=== PATIENT | female | born 1940 | race Caucasian/White ===

== ENCOUNTER 2023-04-16 10:11 | Emergency (ER) | payer MEDICARE, SELFPAY ==
[2023-04-16 10:24] VITALS: BP 162/99; PULSE 80; RESP 18; TEMP 36.2; O2SAT 99
--- NOTE | 2023-04-16 10:42 | ED.URI ---
HPI - URI/Sore Throat General Chief Complaint: Upper Respiratory Infection Stated Complaint: Congestion,Sore Throat,Bilateral Ear Irritation Time Seen by Provider: 04/16/23 10:31 Source: patient and RN notes reviewed Mode of arrival: ambulatory Limitations: no limitations History of Present Illness HPI Narrative: Presents today complaining of bilateral ear pain, postnasal drip, rhinorrhea, cough due to drainage, and scratchy throat x1 month. The ear pain and pressure has worsened over the last couple of days. Does fever shortness of breath. Patient has been taking Benadryl and Mucinex without much relief. Related Data Home Medications Medication Instructions Recorded Confirmed alendronate 70 mg tablet 70 mg PO DAILY 04/16/23 04/16/23 atorvastatin 20 mg tablet 20 mg PO DAILY 04/16/23 04/16/23 carvedilol 25 mg tablet 25 mg PO DAILY 04/16/23 04/16/23 clorazepate dipotassium 3.75 mg 3.75 mg PO TID 04/16/23 04/16/23 tablet diphenhydramine HCl 25 mg capsule 25 mg PO DAILY 04/16/23 04/16/23 (Benadryl) donepezil 10 mg tablet 10 mg PO DAILY 04/16/23 04/16/23 famotidine 20 mg tablet 20 mg PO TID 04/16/23 04/16/23 furosemide 40 mg tablet 40 mg PO DAILY 04/16/23 04/16/23 gabapentin 600 mg tablet 1,200 mg PO TID 04/16/23 04/16/23 insulin glargine U-300 conc 300 40 unit subcut DAILY 04/16/23 04/16/23 unit/mL (1.5 mL) subcutaneous pen (Niyah Joe U-300 Insulin) lisinopril 20 mg tablet 20 mg PO DAILY 04/16/23 04/16/23 magnesium oxide 400 mg PO BID 04/16/23 04/16/23 metformin 500 mg tablet 500 mg PO BID 04/16/23 04/16/23 methenamine hippurate 1 gram 1 g PO DAILY 04/16/23 04/16/23 tablet (Hiprex) pen needle, diabetic 31 gauge x 04/16/23 04/16/2316 (BD Ultra-Fine Short Pen Needle) potassium chloride 10 mEq 10 meq PO BID 04/16/23 04/16/23 tablet,extended release quetiapine 25 mg tablet 25 mg PO HS 04/16/23 04/16/23 sertraline 100 mg tablet 200 mg PO DAILY 04/16/23 04/16/23 solifenacin 10 mg tablet 10 mg PO DAILY 04/16/23 04/16/23 venlafaxine 150 mg 300 mg PO DAILY 04/16/23 04/16/23 capsule,extended release 24 hr zolpidem 10 mg tablet 10 mg PO HS 04/16/23 04/16/23 Allergies Allergy/AdvReac Type Severity Reaction Status Date / Time adrenal cortex (porcine) Allergy Unknown Other Verified 04/16/23 10:13 cefdinir AdvReac Mild Itching Verified 04/16/23 10:44 cephalexin AdvReac Mild Hives Verified 04/16/23 10:13 nitrofurantoin AdvReac Mild Hives Verified 04/16/23 10:44 CEPHALEXIN MONOHYDRATE AdvReac Mild hives Uncoded 04/16/23 10:13 Review of Systems Review of Systems: CONSTITUTIONAL: Denies body aches, fever, chills, or sweats. EYES: Denies visual changes, redness, or discharge. ENT: Denies congestion. + bilateral ear pain and pressure, postnasal drip, scratchy throat, rhinorrhea CARDIOVASCULAR: Denies chest pain, palpitations, or edema. RESPIRATORY: Denies dyspnea.+ cough GASTROINTESTINAL: Denies abdominal pain, nausea, vomiting, or diarrhea. GENITOURINARY: Denies dysuria or hematuria. SKIN: Denies rash, itching, or wounds. MUSCULOSKELETAL: Denies back pain, joint pain, or myalgia. NEUROLOGIC: Denies headache, numbness, tingling, or weakness. PSYCH: Denies depression or anxiety. [facility] Past Medical History Medical History (Updated 04/16/23 @ 10:47 by Kaylene Alvarado, YVONNE, BC) Anxiety and depression Essential hypertension Fibromyalgia Insomnia Palpitations Peripheral edema Type 2 diabetes mellitus without complication Social History Social History Smoking status: Never smoker Alcohol intake: never Comments At time of signature, I have reviewed and agree with nursing past medical, surgical, social and family history unless otherwise noted. Please see nursing chart for further information. There is no relevant family history pertinent to the presenting complaint Exam Narrative: GENERAL: Well-appearing, well-nourished,
== END 2023-04-16 10:48 | disposition home or self-care (01) ==
PROVIDERS: Emergency Provider Nurse Practitioner; PCP Physician Assistant Medical
DX: J01.90 Acute sinusitis, unspecified (principal); I10 Essential (primary) hypertension; M79.7 Fibromyalgia; E11.9 Type 2 diabetes mellitus without complications; Z79.4 Long term (current) use of insulin; F41.9 Anxiety disorder, unspecified; F32.A Depression, unspecified
CPT/HCPCS: 99213; G0463

== ENCOUNTER 2024-06-09 09:00 | Outpatient (RCR) | payer MEDICARE, MEDICAID, SELFPAY ==
--- NOTE | 2024-05-05 10:34 | PTOPEVAL1 ---
Assessment and note entered by Tania Jean, PT Evaluation Information Assessment Status Evaluation Diagnosis M25.561 ICD-10 Condition Codes (PT) Pain in right hip M25.551,M25.561,M25.571,Repeated falls R29.6,Difficulty Walking R26.2,R26.9, Weakness R53.1 Onset approx December 2023 Subjective Information Pt reports h/o fall last 12/2023 which resulted to knee fracture, 2 weeks after the fall, she could not get up and walk due to excruciating pain prompting her to get an MD appointment. Has been using 4ww for 2 years now, states she wasn't using the walker at that time that she had the fall due to she was at the kitchen, preferred to furniture walk due to limited space. States her ankle turned and she was not able to feel or control it due to h/o neuropathy. Reports had multiple falls in the past and she always seem to land on her R knee. Lives in [facility], only ambulates short distances. She has chronic BLE swelling and she has a helper that comes everyday for housekeeping and meals, they would help her putting compression stockings on. Reported Pain Level Pain Score 5: Self Report Assessment PT Clinical Summary Pt is an 83 yo female who presents to therapy with c/o increasing R knee pain. Demos significant reduction in ROM and strength, noted swelling and erythema to bilat lower legs and ankles, edema evident from R thigh down to R ankle; scored 9 in LEFS and demos antalgic gait pattern and other gait deviations using a 4WW, decreased standing and ambulation tolerance. She will benefit from skilled PT intervention to address pain, improve strength and mobility to improve indep standing and ambulation with appropriate AD and reduce risk for falls. Plan of Care Interventions Electrical Stimulation,Gait Training,Hot Pack/Cold Pack,Intermittent Compression,Manual Therapy, Neuro Re-education,Patient/Caregiver Education, Therapeutic Activities,Therapeutic Exercise, Ultrasound,Other Other Interventions IASTM, Taping PT Services Indicated Yes Treatment Frequency and 1-2x/wk x 8 visits Duration These treatments will address the objective and functional deficits as defined above. The patient will be advanced safely and appropriately in order for the patient to progress towards his/her prior level of function. Additional exercises will be introduced and as well as a comprehensive home exercise program upon discharge, if needed, ?to ensure carryover of functional gains achieved in the clinic. This treatment plan has been reviewed and agreement upon by the patient.
--- NOTE | 2024-05-24 09:40 | PCPTNOTE ---
Patient called & cancelled scheduled appointment this date due to illness today
--- NOTE | 2024-06-02 09:53 | PTOPPROG ---
Assessment and note entered by Rani Driver, PT Evaluation Information Assessment Status Progress Diagnosis M25.561 ICD-10 Condition Codes (PT) Pain in right hip M25.551,M25.561,M25.571,Repeated falls R29.6,Difficulty Walking R26.2,R26.9, Weakness R53.1 Onset approx December 2023 Subjective Information Pt had Ortho appt two days ago and had fluid drained off and got a steroid shot which she states is helping. Pt reports notes soreness both legs having muscle soreness as she does her exercises on both legs. States knees are about the same, is able to walk a little longer than usual, but reports getting up and down from chairs is the same Improvement toward goals: 10% Assessment PT Clinical Summary Pt has attended 6/8 scheduled therapy sessions. She continues to report high levels of pain with minimal change in presentation. She does show improvement in gait distance, strength, and range of motion. She has progressed in all goals and has met multiple short term goals. Pt will benefit from continued therapy to continue towards goal and continue improvement in function. Plan of Care Interventions Electrical Stimulation,Gait Training,Hot Pack/Cold Pack,Intermittent Compression,Manual Therapy, Neuro Re-education,Patient/Caregiver Educati, Therapeutic Activities,Therapeutic Exercise, Ultrasound,Other Other Interventions IASTM, Taping PT Services Indicated Yes Treatment Frequency and 1-2x weekly x 8 visits Duration These treatments will address the objective and functional deficits as defined above. The patient will be advanced safely and appropriately in order for the patient to progress towards his/her prior level of function. Additional exercises will be introduced and as well as a comprehensive home exercise program upon discharge, if needed, ?to ensure carryover of functional gains achieved in the clinic. This treatment plan has been reviewed and agreement upon by the patient.
--- NOTE | 2024-06-14 09:25 | PCPTNOTE ---
Patient called & cancelled scheduled appointment this date due to her helper not arriving a her home to bring her to therapy.
--- NOTE | 2024-06-25 13:46 | PCPTNOTE ---
Rehab called patient when she was 10 minutes late for appt. Pt states her caregiver has not been coming to drive her to her appts, and cancelled her remaining appts till July of 2024
--- NOTE | 2024-07-09 13:15 | PCPTNOTE ---
Patient called & cancelled scheduled appointment this date due to illness
--- NOTE | 2024-07-14 10:45 | PCPTNOTE ---
Patient called & cancelled scheduled appointment 07/12/2024 due to weather
--- NOTE | 2024-07-20 15:23 | PTOPDC ---
Assessment and note entered by Rani Driver, PT Evaluation Information Assessment Status Discharge - Pt Not Present Diagnosis M25.561 ICD-10 Condition Codes (PT) Pain in right hip M25.551,Pain in right knee M25. 561,Pain in right ankle and joints of right foot M25.571,Repeated falls R29.6,Difficulty Walking R26.2,Abnormalities of gait and mobility R26.9, Weakness R53.1 Onset approx December 2023 Subjective Information Pt had Ortho appt two days ago and had fluid drained off and got a steroid shot which she states is helping. Pt reports notes soreness both legs having muscle soreness as she does her exercises on both legs. States knees are about the same, is able to walk a little longer than usual, but reports getting up and down from chairs is the same Improvement toward goals: 10% Assessment PT Clinical Summary Pt as not attended therapy in over 30 days. Upon last communication pt stated she was going to be seeing her ortho doctor about her knee so she wanted to hold off on therapy until after this point. Thus we are discharging based on patient request and due to nonattendance. Plan of Care PT Services Indicated No
== END 2024-07-27 13:12 | disposition home or self-care (01) ==
LOC: ANHHIPT 09:00
PROVIDERS: PCP Physician Assistant Medical; Visit Provider Physician Assistant Medical
DX: M25.561 Pain in right knee (principal)
CPT/HCPCS: 97014; 97110; 97116; 97161; 97530; 97750; G0283

== ENCOUNTER 2024-08-31 07:46 | Outpatient (CLI) | payer MEDICARE, MEDICAID, SELFPAY ==
--- NOTE | ~2024-08-31 | MR_ITS ---
EXAMINATION: MR cervical spine wo/w con DATE: 08/31/2024 10:05 INDICATION: Other symptoms and signs involving the muscular skeletal system. Right lower limb pain. TECHNIQUE: Magnetic resonance imaging (MRI) of the cervical spine was performed without and with 17 m L Multihance intravenous contrast. Sequences included axial PD-weighted FSE-XL, sagittal T1-weighted SE, sagittal PD-weighted FS FRFSE-XL, axial T1-weighted SE, coronal PD-weighted FS FSE-XL, coronal T1 -weighted SE, axial T1-weighted FS SE. Postcontrast sequences included axial T1-weighted FS SE, sagit mary T1-wegihted FS SE, and sagittal STIR FSE-XL. COMPARISON: None FINDINGS: Bone alignment is normal. Vertebral body heights are normal. Bone marrow signal intensity is normal . Severe disc height loss at C5-C6. Moderate disc height loss at C3-C4, C4-C5 and C6-C7 and mild disc height loss at C2-C3 and C7-T1. Cord signal intensity is normal. Cervical soft tissues are unremarka ble. No abnormally enhancing lesions identified. The following disc levels are specifically discussed : C2-C3: The disc does not extend beyond the endplate margin. There is no uncovertebral joint osteoarth ritis. There is mild left and moderate right facet joint osteoarthritis. There is mild left neural fo raminal stenosis. There is no central canal stenosis. C3-C4: Disc is bulging. There is mild right and moderate left uncovertebral joint osteoarthritis. The re is mild right and moderate left facet joint osteoarthritis. There is moderate right and moderate l eft neural foraminal stenosis. There is mild central canal stenosis. C4-C5: Disc is bulging. There is mild right and moderate left uncovertebral joint osteoarthritis. The re is mild right and moderate left facet joint osteoarthritis. There is moderate right and moderate l eft neural foraminal stenosis. There is mild central canal stenosis. C5-C6: Disc is bulging with mild indentation of the right ventral surface of the cord. There is sever e bilateral uncovertebral joint osteoarthritis. There is moderate bilateral facet joint osteoarthriti s. There is moderate bilateral neural foraminal stenosis. There is mild central canal stenosis. C6-C7: Disc is bulging. There is moderate right and severe left uncovertebral joint osteoarthritis. T here is moderate right and mild left facet joint osteoarthritis. There is mild right and moderate lef t neural foraminal stenosis. There is mild central canal stenosis. C7-T1: The disc does not extend beyond the endplate margin. There is mild bilateral uncovertebral aylin nt osteoarthritis. There is moderate right and severe left facet joint osteoarthritis. There is minim al left neural foraminal stenosis. There is no central canal stenosis. IMPRESSION: 1. Severe cervical spondylosis. Reviewed, dictated and finalized at location B. AGING ASSEMBLER
--- NOTE | ~2024-08-31 | MR_ITS ---
EXAMINATION: MR thoracic spine wo/w con DATE: 08/31/2024 10:05 INDICATION: Anesthesia of skin. TECHNIQUE: Magnetic resonance imaging (MRI) of the thoracic spine was performed without and with 17 m L Multihance intravenous contrast. Sagittal localizer T1-weighted FSE of the cervicothoracic spine wa s obtained. Sequences included sagittal T2-weighted FSE, sagittal T2-weighted FS FSE, sagittal T1-fern ghted FSE and axial T1-weighted SE. Postcontrast sequences included axial T2-weighted FSE, sagittal T 1-weighted FS FSE, and axial T1-weighted FS SE. COMPARISON: None FINDINGS: Normal alignment of the thoracic spine. There is 3 mm right lateral listhesis of L1 on L2. 4 mm anter olisthesis L3 on L4. Chronic T7 compression fracture with10% anterior vertebral body height loss. Rem aining vertebral body heights are normal. Schmorl's node along the inferior endplate of L2. There ar e severe disc height loss with fibrovascular degenerative endplate changes [id number], L1-L2 and L2-L3 and with T1 hyperintense fibrofatty degenerative endplate changes at L3-L4. Marrow signal is otherwi se normal throughout. Additional severe disc height loss at T6-T7 and T8-T9, moderate disc height los s at T3-T4, T4-T5 and T9-T10 and mild disc height loss the remaining thoracic levels. The discs extend beyond the endplate margins at multiple levels in the thoracic levels with the excep tion of T5-T6 and T9-T10. The most prominent are seen with associated annular fissure is and result i n mild central canal stenosis. These include disc bulge at T8-T9, a left paracentral disc extrusion a t T10-T11 and a central disc extrusion at T12-L1. Additional annular fissures with prominent disc ext rusions are seen on the sagittal images at L1-L2 and L2-L3 with mild central canal stenosis and at L3 -L4 with moderate central canal stenosis. There is normal spinal cord signal. The conus terminates at L1. No abnormally enhancing lesions identified. There is multilevel mild to moderate bilateral thoracic facet osteoarthritis. There is severe left-si ded and moderate right-sided neural foraminal stenosis at T10-T11. There is mild neural from stenosis throughout the majority the remainder of the thoracic spine. On sagittal images there is moderate to severe neural from stenosis on the right at L3-L4 and moderate neural foraminal stenosis on the left at L1-L2 and mild neural from stenosis at the remaining visualized lumbar neural foramina. IMPRESSION: 1. Moderate to severe thoracic spondylosis. 2. Severe lumbar spondylosis seen on the sagittal imaging. Reviewed, dictated and finalized at location B. OTIC FITTER
--- OUTSIDE RECORDS SUMMARY | 2024-08-31 07:49 | XMS_ITS ---
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 Name Role Phone zzzzMigration, zzzzProvider Unavailable Unav ailable REASON FOR VISIT [facility] Encounters Encounter Location Date Provider Diagnosis [facility] [address] [place] [address] 04/26/2023 zzzzProvider zzzzMigration Plan Of Treatment No Information Progress Notes * Carissa CAMPOSOB:[birth year] (83 yo F)Acc No.[id number]:04/26/2023 Patient: Roxana CULVER :1940 A ge:82 Y S ex:Female Address[address] [facility] [address] Subjective: * Chief Complaints: * E MR-Yao * Medical History: * Surgical History: * Hospitalization/Major Diagno stic Procedure: * Medications: Objective: * Vitals: * Physical Examination: Assessment: Plan: * Treatment: * Procedure Codes: * * Date:
--- OUTSIDE RECORDS SUMMARY | 2024-08-31 07:50 | XMS_ITS | Clinical Summary ---
Author Organization [facility] [address] Address [address] [place] [address] Care Team Providers Care Director Technical Name Role Phone Jodie Steiner Primary Care Provider [phone] UngRandy muse MD Unavailable [phone] Allergies Active Allergy Reactions Criticality Noted Date Comments Adrenal Cortex (Bovine) Rash Medium 12/31/2013 Cefdinir Itching Low 05/08/2018 Cephalexin Unknown 05/15/2012 Nitrofurantoin Hives,Itching,Rash Medium 05/15/2020 welts Medications atorvastatin (LIPITOR) 20 mg tablet TAKE ONE T PO D AT BEDTIME 2 04/05/20 18 Active magnesium oxide (MAG-OX) 400 mg (241.3 mg elemental magnesium) tabletIndicati ons:hypomagnes emia TK 1 T PO BID 0 04/04/20 18 Active venlafaxine XR (EFFEXOR-XR) 150 mg 24 hr capsule TK 2 CS PO QAM 1 04/21/20 18 Active sertraline (ZOLOFT) 100 mg tablet TK 2 TS PO QAM 1 04/14/20 18 Active metFORMIN (GLUCOPHAGE) 500 mg tablet Take 1 tablet (500 mg total) by mouth 2 (two) times a day 1 01/29/20 18 Active zolpidem (AMBIEN) 10 mg tabletIndicati ons:Sleep-Onse t Insomnia Take 1 tablet (10 mg total) by mouth nightly 1 04/15/20 18 Active clorazepate (TRANXENE) 3.75 mg tablet Take 1 tablet (3.75 mg total) by mouth 4 (four) times a day 0 03/31/20 18 Active cholecalcifero l (VITAMIN D-3) 25 mcg (1,000 unit) tablet TAKE 1 CAPSULE DAILY Active ascorbic acid (VITAMIN C) 500 mg tablet,chewabl e TAKE 1 TABLET DAILY Active gabapentin (NEURONTIN) 600 mg tablet Take by mouth 3 (three) times a day 6 04/20/20 18 Active NYSTOP powder as needed 0 04/04/20 18 Active b complex vitamins capsule Take 2 capsules by mouth daily Active LANTUS SOLOSTAR U-100 INSULIN 100 unit/mL (3 mL) insulin pen Inject 25 Units as directed 2 (two) times a day 2 03/03/20 19 Active QUEtiapine (SEROquel) 25 mg tablet Take 2 tablets (50 mg total) by mouth nightly 08/20/19 21 Active ZINC ORAL Take by mouth Active cyanocobalamin (Vitamin B-12) 1,000 mcg tablet Take 1 tablet (1,000 mcg total) by mouth daily Active famotidine (PEPCID) 20 mg tablet Take 1 tablet (20 mg total) by mouth 3 (three) times a day as needed Active flaxseed oiL 1,000 mg capsule Take 1 capsule (1,000 mg total) by mouth daily Active methenamine (HIPREX) 1 gram tablet Take 2 tablets (2 g total) by mouth daily 07/02/20 21 Active solifenacin (VESIcare) 10 mg tablet Take 1 tablet (10 mg total) by mouth daily 08/10/19 22 Active alendronate (FOSAMAX) 70 mg tablet Take 1 tablet (70 mg total) by mouth once a week 02/02/20 22 Active donepeziL (ARICEPT) 5 mg tablet Take 2 tablets (10 mg total) by mouth every morning 08/27/19 23 Active diphenhydramin e HCl (BENADRYL ORAL) Take by mouth Active biotin 1 mg tablet Take 1 tablet (1,000 mcg total) by mouth 3 (three) times a day Active CALCIUM ORAL Take 600 mg by mouth early head start teacher before breakfast Active guaiFENesin ER (MUCINEX) 600 mg 12 hr tablet Take 2 tablets (1,200 mg total) by mouth as needed for cough Active lisinopriL (PRINIVIL,ZEST RIL) 20 mg tablet TAKE 1 TABLET DAILY 90 tablet 3 09/15/19 24 Active Gemtesa 75 mg tablet Take 75 mg by mouth daily 07/25/19 24 Active cycloSPORINE (RESTASIS) 0.05 % ophthalmic emulsion 1 drop 2 (two) times a day 08/27/19 24 Active clotrimazole-b etamethasone (LOTRISONE) cream as needed 08/21/19 24 Active psyllium 0.4 gram capsule Take 520 mg by mouth 2 (two) times a day Active BD Ultra-Fine Short Pen Needle 31 gauge x 5/16 needle 07/28/19 24 Active carvediloL (COREG) 25 mg tablet TAKE 1 TABLET TWICE A DAY WITH MEALS 180 tablet 3 01/06/20 24 Active mecobalamin, vitamin B12, 1,000 mcg tablet,chewabl e Take 1,000 mg by mouth early head start teacher before breakfast Active multivitamin tabletIndicati ons:Vitamin Deficiency Prevention Take 1 tablet by mouth daily Active nortriptyline (PAMELOR) 10 mg capsule Take 1 capsule (10 mg total) by mouth nightly Active semaglutide (Ozempic) 1 mg/dose (4 mg/3 mL) pen injector injection Inject 1 mg under the skin once a week Active hydroCHLOROthi azide (MICROZIDE) 12.5 mg capsule Take 1 capsule (12.5 mg total) by mouth daily 90 capsule 3 07/05/20 24 Active aspirin 325 mg tablet TAKE 1 TABLET DAILY 019 Discontinued Active Problems Problem Noted Date Diagnosed Date Otalgia of both ears 05/27/2023 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 Discussed that weight loss will require calorie deficit. Calculated basal metabolic rate and estimated total energy expenditure; discussed 500-1000 kcal/day deficit to lose 1-2 lb per week. Asked to keep detailed food diary for at least 1 week and bring to next visit. Discussed relatively small, although significant, role of exercise in weight loss; greater importance in weight maintenance as shown in Look Ahead study and National Weight Control Registry. Discussed recommendation/goal for 150 minutes per week moderate-intensity aerobic exercise. (HFpEF) heart failure with p reserved ejection fraction ([facility]) 04/18/2018 Sleep apnea 07/07/2017 Assessment & Plan (03/12/2021 6:08 PM CDT): Discussed comorbidities associated with sleep apnea, including effects on weight, and stressed importance of adequate treatment if present. Hyperlipidemia 03/28/2014 Assessment & Plan (03/12/2021 6:12 PM CDT): Discussed role of diet, exercise and weight loss in improving lipid profile. Type 2 diabetes mellitus wit h kidney complication, with long-term current use of insulin 07/07/2012 Assessment & Plan (03/12/2021 6:14 PM CDT): Reviewed recent labs. Discussed insulin resistance including effect on weight. Recommended low-carb, low-glycemic diet; choose whole grains and avoid more highly processed carbohydrates. Discussed potential benefits of this w/r/t gut microbiome. Referred to ADA and [employer] websites for additional information on topics including glycemic index/carbohydrate choices, protein sources. Discussed potential for weight gain with insulin and discussed possible use of GLP-1 RA. Consider empaglifozin in setting of HFpEF. Class 2 severe obesity due t o excess calories with serious comorbidity and body mass index (BMI) of 38.0 to 38.9 in adult 07/07/2012 Assessment & Plan (03/12/2021 6:16 PM CDT): Obesity is worsening. General weight loss/lifestyle modification strategies discussed (elicit support from others; identify saboteurs; non-food rewards, etc). Diet interventions: as noted. Informal exercise measures discussed, e.g. taking stairs instead of elevator. Regular aerobic exercise program discussed. Essential hypertension 05/15/2012 Assessment & Plan (03/12/2021 6:15 PM CDT): Reviewed role of diet, exercise, weight loss in controlling blood pressure. Recommended low sodium/DASH diet. Continue current medications. Appropriately on TERESITA-I/ARB. Encounters Date Type Department Care Team Description 08/16/2024 Telephone [facility] Cardiology [address] [place] [address] [place] [address] Anival Donis MD 07/22/2024 Telephone [facility] Cardiology [address] [place] [address] [place] [address] Anival Donis MD knee surgery from Last 3 Months Surgical History Surgery Date Site/Laterality Comments APPENDECTOMY 07/07/1985 - 07/06/1986 CATARACT EXTRACTION 2008,2009 FRACTURE SURGERY elbow broke 2018 CHOLECYSTECTOMY 07/07/1998 - 07/06/1999 HYSTERECTOMY 07/07/1985 - 07/06/1986 BLADDER SURGERY 1985 bladder lift RETINA SURGERY Medical History Medical History Date Comments GERD (gastroesophageal reflux disease) 2000 Anxiety 1989 Cataract 2008,2009 Depression 1998 Diabetes mellitus (HCC) 2012 Hypertension 1989 Sleep apnea 2017 Menstrual problem hysterectomy 1985 Nasal congestion Ear problems Tinnitus Dizziness Family History Medical History Relation Name Comments Heart attack Brother 1 Ignacio Family history of myocardial infarction - (Added by TW Conv) Depression Brother 2 Giovani Diabetes Brother 3 Giovani E Depression Daughter Ashley Diabetes Father Kimberli Stroke Father Panaca Family history of cerebrovascular accident - (Added by TW Conv) Vision loss Maternal Grandmother Mary Lou Miscarriages / Stillbirths Mother Mindi Depression Sister 1 Natali Diabetes Sister 2 Natali B Miscarriages / Stillbirths Sister 3 Natali Br Obesity Sister 4 Natali Ness Relation Name Status Comments Brother 1 Ignacio Brother 2 Giovani Brother 3 Giovani E Daughter Ashley Father Kimberli Maternal Grandmother Mary Lou Mother Mindi Sister 1 Natali Sister 2 Natali B Sister 3 Natali Br Sister 4 Natali Ness Social History Tobacco Use Types Packs/Day Years Used Date Smoking Tobacco: Never Smokeless Tobacco: Never Tobacco Cessation:Counseling Given: Not Answered AUDIT-C Answer Date Recorded Frequency of Alcohol Consumption Not on file 05/27/2023 Q2: How many drinks containi ng alcohol do you have on a typical day when you are drinking? Patient does not drink Q3: How often do you have si x or more drinks on one occasion? Never 05/27/2023 Comments Unknown Sex and Gender Information Value Date Recorded Sex Assigned at Not on file Legal Sex Female 7:28 AM [employer] RETINAL [employer] Gender Identity Not on file Sexual Orientation Not on file Obstetrics History Last Filed Vital Signs Vital Sign Reading Time Taken Comments Blood Pressure 140/70 09/15/2023 1:32 PM CDT Pulse 66 09/15/2023 1:32 PM CDT Temperature 36.6 C (97.8 F) 09/15/2023 1:32 PM CDT Respiratory Rate 12 09/15/2023 1:32 PM CDT Oxygen Saturation 98% 09/15/2023 1:32 PM CDT Inhaled Oxygen Concentration - - Weight 99.1 kg (218 lb 6.4 oz) 09/15/2023 1:32 P M CDT Height 157.5 cm (5' 2 ) 09/15/2023 1:32 PM CDT Body Mass Index 39.95 09/15/2023 1:32 PM CDT Plan of Treatment Health Maintenance Due Date Last Done Comments Albumin Creatinine Ratio, Urine 1940 Depression Screening 1941 Fall Risk Assessment 1940 Hemoglobin A1C 1940 Dilated Eye Exam 1941 Foot Exam 1940 Hepatitis B Screening 12/03/1959 Zoster Vaccine (1 of 2) 12/03/1991 Well Visit 65+ 2006 Lipid Panel 06/28/2021 06/28/2020 Covid-19 Vaccine ( - 2023-2 5 season) 2024 05/14/2021, 09/01/2020, 08/04/2020 Influenza Vaccine (#1) 2024 , 04/13/2020, 04/07/2019, Additional history exists DTaP/Tdap/Td Vaccine (2 - Td or Tdap) 10/08/2024 10/08/2014 eGFR 03/03/2025 03/03/2024, 02/04, 02/11/2024, Additional history exists Osteoporosis Screening-Bone Density Scan 12/29/2025 12/30/2023, 07/26/2021 Pneumococcal vaccine 65+ Completed 03/06/2020, 04/07 Procedures Procedure Name Priority Date/Time Associated Diagnosis Comments BASIC METABOLIC PANEL Routine 03/03/2024 10:09 AM CDT Essential hypertension from Last 3 Months or Most Recently Relevant to Health Maintenance Results * (ABNORMAL) Basic metabolic panel (03/03/2024 10:09 AM CDT) Glucose 106 65 - 139 mg/dL [facility] Comment: Non-fasting reference interval BUN 18 7 - 25 mg/dL [facility] Creatinine 0.61 0.60 - 0.95 mg/dL [facility] eGFR 89 > OR = 60 mL/min/1.7 3m2 [facility] BUN/creat ratio SEE NOTE: 6 - 22 (calc) [facility] Comment: Not Reported: BUN and Creatinine are within reference range. Sodium 134(L) 135 - 146 mmol/L [facility] Potassium, pl 3.8 3.5 - 5.3 mmol/L [facility] Chloride 96(L) 98 - 110 mmol/L [facility] CO2 30 20 - 32 mmol/L [facility] Calcium 9.7 8.6 - 10.4 mg/dL [facility] Blood 03/03/2024 10:0 9 AM CDT 03/03/2024 10:10 AM CDT Narrative [facility] - 03/04/2024 10:22 AM CDT FASTING:NO FASTING: NO Anival Donis MD LAB BLOOD ORDERABLES F inal Result [facility] [address] [place] [address] from Last 3 Months or Most Recently Relevant to Health Maintenance Insurance MEDICARE [facility] MEDICARE [facility] MEDICARE [facility] Care Teams Director Technical Relationship Specialty Start Date End Date Jodie Steiner PA [address] [place] [id number] PCP - General Physician Land Lease Information Clerk 08/29/23 Randy May MD [address] [place] [address] Referring Physician Orthopedic Surgery 03/15/24
--- OUTSIDE RECORDS SUMMARY | 2024-08-31 07:50 | XMS_ITS | Patient Health Summary ---
Author Organization [facility] Address [address] [place] [address] Care Team Providers Care Key Bed Installer Name Role Phone Jodie Steiner PA-C Primary Care Provider [phone] Note from [facility],non-owned Affiliates and Associated Physician Practices is amultiple site organization consisting of ambulatory clinics and hospital sitesin [place], [place], [place] and [place]. This disclosure is being madepursuant to the Care Everywhere program and may not contain all information available regarding this patient. Last updated 18.[facility] Allergies * Adrenal Cortex Extract(Rash) -Medium Criticality * Cefdinir(Itching) -Low Criticality * Cephalexin(Rash) -Medium Criticality * Nitrofurantoin(Rash,Itching) -Medium Criticality Medications * Be aware that medications may not be up to date on this document. Alwaysverify current medications with the patient. * sertraline (ZOLOFT) 100 MG tablet Take 200 mg by mouth once daily * zolpidem (AMBIEN) 10 MG tablet Take 10 mg by mouth nightly as needed for Insomnia * terconazole (TERAZOL 7) 0.4 % vaginal cream Insert 1 applicator into the vagina at bedtime * raNITIdine (ZANTAC) 150 MG tablet Take 150 mg by mouth 2 times daily * clorazepate (TRANXENE) 3.75 MG tablet Take 3.75 mg by mouth 2 times daily * furosemide (LASIX) 40 MG tablet Take 40 mg by mouth once daily * lisinopril (PRINIVIL; ZESTRIL) 20 MG tablet Take 20 mg by mouth once daily * carvedilol (COREG) 25 MG tablet Take 25 mg by mouth 2 times daily with morning and evening meal * atorvastatin (LIPITOR) 20 MG tablet Take 20 mg by mouth at bedtime * fexofenadine (Magy) 180 MG tablet Take 180 mg by mouth once daily * potassium chloride (KLOR-CON) 10 MEQ tablet Take 10 mEq by mouth once daily * gabapentin (NEURONTIN) 300 MG capsule(Started 08/18/2018) Take 1,200 mg by mouth 3 times daily * MAGNESIUM-OXIDE 400 (241.3 MG) MG tablet(Started 07/22/2018) Take 400 mg by mouth 2 times daily 2 refills left * venlafaxine XR 24hr (EFFEXOR XR) 150 MG capsule(Started 07/22/2018) Take 150 mg by mouth 2 times daily 1 refill left * carisoprodol (SOMA) 350 MG tablet Take 350 mg by mouth 3 times daily 8 to 12 hours as needed * Cranberry 500 MG TABS Take 1 tablet by mouth once daily * Pseudoephedrine-guaiFENesin (GUAIFENESIN 600/PSE 120 PO) Take 1 tablet by mouth 2 times daily as needed * insulin glargine (LANTUS) vial Inject 25 Units subcutaneously 2 times daily * nystatin (Mycostatin) 748401 UNIT/GM powder Apply to affected area 2 times daily as needed * VITAMIN B COMPLEX-C PO Take by mouth once daily * Cyanocobalamin 1000 MCG Take 1 tablet by mouth as directed * Ascorbic Acid (VITAMIN C) 500 MG Take 1 tablet by mouth once daily * vitamin D3 (CHOLECALCIFEROL) 1000 UNIT capsule Take 1,000 Units by mouth once daily * metFORMIN (GLUCOPHAGE) 500 MG tablet(Started 07/28/2019) Take 500 mg by mouth 2 times daily with morning and evening meal * triamcinolone acetonide (KENALOG) 0.1 % ointment(Started 02/14/2020) Apply to affected area 2 times daily * Sodium Chloride (0.9% NACL IV) 0.9 % infusion(Started 09/25/2020) Please give three 100 ml bags. * estrogens, conjugated, (PREMARIN) 0.625 MG/GM vaginal cream(Started 12/25/2020) Insert 1 g into the vagina Two times a week 2 refills by 12/25/2021 * gentamicin (GARAMYCIN) injection(Started 12/26/2020) To be brought to the office for intravesical instillations * Estradiol(Started 01/05/2021) Please compound estradiol 0.15 mg / g vaginal cream in a versa base . Pt to use 1 gram vaginally 2 x week. 2 refills by 01/05/2022 * amoxicillin-clavulanate (AUGMENTIN) 875-125 MG tablet(Started 01/19/2021) Take 1 (one) tablet by mouth 2 times daily with morning and evening meal * ciprofloxacin (CIPRO) 250 MG tablet(Started 07/27/2021) Take 1 (one) tablet by mouth 2 times daily * alendronate (Fosamax) 70 MG tablet(Started 02/01/2022) TAKE 1 TABLET BY MOUTH ONCE A WEEK * Cyanocobalamin 1000 MCG Take 1,000 mcg by mouth once daily * famotidine (Pepcid) 20 MG tablet Take 20 mg by mouth 3 times daily as needed * Flaxseed, Linseed, (Flax Seed Oil) 1000 MG Take 1 capsule by mouth once daily * gabapentin (Neurontin) 600 MG tablet(Started 11/23/2021) * True Metrix Blood Glucose Test test strip(Started 09/06/2021) USE 1 STRIP TO CHECK GLUCOSE ONCE DAILY DIRECTED * lisinopril (Prinivil; Zestril) 20 MG tablet(Started 07/02/2021) Take 1 tablet by mouth once daily * nystatin (Mycostatin) 093558 UNIT/GM powder(Started 12/10/2021) Apply to affected area 2 times daily * Probiotic Product (Acidophilus/Goat Milk) CAPS Take 1 capsule by mouth once daily * QUEtiapine (SEROquel) 25 MG tablet(Started 01/22/2022) * solifenacin (Vesicare) 10 MG tablet(Started 06/19/2023) Take 1 tablet by mouth once daily * methenamine hippurate (Hiprex) 1 GM tablet(Started 07/05/2024) TAKE 1 TABLET TWICE A DAY (WILL NEED AN APPOINTMENT FOR FUTURE REFILLS) * vibegron (Gemtesa) 75 MG tablet(Started 08/19/2024) TAKE 1 TABLET ONCE DAILY (WILL NEED AN APPOINTMENT FOR FUTURE REFILLS) Ended Medications* vibegron (Gemtesa) 75 MG tablet(Started 04/16/2024) (Discontinued) Take 1 (one) tablet by mouth once daily PATIENT WILL NEED AN APPOINTMENT FOR FUTURE REFILLS Active Problems Problem Noted Date Diagnosed Date Acute cystitis without hematuria 12/13/2017 Frequent UTI 12/13/2017 Mixed incontinence 12/13/2017 Bladder pain 12/13/2017 Immunizations * Covid Moderna primary monovalent 12+ yr 0.5mL(Given 09/01/2020, 08/04/2020) * INFLUENZA VACCINE(Given 04/13/2020, 04/07/2019, 04/29/2018, 04/09/2017, 05/05/2014, 04/30/2013, 05/13/2012) * PNEUMOCOCCAL PPSV23(Given 03/06/2020) * Pneumococcal Pcv13 Conj(Given 04/29/2018) * TDAP (7yrs+)(Given 10/08/2014) Social History Tobacco Use Types Packs/Day Years Used Date Smoking Tobacco: Passive Smo ke Exposure - Never Smoker Cigarettes Smokeless Tobacco: Never Alcohol Use Standard Drinks/Week Comments No 0 (1 standard drink = 0.6 oz pur e alcohol) AUDIT-C Answer Date Recorded Frequency of Alcohol Consumption Never 08/30/2019 Average Number of Drinks Not on file 020 Frequency of Binge Drinking Never 08/08 Sex and Gender Information Value Date Recorded Sex Assigned at Not on file Gender Identity Not on file Sexual Orientation Not on file Last Filed Vital Signs Vital Sign Reading Time Taken Comments Blood Pressure 137/73 07/14/2023 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 Pulse 73 04/17/2020 1:20 PM CDT Temperature 36.3 C (97.4 F) 02/25/2022 10:32 AM CDT Respiratory Rate - - Oxygen Saturation 95% 04/17/2020 1:20 PM CDT Inhaled Oxygen Concentration - - Weight 99.8 kg (220 lb) 07/14/2023 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 Height 160 cm (5' 3 ) 07/14/2023 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 Body Mass Index 38.97 07/14/2023 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 Procedures * CULTURE URINE(Performed 12/24/2023) Performed for Acute cystitis without hematuria * CULTURE URINE(Performed 12/10/2023) Performed for Acute cystitis without hematuria * CULTURE URINE(Performed 07/23/2023) Performed for Acute cystitis without hematuria * CULTURE URINE COMPREHENSIVE(Performed 07/14/2023) Performed for Recurrent UTI * URINALYSIS AUTO - POINT OF CARE (AMB) SLU(Performed 07/14/2023) Performed for Recurrent UTI * LAB RESULTS ORDER(Performed 06/04/2023) * LAB RESULTS ORDER(Performed 12/25/2022) * LAB RESULTS ORDER(Performed 12/25/2022) * CULTURE URINE COMPREHENSIVE(Performed 02/25/2022) Performed for Frequent UTI * URINALYSIS AUTO - POINT OF CARE (AMB) SLU(Performed 02/25/2022) Performed for Frequent UTI * LAB RESULTS ORDER(Performed 07/30/2021) * LAB RESULTS ORDER(Performed 07/30/2021) * LAB RESULTS ORDER(Performed 07/30/2021) * LAB RESULTS ORDER(Performed 04/05/2021) * LAB RESULTS ORDER(Performed 04/05/2021) * LAB RESULTS ORDER(Performed 04/05/2021) * LAB RESULTS ORDER(Performed 04/05/2021) * DC IRRIGATION OF BLADDER(Performed 01/29/2021) Performed for Frequent UTI * DC CYSTOURETHROSCOPY(Performed 01/29/2021) Performed for Frequent UTI * DC IRRIGATION OF BLADDER(Performed 12/26/2020) Performed for Frequent UTI * CULTURE URINE COMPREHENSIVE(Performed 12/25/2020) Performed for Frequent UTI * URINALYSIS AUTO - POINT OF CARE (AMB) SLU(Performed 12/25/2020) Performed for Frequent UTI * LAB RESULTS ORDER(Performed 12/08/2020) * LAB RESULTS ORDER(Performed 12/06/2020) * LAB RESULTS ORDER(Performed 12/06/2020) * DC IRRIGATION OF BLADDER(Performed 11/27/2020) Performed for Frequent UTI * CULTURE URINE COMPREHENSIVE(Performed 11/27/2020) Performed for Frequent UTI * URINALYSIS AUTO - POINT OF CARE (AMB) [facility]U(Performed 11/27/2020) Performed for Frequent UTI * DC IRRIGATION OF BLADDER(Performed 10/23/2020) Performed for Frequent UTI * CULTURE URINE COMPREHENSIVE(Performed 10/23/2020) Performed for Frequent UTI * URINALYSIS AUTO - POINT OF CARE (AMB) SLU(Performed 10/23/2020) Performed for Frequent UTI * DC IRRIGATION OF BLADDER(Performed 09/07/2020) Performed for Frequent UTI * CULTURE URINE COMPREHENSIVE(Performed 09/07/2020) Performed for Frequent UTI * URINALYSIS AUTO - POINT OF CARE (AMB) [facility](Performed 09/07/2020) Performed for Frequent UTI * CULTURE URINE COMPREHENSIVE(Performed 08/14/2020) Performed for Frequent UTI * DC IRRIGATION OF BLADDER(Performed 08/14/2020) Performed for Frequent UTI * DC BIOPSY VULVA/PERINEUM,ONE LESN(Performed 08/14/2020) Performed for Vulvar lesion * URINALYSIS AUTO - POINT OF CARE (AMB) SLU(Performed 08/14/2020) Performed for Frequent UTI * DC IRRIGATION OF BLADDER(Performed 07/17/2020) Performed for Frequent UTI * CULTURE URINE COMPREHENSIVE(Performed 07/17/2020) Performed for Frequent UTI * URINALYSIS AUTO - POINT OF CARE (AMB) [facility](Performed 07/17/2020) Performed for Frequent UTI * LAB RESULTS ORDER(Performed 06/16/2020) * LAB RESULTS ORDER(Performed 06/16/2020) * DC IRRIGATION OF BLADDER(Performed 04/17/2020) Performed for Frequent UTI * DC IRRIGATION OF BLADDER(Performed 03/24/2020) Performed for Frequent UTI * DC IRRIGATION OF BLADDER(Performed 02/14/2020) Performed for Frequent UTI * CULTURE URINE COMPREHENSIVE(Performed 01/06/2020) Performed for UTI symptoms * URINALYSIS AUTO - POINT OF CARE (AMB) [facility](Performed 01/06/2020) Performed for UTI symptoms * DC CYSTOSCOPY CHEMODENERVATION(Performed 08/31/2019) Performed for Overactive bladder * URINALYSIS - POINT OF CARE (AMB) [facility](Performed 08/30/2019) Performed for Frequent UTI, Mixed incontinence * LAB RESULTS ORDER(Performed 05/10/2019) * CULTURE URINE COMPREHENSIVE(Performed 04/05/2019) Performed for Frequent UTI * URINALYSIS - POINT OF CARE (AMB) [facility](Performed 04/05/2019) Performed for Frequent UTI * URINALYSIS - POINT OF CARE (AMB) [facility](Performed 09/28/2018) Performed for Frequent UTI * DC CYSTOURETHROSCOPY(Performed 05/06/2018) Performed for Frequent UTI, Bladder pain * URINALYSIS - POINT OF CARE (AMB) [facility](Performed 12/12/2017) Performed for Acute cystitis without hematuria * CULTURE URINE COMPREHENSIVE(Performed 12/12/2017) Performed for Acute cystitis without hematuria Results * CULTURE URINE (12/24/2023 11:55 AM CDT) Only the most recent of3 resultswithin the time period is included. Culture [facility] Comment: CULTURE, URINE, ROUTINE Micro Number: [id number] Test Status: Final Specimen Source: Urine, clean catch Specimen Quality: Adequate Result: Less than 10,000 CFU/mL of single Gram positive organism isolated. No further testing will be performed. If clinically indicated, recollection using a method to minimize contamination, with prompt transfer to Urine Culture Transport Tube, is recommended. Test Performed at: [facility] [address] [place] [address] AUDRA JEAN BAPTISTE MD Urine MID-STREAM URINE SPECIMEN / Unknown 12/24/2023 11:55 AM CDT 12/24/2023 11:55 AM CDT Charbel Tripp MD LAB - MICROBIOLOGY [facility] [address] [address] * (ABNORMAL) CULTURE URINE COMPREHENSIVE (07/14/2023 11:57 AM [employer] STEEL ENGINEER) Only the most recent of11 resultswithin the time period is included. Culture (A) [facility] Comment: CULTURE, URINE, SPECIAL Micro Number: [id number] Test Status: Final Specimen Source: Urine, clean catch Specimen Quality: Adequate Result: Greater than 100,000 CFU/mL of Non-uropathogenic Gram positive organism 1,000-9,000 CFU/ML of Gram negative bacilli isolated 100-900 CFU/mL of Gram positive cocci isolated COMMENT: May represent colonizers from external and internal genitalia. No further testing (including susceptibility) will be performed. Test Performed at: [facility] [address] AUDRA JEAN BAPTISTE MD Microbiology URINE SPECIMEN OBTAINED BY CLEAN CATCH PROCEDURE / Unknown 07/14/2023 11:57 AM [employer] STEEL ENG[employer]ER 07/16/2023 3:28 AM [employer]URAL STEEL ENGINEER Charbel Tripp MD LAB - MICROBIOLOGY [facility] [address] [place] [address] * URINALYSIS AUTO - POINT OF CARE (AMB) [facility] (07/14/2023 11:55 AM [employer] STEEL ENGINEER) Only the most recent of9 resultswithin the time period is included. Glucose UA neg [facility] [address] Bilirubin UA POCT neg [facility] [address] Ketones UA POCT neg [facility] [address] Specific [place] UA 1.[address] [facility] [address] Blood Urine POCT neg [facility] [address] pH UA 6 [facility] [address] Protein UA 2+ [facility] [address] Urobilinogen UA neg [facility] [address] Nitrite UA neg [facility] [address] WBC UA 1+ [facility] [address] Urine URINE / Unknown 07/14/2023 1 1:55 AM [employer]URAL STEEL ENGINEER Charbel Tripp MD LAB - POINT OF CARE ORDERABLES Performing Organization Address [facility] Co de Phone Number [facility] [address] [place] [address], [place] [phone] * LAB RESULTS ORDER (06/04/2023) Only the most recent of16 resultswithin the time period is included. 06/04/2023 Narrative 06/04/2023 Ordered by an unspecified provider. Scanned Document LAB - THERAPEUTIC DR KARISHMA MONITORING ORDERABLES * DC IRRIGATION OF BLADDER (01/29/2021 4:50 PM CDT) Narrative Charbel Tripp MD - 01/29/2021 4:50 PM CDT Charbel Tripp MD 01/29/2021 4:51 PM Bladder antibiotic lavage/ Instillation Procedure Note: Indication: Frequent UTI's Procedure: The procedure was discussed with the patient and verbal consent was obtained. The patient was placed in a dorsal lithotomy position. Her urethra was visualized and prepped with Betadine (unless she was allergic in which case Hibiclens was used). A 16F catheter was introduced under aseptic conditions. The bladder was then instilled slowly with a solution containin mg Gentamycin [id number] 01/04/22 provided by patient (#1/). The catheter was left in place for 30 minutes, and the patient was instructed to retain the solution for at least 30 minutes. She tolerated the procedure well. The plugged catheter was removed after 30 minutes. Charbel Tripp MD PROCEDURE/MINOR SURG ICAL ORDERABLES * DC CYSTOURETHROSCOPY (01/29/2021 4:48 PM CDT) Charbel Cortez MD - 01/29/2021 4:48 PM CDT Charbel Tripp MD 01/29/2021 4:51 PM Cystoscopy Procedure Note Pre-operative Diagnosis: frequency, urgency, overactive bladder and frequent uti Post-operative Diagnosis: same Procedure Details: The patient was counseled about the procedure including risks, benefits, alternatives, and given a detailed description of what to expect. Cystoscopy was performed with a rigid 70 degree cystoscopy with a 17F sheath under aseptic conditions. The urethra was cleaned with Betadine solution (unless she was allergic to topical iodine when hibiclens was used). A careful examination of all quadrants was performed in a systematic fashion. The patient tolerated the procedure well and was allowed to watch the examination on a video monitor. Findings: She does not have the following findings on cystoscopy: foreign body, tumor, bladder stones and trigonitis. She has the following findings on cystoscopy: trabeculations. Observation demonstrated that both ureteral orifices were normal. Squamous metaplasia was noted. Condition: Good Complications: None Charbel Tripp MD PROCEDURE/MINOR SURG ICAL ORDERABLES * DC IRRIGATION OF BLADDER (12/26/2020 7:47 AM CDT) Charbel Cortez MD - 12/26/2020 7:47 AM CDT Charbel Tripp MD 12/26/2020 7:53 AM Bladder antibiotic lavage/ Instillation Procedure Note: Indication: Frequent UTI's Procedure: The procedure was discussed with the patient and verbal consent was obtained. The patient was placed in a dorsal lithotomy position. Her urethra was visualized and prepped with Betadine (unless she was allergic in which case Hibiclens was used). A 16F catheter was introduced under aseptic conditions. The bladder was then instilled slowly with a solution containin mg Gentamycin [id number] 07/07/21 provided by patient (#3/3). The catheter was left in place for 30minutes, and the patient was instructed to retain the solution for at least 30 minutes. She tolerated the procedure well. The plugged catheter was removed after 30 minutes. Charbel Tripp MD PROCEDURE/MINOR SURG ICAL ORDERABLES * DC IRRIGATION OF BLADDER (11/27/2020 5:18 PM CDT) Charbel Cortez MD - 11/27/2020 5:18 PM CDT Charbel Tripp MD 11/27/2020 5:22 PM Bladder antibiotic lavage/ Instillation Procedure Note: Indication: Frequent UTI's Procedure: The procedure was discussed with the patient and verbal consent was obtained. The patient was placed in a dorsal lithotomy position. Her urethra was visualized and prepped with Betadine (unless she was allergic in which case Hibiclens was used). A 16F catheter was introduced under aseptic conditions. The bladder was then instilled slowly with a solution containin mg Gentamycin Lot [id number] 07/07/21 provided by patient (#2/3). The catheter was left in place for 30minutes, and the patient was instructed to retain the solution for at least 30 minutes. She tolerated the procedure well. The plugged catheter was removed after 30 minutes. A follow up visit for repeat bladder instillation was scheduled for 1 month. Charbel Tripp MD PROCEDURE/MINOR SURG ICAL ORDERABLES * DC IRRIGATION OF BLADDER (10/23/2020 12:01 PM CDT) Narrative Charebl Tripp MD - 10/23/2020 12:01 PM CDT Charbel Tripp MD 10/26/2020 11:51 AM Bladder antibiotic lavage/ Instillation Procedure Note: Indication: Frequent UTI's Procedure: The procedure was discussed with the patient and verbal consent was obtained. The patient was placed in a dorsal lithotomy position. Her urethra was visualized and prepped with Betadine (unless she was allergic in which case Hibiclens was used). A 16F catheter was introduced under aseptic conditions. The bladder was then instilled slowly with a solution containin mg Gentamycin [id number] 07/07/21 provided by patient (#1/3). The catheter was left in place for 30minutes, and the patient was instructed to retain the solution for at least 30 minutes. She tolerated the procedure well. The plugged catheter was removed after 30 minutes. A follow up visit for repeat bladder instillation was scheduled for 1 month. Charbel Tripp MD PROCEDURE/MINOR SURG ICAL ORDERABLES * DC IRRIGATION OF BLADDER (09/07/2020 2:56 PM [employer] STEEL ENGINEER) Charbel Cortez MD - 09/07/2020 2:56 PM [employer] STEEL ENG[employer]ER Charbel Tripp MD 09/07/2020 2:57 PM Bladder antibiotic lavage/ Instillation Procedure Note: Indication: Frequent UTI's Procedure: The procedure was discussed with the patient and verbal consent was obtained. The patient was placed in a dorsal lithotomy position. Her urethra was visualized and prepped with Betadine (unless she was allergic in which case Hibiclens was used). A 16F catheter was introduced under aseptic conditions. The bladder was then instilled slowly with a solution containin mg Gentamycin Lot [id number] 07/07/21 provided by patient (#3/3). The catheter was left in place for 30minutes, and the patient was instructed to retain the solution for at least 30 minutes. She tolerated the procedure well. The plugged catheter was removed after 30 minutes. A follow up visit for repeat bladder instillation was scheduled for 1 month. Charbel Tripp MD PROCEDURE/MINOR SURG ICAL ORDERABLES * DC IRRIGATION OF BLADDER (08/14/2020 1:51 PM [employer] STEEL ENGINEER) Charbel Cortez MD - 08/14/2020 1:51 PM [employer] STEEL ENG[employer]ER Charbel Tripp MD 08/14/2020 9:12 PM Bladder antibiotic lavage/ Instillation Procedure Note: Indication: Frequent UTI's Procedure: The procedure was discussed with the patient and verbal consent was obtained. The patient was placed in a dorsal lithotomy position. Her urethra was visualized and prepped with Betadine (unless she was allergic in which case Hibiclens was used). A 16F catheter was introduced under aseptic conditions. The bladder was then instilled slowly with a solution containin mg Gentamycin Lot [id number] 07/07/21 provided by patient (one remaining vial). The catheter was left in place for 30minutes, and the patient was instructed to retain the solution for at least 30 minutes. She tolerated the procedure well. The plugged catheter was removed after 30 minutes. A follow up visit for repeat bladder instillation was scheduled for 1 month. Charbel Tripp MD PROCEDURE/MINOR SURG ICAL ORDERABLES * DC BIOPSY VULVA/PERINEUM,ONE LESN (08/14/2020 1:47 PM [employer] STEEL ENGINEER) Charbel Cortez MD - 08/14/2020 1:47 PM [employer] ENGINEER Charbel Tripp MD 08/14/2020 9:12 PM Procedure note: The patient had a large bothersome lesion on the right inner thigh / vulvar area on pedunculated stalk with findings characteristic of an achrochordon. It's the size of a marble above the stalk. Procedure discussed with emphasis on infection, pain and bleeding. Written and verbal consent obtained. Area prepped with betadine and infiltrated with 3 mL of 1% lidocaine. After assurance of anesthesia the stalk was transected at its base. Area treated with silver nitrate. EBL was minimal . She tolerated it well. 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 I discussed sending it for pathologic diagnosis but she declined. Charbel Tripp MD PROCEDURE/MINOR SURG ICAL ORDERABLES * DC IRRIGATION OF BLADDER (07/17/2020 5:39 PM [employer] STEEL ENGINEER) Charbel Cortez MD - 07/17/2020 5:39 PM [employer] STEEL ENGINEER Charbel Tripp MD 07/17/2020 5:40 PM Bladder antibiotic lavage/ Instillation Procedure Note: Indication: Frequent UTI's Procedure: The procedure was discussed with the patient and verbal consent was obtained. The patient was placed in a dorsal lithotomy position. Her urethra was visualized and prepped with Betadine (unless she was allergic in which case Hibiclens was used). A 16F catheter was introduced under aseptic conditions. The bladder was then instilled slowly with a solution containin mg Gentamycin [id number] 07/07/21 provided by patient (#2 of 3) The catheter was then removed, and the patient was instructed to retain the solution for at least 30 minutes. She tolerated the procedure well. A follow up visit for repeat bladder instillation was scheduled for 1 month. Charbel Tripp MD PROCEDURE/MINOR SURG ICAL ORDERABLES * DC IRRIGATION OF BLADDER (04/17/2020 5:17 PM CDT) Charbel Cortez MD - 04/17/2020 5:17 PM CDT Charbel Tripp MD 04/17/2020 5:20 PM Bladder Rescue Instillation Procedure Note: Indication: Frequent UTI Procedure: The procedure was discussed with the patient and verbal consent was obtained. The patient was placed in a dorsal lithotomy position. Her urethra was visualized and prepped with Betadine (unless she was allergic in which case Hibiclens was used). A 16F catheter was introduced under aseptic conditions. The bladder was then instilled slowly with a solution containinmg Gentamycin in 100 mL injectable saline; Lot [id number] 07/07/21 (provided by patient; vial 3/3). The catheter was left in place for 30 minutes to allow the gentamycin time to work without leakage. It was then removed. She tolerated the procedure well. A follow up visit for repeat bladder instillation was scheduled for 1 month. Charbel Tripp MD PROCEDURE/MINOR SURG ICAL ORDERABLES * DC IRRIGATION OF BLADDER (03/24/2020 6:24 AM CDT) Charbel Cortez MD - 03/24/2020 6:24 AM CDT Charbel Tripp MD 03/24/2020 6:25 AM Bladder Rescue Instillation Procedure Note: Indication: Frequent UTI Procedure: The procedure was discussed with the patient and verbal consent was obtained. The patient was placed in a dorsal lithotomy position. Her urethra was visualized and prepped with Betadine (unless she was allergic in which case Hibiclens was used). A 16F catheter was introduced under aseptic conditions. The bladder was then instilled slowly with a solution containinmg Gentamycin in 100 mL injectable saline; Lot [id number] 07/07/21 (provided by patient; vial 2/3). The catheter was left in place for 30 minutes to allow the gentamycin time to work without leakage. It was then removed. She tolerated the procedure well. A follow up visit for repeat bladder instillation was scheduled for 1 month. Charbel Tripp MD PROCEDURE/MINOR SURG ICAL ORDERABLES * DC IRRIGATION OF BLADDER (02/14/2020 5:24 PM CDT) Charbel Cortez MD - 02/14/2020 5:24 PM CDT Charbel Tripp MD 02/14/2020 5:32 PM Bladder Rescue Instillation Procedure Note: Indication: Frequent UTI Procedure: The procedure was discussed with the patient and verbal consent was obtained. The patient was placed in a dorsal lithotomy position. Her urethra was visualized and prepped with Betadine (unless she was allergic in which case Hibiclens was used). A 16F catheter was introduced under aseptic conditions. The bladder was then instilled slowly with a solution containinmg Gentamycin in 100 mL injectable saline; Lot [id number] 07/07/21 (provided by patient; vial 1/3). The catheter was then removed, and the patient was instructed to retain the solution for at least 30 minutes. She tolerated the procedure well. A follow up visit for repeat bladder instillation was scheduled for 1 month. Charbel Tripp MD PROCEDURE/MINOR SURG ICAL ORDERABLES * DC CYSTOSCOPY CHEMODENERVATION (08/31/2019) Charbel Cortez MD - 08/31/2019 See progress note Charbel Tripp MD DC - PROFESSIONAL SE RVICES * (ABNORMAL) URINALYSIS - POINT OF CARE (AMB) [facility] (08/30/2019) Only the most recent of4 resultswithin the time period is included. Specific Newton UA 1.020 pH UA 5 WBC UA tr Nitrite UA n Protein UA n Glucose UA n Ketones UA POCT n Urobilinogen UA n Bilirubin UA POCT n Blood Urine POCT nt Urine URINE / Unknown 08/30/2019 Charbel Tripp MD LAB - POINT OF CARE ORDERABLES * DC CYSTOURETHROSCOPY (05/06/2018 9:34 PM CDT) Charbel Cortez MD - 05/06/2018 9:34 PM CDT Charbel Tripp MD 05/06/2018 9:34 PM Cystoscopy Procedure Note Pre-operative Diagnosis: Frequent UTI and bladder pain Post-operative Diagnosis: same Procedure Details: The patient was counseled about the procedure including risks, benefits, alternatives, and given a detailed description of what to expect. Cystoscopy was performed with a rigid 70 degree cystoscopy with a 17F sheath under aseptic conditions. The urethra was cleaned with Betadine solution (unless she was allergic to topical iodine when hibiclens was used). A careful examination of all quadrants was performed in a systematic fashion. The patient tolerated the procedure well and was allowed to watch the examination on a video monitor. Findings: She does not have the following findings on cystoscopy: foreign body, tumor, blood, bladder stones, trigonitis and cystitis cystica. She does not have the following findings on cystoscopy: cystitis cystica and cystitis glandularis. Both ureteral orifices were normal. Squamous metaplasia was noted. Condition: Good Complications: None Charbel Tripp MD PROCEDURE/MINOR SURG ICAL ORDERABLES Care Teams Key Bed Installer Relationship Specialty Start Date End Date Jodie Steiner PA-C [address] [place] [address] PCP - General Physician Ct Technologist 07/14/23
--- OUTSIDE RECORDS SUMMARY | 2024-08-31 07:50 | XMS_ITS | Referral Summary ---
Author Organization [facility] [address] Address [address] [place] [address] Care Team Providers Care Chief Guard Name Role Phone Jodie Steiner Primary Care Provider [phone] Randy May MD Unavailable [phone] Encounters Date Type Department Care Team Description 08/16/2024 Telephone [facility] Cardiology [address] [facility] [address] Medicine [address]th [place] [address] [place] [address] Anival Donis MD 07/22/2024 Telephone [facility] Cardiology [address] [facility] [address] 8th [place] [address] [place] [address] Anival Donis MD knee surgery from Last 3 Months Allergies Active Allergy Reactions Criticality Noted Date [...] CALCIUM ORAL Take 600 mg by mouth biomedical photographer before breakfast Active guaiFENesin ER (MUCINEX) 600 [...] tablet,chewabl e Take 1,000 mg by mouth biomedical photographer before breakfast Active multivitamin tabletIndicati ons:Vitamin Deficiency [...] heart failure with p reserved ejection fraction (CMS/HCC) 04/18/2018 Sleep apnea 07/07/2017 Assessment & Plan [...] w/r/t gut microbiome. Referred to ADA and [employer] websites for additional information on topics including [...] diet. Continue current medications. Appropriately on TERESITA-I/ARB. 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 Gender Identity Not on file Sexual Orientation [...] 09/15/2023 1:32 PM CDT Plan of Treatment Not on file Procedures Procedure Name Priority Date/Time Associated Diagnosis Comments BASIC METABOLIC PANEL Routine 03/03/2024 10:09 AM CDT Essential hypertension from Last 3 Months or Most Recently Relevant to Health Maintenance Results * (ABNORMAL) Basic metabolic panel (03/03/2024 10:09 AM CDT) [facility] Glucose 106 65 - 139 mg/dL [facility] [...] BLOOD ORDERABLES F inal Result [facility] [address] [place] [address] from Last 3 Months or Most Recently Relevant to Health Maintenance Insurance MEDICARE [facility] [place] [address] MEDICARE [facility] MEDICARE [employer] Care Teams Chief Guard Relationship Specialty Start Date End Date Jodie Steiner PA [address] [place] [address] PCP - General Physician Soil Science Teacher 08/29/23 Randy May MD [address] [place] [address] Referring Physician Orthopedic Surgery 03/15/24
--- OUTSIDE RECORDS SUMMARY | 2024-08-31 07:50 | XMS_ITS ---
Author Organization [facility] susanne Address [address] [place] [address] Care Team Providers Care Kiln Firer Name Role Phone zzzzMigration, zzzzProvider Unavailable Unav ailable REASON FOR VISIT EMR-[facility] Encounters Encounter Location Date Provider Diagnosis [facility] [address] [facility] [facility] [place] [address] 04/27/2023 zzzzProvider zzzzMigration Plan Of Treatment No Information Progress Notes * Carissa CAMPOSOB:[birth year] (83 yo F)Acc No.[id number]:04/27/2023 Patient: Roxana CULVER :1940 A ge:82 Y S ex:Female Address:[address] [facility] [address] Subjective: * Chief Complaints: * E MR-Yao * Medical History: * Surgical History: * Hospitalization/Major Diagno stic Procedure: * Medications: Objective: * Vitals: * Physical Examination: Assessment: Plan: * Treatment: * Procedure Codes: * * Date:
--- OUTSIDE RECORDS SUMMARY | 2024-08-31 07:50 | XMS_ITS | Encounter Summary ---
Author Organization [facility] Address [address] [place] [address] Phone Care Team Providers Care Pump Rebuilder Name Role Phone Jodie Steiner Primary Care Provider [phone]- [phone] Randy May MD Unavailable [phone] Encounter Details Date Type Department Care Team (Latest Contact Info) Description 12/31/2023 Orders Only [facility] Scanning, Provider Social History Tobacco Use Types Packs/Day Years Used Date Smoking Tobacco: Never Smokeless Tobacco: Never AUDIT-C Answer Date Recorded Frequency of Alcohol [...] on file 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 Gender Identity Not on file Sexual Orientation Not on file documented as of this encounter Progress Notes * Angelita Elias RN - 12/31/2023 11:59 PM CDT See related encounter labs need to adjust med's documented in this encounter Plan of Treatment Not on file documented as of this encounter Procedures Procedure Name Priority Date/Time Associated Diagnosis Comments SCAN - LABS 12/31/2023 documented in this encounter Results * SCAN - LABS (12/31/2023) us Provider Scanning Final Result documented in this encounter Visit Diagnoses Not on filedocumented in this encounter Care Teams Pump Rebuilder Relationship Specialty Start Date End Date Jodie Steiner PA [address] [place] [address] PCP - General Physician Computer Analyst Supervisor 08/29/23 Randy May MD [address] [place] [address] Referring Physician Orthopedic Surgery 03/15/24 documented as of this encounter
--- OUTSIDE RECORDS SUMMARY | 2024-08-31 07:50 | XMS_ITS | Referral Summary ---
Author Organization [facility] Address [address] [place] [address] Care Team Providers Care Venetian Blind Worker Name Role Phone Jodie Steiner PA-C Primary Care Provider [phone] Source Comments [facility],non-owned Affiliates and Associated Physician Practices is amultiple site organization consisting of ambulatory clinics and hospital sitesin [place], [place], [place] and [place]. This disclosure is being madepursuant to the Care Everywhere program and may not contain all information available regarding this patient. Last updated 18.[facility] Encounters Date Type Department Care Team Description 08/18/2024 Refill [facility] [address] [place] [address] Charbel Tripp MD Refill Request 07/05/2024 Refill [facility] [address] [place] [address] Charbel Tripp MD Refill Request 06/21/2024 Telephone [facility] [address] [place] [address] Charbel Tripp MD Medication Issue from Last 3 Months Allergies Active Allergy Reactions Criticality Noted Date Comments Adrenal Cortex Extract Rash Medium 12/31/2013 Cefdinir Itching Low 05/08/2018 Cephalexin Rash Medium 09/30/2017 Nitrofurantoin Rash,Itching Medium 05/15/2020 welts Medications * Be aware that medications may not be up to date on this document. Alwaysverify current medications with the patient. Medication Sig Dispensed Refills Start Date End Date Status sertraline (ZOLOFT) 100 MG tablet Take 200 mg by mouth once daily Active zolpidem (AMBIEN) 10 MG tablet Take 10 mg by mouth nightly as needed for Insomnia Active terconazole (TERAZOL 7) 0.4 % vaginal cream Insert 1 applicator into the vagina at bedtime Active raNITIdine (ZANTAC) 150 MG tablet Take 150 mg by mouth 2 times daily Active clorazepate (TRANXENE) 3.75 MG tablet Take 3.75 mg by mouth 2 times daily Active furosemide (LASIX) 40 MG tablet Take 40 mg by mouth once daily Active lisinopril (PRINIVIL; ZESTRIL) 20 MG tablet Take 20 mg by mouth once daily Active carvedilol (COREG) 25 MG tablet Take 25 mg by mouth 2 times daily with morning and evening meal Active atorvastatin (LIPITOR) 20 MG tablet Take 20 mg by mouth at bedtime Active fexofenadine (Magy) 180 MG tablet Take 180 mg by mouth once daily Active potassium chloride (KLOR-CON) 10 MEQ tablet Take 10 mEq by mouth once daily Active gabapentin (NEURONTIN) 300 MG capsule Take 1,200 mg by mouth 3 times daily 9 Active MAGNESIUM-OXIDE 400 (241.3 MG) MG tablet Take 400 mg by mouth 2 times daily 2 9 Active venlafaxine XR 24hr (EFFEXOR XR) 150 MG capsule Take 150 mg by mouth 2 times daily 1 9 Active carisoprodol (SOMA) 350 MG tablet Take 350 mg by mouth 3 times daily 8 to 12 hours as needed Active Cranberry 500 MG TABS Take 1 tablet by mouth once daily Active Pseudoephedrine -guaiFENesin (GUAIFENESIN 600/PSE 120 PO) Take 1 tablet by mouth 2 times daily as needed Active insulin glargine (LANTUS) vial Inject 25 Units subcutaneously 2 times daily Active nystatin (Mycostatin) 866708 UNIT/GM powder Apply to affected area 2 times daily as needed Active VITAMIN B COMPLEX-C PO Take by mouth once daily Active Cyanocobalamin 1000 MCG Take 1 tablet by mouth as directed Active Ascorbic Acid (VITAMIN C) 500 MG Take 1 tablet by mouth once daily Active vitamin D3 (CHOLECALCIFERO L) 1000 UNIT capsule Take 1,000 Units by mouth once daily Active metFORMIN (GLUCOPHAGE) 500 MG tablet Take 500 mg by mouth 2 times daily with morning and evening meal 0 Active triamcinolone acetonide (KENALOG) 0.1 % ointment Apply to affected area 2 times daily 60 g 0 Active Sodium Chloride (0.9% NACL IV) 0.9 % infusion Please give three 100 ml bags. 300 mL 1 Active estrogens, conjugated, (PREMARIN) 0.625 MG/GM vaginal cream Insert 1 g into the vagina Two times a week 30 g 2 1 Active gentamicin (GARAMYCIN) injectionIndica tions:Frequent UTI To be brought to the office for intravesical instillations 1 vial 1 Active Estradiol Please compound estradiol 0.15 mg / g vaginal cream in a versa base . Pt to use 1 gram vaginally 2 x week. 45 g 2 1 Active amoxicillin-cla vulanate (AUGMENTIN) 875-125 MG tablet Take 1 (one) tablet by mouth 2 times daily with morning and evening meal 20 tablet 1 Active ciprofloxacin (CIPRO) 250 MG tabletIndicatio ns:UTI symptoms Take 1 (one) tablet by mouth 2 times daily 14 tablet 2 Active alendronate (Fosamax) 70 MG tablet TAKE 1 TABLET BY MOUTH ONCE A WEEK 2 Active Cyanocobalamin 1000 MCG Take 1,000 mcg by mouth once daily Active famotidine (Pepcid) 20 MG tablet Take 20 mg by mouth 3 times daily as needed Active Flaxseed, Linseed, (Flax Seed Oil) 1000 MG Take 1 capsule by mouth once daily Active gabapentin (Neurontin) 600 MG tablet 2 Active True Metrix Blood Glucose Test test strip USE 1 STRIP TO CHECK GLUCOSE ONCE DAILY DIRECTED 2 Active lisinopril (Prinivil; Zestril) 20 MG tablet Take 1 tablet by mouth once daily 1 Active nystatin (Mycostatin) 978447 UNIT/GM powder Apply to affected area 2 times daily 2 Active Probiotic Product (Acidophilus/Go at Milk) CAPS Take 1 capsule by mouth once daily Active QUEtiapine (SEROquel) 25 MG tablet 2 Active solifenacin (Vesicare) 10 MG tablet Take 1 tablet by mouth once daily 30 tablet 3 Active methenamine hippurate (Hiprex) 1 GM tablet TAKE 1 TABLET TWICE A DAY (WILL NEED AN APPOINTMENT FOR FUTURE REFILLS) 180 tablet 4 Active vibegron (Gemtesa) 75 MG tabletIndicatio ns:Overactive bladder TAKE 1 TABLET ONCE DAILY (WILL NEED AN APPOINTMENT FOR FUTURE REFILLS) 90 tablet 5 Active vibegron (Gemtesa) 75 MG tabletIndicatio ns:Overactive bladder Take 1 (one) tablet by mouth once daily PATIENT WILL NEED AN APPOINTMENT FOR FUTURE REFILLS 90 tablet 4 08/19/19 25 Discontinued Active Problems Problem Noted Date Diagnosed Date Acute cystitis without hematuria 12/13/2017 Frequent UTI 12/13/2017 Mixed incontinence 12/13/2017 Bladder pain 12/13/2017 Immunizations Name Administration Dates Next Due Covid Moderna primary monova lent 12+ yr 0.5mL 09/01/2020,08/04/2020 INFLUENZA VACCINE 04/13/2020, 9,04/29/2018,2016,05/05/2014,04/30/2013,05/13/2012 PNEUMOCOCCAL PPSV23 03/06/2020 Pneumococcal Pcv13 Conj 04/29/2018 TDAP (7yrs+) 10/08/2014 Social History Tobacco Use Types Packs/Day Years [...] Comments Blood Pressure 137/73 07/14/2023 11:09 AM UTILITY TECH Pulse 73 04/17/2020 1:20 PM CDT Temperature 36.3 C (97.4 F) 02/25/2022 10:32 AM CDT Respiratory Rate - - Oxygen Saturation 95% 04/17/2020 1:20 PM CDT Inhaled Oxygen Concentration - - Weight 99.8 kg (220 lb) 07/14/2023 11:09 AM UTILITY TECH Height 160 cm (5' 3 ) 07/14/2023 11:09 AM UTILITY TECH Body Mass Index 38.97 07/14/2023 11:09 AM UTILITY TECH Plan of Treatment Upcoming Encounters Date Type Department Care Team (Late st Contact Info) Description 11/01/2024 11:00 AM CDT Office Visit [facility] [address] [place] [id number] Charbel Tripp MD [address] [place] [address] Care Teams Venetian Blind Worker Relationship Specialty Start Date End Date Jodie Steiner PA-C [address] [place] [address] PCP - General Physician Delinquency Prevention Officer 07/14/23
--- OUTSIDE RECORDS SUMMARY | 2024-08-31 07:50 | XMS_ITS | Encounter Summary ---
Author Organization [facility] Address [facility] [place] [address] Care Team Providers Care Car Porter Name Role Phone Lula Graham MD Primary Care Provider + [phone] Charbel Tripp MD Unavailable [phone] Kady Arteaga NP Primary Care Provider [phone] Adrianne Hoskins MD Primary Care Provider [phone] Jodie Steiner Primary Care Provider [phone] Encounter Details Date Type Department Care Team (Late st Contact Info) Description 09/11/2015 Abstract [facility] CONVERSION [address] [address] , Generic Conversion, Social History Tobacco Use Types Packs/Day Years Used Date Smoking Tobacco: Never Assessed Comments Unknown Sex and Gender Information Value Date Recorded Sex Assigned at Not on file Legal Sex Female 10:25 PM CDT Gender Identity Not on file Sexual Orientation Not on file documented as of this encounter Plan of Treatment Not on file documented as of this encounter Visit Diagnoses Not on filedocumented in this encounter Additional Health Concerns Infection Onset Date Last Indicated Resolved Time COVID-19 Rule Out 06/23/2020 06/23/2020 06/25/2020 3:46 PM MULTIMEDIA ENGINEER COVID-19 Rule Out 04/24/2023 04/24/2023 04/24/2023 1:43 PM CDT COVID-19 Rule Out 05/28/2023 05/28/2023 05/28/2023 10:23 AM MULTIMEDIA ENGINEER documented as of this encounter Care Teams Car Porter Relationship Specialty Start Date End Date Lula Graham MD PCP - General INTERNAL MEDICINE 07/14/18 10/10/22 Kady Arteaga, BLACKING WHEEL TENDER [address] [place] [address] PCP - General Nurse Practitioner Family 10/11/2201/04 [place] [address] [address] PCP - General FAMILY PRACTICE 01/17/23 07/10/23 Jodie Steiner PA [address] [place] [address] PCP - General PHYSICIAN RANGE AIDE 07/11/23 Charbel Tripp MD [address] [place] [address] GYNECOLOGY 03/15/20 documented as of this encounter
--- OUTSIDE RECORDS SUMMARY | 2024-08-31 07:50 | XMS_ITS | Encounter Summary ---
Author Organization [facility] Address [facility] [place] [address] Care Team Providers Care Supervisor Steel Division Name Role Phone Lula Graham MD Primary Care Provider [phone] Charbel Tripp MD Unavailable [phone] Kady Arteaga NP Primary Care Provider [phone] Adrianne Hoskins MD Primary Care Provider [phone] Jodie Steiner Primary Care Provider [phone] Encounter Details Date Type Department Care Team (Late st Contact Info) Description 08/15/2017 Abstract [facility] CONVERSION [address] [place] [address] , Generic Conversion, Social History [...] Rule Out 06/23/2020 06/23/2020 06/25/2020 3:46 PM KNITTER HELPER COVID-19 Rule Out 04/24/2023 04/24/2023 04/24/2023 1:43 PM CDT COVID-19 Rule Out 05/28/2023 05/28/2023 05/28/2023 10:23 AM KNITTER HELPER documented as of this encounter Care Teams Supervisor Steel Division Relationship Specialty Start Date End Date Lula Graham MD PCP - General INTERNAL MEDICINE 07/14/18 10/10/22 Kady Arteaga, CONVEYOR LOADER [address] [place] [address] PCP - General Nurse Practitioner Family 10/11/2201/04 [place] [address] [employer] [address] PCP - General FAMILY PRACTICE 01/17/23 07/10/23 Jodie Steiner PA [address] [place] [address] PCP - General PHYSICIAN OPTICAL GLASS ETCHER 07/11/23 Charbel Tripp MD [address] [place] [address] GYNECOLOGY 03/15/20 documented as of this encounter
--- OUTSIDE RECORDS SUMMARY | 2024-08-31 07:50 | XMS_ITS | Clinical Summary ---
Author Organization [facility] Address [address] [place] [address] Care Team Providers Care Strategic Accounts Manager Name Role Phone Charbel Tripp MD Unavailable [phone] Ale Steiner Primary Care Provider [phone] Allergies Active Allergy Reactions Criticality Noted Date Comments Adrenal Cortex Extract Unknown Low 12/31/2013 Cefdinir Itching Low 05/08/2018 Cephalexin Rash Low 09/30/2017 Nitrofurantoin Rash Low 06/23/2020 Medications * This document contains information received from the source organization and may not represent a complete record from that organization. Ascorbic Acid (VITAMIN C) 500 MG Cap Take 1 capsule by mouth daily. Active guaifenesin 12 hr (MUCINEX) 600 MG 12 hr tabletIndications: Chronic nasal congestion Take 1 tablet by mouth daily as needed for sinus congestion. 30 tablet 07/14/19 19 Active carvedilol 25 MG tablet Take 1 tablet (25 mg total) by mouth 2 (two) times daily. 1 08/19/19 19 Active Flaxseed, Linseed, (FLAXSEED OIL) 1000 MG Cap Take 1 capsule by mouth daily. Active gabapentin 600 MG tablet Take 2 tablets (1,200 mg total) by mouth 3 (three) times daily. 09/13/19 20 Active famotidine 20 MG tablet Take 1 tablet (20 mg total) by mouth 3 (three) times daily as needed for Heartburn. Active zolpidem 10 MG tabletIndications: Persistent insomnia Take 1 tablet (10 mg total) by mouth nightly at bedtime. at bedtime. 30 tablet 12/15/19 20 Active clorazepate 3.75 MG tabletIndications: Generalized anxiety disorder Take 1 tablet (3.75 mg total) by mouth 3 (three) times daily as needed for Anxiety or Sleep. Per Psych 90 tablet 3 03/06/20 20 Active VENLAFAXINE XR 150 MG 24 hr capsuleIndications :Depression with anxiety Take 2 capsules by mouth once daily 60 capsule 2 07/17/19 21 Active sertraline 100 MG tablet Take two tabs PO QAM Active QUEtiapine 25 MG tablet Take 2 tablets (50 mg total) by mouth nightly at bedtime. Active MAGNESIUM OXIDE 400 (241.3 Mg) MG tabletIndications: Hypomagnesemia Take 1 tablet by mouth twice daily 180 tablet 07/02/20 21 Active LISINOPRIL 20 MG tabletIndications: Essential hypertension Take 1 tablet by mouth once daily 90 tablet 07/02/20 21 Active alendronate (FOSAMAX) 70 MG tablet Take 1 tablet (70 mg total) by mouth once a week. 02/02/20 22 Active Biotin 1000 MCG Tab Take 1,000 mcg by mouth 3 (three) times daily. Active donepezil (ARICEPT) 10 MG Tab Take 2 tablets (20 mg total) by mouth daily. Active Calcium Carbonate Antacid 600 MG Chew Tab Chew 1 tablet by mouth 2 (two) times daily. Active psyllium (METAMUCIL) 0.52 g capsule Take 1 capsule (520 mg total) by mouth 2 (two) times daily. Active Multiple Vitamins-Minerals (CENTRUM ADULTS) Chew Tab Chew 1 each by mouth daily. Active metFORMIN (GLUCOPHAGE) 500 MG tabletIndications: Type 2 diabetes mellitus with other diabetic kidney complication, without long-term current use of insulin (CMS/HCC HHS/HCC) Take 1 tablet (500 mg total) by mouth 2 (two) times daily with meals. 180 tablet 3 02/14/20 23 Active atorvastatin (LIPITOR) 20 MG tabletIndications: Mixed hyperlipidemia TAKE 1 TABLET NIGHTLY AT BEDTIME 90 tablet 3 02/14/20 23 Active Insulin Pen Needle (B-D ULTRAFINE III SHORT PEN) 31G X 8 MM MiscIndications:Ty pe 2 diabetes mellitus with other diabetic kidney complication, without long-term current use of insulin ([facility]) Use once daily 100 each 3 02/14/20 Active nystatin (NYSTOP) powderIndications: Candidal skin infection Apply topically 2 (two) times daily. 60 g 2 02/14/20 Active Additional Information Patient taking differently:Topical2 times daily PRN, Reported on 12/27/2023 vitamin B-12 (CYANOCOBALAMIN) (CYANOCOBALAMIN) 1000 mcg tablet Take 1 tablet (1,000 mcg total) by mouth daily. Active GEMTESA 75 MG tablet Take 1 tablet (75 mg total) by mouth daily. 07/25/19 24 Active cycloSPORINE (RESTASIS) 0.05 % ophthalmic emulsion Place 1 drop into both eyes 2 (two) times daily. 08/27/19 24 Active OZEMPIC, 0.25 OR 0.5 MG/DOSE, 2 MG/3ML injection (PEN) Inject 0.25 mg into the skin every 7 days. 12/11/19 Active Insulin Glargine, 1 Unit Dial, (BEBETO HORN) 300 UNIT/ML Solution Pen-injectorIndica tions:Type 2 diabetes mellitus with other diabetic kidney complication, without long-term current use of insulin ([facility]) Inject 22 Units into the skin nightly at bedtime. 1.5 mL 12/27/19 Active Active Problems Problem Noted Date Diagnosed Date Syncope 12/26/2023 Morbid (severe) obesity due to excess calories ([facility]) 09/23/2022 Body mass index (BMI) 40.0-44.9, adult ([facility]) 09/23/2022 BMI 40.0-44.9, adult ([facility]) 0 Lumbar radiculopathy 08/31/2019 Overview (08/31/2019): Added automatically from request for surgery [id number] Severe episode of recurrent major depressive disorder, without psychotic features ([facility]) 10/26/2018 Persistent insomnia 10/26/2018 Generalized anxiety disorder 10/26/2018 (HFpEF) heart failure with p reserved ejection fraction ([facility]) 04/18/2018 TIA (transient ischemic attack) 01/27/2018 Bladder pain 12/13/2017 Mixed incontinence 12/13/2017 Acute cystitis without hematuria 12/13/2017 Abdominal mass 10/14/2017 Obesity, Class III, BMI 40-4 9.9 (morbid obesity) ([facility]) 10/14/2017 Itching 10/10/2017 Diabetic neuropathy ([facility]) 09/30/2017 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 Hypomagnesemia 07/04/2017 Recurrent urinary tract infection 05/19/2017 Hemorrhoids 01/02/2017 Esophageal reflux 09/02/2014 Irritable bowel syndrome 04/05/2014 Mild vitamin D deficiency 04/05/2014 Type 2 diabetes mellitus ([facility]) 04/05 Overview (07/14/2018): Transitioned From: Diabetes mellitus Peripheral neuropathy 01/03/2014 Pain in hip joint 10/28/2013 Depression with anxiety 10/17/2013 Restless legs syndrome 05/05/2013 Tinea corporis 02/18/2013 Lower back pain 11/09/2012 Hyperlipidemia 08/26/2012 Hypertension 07/18/2012 Type 2 diabetes mellitus wit h kidney complication, with long-term current use of insulin ([facility]) 07/07/2012 Overview (10/18/2022): Last Assessment & Plan: Reviewed recent labs. Discussed insulin resistance including effect on weight. Recommended low-carb, low-glycemic diet; choose whole grains and avoid more highly processed carbohydrates. Discussed potential benefits of this w/r/t gut microbiome. Referred to ADA and [employer] websites for additional information on topics including glycemic index/carbohydrate choices, protein sources. Discussed potential for weight gain with insulin and discussed possible use of GLP-1 RA. Consider empaglifozin in setting of HFpEF. Fibromyalgia 01/09/2012 Resolved Problems Problem Noted Date Diagnosed Date Resolved Date Vaginal yeast infection 01/28/2017 0610/2018 Immunizations Name Administration Dates Next Due Fluzone High Dose - >Age 65 (Prefilled Syringe) 04/24/2022,03/20/2021,04/13/2020,2018,04/29/2018,04/09/2017,05/05/2014 Influenza (Generic) 04/29/2018, 7,05/05/2014,2012,05/13/2012 Influenza Adult (Generic) 05/12/2023,02/2020,04/07/2019,2017,04/09/2017,05/05/2014 MODERNA COVID-19 (12+) MRNA, LNP-S, PF, 100 MCG/ 0.5 ML DOSE 05/14/2021,09/01/2020,08/04/2020 Pneumococcal (Pneumovax 23) 03/06/2020 Pneumococcal (Prevnar 13) 04/29/2018 Pneumococcal (Prevnar 20) 04/24/2022 Tdap (Adacel) 10/08/2014 Family History Medical History Relation Comments Diabetes Father Heart Disease Father Diabetes Mother Heart Disease Mother Relation Status Comments Father Mother Social History Tobacco Use Types Packs/Day Years Used Date Smoking Tobacco: Never Passive Smoke Exposure: Never Smokeless Tobacco: Never Alcohol Use Standard Drinks/Week Comments No 0 (1 standard drink = 0.6 oz pur e alcohol) [id number] Health Literacy Answer Date Recor ded How often do you need to hav e someone help you when you read instructions, pamphlets, or other written material from your doctor or pharmacy? Never 12/26/2023 [facility] Utilities Answer Date Recorded In the past 12 months has th e [employer], gas, oil, or water [email or web address] threatened to shut off services in your home? No 12/26/2023 Humiliation, Afraid, Rape, and Kick questionnair e Answer Date Recorded Within the last year, have y ou been afraid of your partner or ex-partner? No 12/26/2023 Within the last year, have y ou been humiliated or emotionally abused in other ways by your partner or ex-partner? No Within the last year, have y ou been kicked, hit, slapped, or otherwise physically hurt by your partner or ex-partner? No 12/26/2023 Within the last year, have y ou been raped or forced to have any kind of sexual activity by your partner or ex-partner? No 12/26/2023 Social Connection and Isolat ion Panel [NHANES] Answer Date Recorded In a typical week, how many times do you talk on the phone with family, friends, or neighbors? More than three times a week 12/26/2023 How often do you get togethe r with friends or relatives? More than three times a week 12/26/2023 How often do you attend chur or yarsanism services? Never 12/26/2023 Do you belong to any clubs o r organizations such as rastafari groups, unions, fraternal or athletic groups, or school groups? No 12/26/2023 How often do you attend meet ings of the clubs or organizations you belong to? Never 12/26/2023 Are you , , di vorced, , never , or living with a partner? 12/26/2023 AUDIT-C Answer Date Recorded Q1: How often do you have a drink containing alcohol? Never 12/26/2023 Q2: How many drinks containi ng alcohol do you have on a typical day when you are drinking? Patient does not drink Q3: How often do you have si x or more drinks on one occasion? Never 12/26/2023 Overall Financial Resource Strain (CARDIA) Answe r Date Recorded How hard is it for you to pa y for the very basics like food, housing, medical care, and heating? Not hard at all 12/26/2023 PHQ-2 Answer Date Recorded Patient Health Questionnaire-2 Score 0 09/23/2022 [facility] - Occupational Stress Questionnaire Answer Date Recorded Do you feel stress - tense, restless, nervous, or anxious, or unable to sleep at night because your mind is troubled all the time - these days? Not at all 12/26/2023 Exercise Vital Sign Answer Date Recorde d On average, how many days pe r week do you engage in moderate to strenuous exercise (like a brisk walk)? 0 days 12/26/2023 On average, how many minutes do you engage in exercise at this level? 0 min 12/26/2023 Hunger Vital Sign Answer Date Recorded Within the past 12 months, y ou worried that your food would run out before you got the money to buy more. Never true 12/26/19 24 Within the past 12 months, t he food you bought just didn't last and you didn't have money to get more. Never true 12/26/2023 PRAPARE - Transportation Answer Date Re corded In the past 12 months, has l ack of transportation kept you from medical appointments or from getting medications? No 12/06 In the past 12 months, has l ack of transportation kept you from meetings, work, or from getting things needed for daily living? No 12/26/2023 Housing Stability Vital Sign Answer Marquis e Recorded In the last 12 months, was t here a time when you were not able to pay the mortgage or rent on time? No 12/26/2023 In the past 12 months, how m any times have you moved where you were living? 0 12/26/2023 At any time in the past 12 m [facility], were you homeless or living in a prison (including now)? 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 Not on file Not on file Not on file Last Filed Vital Signs Vital Sign Reading Time Taken Comments Blood Pressure 142/98 02/10/2024 3:36 PM CDT Pulse 72 02/10/2024 3:36 PM CDT Temperature 36.1 C (97 F) 02/10/2024 2:57 PM CDT Respiratory Rate 20 02/10/2024 3:36 PM CDT Oxygen Saturation 99% 02/10/2024 3:36 PM CDT Inhaled Oxygen Concentration - - Weight 86.2 kg (190 lb) 02/10/2024 2:57 PM CDT Height 160 cm (5' 3 ) 02/10/2024 2:57 PM CDT Body Mass Index 33.66 02/10/2024 2:57 PM CDT Plan of Treatment Health Maintenance Due Date Last Done Comments ASCVD Statin 1941 Kidney Health Evaluation 1941 Zoster Vaccines (1 of 2) 12/03/1991 Annual Medicare Wellness Visit 2006 RSV Immunization or 60+ Years (1 - 1-dose 75+ series) 2016 Hemoglobin A1C 07/23/2023 01/20/2023, 09/04, 04/24/2022, Additional history exists ASCVD LDL 09/18/2023 09/17/2022, 09/04, 04/24/2022, Additional history exists Lipid Panel 09/18/2023 09/17/2022, 09/04, 04/24/2022, Additional history exists PHQ-2 (Physician [facility]asta) 09/24/2023 09/23/2022 COVID-19 Vaccine ( season) 2024 05/12/2023, 05/13/2022, 05/14/2021, Additional history exists Influenza Adult (#1) 2024 05/12/2023, 04/24/2022, 03/20/2021, Additional history exists PHQ-2 (Physician [facility]asta) 07/07/2024 09/23/2022 DTaP, Tdap and Td Vaccines (2 - Td or Tdap) 10/08/2024 10/08/2014 Diabetes: Retinopathy Eye Exam 02/04/2025 02/04/2023, 06/01/2019 Pneumococcal Vaccine: 65+ Years Completed 04/24/2022, 03/06/2020, 04/29/2018 Dexa Scan (General) Completed 12/30/2023, 07/26/2021, 12/08/2018 Meningococcal B Vaccine Aged Out No l onger eligible based on patient's age to complete this topic Meningococcal Vaccine Aged Out No parisa leonard eligible based on patient's age to complete this topic RSV Immunizations Under 20 Months Aged Out No longer eligible based on patient's age to complete this topic Procedures Procedure Name Priority Date/Time Associated Diagnosis Comments BONE DENSITY/DEXA Routine 12/30/2023 1:2 5 PM CDT Age-related osteoporosis without current pathological fracture DIABETIC RETINOPATHY EXAM (NEGATIVE)(SCAN ORDER) Routine 02/04/2023 HEMOGLOBIN, GLYCOSYLATED Routine 01/20/2023 Type 2 diabetes mellitus with other diabetic kidney complication, without long-term current use of insulin ([facility]) LIPOPROTEIN, LDL CHOL, DIRECT Routine 09/17/2022 1:20 PM CDT from Last 3 Months or Most Recently Relevant to Health Maintenance Results * BONE DENSITY/DEXA (12/30/2023 1:25 PM CDT) Anatomical Region Laterality Modality Bone Bone Density 12/31/2023 5:18 AM CDT Impressions 12/31/2023 5:19 AM CDT IMPRESSION: WHO Classification: osteoporosis. FRAX: No score calculated as one or more T scores are at or below -2.5.. Referred By: ALE STEINER Interpreted By: Oscar Parsons MD, 12/31/2023 5:18 AM Narrative 12/31/2023 5:19 AM CDT Examination: Bone Density Axial Exam Date/Time: 12/30/2023 1:01 PM Reason For Exam: Age-related osteoporosis without current pathological fracture Findings: DEXA bone densitometry The bone mineral density (BMD) was determined by dual-energy x-ray absorptiometry, the results are as follows: AP Lumbar Spine L1 through L4 BMD Patient (GM/SQCM): 1.336 T-Score (Standard deviations from young adult peak bone density): 2.6 Right femoral neck: BMD Patient (GM/SQCM): 0.537 T-Score (Standard deviations from young adult peak bone density): -2.8 Total Right femur: BMD Patient (GM/SQCM): 0.835 T-Score (Standard deviations from young adult peak bone density): -0.9 Recommendations: All patients should ensure an adequate intake of dietary calcium and vitamin D. The NOF recommend adults under the age of 50 need 1000 mg of calcium and 400-800 IU of vitamin D daily. Effective therapy for the prevention and treatment of osteoporosis include biphosphonates. Follow-up: People with diagnosed cases of osteoporosis or at high risk for fracture should have regular bone mineral density test. For patients eligible for Medicare, routine testing is allowed once every 2 years. Testing frequency can be increased to one year for patients who have rapidly progressing disease, those who are receiving or discontinuing medical therapy to restore bone mass, or have additional risk factors. Procedure Note Oscar Parsons MD - 12/31/2023 Examination: Bone Density Axial Exam Date/Time: 12/30/2023 1:01 PM Reason For Exam: Age-related osteoporosis without current pathological fracture Findings: DEXA bone densitometry The bone mineral density (BMD) was determined bydual-energy x-ray absorptiometry, the results are as follows: AP Lumbar Spine L1 through L4 BMD Patient (GM/SQCM): 1.336 T-Score (Standard deviations from young adult peak bonedensity): 2.6 Right femoral neck: BMD Patient (GM/SQCM): 0.537 T-Score (Standard deviations from young adult peak bonedensity): -2.8 Total Right femur: BMD Patient (GM/SQCM): 0.835 T-Score (Standard deviations from young adult peak bonedensity): -0.9 Recommendations: All patients should ensure an adequate intake of dietary calcium andvitamin D. The NOF recommend adults under the age of 50 need 1000 mg ofcalcium and 400-800 IU of vitamin D daily. Effective therapy for theprevention and treatment of osteoporosis include biphosphonates. Follow-up: People with diagnosed cases of osteoporosis or at high risk for fractureshould have regular bone mineral density test. [facility], routine testing is allowed once every 2 years. Testing frequencycan be increased to one year for patients who have rapidly progressingdisease, those who are receiving or discontinuing medical therapy torestore bone mass, or have additional risk factors. IMPRESSION: WHO Classification: osteoporosis. FRAX: No score calculated as one or more T scores are at or below -2.5.. Referred By: ALE STEINER Interpreted By: Oscar Parsons MD, 12/31/2023 5:18 AM Ale Steiner PA DEXA Final Result * DIABETIC RETINOPATHY EXAM (NEGATIVE)(SCAN) (02/04/2023) [facility] Scanned SCANNING Final Resu lt Performing Organization Address [facility] Co de Phone Number [facility] ONBASE * HEMOGLOBIN, GLYCOSYLATED (01/20/2023) HGB A1C 6.7 % [id number] [facility] 01/20/2023 Adrianne Hoskins MD LABORATORY Final Result Performing Organization Address [facility] Co de Phone Number [phone] [facility] [place] [address] [place] [address], * LIPOPROTEIN, LDL CHOL, DIRECT (09/17/2022 1:20 PM CDT) DIRECT LDL 88 <100 MG/DL 09/17/2022 3:46 PM CDT [facility] Comment: LDL OPTIMAL <100 LDL NEAR OPTIMAL 100-129 LDL BORDERLINE HIGH 130-159 LDL HIGH 160-189 LDL VERY HIGH >=190 09/17/2022 1:20 PM CDT Lula Graham MD LABORATORY Final Result [facility] [address] [place] [address], [place] [phone] from Last 3 Months or Most Recently Relevant to Health Maintenance Insurance MEDICARE [place] [address] [place] [address] A[employer] Advance Directives * Full Code (Latest Code Status on File) Date Activated Date Inactivated Comments 12/26/2023 8:09 PM 12/27/2023 5:19 PM Care Teams Strategic Accounts Manager Relationship Specialty Start Date End Date Ale Steiner PA [facility] [place] [address] PCP - General PHYSICIAN COUNTER HELPER 07/11/23 Charbel Tripp MD [address] [place] [address] GYNECOLOGY 03/15/20
--- OUTSIDE RECORDS SUMMARY | 2024-08-31 07:50 | XMS_ITS | Patient Health Record ---
Author Organization [facility] Address [address] [place] [address] Support Name Relationship Address Phone Roxana Aguirre Guarantor Unknown Reason For Referral No Information Plan Of Treatment No Information Insurance Providers Payer Name Payer Address Payer Phone Subscriber Number Group Number Insured Name Patient Relationship to Insured Coverage Start Date [facility]age End Date [facility] [address] [place] [address] [id number] Roxana Leon Self - patient is the insured 1
--- OUTSIDE RECORDS SUMMARY | 2024-08-31 07:50 | XMS_ITS | Clinical Summary ---
Author Organization [facility] Address [address] [facility] [place] [address] Care Team Providers Care Supervisor Home Restoration Service Name Role Phone Jodie Steiner PA-C Primary Care Provider [phone] Source Comments [facility],non-owned Affiliates and Associated Physician Practices is amultiple site organization consisting of ambulatory clinics and hospital sitesin [place], [place], [place] and [place]. This disclosure is being madepursuant to the Care Everywhere program and may not contain all information available regarding this patient. Last updated 18.[facility] Allergies Active Allergy Reactions Criticality Noted Date [...] subcutaneously 2 times daily Active nystatin (Mycostatin) 178438 UNIT/GM powder Apply to affected area 2 [...] mouth once daily 1 Active nystatin (Mycostatin) 888901 UNIT/GM powder Apply to affected area 2 [...] 12/13/2017 Mixed incontinence 12/13/2017 Bladder pain 12/13/2017 Encounters Date Type Department Care Team Description 08/18/2024 Refill [facility] - PATTERNMAKER HAND [address] [place] [address] Charbel Tripp MD Refill Request 07/05/2024 Refill [facility] - PATTERNMAKER HAND [address] [place] [address] Charbel Tripp MD Refill Request 06/21/2024 Telephone [facility] - PATTERNMAKER HAND [address] [place] [phone] Charbel Tripp MD Medication Issue from Last 3 Months Immunizations Name Administration Dates Next Due Covid Moderna primary monova lent 12+ yr 0.5mL 09/01/2020,08/04/2020 INFLUENZA VACCINE 04/13/2020, 9,04/29/2018,2016,05/05/2014,04/30/2013,05/13/2012 PNEUMOCOCCAL PPSV23 03/06/2020 Pneumococcal Pcv13 Conj 04/29/2018 TDAP (7yrs+) 10/08/2014 Family History Medical History Relation Name Comments CAD (Coronary Artery Disease) Brother Depression Brother Diabetes - Type 1 Brother Diabetes - Type 1 Father Cancer - Colon Sister Depression Sister Hyperlipidemia Sister Relation Name Status Comments Brother Father Sister Social History Tobacco Use Types Packs/Day Years [...] Comments Blood Pressure 137/73 07/14/2023 11:09 AM UNIT ASSEMBLER Pulse 73 04/17/2020 1:20 PM CDT Temperature 36.3 C (97.4 F) 02/25/2022 10:32 AM CDT Respiratory Rate - - Oxygen Saturation 95% 04/17/2020 1:20 PM CDT Inhaled Oxygen Concentration - - Weight 99.8 kg (220 lb) 07/14/2023 11:09 AM UNIT ASSEMBLER Height 160 cm (5' 3 ) 07/14/2023 11:09 AM UNIT ASSEMBLER Body Mass Index 38.97 07/14/2023 11:09 AM UNIT ASSEMBLER Plan of Treatment Upcoming Encounters Date Type Department Care Team (Late st Contact Info) Description 11/01/2024 11:00 AM CDT Office Visit [facility] - PATTERNMAKER HAND [address] [place] [address] Charbel Tripp MD [address] [place] [address] Health Maintenance Due Date Last Done Comments MEDICARE AWV 12 MONTHS 1941 ZOSTER VACCINE (1 of 2) 12/03/1991 Respiratory Syncytial Virus (RSV) Vaccine Pt: or over 60 yrs (1 - 1-dose 75+ series) 2016 COVID-19 VACCINE ( season) 2024 05/13/2022, 05/14/2021, 09/01/2020, Additional history exists INFLUENZA VACCINE (#1) 2024 3, 04/24/2022, 03/20/2021, Additional history exists DEPRESSION SCREENING 07/07/2024 DTAP/TDAP/TD VACCINES (2 - Td or Tdap) 10/08/2024 10/08/2014 PNEUMOCOCCAL VACCINE 50+ Completed 03/06/2020, 04/07 BONE DENSITY TESTING Completed 07/26/2021, 12/09/19 HEPATITIS B VACCINE Aged Out No longe r eligible based on patient's age to complete this topic HIB VACCINE Aged Out No longer eligi ble based on patient's age to complete this topic HPV VACCINE Aged Out No longer eligi ble based on patient's age to complete this topic MENINGOCOCCAL (Group B) VACCINE Aged Out No longer eligible based on patient's age to complete this topic MENINGOCOCCAL VACCINE Aged Out No parisa leonard eligible based on patient's age to complete this topic Care Teams Supervisor Home Restoration Service Relationship Specialty Start Date End Date Jodie Steiner PA-C [address] [place] [address] PCP - General Physician Temperature Logging Operator 07/14/23
--- OUTSIDE RECORDS SUMMARY | 2024-08-31 07:50 | XMS_ITS | Encounter Summary ---
Author Organization [facility] Address [facility] [place] [address] Care Team Providers Care Label Designer Name Role Phone Lula Graham MD Primary Care Provider + [phone] Charbel Tripp MD Unavailable [phone] Kady Arteaga NP Primary Care Provider + [phone] Adrianne Hoskins MD Primary Care Provider [phone] Jodie Steiner Primary Care Provider [phone] Encounter Details Date Type Department Care Team (Late st Contact Info) Description 05/28/2013 Abstract [facility] CONVERSION [address] [place] [address] , Generic Conversion, Social History [...] Rule Out 06/23/2020 06/23/2020 06/25/2020 3:46 PM COMMUNITY REINVESTMENT ACT OFFICER COVID-19 Rule Out 04/24/2023 04/24/2023 04/24/2023 1:43 PM CDT COVID-19 Rule Out 05/28/2023 05/28/2023 05/28/2023 10:23 AM COMMUNITY REINVESTMENT ACT OFFICER documented as of this encounter Care Teams Label Designer Relationship Specialty Start Date End Date Lula Graham MD PCP - General INTERNAL MEDICINE 07/14/18 10/10/22 Kady Arteaga, HOUSEKEEPER CHILD CARE [address] [place] [address] PCP - General Nurse Practitioner Family 10/11/2201/04 [place] [address] [address] PCP - General FAMILY PRACTICE 01/17/23 07/10/23 Jodie Steiner PA [address] [place] [address] PCP - General PHYSICIAN TIP FIXER 07/11/23 Charbel Tripp MD [address] [place] [address] GYNECOLOGY 03/15/20 documented as of this encounter
--- OUTSIDE RECORDS SUMMARY | 2024-08-31 07:50 | XMS_ITS | Encounter Summary ---
Author Organization [facility] Address [address] [facility] [place] [address] Care Team Providers Care Wine Manager Name Role Phone Lula Graham MD Primary Care Provider + [phone] Jodie Steiner PA-C Primary Care Provider [phone] Reason for Visit * Reason Onset Date Comments Question 04/22/2018 Encounter Details Date Type Department Care Team (Late st Contact Info) Description 04/22/2018 Telephone [facility] [address] [place], [place] [id number] Charbel Tripp MD [address] [place] [address] Question Social History Tobacco Use Types Packs/Day Years Used Date Smoking Tobacco: Passive Smo ke Exposure - Never Smoker Smokeless Tobacco: Never Alcohol Use Standard Drinks/Week Comments No 0 (1 standard drink = 0.6 oz pur e alcohol) Sex and Gender Information Value Date Recorded Sex Assigned at Not on file Gender Identity Not on file Sexual Orientation Not on file documented as of this encounter Miscellaneous Notes * Telephone Encounter - Rishabh Delgadillo RN - 04/24/2018 2:48 PM CDT Explained cysto. Directions given to BOG UPDATE: wants Dr. Tripp to know she just got out of the hospital r/t Pneumonia and another UTI. * Telephone Encounter - Santos Jim - 04/22/2018 12:49 PM CDT The patient would like the nurse to call her and explain the procedure she is having on Friday. Callback#[phone] documented in this encounter Plan of Treatment Upcoming Encounters Date Type Department Care Team (Late st Contact Info) Description 11/01/2024 11:00 AM CDT Office Visit [facility] - CHIEF PASSENGER SHIP STEWARD/STEWARDESS [address], [facility] [address] [place] [address] Charbel Tripp MD [address] [place] [address] documented as of this encounter Visit Diagnoses Not on filedocumented in this encounter Care Teams Wine Manager Relationship Specialty Start Date End Date Lula Graham MD PCP - General 10/28/17 07/13/23 Jodie Steiner PA-C [address] [place] [address] PCP - General Physician Print Support Specialist 07/14/23 documented as of this encounter
--- OUTSIDE RECORDS SUMMARY | 2024-08-31 07:50 | XMS_ITS | Encounter Summary ---
Author Organization [facility] Address [facility] [place] [address] Care Team Providers Care Community Engagement Leader Name Role Phone Lula Graham MD Primary Care Provider + [phone] Charbel Tripp MD Unavailable [phone] Kady Arteaga NP Primary Care Provider + [phone] Adrianne Hoskins MD Primary Care Provider [phone] Jodie Steiner Primary Care Provider [phone] Encounter Details Date Type Department Care Team (Latest Contact Info) Description 03/26/2018 Abstract [facility] Brittanie Garcia MD Social History Tobacco Use Types Packs/Day Years [...] Rule Out 06/23/2020 06/23/2020 06/25/2020 3:46 PM CAN OPERATOR COVID-19 Rule Out 04/24/2023 04/24/2023 04/24/2023 1:43 PM CDT COVID-19 Rule Out 05/28/2023 05/28/2023 05/28/2023 10:23 AM CAN OPERATOR documented as of this encounter Care Teams Community Engagement Leader Relationship Specialty Start Date End Date Lula Graham MD PCP - General INTERNAL MEDICINE 07/14/18 10/10/22 Kady Arteaga, ROTARY DRYER OPERATOR [address] [place] [address] PCP - General Nurse Practitioner Family 10/11/2201/04 [place] [address] [address] [address] PCP - General FAMILY PRACTICE 01/17/23 07/10/23 Jodie Steiner PA [address] [place] [address] PCP - General PHYSICIAN SALES SUPPORT COORDINATOR 07/11/23 Charbel Tripp MD [address] [place] [address] GYNECOLOGY 03/15/20 documented as of this encounter
== END 2024-08-31 07:47 | disposition home or self-care (01) ==
PROVIDERS: PCP Physician Assistant Medical; Visit Provider Orthopaedic Surgery
DX: M47.894 Other spondylosis, thoracic region (principal); M47.892 Other spondylosis, cervical region
CPT/HCPCS: 72156; 72157; A9577

== ENCOUNTER 2024-09-08 10:00 | Outpatient (CLI) | payer MEDICARE, MEDICAID, SELFPAY ==
--- OUTSIDE RECORDS SUMMARY | 2024-09-08 11:04 | XMS_ITS | Clinical Summary ---
Author Organization [facility] Address [address] [place] [address] Care Team Providers Care Sanitary Engineering Teacher Name Role Phone Jodie Steiner PA-C Primary Care Provider [phone] Source Comments [facility],non-owned Affiliates and Associated Physician Practices is amultiple site organization consisting of ambulatory clinics and hospital sitesin [place], [place], [place] and [place]. This disclosure is being madepursuant to the Care Everywhere program and may not contain all information available regarding this patient. Last updated 18.[facility] Allergies Active Allergy Reactions Criticality Noted Date [...] subcutaneously 2 times daily Active nystatin (Mycostatin) 524638 UNIT/GM powder Apply to affected area 2 [...] mouth once daily 1 Active nystatin (Mycostatin) 283055 UNIT/GM powder Apply to affected area 2 [...] Description 08/18/2024 Refill [facility] - ASSET ACCOUNTANT [address] [place] [address] Charbel Tripp MD Refill Request 07/05/2024 Refill [facility] - ASSET ACCOUNTANT [address] [place] [address] Charbel Tripp MD Refill Request 06/21/2024 Telephone [facility] - ASSET ACCOUNTANT [address] [place] [phone] Charbel Tripp MD Medication Issue from Last [...] Comments Blood Pressure 137/73 07/14/2023 11:09 AM GRAPHICS COORDINATOR Pulse 73 04/17/2020 1:20 PM CDT Temperature 36.3 C (97.4 F) 02/25/2022 10:32 AM CDT Respiratory Rate - - Oxygen Saturation 95% 04/17/2020 1:20 PM CDT Inhaled Oxygen Concentration - - Weight 99.8 kg (220 lb) 07/14/2023 11:09 AM GRAPHICS COORDINATOR Height 160 cm (5' 3 ) 07/14/2023 11:09 AM GRAPHICS COORDINATOR Body Mass Index 38.97 07/14/2023 11:09 AM GRAPHICS COORDINATOR Plan of Treatment Upcoming Encounters Date Type Department Care Team (Late st Contact Info) Description 11/01/2024 11:00 AM CDT Office Visit [facility] - ASSET ACCOUNTANT [address] [place] [address] Charbel Tripp MD [address] [place] [address] Health Maintenance Due Date Last [...] age to complete this topic Care Teams Sanitary Engineering Teacher Relationship Specialty Start Date End Date Jodie Steiner PA-C [address] [place] [address] PCP - General Physician Supervisor Asbestos Textile 07/14/23
--- OUTSIDE RECORDS SUMMARY | 2024-09-08 11:04 | XMS_ITS | Referral Summary ---
Author Organization [facility] Address [address] [place] [address] Care Team Providers Care Profiler Hand Name Role Phone Jodie Steiner PA-C Primary Care Provider [phone] Source Comments [facility],non-owned Affiliates and Associated Physician Practices is amultiple site organization consisting of ambulatory clinics and hospital sitesin [place], [place], [place] and [place]. This disclosure is being madepursuant to the Care Everywhere program and may not contain all information available regarding this patient. Last updated 18.[facility] Encounters Date Type Department Care Team Description 08/18/2024 Refill [facility] - HEAT TREATING FURNACE TENDER [address] [place] [phone] Charbel Tripp MD Refill Request 07/05/2024 Refill [facility] - HEAT TREATING FURNACE TENDER [address] [place] [address] Charbel Tripp MD Refill Request 06/21/2024 Telephone [facility] - HEAT TREATING FURNACE TENDER [address] [place] [address] Charbel Tripp MD Medication Issue [...] subcutaneously 2 times daily Active nystatin (Mycostatin) 539065 UNIT/GM powder Apply to affected area 2 [...] mouth once daily 1 Active nystatin (Mycostatin) 951829 UNIT/GM powder Apply to affected area 2 [...] Comments Blood Pressure 137/73 07/14/2023 11:09 AM CLAM TREADER Pulse 73 04/17/2020 1:20 PM CDT Temperature 36.3 C (97.4 F) 02/25/2022 10:32 AM CDT Respiratory Rate - - Oxygen Saturation 95% 04/17/2020 1:20 PM CDT Inhaled Oxygen Concentration - - Weight 99.8 kg (220 lb) 07/14/2023 11:09 AM CLAM TREADER Height 160 cm (5' 3 ) 07/14/2023 11:09 AM CLAM TREADER Body Mass Index 38.97 07/14/2023 11:09 AM CLAM TREADER Plan of Treatment Upcoming Encounters Date Type Department Care Team (Late st Contact Info) Description 11/01/2024 11:00 AM CDT Office Visit [facility] - HEAT TREATING FURNACE TENDER [address] [place] [phone] Charbel Tripp MD [address] [place] [address] Care Teams Profiler Hand Relationship Specialty Start Date End Date Jodie Steiner PA-C [address] [place] [address] PCP - General Physician Polymer Engineer 07/14/23
--- OUTSIDE RECORDS SUMMARY | 2024-09-08 11:04 | XMS_ITS | Encounter Summary ---
Author Organization [facility] Address [facility] [place] [address] Care Team Providers Care Ediphone Operator Name Role Phone Lula Graham MD Primary Care Provider + [phone] Charbel Tripp MD Unavailable [phone] Kady Arteaga NP Primary Care Provider + [phone] Adrianne Hoskins MD Primary Care Provider [phone] Jodie Steiner Primary Care Provider [phone] Encounter Details Date Type Department Care Team (Late st Contact Info) Description 09/11/2015 Abstract [facility] CONVERSION [address] [place] [address] , Generic Conversion, Social History [...] Rule Out 06/23/2020 06/23/2020 06/25/2020 3:46 PM FAMILY LAW SPECIALIST COVID-19 Rule Out 04/24/2023 04/24/2023 04/24/2023 1:43 PM CDT COVID-19 Rule Out 05/28/2023 05/28/2023 05/28/2023 10:23 AM FAMILY LAW SPECIALIST documented as of this encounter Care Teams Ediphone Operator Relationship Specialty Start Date End Date Lula Graham MD PCP - General INTERNAL MEDICINE 07/14/18 10/10/22 Kady Arteaga, LAYOUT MECHANIC [address] [place] [address] PCP - General Nurse Practitioner Family 10/11/2201/04 [place] [address] [employer] [address] PCP - General FAMILY PRACTICE 01/17/23 07/10/23 Jodie Steiner PA [address] [place] [address] PCP - General PHYSICIAN REMOTE OPERATIONS PRODUCER 07/11/23 Charbel Tripp MD [address] [place] [address] GYNECOLOGY 03/15/20 documented as of this encounter
--- OUTSIDE RECORDS SUMMARY | 2024-09-08 11:04 | XMS_ITS | Encounter Summary ---
Author Organization [facility] Address [address] [place] [address] Care Team Providers Care Diagram Clerk Name Role Phone Lula Graham MD Primary Care Provider + [phone] Jodie Steiner PA-C Primary Care Provider [phone] Reason for Visit * Reason Onset Date Comments Question 04/22/2018 Encounter Details Date Type Department Care Team (Late st Contact Info) Description 04/22/2018 Telephone [facility] [address] [place], [place] [id number] Charbel Tripp MD [address] [place] [address] Question Social History Tobacco Use [...] the procedure she is having on Friday. Callback#[phone] documented in this encounter Plan of Treatment Upcoming Encounters Date Type Department Care Team (Late st Contact Info) Description 11/01/2024 11:00 AM CDT Office Visit [facility] [address], [facility] [address] [place] [address] Charbel Tripp MD [address] [place] [address] documented as of this encounter Visit Diagnoses Not on filedocumented in this encounter Care Teams Diagram Clerk Relationship Specialty Start Date End Date Lula Graham MD PCP - General 10/28/17 07/13/23 Jodie Steiner PA-C [address] [place] [address] PCP - General Physician Veneer Matcher 07/14/23 documented as of this encounter
--- OUTSIDE RECORDS SUMMARY | 2024-09-08 11:04 | XMS_ITS | Clinical Summary ---
Author Organization [facility] Address [address] [place] [address] Care Team Providers Care Evp Chief Exploration Officer Name Role Phone Charbel Tripp MD Unavailable [phone] Ale Steiner Primary Care Provider [phone] Allergies Active Allergy Reactions Criticality Noted Date [...] complication, without long-term current use of insulin ([facility]) Use once daily 100 each 3 02/14/20 [...] complication, without long-term current use of insulin ([facility]) Inject 22 Units into the skin nightly at bedtime. 1.5 mL 12/27/19 Active Active Problems Problem Noted Date Diagnosed Date Syncope 12/26/2023 Morbid (severe) obesity due to excess calories ([facility]) 09/23/2022 Body mass index (BMI) 40.0-44.9, adult ([facility]) 09/23/2022 BMI 40.0-44.9, adult ([facility]) 0 Lumbar radiculopathy 08/31/2019 Overview (08/31/2019): Added automatically from request for surgery [id number] Severe episode of recurrent major depressive disorder, without psychotic features ([facility]) 10/26/2018 Persistent insomnia 10/26/2018 Generalized anxiety disorder 10/26/2018 (HFpEF) heart failure with p reserved ejection fraction ([facility]) 04/18/2018 TIA (transient ischemic attack) 01/27/2018 Bladder pain 12/13/2017 Mixed incontinence 12/13/2017 Acute cystitis without hematuria 12/13/2017 Abdominal mass 10/14/2017 Obesity, Class III, BMI 40-4 9.9 (morbid obesity) ([facility]) 10/14/2017 Itching 10/10/2017 Diabetic neuropathy ([facility]) 09/30/2017 Blind right eye 09/30/2017 Overview (07/14/2018): Impression - [id number] Lula Graham: 2008 cataract surgery torn retina Sleep apnea 07/07/2017 Overview (10/18/2022): Last Assessment & Plan: Discussed comorbidities associated with sleep apnea, including effects on weight, and stressed importance of adequate treatment if present. Hypomagnesemia 07/04/2017 Recurrent urinary tract infection 05/19/2017 Hemorrhoids 01/02/2017 Esophageal reflux 09/02/2014 Irritable bowel syndrome 04/05/2014 Mild vitamin D deficiency 04/05/2014 Type 2 diabetes mellitus ([facility]) 04/05 Overview (07/14/2018): Transitioned From: Diabetes mellitus Peripheral neuropathy 01/03/2014 Pain in hip joint 10/28/2013 Depression with anxiety 10/17/2013 Restless legs syndrome 05/05/2013 Tinea corporis 02/18/2013 Lower back pain 11/09/2012 Hyperlipidemia 08/26/2012 Hypertension 07/18/2012 Type 2 diabetes mellitus wit h kidney complication, with long-term current use of insulin ([facility]) 07/07/2012 Overview (10/18/2022): Last Assessment & Plan: Reviewed recent labs. Discussed insulin resistance including effect on weight. Recommended low-carb, low-glycemic diet; choose whole grains and avoid more highly processed carbohydrates. Discussed potential benefits of this w/r/t gut microbiome. Referred to ADA and [facility] websites for additional information on topics [...] from your doctor or pharmacy? Never 12/26/2023 [facility] Utilities Answer Date Recorded In the past 12 months has th e Like[employer]fm, gas, oil, or water [employer] threatened to shut off services in your [...] How often do you attend chur or muslim services? Never 12/26/2023 Do you belong to any clubs o r organizations such as religious groups, unions, fraternal or athletic groups, or [...] Recorded Patient Health Questionnaire-2 Score 0 09/23/2022 [facility] - Occupational Stress [...] any time in the past 12 m [facility], were you homeless or living in a fdc (including now)? No 12/26/2023 Comments No Sex and Gender Information Value Date Recorded Sex Assigned at Not on file Legal Sex Female 10:25 PM CDT Gender Identity Not on file Sexual Orientation Not on file Occupation Industry Job Start Date Job End Date [employer] Not on file Not on file Not [...] 09/18/2023 09/17/2022, 09/04, 04/24/2022, Additional history exists COVID-19 Vaccine ( season) 2024 05/12/2023, 05/13/2022, 05/14/2021, Additional history exists Influenza Adult (#1) 2024 05/12/2023, 04/24/2022, 03/20/2021, Additional history exists PHQ-2 (Physician [place]) 07/07/2024 09/23/2022 DTaP, Tdap and Td Vaccines [...] complication, without long-term current use of insulin ([facility]) LIPOPROTEIN, LDL CHOL, DIRECT Routine 09/17/2022 1:20 [...] bone mineral density test. [facility], routine testing is allowed once every 2 [...] Oscar Parsons MD, 12/31/2023 5:18 AM Ale FERRER DEXA Final Result * DIABETIC RETINOPATHY EXAM (NEGATIVE)(SCAN) (02/04/2023) [facility] Scanned SCANNING Final Resu lt Performing Organization Address City/[facility] Co de Phone Number [facility] ONBASE * HEMOGLOBIN, GLYCOSYLATED (01/20/2023) HGB A1C 6.7 % [id number] [facility] 01/20/2023 Adrianne Hoskins MD LABORATORY Final Result Performing Organization Address [facility] de Phone Number [phone] [facility] [address] [place] [address], * LIPOPROTEIN, LDL CHOL, DIRECT (09/17/2022 1:20 PM CDT) DIRECT LDL 88 <100 MG/DL 09/17/2022 3:46 PM CDT [facility] Comment: LDL OPTIMAL <100 LDL NEAR OPTIMAL 100-129 LDL BORDERLINE HIGH 130-159 LDL HIGH 160-189 LDL VERY HIGH >=190 09/17/2022 1:20 PM CDT us Lula Graham MD LABORATORY Final Result [facility] [address] [place] [address], [place] [phone] from Last 3 Months or Most Recently Relevant to Health Maintenance Insurance MEDICARE MEDICAID [facility] Advance Directives * Full Code (Latest Code Status on File) Date Activated Date Inactivated Comments 12/26/2023 8:09 PM 12/27/2023 5:19 PM Care Teams Evp Chief Exploration Officer Relationship Specialty Start Date End Date Ale Steiner PA [address] [place] [address] PCP - General PHYSICIAN ONCOLOGY RN 07/11/23 Charbel Tripp MD [address] [place] [address] GYNECOLOGY 03/15/20
--- OUTSIDE RECORDS SUMMARY | 2024-09-08 11:04 | XMS_ITS | Encounter Summary ---
Author Organization [facility] Address [facility] [place] [address] Care Team Providers Care Deputy Attorney General Name Role Phone Lula Graham MD Primary Care Provider + [phone] Charbel Tripp MD Unavailable [phone] Kady Arteaga NP Primary Care Provider + [phone] Adrianne Hoskins MD Primary Care Provider [phone] Jodie Steiner Primary Care Provider [phone] Encounter Details Date Type Department Care Team (Latest Contact Info) Description 03/26/2018 Abstract [facility] Medical Group Brittanie Garcia MD Social History [...] Rule Out 06/23/2020 06/23/2020 06/25/2020 3:46 PM RUSSIAN RUBBER COVID-19 Rule Out 04/24/2023 04/24/2023 04/24/2023 1:43 PM CDT COVID-19 Rule Out 05/28/2023 05/28/2023 05/28/2023 10:23 AM RUSSIAN RUBBER documented as of this encounter Care Teams Deputy Attorney General Relationship Specialty Start Date End Date Lula Graham MD PCP - General INTERNAL MEDICINE 07/14/18 10/10/22 Kady Arteaga, MAILROOM PERSONNEL [address] [place] [address] PCP - General Nurse Practitioner Family 10/11/2201/04 [place] [address] [employer] [address] PCP - General FAMILY PRACTICE 01/17/23 07/10/23 Jodie Steiner PA [address] [place] [address] PCP - General PHYSICIAN B2B SALES REPRESENTATIVE 07/11/23 Charbel Tripp MD [address] [place] [address] GYNECOLOGY 03/15/20 documented as of this encounter
--- OUTSIDE RECORDS SUMMARY | 2024-09-08 11:04 | XMS_ITS | Encounter Summary ---
Author Organization [facility] Address [facility] [place] [address] Care Team Providers Care Farmer Vegetable Name Role Phone Lula Graham MD Primary Care Provider + [phone] Charbel Tripp MD Unavailable [phone] Kady Arteaga NP Primary Care Provider + [phone] Adrianne Hoskins MD Primary Care Provider [phone] Jodie Steiner Primary Care Provider Encounter Details Date Type Department Care Team (Late st Contact Info) Description 05/28/2013 Abstract [facility] CONVERSION [address] [place] [address] , Generic Conversion, Social History [...] Rule Out 06/23/2020 06/23/2020 06/25/2020 3:46 PM PARTS SALES COUNTERPERSON COVID-19 Rule Out 04/24/2023 04/24/2023 04/24/2023 1:43 PM CDT COVID-19 Rule Out 05/28/2023 05/28/2023 05/28/2023 10:23 AM PARTS SALES COUNTERPERSON documented as of this encounter Care Teams Farmer Vegetable Relationship Specialty Start Date End Date Lula Graham MD PCP - General INTERNAL MEDICINE 07/14/18 10/10/22 Kady Arteaga, ONCOLOGY NURSE NAVIGATOR [address] [place] [address] PCP - General Nurse Practitioner Family 10/11/2201/04 [place] [address] [employer] [address] PCP - General FAMILY PRACTICE 01/17/23 07/10/23 Jodie Steiner PA [address] [place] [address] PCP - General PHYSICIAN PAYMENT MANAGER 07/11/23 Charbel Tripp MD [address] [place] [address] GYNECOLOGY 03/15/20 documented as of this encounter
--- OUTSIDE RECORDS SUMMARY | 2024-09-08 11:04 | XMS_ITS | Patient Health Record ---
Author Organization [facility] Address [address] [facility] [address] [place] [address] Support Name Relationship Address Phone Roxana Aguirre Guarantor Unknown [phone] Reason For Referral No Information Plan Of Treatment No Information Insurance Providers Payer Name Payer Address Payer Phone Subscriber Number Group Number Insured Name Patient Relationship to Insured Coverage Start Date Coverage End Date [facility] [address] [place] [address] [id number] Roxana Leon Self - patient is the insured 1
--- OUTSIDE RECORDS SUMMARY | 2024-09-08 11:04 | XMS_ITS | Encounter Summary ---
Author Organization [facility] Address [facility] [place] [address] Care Team Providers Care Sales Agent Pest Control Service Name Role Phone Lula Graham MD Primary Care Provider + [phone] Charbel Tripp MD Unavailable [phone] Kady Arteaga NP Primary Care Provider + [phone] Adrianne Hoskins MD Primary Care Provider [phone] Jodie Steiner Primary Care Provider [phone] Encounter Details Date Type Department Care Team (Late st Contact Info) Description 08/15/2017 Abstract [facility] CONVERSION [address] [place] [address] , Generic Conversion, Social History [...] Rule Out 06/23/2020 06/23/2020 06/25/2020 3:46 PM CLERICAL ASSISTANT COVID-19 Rule Out 04/24/2023 04/24/2023 04/24/2023 1:43 PM CDT COVID-19 Rule Out 05/28/2023 05/28/2023 05/28/2023 10:23 AM CLERICAL ASSISTANT documented as of this encounter Care Teams Sales Agent Pest Control Service Relationship Specialty Start Date End Date Lula Graham MD PCP - General INTERNAL MEDICINE 07/14/18 10/10/22 Kady Arteaga, WEBLOGIC DEVELOPER [address] [place] [address] PCP - General Nurse Practitioner Family 10/11/2201/04 [place] [address] [employer] [employer] [address] PCP - General FAMILY PRACTICE 01/17/23 07/10/23 Jodie Steiner PA [address] [place] [address] PCP - General PHYSICIAN SENIOR NET PROGRAMMER 07/11/23 Charbel Tripp MD [address] [place] [address] GYNECOLOGY 03/15/20 documented as of this encounter
--- OUTSIDE RECORDS SUMMARY | 2024-09-08 11:04 | XMS_ITS ---
Author Organization [facility] susanne Address [address] [facility] [address] [place] [address] Care Team Providers Care Instructional Systems Design Consultant Name Role Phone zzzzMigration, zzzzProvider Unavailable Unav ailable REASON FOR VISIT [facility] Encounters Encounter Location Date Provider Diagnosis [facility] [address] [facility] [address] [place] [address] 04/26/2023 zzzzProvider zzzzMigration Plan Of Treatment No Information Progress Notes * Carissa CAMPOSOB:[birth year] (83 yo F)Acc No.[id number]:04/26/2023 Patient: Roxana CULVER :1940 A ge:82 Y S ex:Female Address[address] [facility] [address] Subjective: * Chief Complaints: * E MR-Yao * Medical History: * Surgical History: * Hospitalization/Major Diagno stic Procedure: * Medications: Objective: * Vitals: * Physical Examination: Assessment: Plan: * Treatment: * Procedure Codes: * * Date:
--- OUTSIDE RECORDS SUMMARY | 2024-09-08 11:04 | XMS_ITS ---
Author Organization [facility] susanne Address [address] [facility] [address] [place] [address] Care Team Providers Care Economic Analysis Director Name Role Phone zzzzMigration, zzzzProvider Unavailable Unav ailable REASON FOR VISIT [facility] [place] Encounters Encounter Location Date Provider Diagnosis [facility] [address] [facility] [address] [place] [address] 04/27/2023 zzzzProvider zzzzMigration Plan Of Treatment No Information Progress Notes * Carissa CAMPOSOB:[birth year] (83 yo F)Acc No.[id number]:04/27/2023 Patient: Roxana CULVER :1940 A ge:82 Y S ex:Female Address:[address] [facility] [address] Subjective: * Chief Complaints: * E MR-Yao * Medical History: * Surgical History: * Hospitalization/Major Diagno stic Procedure: * Medications: Objective: * Vitals: * Physical Examination: Assessment: Plan: * Treatment: * Procedure Codes: * * Date:
--- OUTSIDE RECORDS SUMMARY | 2024-09-08 11:05 | XMS_ITS | Referral Summary ---
Author Organization [facility] [address] Address [address] [place] [address] Care Team Providers Care Manager Acquisition Name Role Phone Jodie Steiner Primary Care Provider [phone] Randy May MD Unavailable [phone] Encounters Date Type Department Care Team Description 08/16/2024 Telephone [facility] Card[facility] [address] [facility] [address] [place] [address] [place] [address] Anival Donis MD 07/22/2024 Telephone [facility] Cardiology [address] [facility] [address] [place] [address] [place] [address] Anival Donis MD knee surgery from Last [...] CALCIUM ORAL Take 600 mg by mouth landscaping and groundskeeping laborer before breakfast Active guaiFENesin ER (MUCINEX) 600 mg 12 hr tablet Take 2 tablets (1,200 mg total) by mouth as needed for cough Active Gemtesa 75 mg tablet Take 75 [...] tablet,chewabl e Take 1,000 mg by mouth landscaping and groundskeeping laborer before breakfast Active multivitamin tabletIndicati ons:Vitamin Deficiency [...] daily 90 capsule 3 07/05/20 24 Active lisinopriL (PRINIVIL,ZEST RIL) 20 mg tablet TAKE 1 TABLET DAILY 90 tablet 3 09/08/19 25 Active aspirin 325 mg tablet TAKE 1 TABLET DAILY 019 Discontinued lisinopriL (PRINIVIL,ZEST RIL) 20 mg tablet TAKE 1 TABLET DAILY 90 tablet 3 09/15/19 24 025 Discontinued Active Problems Problem Noted Date Diagnosed [...] moderate-intensity aerobic exercise. (HFpEF) heart failure with preserved ejection fr action 04/18/2018 Sleep apnea 07/07/2017 Assessment & Plan [...] w/r/t gut microbiome. Referred to ADA and [facility] websites for additional information on topics [...] on file Legal Sex Female 7:28 AM MOLD MAINTENANCE TECHNICIAN Gender Identity Not on file Sexual Orientation [...] BLOOD ORDERABLES F inal Result [facility] [address] [place] [address] from Last 3 Months or Most Recently Relevant to Health Maintenance Insurance MEDICARE [facility] MEDICARE [facility] MEDICARE [facility] Care Teams Manager Acquisition Relationship Specialty Start Date End Date Jodie Steiner PA [address] [place] [address] PCP - General Physician Miter Grinder Operator 08/29/23 Randy May MD [address] [place] [address] Referring Physician Orthopedic Surgery 03/15/24
--- OUTSIDE RECORDS SUMMARY | 2024-09-08 11:05 | XMS_ITS | Encounter Summary ---
Author Organization [facility] Address [address] [place] [address] Phone Care Team Providers Care Captain/Airline Pilot Name Role Phone Jodie Steiner Primary Care Provider [phone] Randy May MD Unavailable [phone] Encounter Details Date Type Department Care Team [...] on file Legal Sex Female 7:28 AM CHARHOUSE WORKER Gender Identity Not on file Sexual Orientation [...] on filedocumented in this encounter Care Teams Captain/Airline Pilot Relationship Specialty Start Date End Date Jodie Steiner PA [address] [place] [address] PCP - General Physician Captain Airline Pilot 08/29/23 Randy May MD [address] [place] [address] Referring Physician Orthopedic Surgery 03/15/24 documented as of this encounter"
--- OUTSIDE RECORDS SUMMARY | 2024-09-08 11:05 | XMS_ITS | Patient Health Summary ---
Author Organization [facility] Address [address] [place] [address] Care Team Providers Care Special Certificate Dictator Name Role Phone Jodie Steiner PA-C Primary Care Provider [phone] Note from [facility],non-owned Affiliates and Associated Physician Practices is amultiple site organization consisting of ambulatory clinics and hospital sitesin [place], [place], [place] and [place]. This disclosure is being madepursuant to the Care Everywhere program and may not contain all information available regarding this patient. Last updated 18.[facility] Allergies * Adrenal Cortex Extract(Rash) -Medium Criticality [...] subcutaneously 2 times daily * nystatin (Mycostatin) 172658 UNIT/GM powder Apply to affected area 2 [...] by mouth once daily * nystatin (Mycostatin) 901690 UNIT/GM powder(Started 12/10/2021) Apply to affected area [...] Comments Blood Pressure 137/73 07/14/2023 11:09 AM JAVA SDET Pulse 73 04/17/2020 1:20 PM CDT Temperature 36.3 C (97.4 F) 02/25/2022 10:32 AM CDT Respiratory Rate - - Oxygen Saturation 95% 04/17/2020 1:20 PM CDT Inhaled Oxygen Concentration - - Weight 99.8 kg (220 lb) 07/14/2023 11:09 AM JAVA SDET Height 160 cm (5' 3 ) 07/14/2023 11:09 AM JAVA SDET Body Mass Index 38.97 07/14/2023 11:09 AM JAVA SDET Procedures * CULTURE URINE(Performed 12/24/2023) Performed for [...] 04/05/2021) * LAB RESULTS ORDER(Performed 04/05/2021) * AL IRRIGATION OF BLADDER(Performed 01/29/2021) Performed for Frequent UTI * AL CYSTOURETHROSCOPY(Performed 01/29/2021) Performed for Frequent UTI * AL IRRIGATION OF BLADDER(Performed 12/26/2020) Performed for Frequent UTI * CULTURE URINE COMPREHENSIVE(Performed 12/25/2020) Performed for Frequent UTI * URINALYSIS AUTO - POINT OF CARE (AMB) [facility](Performed 12/25/2020) Performed for Frequent UTI * LAB RESULTS ORDER(Performed 12/08/2020) * LAB RESULTS ORDER(Performed 12/06/2020) * LAB RESULTS ORDER(Performed 12/06/2020) * AL IRRIGATION OF BLADDER(Performed 11/27/2020) Performed for Frequent UTI * CULTURE URINE COMPREHENSIVE(Performed 11/27/2020) Performed for Frequent UTI * URINALYSIS AUTO - POINT OF CARE (AMB) [facility](Performed 11/27/2020) Performed for Frequent UTI * AL IRRIGATION OF BLADDER(Performed 10/23/2020) Performed for Frequent UTI * CULTURE URINE COMPREHENSIVE(Performed 10/23/2020) Performed for Frequent UTI * URINALYSIS AUTO - POINT OF CARE (AMB) [facility](Performed 10/23/2020) Performed for Frequent UTI * AL IRRIGATION OF BLADDER(Performed 09/07/2020) Performed for Frequent UTI * CULTURE URINE COMPREHENSIVE(Performed 09/07/2020) Performed for Frequent UTI * URINALYSIS AUTO - POINT OF CARE (AMB) [facility](Performed 09/07/2020) Performed for Frequent UTI * CULTURE URINE COMPREHENSIVE(Performed 08/14/2020) Performed for Frequent UTI * AL IRRIGATION OF BLADDER(Performed 08/14/2020) Performed for Frequent UTI * AL BIOPSY VULVA/PERINEUM,ONE LESN(Performed 08/14/2020) Performed for Vulvar lesion * URINALYSIS AUTO - POINT OF CARE (AMB) [facility](Performed 08/14/2020) Performed for Frequent UTI * AL IRRIGATION OF BLADDER(Performed 07/17/2020) Performed for Frequent UTI * CULTURE URINE COMPREHENSIVE(Performed 07/17/2020) Performed for Frequent UTI * URINALYSIS AUTO - POINT OF CARE (AMB) [facility](Performed 07/17/2020) Performed for Frequent UTI * LAB RESULTS ORDER(Performed 06/16/2020) * LAB RESULTS ORDER(Performed 06/16/2020) * AL IRRIGATION OF BLADDER(Performed 04/17/2020) Performed for Frequent UTI * AL IRRIGATION OF BLADDER(Performed 03/24/2020) Performed for Frequent UTI * AL IRRIGATION OF BLADDER(Performed 02/14/2020) Performed for Frequent UTI * CULTURE URINE COMPREHENSIVE(Performed 01/06/2020) Performed for UTI symptoms * URINALYSIS AUTO - POINT OF CARE (AMB) [facility](Performed 01/06/2020) Performed for UTI symptoms * AL CYSTOSCOPY CHEMODENERVATION(Performed 08/31/2019) Performed for Overactive bladder * URINALYSIS - POINT OF CARE (AMB) [facility](Performed 08/30/2019) Performed for Frequent UTI, Mixed incontinence * LAB RESULTS ORDER(Performed 05/10/2019) * CULTURE URINE COMPREHENSIVE(Performed 04/05/2019) Performed for Frequent UTI * URINALYSIS - POINT OF CARE (AMB) [facility](Performed 04/05/2019) Performed for Frequent UTI * URINALYSIS - POINT OF CARE (AMB) [facility](Performed 09/28/2018) Performed for Frequent UTI * AL CYSTOURETHROSCOPY(Performed 05/06/2018) Performed for Frequent UTI, Bladder pain * URINALYSIS - POINT OF CARE (AMB) [facility](Performed 12/12/2017) Performed for Acute cystitis without hematuria * CULTURE URINE COMPREHENSIVE(Performed 12/12/2017) Performed for Acute cystitis without hematuria Results * CULTURE URINE (12/24/2023 11:55 AM CDT) Only the most recent of3 resultswithin the time period is included. Culture [facility] Comment: CULTURE, URINE, ROUTINE Micro Number: [id number] Test Status: Final Specimen Source: Urine, clean catch Specimen Quality: Adequate Result: Less than 10,000 CFU/mL of single Gram positive organism isolated. No further testing will be performed. If clinically indicated, recollection using a method to minimize contamination, with prompt transfer to Urine Culture Transport Tube, is recommended. Test Performed at: [facility] [id number] [place] [address] AUDRA JEAN BAPTISTE MD Urine MID-STREAM URINE SPECIMEN / Unknown 12/24/2023 11:55 AM CDT 12/24/2023 11:55 AM CDT Charbel Tripp MD LAB - MICROBIOLOGY [facility] [address] [address] * (ABNORMAL) CULTURE URINE COMPREHENSIVE (07/14/2023 11:57 AM JAVA SDET) Only the most recent of11 resultswithin the time period is included. Culture (A) [facility] Comment: CULTURE, URINE, SPECIAL Micro Number: [id number] Test Status: Final Specimen Source: Urine, clean catch Specimen Quality: Adequate Result: Greater than 100,000 CFU/mL of Non-uropathogenic Gram positive organism 1,000-9,000 CFU/ML of Gram negative bacilli isolated 100-900 CFU/mL of Gram positive cocci isolated COMMENT: May represent colonizers from external and internal genitalia. No further testing (including susceptibility) will be performed. Test Performed at: [facility] [address] AUDRA JEAN BAPTISTE MD Microbiology URINE SPECIMEN OBTAINED BY CLEAN CATCH PROCEDURE / Unknown 07/14/2023 11:57 AM JAVA SDET 07/16/2023 3:28 AM JAVA SDET Charbel Tripp MD LAB - MICROBIOLOGY O [facility] [address] [place] [address] * URINALYSIS AUTO - POINT OF CARE (AMB) [facility] (07/14/2023 11:55 AM JAVA SDET) Only the most recent of9 resultswithin the time period is included. Glucose UA neg [facility] [address] Bilirubin UA POCT neg [facility] [address] Ketones UA POCT neg [facility] [address] Specific [place] UA 1.[address] [facility] [address] Blood Urine POCT neg [facility] [address] pH UA 6 [facility] [address] Protein UA 2+ [facility] [address] Urobilinogen UA neg [facility] [address] Nitrite UA neg [facility] [address] WBC UA 1+ [facility] [address] Urine URINE / Unknown 07/14/2023 1 1:55 AM JAVA SDET Charbel Tripp MD LAB - POINT OF CARE ORDERABLES Performing Organization Address [facility] Co de Phone Number [facility] [address] [place] [address], [facility] [phone] * LAB RESULTS ORDER (06/04/2023) Only the most recent of16 resultswithin the time period is included. 06/04/2023 Narrative 06/04/2023 Ordered by an unspecified provider. Scanned Document LAB - THERAPEUTIC DR KARISHMA MONITORING ORDERABLES * AL IRRIGATION OF BLADDER (01/29/2021 4:50 PM CDT) [...] Tripp MD PROCEDURE/MINOR SURG ICAL ORDERABLES * AL CYSTOURETHROSCOPY (01/29/2021 4:48 PM CDT) Charbel Cortez [...] Tripp MD PROCEDURE/MINOR SURG ICAL ORDERABLES * AL IRRIGATION OF BLADDER (12/26/2020 7:47 AM CDT) [...] Tripp MD PROCEDURE/MINOR SURG ICAL ORDERABLES * AL IRRIGATION OF BLADDER (11/27/2020 5:18 PM CDT) [...] Tripp MD PROCEDURE/MINOR SURG ICAL ORDERABLES * AL IRRIGATION OF BLADDER (10/23/2020 12:01 PM CDT) Narrative Charbel Tripp MD - 10/23/2020 12:01 PM CDT [...] Tripp MD PROCEDURE/MINOR SURG ICAL ORDERABLES * AL IRRIGATION OF BLADDER (09/07/2020 2:56 PM JAVA SDET) Charbel Cortez MD - 09/07/2020 2:56 PM JAVA SDET Charbel Tripp MD 09/07/2020 2:57 PM Bladder [...] Tripp MD PROCEDURE/MINOR SURG ICAL ORDERABLES * AL IRRIGATION OF BLADDER (08/14/2020 1:51 PM JAVA SDET) Charbel Cortez MD - 08/14/2020 1:51 PM JAVA SDET Charbel Tripp MD 08/14/2020 9:12 PM Bladder [...] Tripp MD PROCEDURE/MINOR SURG ICAL ORDERABLES * AL BIOPSY VULVA/PERINEUM,ONE LESN (08/14/2020 1:47 PM JAVA SDET) Charbel Cortez MD - 08/14/2020 1:47 PM JAVA SDET Charbel Tripp MD 08/14/2020 9:12 PM Procedure [...] Tripp MD PROCEDURE/MINOR SURG ICAL ORDERABLES * AL IRRIGATION OF BLADDER (07/17/2020 5:39 PM JAVA SDET) Charbel Cortez MD - 07/17/2020 5:39 PM JAVA SDET Charbel Tripp MD 07/17/2020 5:40 PM Bladder [...] Tripp MD PROCEDURE/MINOR SURG ICAL ORDERABLES * AL IRRIGATION OF BLADDER (04/17/2020 5:17 PM CDT) [...] Tripp MD PROCEDURE/MINOR SURG ICAL ORDERABLES * AL IRRIGATION OF BLADDER (03/24/2020 6:24 AM CDT) [...] Tripp MD PROCEDURE/MINOR SURG ICAL ORDERABLES * AL IRRIGATION OF BLADDER (02/14/2020 5:24 PM CDT) [...] Tripp MD PROCEDURE/MINOR SURG ICAL ORDERABLES * AL CYSTOSCOPY CHEMODENERVATION (08/31/2019) Charbel Cortez MD - 08/31/2019 See progress note Charbel Tripp MD AL - PROFESSIONAL SE RVICES * (ABNORMAL) URINALYSIS - POINT OF CARE (AMB) [facility] (08/30/2019) Only the most recent of4 resultswithin the time period is included. Specific [place] UA 1.020 pH UA 5 WBC UA tr Nitrite UA n Protein UA n Glucose UA n Ketones UA POCT n Urobilinogen UA n Bilirubin UA POCT n Blood Urine POCT nt Urine URINE / Unknown 08/30/2019 Charbel Tripp MD LAB - POINT OF CARE ORDERABLES * AL CYSTOURETHROSCOPY (05/06/2018 9:34 PM CDT) Charbel Cortez [...] MD PROCEDURE/MINOR SURG ICAL ORDERABLES Care Teams Special Certificate Dictator Relationship Specialty Start Date End Date Jodie Steiner PA-C [address] [place] [id number] PCP - General Physician Pile Header 07/14/23
--- OUTSIDE RECORDS SUMMARY | 2024-09-08 11:05 | XMS_ITS | Clinical Summary ---
Author Organization [facility] [place] [address] Address [address] [place] [address] Care Team Providers Care Resort Desk Clerk Name Role Phone Jodie Steiner Primary Care Provider [phone] UngRandy muse MD Unavailable [phone] Allergies Active Allergy Reactions Criticality Noted Date [...] CALCIUM ORAL Take 600 mg by mouth picking machine operator helper before breakfast Active guaiFENesin ER (MUCINEX) 600 [...] tablet,chewabl e Take 1,000 mg by mouth picking machine operator helper before breakfast Active multivitamin tabletIndicati ons:Vitamin Deficiency [...] w/r/t gut microbiome. Referred to ADA and [employer] websites for additional information on topics including [...] Type Department Care Team Description 08/16/2024 Telephone [facility] [address] [place] [address] [place] [address] Anival Donis MD 07/22/2024 Telephone [facility] [address] [place] [address] [place] [address] Anival Donis MD knee surgery from Last 3 Months Surgical History Surgery Date Site/Laterality Comments APPENDECTOMY 07/07/1985 - 07/06/1986 CATARACT EXTRACTION 2008,2009 FRACTURE SURGERY elbow broke 2018 CHOLECYSTECTOMY 07/07/1998 - 07/06/1999 HYSTERECTOMY 07/07/1985 - 07/06/1986 BLADDER SURGERY 1986 bladder lift RETINA SURGERY Medical History Medical History Date Comments GERD (gastroesophageal reflux disease) 2000 Anxiety 1989 Cataract 2008,2009 Depression 1997 Diabetes mellitus (HCC) 2012 Hypertension 1989 Sleep apnea 2017 Menstrual problem hysterectomy 1985 Nasal congestion Ear problems Tinnitus Dizziness Family History Medical History Relation Name Comments Heart attack Brother 1 Ignacio Family history of myocardial infarction - (Added by TW Conv) Depression Brother 2 Giovani Diabetes Brother 3 Giovani E Depression Daughter Ashley Diabetes Father [place] Stroke Father [place] Family history of cerebrovascular accident - (Added [...] on file Legal Sex Female 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 MEDICARE [facility] Care Teams Resort Desk Clerk Relationship Specialty Start Date End Date Jodie Steiner PA [address] [place] [address] [phone] PCP - General Physician Trim Operator 08/29/23 Randy May MD [address] [place] [id number] Referring Physician Orthopedic Surgery 03/15/24
== END 2024-09-08 10:01 | disposition home or self-care (01) ==
LOC: ANHSURGERY 10:04
PROVIDERS: PCP Physician Assistant Medical; Visit Provider Orthopaedic Surgery
DX: Z01.818 Encounter for other preprocedural examination (principal); M17.11 Unilateral primary osteoarthritis, right knee
CPT/HCPCS: 36415; 83036; 86850; 86900; 86901; 87081

== ENCOUNTER 2024-09-15 11:38 | Inpatient (IN) | payer MEDICARE, MEDICAID, SELFPAY ==
[2024-09-03 11:36] VITALS: BMI 35.9
--- NOTE | 2024-09-03 11:50 | PC.NURSE ---
Report to the Outpatient Waiting Room, entrance under the green pavilion located off [facility], at time ___6:00AM____ on date ___09/14/24____. Planned Procedure Time: ___7:30AM____.? Time changes happen often and if your time is changed the preop area will call you the afternoon before. - You and your visitor will be asked to self-screen and do not enter if you have any COVID symptoms. Please call surgeon if you need to reschedule. - A mask is optional within the hospital at this time. Patients may have clear liquids (water, carbonated beverages, clear teas, apple juice) until 3 hours prior to surgery (4:30AM) with a maximum of 20 ounces. - No food from midnight until time of surgery and no smoking, or chewing tobacco (or any form of nicotine). No chewing gum, candy or mints. Take only the following medications with a SIP of water on the morning of surgery: ____CARVEDILOL, CLORAZEPATE, GABAPENTIN, SERTRALINE, VENLAFAXINE DO NOT STOP ANY OF YOUR OTHER PRESCRIPTION MEDICATIONS PRIOR TO SURGERY EXCEPT THE FOLLOWING Hold all vitamins and supplements for 3 days per anesthesiologist.-09/10/24 Please no make-up, nail irish, hairspray, perfume, deodorant, or body powder the day of surgery.? No jewelry (including any body piercings) or valuables the day of surgery, leave them at home.? Please take a shower or bath the night before, or the morning of, surgery with an antibacterial soap.? Wear comfortable, loose fitting clothing.? - Jewelry must be removed prior to entering the operating room.? Rings and piercings that are not removed may be cut off. - The hospital will not accept responsibility for valuables.? - Please leave all valuables, including medications, at home the day of surgery. If you are going home after surgery, a licensed concrete mixing truck driver must drive you home.? - NO public transportation without another adult if you receive anesthesia. - We recommend that an adult stay with you for 24 hours following discharge. - We also recommend that you do not drive, make important decision, drink alcoholic beverages, or take any drugs that were not prescribed by your health care provider for at least 24 hours after your discharge time. Follow any additional instructions given to you from your surgeon. Telephone instructions given to ___PATIENT'S DAUGHTER and asked if any additional questions and then verbalized understanding. Patient advised to call surgeon office or pre surgery nurse liaison [phone] if any additional questions.
--- NOTE | 2024-09-13 10:45 | P.HP_ITS ---
H&P: HPI History of Present Illness Date/Time: 09/13/24 10:45 Chief Complaint: Right knee DJD Narrative: 83-year-old female who presents today for a right total knee arthroplasty. Patient has been having pain in symptoms in this knee for almost a year. They have progressively worsened. She sustained a a low energy fall in December of 2023. At that time she had moderate to moderately severe medial compartment o steoarthritis. She had fracture of the medial tibial plateau. This was treated nonsurgically. Since that time injury patient has had progression of the osteoarthritis in the knee. At this point she has severe medial compartment osteoarthritis. There is subluxation of the femur on the tibia. There is insufficiency fracturing of the medial margin of the medial tibial plateau. Patient has had several cortisone injections in without significant improvement of her symptoms. The last 1 was in June of last year. Patient is unable take anti-inflammatories due to a history of congestive heart failure. At this point patient is having knees walker on a full-time basis because her right knee feels unstable. She feels this point she would rather proceed with total knee arthroplasty. Review of Systems Review of Systems: All systems reviewed & are unremarkable except as noted in HPI and below PMFSH Past Medical History Medical History Hypertension Dr Donis Leg weakness, bilateral Lumbar pain Rectal prolapse Mild Hearing loss Dr. Miller Degenerative joint disease (DJD) of lumbar spine Dr. Barrera and Dr Nuñez Urinary incontinence Osteoporosis Started on alendronate July 2021, Dr. Barrera DEB (obstructive sleep apnea) Dr. Barrera Multiple lipomas Candidal skin infection Right pannus History of recurrent UTIs Dr. Tripp Morbid obesity seeing lens blank gauger Diabetes mellitus with nephropathy Hypokalemia Hypomagnesemia CHF (congestive heart failure) (~2017) Dr Donis Syncope Hypotension Hyperlipidemia BMI 40.0-44.9, adult (10/09/16) Shortness of breath Influenza Cramp of both lower extremities Cough Insomnia Dr Francis Peripheral edema Palpitations Fibromyalgia Dr Barrera Anxiety and depression Dr Francis Surgical History Surgical History S/P STEVEN-BSO (~1985) Fibroids History of detached retina repair (~2008) History of cataract surgery (~2008) History of cholecystectomy (~1998) History of appendectomy Family History Family History Father Diabetes mellitus Hypertension Heart disease Cerebrovascular accident Sibling Diabetes mellitus Hypertension Daughter Hypertension Depression Anxiety Social History Social History Social History: 09/05/24 very confident with medical forms/has received assistance for care for elder or disabled, food, medications and paying utility bills Smoking status: Never smoker Alcohol intake: never Drinks per week: 0 Alcohol use details: 0 Substance use: never Substance use type: does not use Other substance usage details: does not use Last use: does not use Do You Feel Safe in your Home?: Yes Lack of Transportation: No Lack of Food: Never True Current Housing: I Have Housing Concerned About Future Housing: No Difficulty Paying Gas/Electric Bills: No Difficulty Paying for Meds: No Currently Unemployed: No Education: High School Diploma/GED Difficulty w/ Childcare or Family Care: No Living arrangements: alone Occupation/Education: retired Gender identity (if verbalized by the patient): Female Spiritual care concerns: No Meds Home Medications and Allergies Home Medications ?Medication ?Instructions ?Recorded ?Confirmed ?Type magnesium oxide 400 mg PO BID 04/16/23 09/06/24 History ascorbic acid (vitamin C) 500 mg 500 mg PO DAILY 07/09/23 09/06/24 History capsule biotin 1,000 mcg chewable tablet 1,000 mcg PO TID 07/09/23 09/06/24 History calcium carbonate (Calcium 600) 600 mg PO DAILY 07/09/23 09/06/24 History flaxseed oil 1,000 mg capsule 1,000 mg PO DAILY 07/09/23 09/06/24 History guaifenesin 600 mg tablet, 600 mg PO Q12H PRN congestion 07/09/23 09/06/24 History extended release 12 hr (Mucinex) multivitamin 1 tablet PO DAILY 07/09/23 09/06/24 History nystatin 100,000 unit/gram topical 1 applic topical BID PRN skin 07/09/23 09/06/24 History powder irritation blood-glucose sensor (FreeStyle #6 ea 08/21/23 09/06/24 Rx Conchis 3 Sensor device) cholecalciferol (vitamin D3) 25 50 mcg PO DAILY 08/22/23 09/06/24 History mcg (1,000 unit) capsule alendronate 70 mg tablet 70 mg PO WEEKLY 02/04/24 09/06/24 History carvedilol 25 mg tablet 25 mg PO BID 02/04/24 09/06/24 History clorazepate dipotassium 3.75 mg 3.75 mg PO TID 02/04/24 09/06/24 History tablet cyclosporine 0.05 % eye drops in a 2 drp EACH EYE Q12H 02/04/24 09/06/24 History dropperette donepezil 10 mg tablet 20 mg PO DAILY 02/04/24 09/06/24 History gabapentin 600 mg tablet 1,200 mg PO TID 02/04/24 09/06/24 History hydrochlorothiazide 12.5 mg tablet 12.5 mg PO DAILY 02/04/24 09/06/24 History lisinopril 20 mg tablet 20 mg PO DAILY 02/04/24 09/06/24 History mecobalamin (vitamin B12) 1,000 1,000 mcg PO DAILY #30 tabs 02/04/24 09/06/24 Rx mcg chewable tablet methenamine hippurate 1 gram 1 g PO BID 02/04/24 09/06/24 History tablet (Hiprex) quetiapine 25 mg tablet 50 mg PO HS 02/04/24 09/06/24 History venlafaxine 150 mg 300 mg PO DAILY 02/04/24 09/06/24 History capsule,extended release 24 hr vibegron 75 mg tablet (Gemtesa) 75 mg PO DAILY 02/04/24 09/06/24 History zolpidem 10 mg tablet 10 mg PO HS 02/04/24 09/06/24 History psyllium husk 0.52 gram capsule 0.52 g PO DAILY 02/18/24 09/06/24 History sertraline 100 mg tablet 200 mg PO DAILY 02/18/24 09/06/24 History pen needle, diabetic 31 gauge x #100 ea 05/19/24 09/06/24 Rx 5/16 (BD Ultra-Fine Short Pen Needle) famotidine 20 mg tablet 20 mg PO TID #270 tabs 07/05/24 09/06/24 Rx insulin glargine U-300 conc 300 20 unit (0.0667 mL) subcut 07/05/24 09/06/24 Rx unit/mL (1.5 mL) subcutaneous pen .bedtime was never discontinued (Niyah SoloStar U-300 Insulin) #4.5 mL metformin 500 mg tablet 500 mg PO BID #180 tabs 07/16/24 09/06/24 Rx cyclobenzaprine 5 mg tablet 5 mg PO QHS PRN muscle spasm #20 07/22/24 09/06/24 Rx tabs dexamethasone 0.5 mg/5 mL oral 0.25 mg PO Q6H PRN MOUTH SORES 08/09/24 09/06/24 History elixir fluticasone furoate 27.5 2 spray intranasal DAILY PRN nasal 08/09/24 09/06/24 History mcg/actuation nasal congestion spray,suspension (Flonase Sensimist) tramadol 25 mg tablet 25 mg PO Q6H PRN pain #40 tabs 08/12/24 09/06/24 Rx potassium citrate 10 mEq (1,080 10 meq PO BID #180 tabs 08/19/24 09/06/24 Rx mg) tablet,extended release semaglutide 2 mg/dose (8 mg/3 mL) 2 mg (0.75 mL) subcut WEEKLY #3 mL 08/19/24 09/06/24 Rx subcutaneous pen injector atorvastatin 20 mg tablet 20 mg PO DAILY #90 tabs 09/02/24 09/06/24 Rx amoxicillin 875 mg tablet 875 mg PO Q12H #14 tabs 09/06/24 09/06/24 Rx Allergies Allergy/AdvReac Type Severity Reaction Status Date / Time adrenal cortex (porcine) Allergy Unknown Other Verified 09/08/24 09:30 cefdinir AdvReac Mild Itching Verified 09/08/24 09:30 cephalexin AdvReac Mild Hives Verified 09/08/24 09:30 nitrofurantoin AdvReac Mild Hives Verified 09/08/24 09:30 Exam Narrative: 83-year-old female alert pleasant. She is 5 ft 3 and 180 lb BMI is 35.9. Range of motion the right knee is from 5-120 degrees. Trace edema both lower extremities. [id number] effusion the right knee with pronounced medial pseudolaxity to valgus stress with good endpoint. 2+ posterior tibial artery pulse palpable. Moderate tenderness over the medial joint line to palpation. She does report numbness to light touch to the entire right lower extremity. She has trace weakness with quadriceps strength testing associated with moderate pain. Hip range of motion is full without discomfort. Trace dorsiflexion weakness on the right ankle. Resp: Auscultation: clear to auscultation bilaterally Cardio: Rate: regular rate Rhythm: regular rhythm Assessment and Plan Assessment and plan (1) Arthritis of knee, right: Code(s): M17.11 - Unilateral primary osteoarthritis, right knee Status: Acute Plan 83-year-old female who has severe osteoarthritis in the right knee that is not improve nonsurgical treatment. At this point she would like to proceed with total knee arthroplasty. Surgical procedures well as the risks and complications were discussed in detail and all questions were answered and we will proceed. Patient has seen cardiology and has been cleared. She will stop her baby aspirin week prior to surgery. She will see her primary care doctor for pre-surgical clearance. Patient's nasal swab was negative. Hemoglobin 12.3 and platelets are 279 Chem panel was all within normal limits creatinine is 0.68.
--- NOTE | 2024-09-13 12:42 | P.PNAN_ITS ---
Anes - Initial Pre Proc Eval Procedure: Operation Date: 09/14/24 08:30 Proposed Procedures p Right Total Knee Arthroplasty - Isael Harley MD Date/Time: 09/13/24 12:42 Surgeon: Isael Harley MD Pre Op Diagnosis: OA RIGHT KNEE Patient Data Age: 83 Gender: F Height: 1.54 m Weight: 84.8 kg Allergies Allergy/AdvReac Type Severity Reaction Status Date / Time cephalexin Allergy Mild Hives Verified 09/14/24 07:46 nitrofurantoin Allergy Mild Hives Verified 09/14/24 07:46 cefdinir Allergy Unknown Rash Verified 09/14/24 07:46 Home Medications ?Medication ?Instructions ?Recorded ?Confirmed ?Type magnesium oxide 400 mg PO BID 04/16/23 09/14/24 History ascorbic acid (vitamin C) 500 mg 500 mg PO DAILY 07/09/23 09/14/24 History capsule biotin 1,000 mcg chewable tablet 1,000 mcg PO TID 07/09/23 09/14/24 History calcium carbonate (Calcium 600) 600 mg PO DAILY 07/09/23 09/14/24 History flaxseed oil 1,000 mg capsule 1,000 mg PO DAILY 07/09/23 09/14/24 History guaifenesin 600 mg tablet, 600 mg PO Q12H PRN congestion 07/09/23 09/13/24 History extended release 12 hr (Mucinex) multivitamin 1 tablet PO DAILY 07/09/23 09/14/24 History nystatin 100,000 unit/gram topical 1 applic topical BID PRN skin 07/09/23 09/14/24 History powder irritation blood-glucose sensor (FreeStyle #6 ea 08/21/23 09/13/24 Rx Conchis 3 Sensor device) cholecalciferol (vitamin D3) 25 50 mcg PO DAILY 08/22/23 09/14/24 History mcg (1,000 unit) capsule alendronate 70 mg tablet 70 mg PO WEEKLY 02/04/24 09/14/24 History carvedilol 25 mg tablet 25 mg PO BID 02/04/24 09/14/24 History clorazepate dipotassium 3.75 mg 3.75 mg PO TID 02/04/24 09/14/24 History tablet cyclosporine 0.05 % eye drops in a 2 drp EACH EYE Q12H 02/04/24 09/14/24 History dropperette donepezil 10 mg tablet 20 mg PO DAILY 02/04/24 09/14/24 History gabapentin 600 mg tablet 1,200 mg PO TID 02/04/24 09/14/24 History hydrochlorothiazide 12.5 mg tablet 12.5 mg PO DAILY 02/04/24 09/14/24 History lisinopril 20 mg tablet 20 mg PO DAILY 02/04/24 09/14/24 History mecobalamin (vitamin B12) 1,000 1,000 mcg PO DAILY #30 tabs 02/04/24 09/13/24 Rx mcg chewable tablet methenamine hippurate 1 gram 1 g PO BID 02/04/24 09/14/24 History tablet (Hiprex) quetiapine 25 mg tablet 50 mg PO HS 02/04/24 09/14/24 History venlafaxine 150 mg 300 mg PO DAILY 02/04/24 09/14/24 History capsule,extended release 24 hr vibegron 75 mg tablet (Gemtesa) 75 mg PO DAILY 02/04/24 09/14/24 History zolpidem 10 mg tablet 10 mg PO HS 02/04/24 09/14/24 History psyllium husk 0.52 gram capsule 0.52 g PO DAILY 02/18/24 09/14/24 History sertraline 100 mg tablet 200 mg PO DAILY 02/18/24 09/14/24 History pen needle, diabetic 31 gauge x #100 ea 05/19/24 09/13/24 Rx 5/16 (BD Ultra-Fine Short Pen Needle) famotidine 20 mg tablet 20 mg PO TID #270 tabs 07/05/24 09/14/24 Rx insulin glargine U-300 conc 300 20 unit (0.0667 mL) subcut 07/05/24 09/14/24 Rx unit/mL (1.5 mL) subcutaneous pen .bedtime was never discontinued (Toumono SoloStar U-300 Insulin) #4.5 mL metformin 500 mg tablet 500 mg PO BID #180 tabs 07/16/24 09/14/24 Rx cyclobenzaprine 5 mg tablet 5 mg PO QHS PRN muscle spasm #20 07/22/24 09/14/24 Rx tabs dexamethasone 0.5 mg/5 mL oral 0.25 mg PO Q6H PRN MOUTH SORES 08/09/24 09/13/24 History elixir fluticasone furoate 27.5 2 spray intranasal DAILY PRN nasal 08/09/24 09/13/24 History mcg/actuation nasal congestion spray,suspension (Flonase Sensimist) tramadol 25 mg tablet 25 mg PO Q6H PRN pain #40 tabs 08/12/24 09/13/24 Rx potassium citrate 10 mEq (1,080 10 meq PO BID #180 tabs 08/19/24 09/14/24 Rx mg) tablet,extended release semaglutide 2 mg/dose (8 mg/3 mL) 2 mg (0.75 mL) subcut WEEKLY #3 mL 08/19/24 09/14/24 Rx subcutaneous pen injector atorvastatin 20 mg tablet 20 mg PO DAILY #90 tabs 09/02/24 09/14/24 Rx amoxicillin 875 mg tablet 875 mg PO Q12H #14 tabs 09/06/24 09/14/24 Rx Patient hx anesthesia problems: none Family hx anesthesia problems: none Results Review: All pre-operative results and documents have been reviewed as part of the pre- operative evaluation. [facility] Past Medical History Medical History (Updated 09/13/24 @ 17:21 by Isael Harley MD) Hypertension Dr Donis Leg weakness, bilateral Lumbar pain Rectal prolapse Mild Hearing loss Dr. Mliler Degenerative joint disease (DJD) of lumbar spine Dr. Barrera and Dr Nuñez Urinary incontinence Osteoporosis Started on alendronate July 2021, Dr. Barrera DEB (obstructive sleep apnea) Dr. Barrera Multiple lipomas Candidal skin infection Right pannus History of recurrent UTIs Dr. 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 Diabetes mellitus with nephropathy Hypokalemia Hypomagnesemia CHF (congestive heart failure) (~2017) Dr Donis Syncope Hypotension Hyperlipidemia BMI 40.0-44.9, adult (10/09/16) Shortness of breath Influenza Cramp of both lower extremities Cough Insomnia Dr Francis Peripheral edema Palpitations Fibromyalgia Dr Barrera Anxiety and depression Dr Francis Surgical History Surgical History S/P STEVEN-BSO (~1985) Fibroids History of detached retina repair (~2008) History of cataract surgery (~2008) History of cholecystectomy (~1998) History of appendectomy Family History Family History Father Diabetes mellitus Hypertension Heart disease Cerebrovascular accident Sibling Diabetes mellitus Hypertension Daughter Hypertension Depression Anxiety Social History Social History Social History: 09/05/24 very confident with medical forms/has received assistance for care for elder or disabled, food, medications and paying utility bills Smoking status: Never smoker Alcohol intake: never Drinks per week: 0 Alcohol use details: 0 Substance use: never Substance use type: does not use Other substance usage details: does not use Last use: does not use Do You Feel Safe in your Home?: Yes Lack of Transportation: No Lack of Food: Never True Current Housing: I Have Housing Concerned About Future Housing: No Difficulty Paying Gas/Electric Bills: No Difficulty Paying for Meds: No Currently Unemployed: No Education: High School Diploma/GED Difficulty w/ Childcare or Family Care: No Living arrangements: alone Occupation/Education: retired Gender identity (if verbalized by the patient): Female Spiritual care concerns: No Anes - Eval Final PreProcedure Day of Procedure 09/13/24 12:42 Patient weight: normal Heart: regular rate and rhythm Lungs: clear to auscultation Airway: Mallampati scale class III Neurological: alert and oriented Last oral intake: >/= 8 hours ASA classification: III Emergent: no Anesthetic plan: proceed Anesthesia type and monitoring: general ETT and standard monitoring Results Review: All pre-operative results and documents have been reviewed as part of the pre- operative evaluation. Informed Consent: The patient's anesthetic plan and its attendant risks and benefits were discussed with the patient/family/POA. Questions were solicited and answers provided to the satisfaction of the patient/family/POA.
[2024-09-14] VITALS (18 sets, daily range): BP systolic 115–141; BP diastolic 56–73; PULSE 76–88; RESP 11–21; TEMP 36.1–36.9; O2SAT 93–100; BMI 38.3
--- OUTSIDE RECORDS SUMMARY | 2024-09-14 01:09 | XMS_ITS | Encounter Summary ---
Author Organization [facility] Address [facility] [place] [address] Care Team Providers Care Board Member Name Role Phone Lula Graham MD Primary Care Provider + [phone] Charbel Tripp MD Unavailable [phone] Kady Arteaga NP Primary Care Provider + [phone] Adrianne Hoskins MD Primary Care Provider [phone] Jodie Steiner Primary Care Provider [phone] Encounter Details Date Type Department Care Team (Latest Contact Info) Description 03/26/2018 Abstract [facility] Brittanie Garcia MD Social [...] Rule Out 06/23/2020 06/23/2020 06/25/2020 3:46 PM WALLPAPER REMOVER STEAM COVID-19 Rule Out 04/24/2023 04/24/2023 04/24/2023 1:43 PM CDT COVID-19 Rule Out 05/28/2023 05/28/2023 05/28/2023 10:23 AM WALLPAPER REMOVER STEAM documented as of this encounter Care Teams Board Member Relationship Specialty Start Date End Date Lula Graham MD PCP - General INTERNAL MEDICINE 07/14/18 10/10/22 Kady Arteaga, FINDING FASTENER [address] [place] [address] PCP - General Nurse Practitioner Family 10/11/2201/04 [place] [address] [employer] [place]. [address] [address] PCP - General FAMILY PRACTICE 01/17/23 07/10/23 Jodie Steiner PA [address] [place] [address] PCP - General PHYSICIAN CHEMICAL PLANT MANAGER 07/11/23 Chrabel Tripp MD [address] [place] [address] GYNECOLOGY 03/15/20 documented as of this encounter
--- OUTSIDE RECORDS SUMMARY | 2024-09-14 01:09 | XMS_ITS ---
Author Organization [facility] susanne Address [address] [place] [address] Care Team Providers Care Finishing And Shipping Supervisor Name Role Phone zzzzMigration, zzzzProvider Unavailable Unav ailable REASON FOR VISIT [facility] Encounters Encounter Location Date Provider Diagnosis [facility] [address] [place] [address] 04/26/2023 zzzzProvider zzzzMigration Plan Of Treatment No Information Progress Notes * Carissa CAMPOSOB:[birth year] (83 yo F)Acc No.[id number]:04/26/2023 Patient: Roxana CULVER :1940 A ge:82 Y S ex:Female Address:[address] [facility] [address] Subjective: * Chief Complaints: * E MR-Yao * Medical History: * Surgical History: * Hospitalization/Major Diagno stic Procedure: * Medications: Objective: * Vitals: * Physical Examination: Assessment: Plan: * Treatment: * Procedure Codes: * * Date:
--- OUTSIDE RECORDS SUMMARY | 2024-09-14 01:09 | XMS_ITS | Encounter Summary ---
Author Organization [facility] Address [address] [place] [address] Care Team Providers Care Leasing Representative Name Role Phone Lula Graham MD Primary Care Provider [phone] Jodie Steiner PA-C Primary Care Provider [phone] Reason for Visit * Reason Onset Date Comments Question 04/22/2018 Encounter Details Date Type Department Care Team (Late st Contact Info) Description 04/22/2018 Telephone [facility] [address] [place], [place] [id number] Charbel Tripp MD [address] [place] [address] Question Social History Tobacco Use [...] the procedure she is having on Friday. Callback#[phone] documented in this encounter Plan of Treatment Upcoming Encounters Date Type Department Care Team (Late st Contact Info) Description 11/01/2024 11:00 AM CDT Office Visit [facility] - BATCH PLANT SUPERVISOR [address], [facility] [address] [place] [address] Charbel Tripp MD [address] [place] [address] documented as of this encounter Visit Diagnoses Not on filedocumented in this encounter Care Teams Leasing Representative Relationship Specialty Start Date End Date Llua Graham MD PCP - General 10/28/17 07/13/23 Jodie Steiner PA-C [address] [place] [address] PCP - General Physician Expediter Service Order 07/14/23 documented as of this encounter
--- OUTSIDE RECORDS SUMMARY | 2024-09-14 01:09 | XMS_ITS | Encounter Summary ---
Author Organization [facility] Address [facility] [place] [address] Care Team Providers Care Glue Reel Operator Name Role Phone Lula Graham MD Primary Care Provider + [phone] Charbel Tripp MD Unavailable [phone] Kady Arteaga NP Primary Care Provider + [phone] Adrianne Hoskins MD Primary Care Provider [phone] Jodie Steiner Primary Care Provider [phone] Encounter Details Date Type Department Care Team (Late st Contact Info) Description 05/28/2013 Abstract [facility] CONVERSION [address] [place] [address] , Generic Conversion, Social History [...] Rule Out 06/23/2020 06/23/2020 06/25/2020 3:46 PM CAFETERIA CASHIER COVID-19 Rule Out 04/24/2023 04/24/2023 04/24/2023 1:43 PM CDT COVID-19 Rule Out 05/28/2023 05/28/2023 05/28/2023 10:23 AM CAFETERIA CASHIER documented as of this encounter Care Teams Glue Reel Operator Relationship Specialty Start Date End Date Lula Graham MD PCP - General INTERNAL MEDICINE 07/14/18 10/10/22 Kady Arteaga, FLUX CORE WELDER [address] [place] [address] PCP - General Nurse Practitioner Family 10/11/2201/04 [place] [address] [employer] [address] PCP - General FAMILY PRACTICE 01/17/23 07/10/23 Jodie Steiner PA [address] [place] [address] PCP - General PHYSICIAN FERRULER 07/11/23 Charbel Tripp MD [address] [place] [address] GYNECOLOGY 03/15/20 documented as of this encounter
--- OUTSIDE RECORDS SUMMARY | 2024-09-14 01:09 | XMS_ITS | Encounter Summary ---
Author Organization [facility] Address [facility] [place] [address] Care Team Providers Care Education Intern Name Role Phone Lula Graham MD Primary Care Provider + [phone] Charbel Tripp MD Unavailable [phone] Kady Arteaga NP Primary Care Provider + [phone] Adrianne Hoskins MD Primary Care Provider [phone] Jodie Steiner Primary Care Provider [phone] Encounter Details Date Type Department Care Team (Late st Contact Info) Description 09/11/[address] [facility] CONVERSION [address] [place] [address] , Generic Conversion, Social History [...] Rule Out 06/23/2020 06/23/2020 06/25/2020 3:46 PM WATCH LEADER COVID-19 Rule Out 04/24/2023 04/24/2023 04/24/2023 1:43 PM CDT COVID-19 Rule Out 05/28/2023 05/28/2023 05/28/2023 10:23 AM WATCH LEADER documented as of this encounter Care Teams Education Intern Relationship Specialty Start Date End Date Lula Graham MD PCP - General INTERNAL MEDICINE 07/14/18 10/10/22 Kady Arteaga, PENSION CONSULTANT [address] [place] [address] PCP - General Nurse Practitioner Family 10/11/2201/04 [place] [address] [employer] [address] PCP - General FAMILY PRACTICE 01/17/23 07/10/23 Jodie Steiner PA [address] [place] [address] PCP - General PHYSICIAN DOUBLER HELPER 07/11/23 Charbel Tripp MD [address] [place] [address] GYNECOLOGY 03/15/20 documented as of this encounter
--- OUTSIDE RECORDS SUMMARY | 2024-09-14 01:09 | XMS_ITS | Encounter Summary ---
Author Organization [facility] Address [address] [place] [address] Care Team Providers Care Rotary Drill Operator Helper Name Role Phone Jodie Steiner PA-C Primary Care Provider [phone] Encounter Details Date Type Department Care Team (Late st Contact Info) Description 09/13/2024 Orders Only [facility] - INSTRUCTIONAL MEDIA SERVICES TECHNICIAN [address] [place] [address] Charbel Tripp MD [address] [place] [address] Social History Tobacco Use Types Packs/Day Years [...] as of this encounter Progress Notes * Odalys Stokes LPN - 09/13/2024 1:39 PM CDT Gemtesa not covered by insurance. Needs new script for Myrbetriq 50 mg sent to [facility]. Will send a one time fill of medication above. Pt has an appt in October. Can f/u at that appt as to how well the medication is working for her. documented in this encounter Plan of Treatment Upcoming Encounters Date Type Department Care Team (Late st Contact Info) Description 11/01/2024 11:00 AM CDT Office Visit [facility] - INSTRUCTIONAL MEDIA SERVICES TECHNICIAN [address], [address] [place] [address] Charbel Tripp MD [address] [place] [address] documented as of this encounter Visit Diagnoses Not on filedocumented in this encounter Care Teams Rotary Drill Operator Helper Relationship Specialty Start Date End Date Jodie Steiner PA-C [address] [place] [address] PCP - General Physician Vat Washer 07/14/23 documented as of this encounter
--- OUTSIDE RECORDS SUMMARY | 2024-09-14 01:09 | XMS_ITS | Encounter Summary ---
Author Organization [facility] Address [facility] [place] [address] Care Team Providers Care Ropeman Name Role Phone Lula Graham MD Primary Care Provider + [phone] Charbel Tripp MD Unavailable [phone] Kady Arteaga NP Primary Care Provider + [phone] Adrianne Hoskins MD Primary Care Provider [phone] Jodie Steiner Primary Care Provider [phone] Encounter Details Date Type Department Care Team (Late st Contact Info) Description 08/15/2017 Abstract [facility] CONVERSION [address] [address] , Generic Conversion, Social History [...] Rule Out 06/23/2020 06/23/2020 06/25/2020 3:46 PM SALAD COUNTER ATTENDANT COVID-19 Rule Out 04/24/2023 04/24/2023 04/24/2023 1:43 PM CDT COVID-19 Rule Out 05/28/2023 05/28/2023 05/28/2023 10:23 AM SALAD COUNTER ATTENDANT documented as of this encounter Care Teams Ropeman Relationship Specialty Start Date End Date Lula Graham MD PCP - General INTERNAL MEDICINE 07/14/18 10/10/22 Kady Arteaga, SHOT CORE DRILL OPERATOR [address] [place] [address] PCP - General Nurse Practitioner Family 10/11/2201/04 [place] [address] [employer] [address] PCP - General FAMILY PRACTICE 01/17/23 07/10/23 Jodie Steiner PA [address] [place] [address] PCP - General PHYSICIAN INTEGRATION ARCHITECT 07/11/23 Charbel Tripp MD [address] [place] [address] GYNECOLOGY 03/15/20 documented as of this encounter
--- OUTSIDE RECORDS SUMMARY | 2024-09-14 01:10 | XMS_ITS | Clinical Summary ---
Author Organization [facility] Address [address] [facility] [place] [address] Care Team Providers Care Clinical Applications Specialist Name Role Phone Jodie Steiner PA-C Primary Care Provider [phone] Source Comments [facility] [facility],non-owned Affiliates and Associated Physician Practices is amultiple site organization consisting of ambulatory clinics and hospital sitesin [place], [place], [place] and [place]. This disclosure is being madepursuant to the Care Everywhere program and may not contain all information available regarding this patient. Last updated 18.[facility] [facility] Allergies Active Allergy Reactions Criticality Noted Date [...] subcutaneously 2 times daily Active nystatin (Mycostatin) 941088 UNIT/GM powder Apply to affected area 2 [...] mouth once daily 1 Active nystatin (Mycostatin) 265188 UNIT/GM powder Apply to affected area 2 [...] FOR FUTURE REFILLS) 90 tablet 5 Active Myrbetriq 50 MG tablet Take 1 (one) tablet by mouth once daily 90 tablet 5 Active vibegron (Gemtesa) 75 MG tabletIndicatio ns:Overactive bladder Take 1 (one) tablet by mouth once daily PATIENT WILL NEED AN APPOINTMENT FOR FUTURE REFILLS 90 tablet 4 08/19/19 25 Discontinued Active Problems Problem Noted Date Diagnosed Date Acute cystitis without hematuria 12/13/2017 Frequent UTI 12/13/2017 Mixed incontinence 12/13/2017 Bladder pain 12/13/2017 Encounters Date Type Department Care Team Description 09/13/2024 Orders Only [facility] - MANAGED CARE COORDINATOR [address], [address] [place] [address] Charbel Tripp MD 08/18/2024 Refill [facility] - MANAGED CARE COORDINATOR [address], [facility] [address] [place] [phone] Charbel Tripp MD Refill Request 07/05/2024 Refill [facility] - MANAGED CARE COORDINATOR [address], [facility] [address] [place] [address] Charbel Tripp MD Refill Request 06/21/2024 Telephone [facility] - MANAGED CARE COORDINATOR [address] [place] [address] Charbel Tripp MD Medication Issue from Last [...] Comments Blood Pressure 137/73 07/14/2023 11:09 AM FRAME OPENER Pulse 73 04/17/2020 1:20 PM CDT Temperature 36.3 C (97.4 F) 02/25/2022 10:32 AM CDT Respiratory Rate - - Oxygen Saturation 95% 04/17/2020 1:20 PM CDT Inhaled Oxygen Concentration - - Weight 99.8 kg (220 lb) 07/14/2023 11:09 AM FRAME OPENER Height 160 cm (5' 3 ) 07/14/2023 11:09 AM FRAME OPENER Body Mass Index 38.97 07/14/2023 11:09 AM FRAME OPENER Plan of Treatment Upcoming Encounters Date Type Department Care Team (Late st Contact Info) Description 11/01/2024 11:00 AM CDT Office Visit [facility] - MANAGED CARE COORDINATOR [address], [address] [place] [address] Charbel Tripp MD [address] [place] [address] Health Maintenance Due Date Last [...] age to complete this topic Care Teams Clinical Applications Specialist Relationship Specialty Start Date End Date Jodie Steiner PA-C [address] [place] [address] PCP - General Physician Conversion Developer 07/14/23
--- OUTSIDE RECORDS SUMMARY | 2024-09-14 01:10 | XMS_ITS ---
Author Organization [facility] susanne Address [address] [place] [address] Care Team Providers Care Supervisor Dried Yeast Name Role Phone zzzzMigration, zzzzProvider Unavailable Unav ailable REASON FOR VISIT E[facility] Encounters Encounter Location Date Provider Diagnosis [facility] [address] [place] [address] 04/27/2023 zzzzProvider zzzzMigration Plan Of Treatment No Information Progress Notes * Carissa CAMPOSOB:[birth year] (83 yo F)Acc No.[id number]:04/27/2023 Patient: Roxana CULVER :1940 A ge:82 Y S ex:Female Address[address] [facility] [address] Subjective: * Chief Complaints: * E MR-Yao * Medical History: * Surgical History: * Hospitalization/Major Diagno stic Procedure: * Medications: Objective: * Vitals: * Physical Examination: Assessment: Plan: * Treatment: * Procedure Codes: * * Date:
--- OUTSIDE RECORDS SUMMARY | 2024-09-14 01:10 | XMS_ITS | Referral Summary ---
Author Organization [facility] [address] Address [address] [place] [address] Care Team Providers Care Director Of Bands Name Role Phone Jodie Steiner Primary Care Provider [phone] Randy May MD Unavailable [phone] Encounters Date Type Department Care Team Description 08/16/2024 Telephone [facility] [address] [facility] Advanced Medicine [address]th [place] [address] [place] [address] Anival Donis MD 07/22/2024 Telephone [facility] [address] [facility] [address]th [place] [address] [place] [address] Anival Donis MD knee surgery from Last [...] CALCIUM ORAL Take 600 mg by mouth professor of languages before breakfast Active guaiFENesin ER (MUCINEX) 600 [...] tablet,chewabl e Take 1,000 mg by mouth professor of languages before breakfast Active multivitamin tabletIndicati ons:Vitamin Deficiency [...] w/r/t gut microbiome. Referred to ADA and [employer] websites for additional information on topics [...] on file Legal Sex Female 7:28 AM BODY SHOP WORKER Gender Identity Not on file Sexual [...] BLOOD ORDERABLES F inal Result [facility] [address] [place] [address] from Last 3 Months or Most Recently Relevant to Health Maintenance Insurance MEDICARE [facility] MEDICARE [facility] MEDICARE [facility] Care Teams Director Of Bands Relationship Specialty Start Date End Date Jodie Steiner PA [address] [place] [address] PCP - General Physician Pizza Delivery 08/29/23 Randy May MD [address] [place] [address] Referring Physician Orthopedic Surgery 03/15/24
--- OUTSIDE RECORDS SUMMARY | 2024-09-14 01:10 | XMS_ITS | Patient Health Summary ---
Author Organization [facility] Address [address] [place] [address] Care Team Providers Care Locomotive Operator Helper Name Role Phone Jodie Steiner PA-C Primary Care Provider [phone] Note from [facility],non-owned Affiliates and Associated Physician Practices is amultiple site organization consisting of ambulatory clinics and hospital sitesin [place], [place]. This disclosure is being madepursuant to the Care Everywhere program and may not contain all information available regarding this patient. Last updated 18.[facility] Allergies * Adrenal Cortex Extract(Rash) -Medium Criticality [...] subcutaneously 2 times daily * nystatin (Mycostatin) 740449 UNIT/GM powder Apply to affected area 2 [...] by mouth once daily * nystatin (Mycostatin) 049586 UNIT/GM powder(Started 12/10/2021) Apply to affected area [...] NEED AN APPOINTMENT FOR FUTURE REFILLS) * Myrbetriq 50 MG tablet(Started 09/13/2024) Take 1 (one) tablet by mouth once daily Ended Medications* vibegron (Gemtesa) 75 MG tablet(Started [...] Comments Blood Pressure 137/73 07/14/2023 11:09 AM REAL ESTATE PROCESSOR Pulse 73 04/17/2020 1:20 PM CDT Temperature 36.3 C (97.4 F) 02/25/2022 10:32 AM CDT Respiratory Rate - - Oxygen Saturation 95% 04/17/2020 1:20 PM CDT Inhaled Oxygen Concentration - - Weight 99.8 kg (220 lb) 07/14/2023 11:09 AM REAL ESTATE PROCESSOR Height 160 cm (5' 3 ) 07/14/2023 11:09 AM REAL ESTATE PROCESSOR Body Mass Index 38.97 07/14/2023 11:09 AM REAL ESTATE PROCESSOR Procedures * CULTURE URINE(Performed 12/24/2023) Performed for [...] 04/05/2021) * LAB RESULTS ORDER(Performed 04/05/2021) * NH IRRIGATION OF BLADDER(Performed 01/29/2021) Performed for Frequent UTI * NH CYSTOURETHROSCOPY(Performed 01/29/2021) Performed for Frequent UTI * NH IRRIGATION OF BLADDER(Performed 12/26/2020) Performed for Frequent UTI * CULTURE URINE COMPREHENSIVE(Performed 12/25/2020) Performed for Frequent UTI * URINALYSIS AUTO - POINT OF CARE (AMB) [facility](Performed 12/25/2020) Performed for Frequent UTI * LAB RESULTS ORDER(Performed 12/08/2020) * LAB RESULTS ORDER(Performed 12/06/2020) * LAB RESULTS ORDER(Performed 12/06/2020) * NH IRRIGATION OF BLADDER(Performed 11/27/2020) Performed for Frequent UTI * CULTURE URINE COMPREHENSIVE(Performed 11/27/2020) Performed for Frequent UTI * URINALYSIS AUTO - POINT OF CARE (AMB) [facility](Performed 11/27/2020) Performed for Frequent UTI * NH IRRIGATION OF BLADDER(Performed 10/23/2020) Performed for Frequent UTI * CULTURE URINE COMPREHENSIVE(Performed 10/23/2020) Performed for Frequent UTI * URINALYSIS AUTO - POINT OF CARE (AMB) [facility](Performed 10/23/2020) Performed for Frequent UTI * NH IRRIGATION OF BLADDER(Performed 09/07/2020) Performed for Frequent UTI * CULTURE URINE COMPREHENSIVE(Performed 09/07/2020) Performed for Frequent UTI * URINALYSIS AUTO - POINT OF CARE (AMB) [facility](Performed 09/07/2020) Performed for Frequent UTI * CULTURE URINE COMPREHENSIVE(Performed 08/14/2020) Performed for Frequent UTI * NH IRRIGATION OF BLADDER(Performed 08/14/2020) Performed for Frequent UTI * NH BIOPSY VULVA/PERINEUM,ONE LESN(Performed 08/14/2020) Performed for Vulvar lesion * URINALYSIS AUTO - POINT OF CARE (AMB) [facility](Performed 08/14/2020) Performed for Frequent UTI * NH IRRIGATION OF BLADDER(Performed 07/17/2020) Performed for Frequent UTI * CULTURE URINE COMPREHENSIVE(Performed 07/17/2020) Performed for Frequent UTI * URINALYSIS AUTO - POINT OF CARE (AMB) [facility](Performed 07/17/2020) Performed for Frequent UTI * LAB RESULTS ORDER(Performed 06/16/2020) * LAB RESULTS ORDER(Performed 06/16/2020) * NH IRRIGATION OF BLADDER(Performed 04/17/2020) Performed for Frequent UTI * NH IRRIGATION OF BLADDER(Performed 03/24/2020) Performed for Frequent UTI * NH IRRIGATION OF BLADDER(Performed 02/14/2020) Performed for Frequent UTI * CULTURE URINE COMPREHENSIVE(Performed 01/06/2020) Performed for UTI symptoms * URINALYSIS AUTO - POINT OF CARE (AMB) [facility](Performed 01/06/2020) Performed for UTI symptoms * NH CYSTOSCOPY CHEMODENERVATION(Performed 08/31/2019) Performed for Overactive bladder * URINALYSIS - POINT OF CARE (AMB) [facility](Performed 08/30/2019) Performed for Frequent UTI, Mixed incontinence * LAB RESULTS ORDER(Performed 05/10/2019) * CULTURE URINE COMPREHENSIVE(Performed 04/05/2019) Performed for Frequent UTI * URINALYSIS - POINT OF CARE (AMB) [facility](Performed 04/05/2019) Performed for Frequent UTI * URINALYSIS - POINT OF CARE (AMB) [facility](Performed 09/28/2018) Performed for Frequent UTI * NH CYSTOURETHROSCOPY(Performed 05/06/2018) Performed for Frequent UTI, Bladder pain * URINALYSIS - POINT OF CARE (AMB) [facility](Performed 12/12/2017) Performed for Acute cystitis without hematuria * CULTURE URINE COMPREHENSIVE(Performed 12/12/2017) Performed for Acute cystitis without hematuria Results * CULTURE URINE (12/24/2023 11:55 AM CDT) Only the most recent of3 resultswithin the time period is included. Culture [facility] Comment: CULTURE, URINE, ROUTINE Micro Number: [id number] Test Status: Final Specimen Source: Urine, clean catch Specimen Quality: Adequate Result: Less than 10,000 CFU/mL of single Gram positive organism isolated. No further testing will be performed. If clinically indicated, recollection using a method to minimize contamination, with prompt transfer to Urine Culture Transport Tube, is recommended. Test Performed at: [email or web address] [address] [place] [address] AUDRA JEAN BAPTISTE MD Urine MID-STREAM URINE SPECIMEN / Unknown 12/24/2023 11:55 AM CDT 12/24/2023 11:55 AM CDT Charbel Tripp MD LAB - MICROBIOLOGY O RDERABLES [facility] [address] [place] [address] * (ABNORMAL) CULTURE URINE COMPREHENSIVE (07/14/2023 11:57 AM REAL ESTATE PROCESSOR) Only the most recent of11 resultswithin the time period is included. Culture (A) [facility] Comment: CULTURE, URINE, SPECIAL Micro Number: [id number] Test Status: Final Specimen Source: Urine, clean catch Specimen Quality: Adequate Result: Greater than 100,000 CFU/mL of Non-uropathogenic Gram positive organism 1,000-9,000 CFU/ML of Gram negative bacilli isolated 100-900 CFU/mL of Gram positive cocci isolated COMMENT: May represent colonizers from external and internal genitalia. No further testing (including susceptibility) will be performed. Test Performed at: [facility] [address] AUDRA JEAN BAPTISTE MD Microbiology URINE SPECIMEN OBTAINED BY CLEAN CATCH PROCEDURE / Unknown 07/14/2023 11:57 AM REAL ESTATE PROCESSOR 07/16/2023 3:28 AM REAL ESTATE PROCESSOR Charbel Tripp MD LAB - MICROBIOLOGY O RDERABLES [facility] [address] [place] [address] * URINALYSIS AUTO - POINT OF CARE (AMB) [facility] (07/14/2023 11:55 AM REAL ESTATE PROCESSOR) Only the most recent of9 resultswithin the time period is included. Glucose UA neg [facility] [address] Bilirubin UA POCT neg [facility] [address] Ketones UA POCT neg [facility] [address] Specific [place] UA 1.[address] [facility] [address] Blood Urine POCT neg [facility] [address] pH UA 6 [facility] [address] Protein UA 2+ [facility] [address] Urobilinogen UA neg [facility] [address] Nitrite UA neg [facility] [address] WBC UA 1+ [facility] [address] Urine URINE / Unknown 07/14/2023 1 1:55 AM REAL ESTATE PROCESSOR Charbel Tripp MD LAB - POINT OF CARE ORDERABLES Performing Organization Address [facility] Co de Phone Number [facility] [address] [place] [address], [facility] [phone] * LAB RESULTS ORDER (06/04/2023) Only the most recent of16 resultswithin the time period is included. 06/04/2023 Narrative 06/04/2023 Ordered by an unspecified provider. Scanned Document LAB - THERAPEUTIC DR SCHWARZ MONITORING ORDERABLES * NH IRRIGATION OF BLADDER (01/29/2021 4:50 PM CDT) [...] Tripp MD PROCEDURE/MINOR SURG ICAL ORDERABLES * NH CYSTOURETHROSCOPY (01/29/2021 4:48 PM CDT) Charbel Cortez [...] Tripp MD PROCEDURE/MINOR SURG ICAL ORDERABLES * NH IRRIGATION OF BLADDER (12/26/2020 7:47 AM CDT) [...] Tripp MD PROCEDURE/MINOR SURG ICAL ORDERABLES * NH IRRIGATION OF BLADDER (11/27/2020 5:18 PM CDT) [...] Tripp MD PROCEDURE/MINOR SURG ICAL ORDERABLES * NH IRRIGATION OF BLADDER (10/23/2020 12:01 PM CDT) Charbel Cortez MD - 10/23/2020 12:01 PM CDT Charbel [...] Tripp MD PROCEDURE/MINOR SURG ICAL ORDERABLES * NH IRRIGATION OF BLADDER (09/07/2020 2:56 PM REAL ESTATE PROCESSOR) Charbel Cortez MD - 09/07/2020 2:56 PM REAL ESTATE PROCESSOR Charbel Tripp MD 09/07/2020 2:57 PM Bladder [...] Tripp MD PROCEDURE/MINOR SURG ICAL ORDERABLES * NH IRRIGATION OF BLADDER (08/14/2020 1:51 PM REAL ESTATE PROCESSOR) Charbel Cortez MD - 08/14/2020 1:51 PM REAL ESTATE PROCESSOR Charbel Tripp MD 08/14/2020 9:12 PM Bladder [...] Tripp MD PROCEDURE/MINOR SURG ICAL ORDERABLES * NH BIOPSY VULVA/PERINEUM,ONE LESN (08/14/2020 1:47 PM REAL ESTATE PROCESSOR) Charbel Cortez MD - 08/14/2020 1:47 PM REAL ESTATE PROCESSOR Charbel Tripp MD 08/14/2020 9:12 PM Procedure [...] Tripp MD PROCEDURE/MINOR SURG ICAL ORDERABLES * NH IRRIGATION OF BLADDER (07/17/2020 5:39 PM REAL ESTATE PROCESSOR) Charbel Cortez MD - 07/17/2020 5:39 PM REAL ESTATE PROCESSOR Charbel Tripp MD 07/17/2020 5:40 PM Bladder [...] Tripp MD PROCEDURE/MINOR SURG ICAL ORDERABLES * NH IRRIGATION OF BLADDER (04/17/2020 5:17 PM CDT) [...] Tripp MD PROCEDURE/MINOR SURG ICAL ORDERABLES * NH IRRIGATION OF BLADDER (03/24/2020 6:24 AM CDT) [...] Tripp MD PROCEDURE/MINOR SURG ICAL ORDERABLES * NH IRRIGATION OF BLADDER (02/14/2020 5:24 PM CDT) [...] Tripp MD PROCEDURE/MINOR SURG ICAL ORDERABLES * NH CYSTOSCOPY CHEMODENERVATION (08/31/2019) Charbel Cortez MD - 08/31/2019 See progress note Charbel Tripp MD NH - PROFESSIONAL SE RVICES * (ABNORMAL) URINALYSIS - POINT OF CARE (AMB) [facility] (08/30/2019) Only the most recent of4 resultswithin the time period is included. Specific [place] UA 1.020 pH UA 5 WBC UA tr Nitrite UA n Protein UA n Glucose UA n Ketones UA POCT n Urobilinogen UA n Bilirubin UA POCT n Blood Urine POCT nt Urine URINE / Unknown 08/30/2019 Charbel Tripp MD LAB - POINT OF CARE ORDERABLES * NH CYSTOURETHROSCOPY (05/06/2018 9:34 PM CDT) Charbel Cortez [...] MD PROCEDURE/MINOR SURG ICAL ORDERABLES Care Teams Locomotive Operator Helper Relationship Specialty Start Date End Date Jodie Steiner PA-C [facility] [address] [address] PCP - General Physician Parts Designer 07/14/23
--- OUTSIDE RECORDS SUMMARY | 2024-09-14 01:10 | XMS_ITS | Referral Summary ---
Author Organization [facility] Address [address] [place] [address] Care Team Providers Care Slitter Service And Setter Name Role Phone Jodie Steiner PA-C Primary Care Provider [phone] Source Comments [facility],non-owned Affiliates and Associated Physician Practices is amultiple site organization consisting of ambulatory clinics and hospital sitesin [place], [place], [place] and [place]. This disclosure is being madepursuant to the Care Everywhere program and may not contain all information available regarding this patient. Last updated 18.[facility] Encounters Date Type Department Care Team Description 09/13/2024 Orders Only [facility] - MANAGER APPLIED [address] [place] [phone] Charbel Tripp MD 08/18/2024 Refill [facility] - MANAGER APPLIED [address] [place] [address] Charbel Tripp MD Refill Request 07/05/2024 Refill [facility] - MANAGER APPLIED [address] [place] [address] Charbel Tripp MD Refill Request 06/21/2024 Telephone [facility] - MANAGER APPLIED [address] [place] [address] Charbel Tripp MD Medication Issue [...] subcutaneously 2 times daily Active nystatin (Mycostatin) 162250 UNIT/GM powder Apply to affected area 2 [...] mouth once daily 1 Active nystatin (Mycostatin) 783293 UNIT/GM powder Apply to affected area 2 [...] Comments Blood Pressure 137/73 07/14/2023 11:09 AM BREAKER OILER Pulse 73 04/17/2020 1:20 PM CDT Temperature 36.3 C (97.4 F) 02/25/2022 10:32 AM CDT Respiratory Rate - - Oxygen Saturation 95% 04/17/2020 1:20 PM CDT Inhaled Oxygen Concentration - - Weight 99.8 kg (220 lb) 07/14/2023 11:09 AM BREAKER OILER Height 160 cm (5' 3 ) 07/14/2023 11:09 AM BREAKER OILER Body Mass Index 38.97 07/14/2023 11:09 AM BREAKER OILER Plan of Treatment Upcoming Encounters Date Type Department Care Team (Late st Contact Info) Description 11/01/2024 11:00 AM CDT Office Visit [facility] - MANAGER APPLIED [address] [place] [phone] Charbel Tripp MD [address] [place] [address] Care Teams Slitter Service And Setter Relationship Specialty Start Date End Date Jodie Steiner PA-C [address] [place] [address] PCP - General Physician Errand Runner 07/14/23
--- OUTSIDE RECORDS SUMMARY | 2024-09-14 01:10 | XMS_ITS | Clinical Summary ---
Author Organization [facility] [address] Address [address] [place] [address] Care Team Providers Care Classified Advertising Manager Name Role Phone Jodie Steiner Primary Care Provider [phone] UngRandy muse MD Unavailable [phone] Allergies Active Allergy Reactions Criticality Noted Date [...] ORAL Take 600 mg by mouth early childhood associate teacher before breakfast Active guaiFENesin ER (MUCINEX) [...] e Take 1,000 mg by mouth early childhood associate teacher before breakfast Active multivitamin tabletIndicati ons:Vitamin [...] w/r/t gut microbiome. Referred to ADA and [employer] websites for additional information on topics including [...] Type Department Care Team Description 08/16/2024 Telephone [facility] Cardiology [address] [place] [address] [place] [address] Anival Donis MD 07/22/2024 Telephone [facility] Cardiology [address] [place] [address] [place] [address] Anival Donis MD knee surgery [...] Giovani E Depression Daughter Ashley Diabetes Father Alexander Stroke Father Kimberli Family history of cerebrovascular accident - (Added by TW Conv) Vision loss Maternal Grandmother Mary Lou Miscarriages / Stillbirths Mother Mindi Depression Sister 1 Natali Diabetes Sister 2 Natali B Miscarriages / Stillbirths Sister 3 Natali Br Obesity Sister 4 Natali Ness Relation Name Status Comments Brother 1 Ignacio Brother 2 Giovani Brother 3 Giovani E Daughter Ashley Father Alexander Maternal Grandmother Mary Lou Mother Mindi Sister [...] on file Legal Sex Female 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 Gender Identity Not on file Sexual [...] BLOOD ORDERABLES F inal Result [facility] [id number] [place] [address] from Last 3 Months or Most Recently Relevant to Health Maintenance Insurance MEDICARE [facility] MEDICARE [facility] MEDICARE [facility] Care Teams Classified Advertising Manager Relationship Specialty Start Date End Date Jodie Steiner PA [address] [place] [id number] PCP - General Physician Intelligence Clerk 08/29/23 Randy May MD [address] [place] [address] Referring Physician Orthopedic Surgery 03/15/24
--- OUTSIDE RECORDS SUMMARY | 2024-09-14 01:10 | XMS_ITS | Encounter Summary ---
Author Organization [facility] Address [address] [place] [address] Phone Care Team Providers Care Import/Export Clerk Name Role Phone Jodie Steiner Primary Care Provider [phone]- [phone] Randy May MD Unavailable [phone] Encounter Details Date Type Department Care Team [...] on file Legal Sex Female 7:28 AM MANAGER RETENTION Gender Identity Not on file Sexual Orientation [...] on filedocumented in this encounter Care Teams Import/Export Clerk Relationship Specialty Start Date End Date Jodie Steiner PA [address] [place] [address] PCP - General Physician Baked And Graphite Inspector 08/29/23 Randy May MD [address] [place] [address] Referring Physician Orthopedic Surgery 03/15/24 documented as of this encounter
--- OUTSIDE RECORDS SUMMARY | 2024-09-14 01:10 | XMS_ITS | Clinical Summary ---
Author Organization [facility] Address [address] [place] [address] Care Team Providers Care Center Medical Specialist Name Role Phone Charbel Tripp MD Unavailable [phone] Ale Steiner Primary Care Provider [phone] Allergies Active Allergy Reactions Criticality Noted Date [...] complication, without long-term current use of insulin ([facility]) Use once daily 100 each [...] complication, without long-term current use of insulin ([facility]) Inject 22 Units into the skin nightly at bedtime. 1.5 mL 12/27/19 Active Active Problems Problem Noted Date Diagnosed Date Syncope 12/26/2023 Morbid (severe) obesity due to excess calories 0 09/23/2022 Body mass index (BMI) 40.0-44.9, adult BMI 40.0-44.9, adult 11/24/2019 Lumbar radiculopathy 08/31/2019 Overview (08/31/2019): Added automatically from request for surgery [id number] Severe episode of recurrent major depressive disorder, without psychotic features ([facility]) 10/26/2018 Persistent insomnia 10/26/2018 Generalized anxiety disorder 10/26/2018 (HFpEF) heart failure with p reserved ejection fraction ([facility]) 04/18/2018 TIA (transient ischemic attack) 01/27/2018 Bladder pain 12/13/2017 Mixed incontinence 12/13/2017 Acute cystitis without hematuria 12/13/2017 Abdominal mass 10/14/2017 Obesity, Class III, BMI 40-49.9 (morbid obesity) 10/14/2017 Itching 10/10/2017 Diabetic neuropathy ([facility]) 09/30/2017 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 Hypomagnesemia 07/04/2017 Recurrent urinary tract infection 05/19/2017 Hemorrhoids 01/02/2017 Esophageal reflux 09/02/2014 Irritable bowel syndrome 04/05/2014 Mild vitamin D deficiency 04/05/2014 Type 2 diabetes mellitus ([facility]) 04/05 Overview (07/14/2018): Transitioned From: Diabetes mellitus Peripheral neuropathy 01/03/2014 Pain in hip joint 10/28/2013 Depression with anxiety 10/17/2013 Restless legs syndrome 05/05/2013 Tinea corporis 02/18/2013 Lower back pain 11/09/2012 Hyperlipidemia 08/26/2012 Hypertension 07/18/2012 Type 2 diabetes mellitus wit h kidney complication, with long-term current use of insulin ([facility]) 07/07/2012 Overview (10/18/2022): Last Assessment & Plan: Reviewed recent labs. Discussed insulin resistance including effect on weight. Recommended low-carb, low-glycemic diet; choose whole grains and avoid more highly processed carbohydrates. Discussed potential benefits of this w/r/t gut microbiome. Referred to ADA and [employer] websites for additional information on topics including glycemic index/carbohydrate choices, protein sources. Discussed potential for weight gain with insulin and discussed possible use of GLP-1 RA. Consider empaglifozin in setting of HFpEF. Fibromyalgia 01/09/2012 Resolved Problems Problem Noted Date Diagnosed Date Resolved Date Vaginal yeast infection 01/28/2017 06/0 10/2018 Immunizations Name Administration Dates Next Due Fluzone [...] from your doctor or pharmacy? Never 12/26/2023 [employer] Answer Date Recorded In the past 12 months has e [employer], [employer], or water [employer] threatened to shut off services in your [...] 12/26/2023 How often do you attend chur ch or cheondoism services? Never 12/26/2023 Do you belong to any clubs o r organizations such as hinduism groups, unions, fraternal or athletic groups, or [...] Recorded Patient Health Questionnaire-2 Score 0 09/23/2022 [facility] - Occupational Stress Questionnaire Answer Date [...] any time in the past 12 m [facility], were you homeless or living in a snf (including now)? 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 For [facility], routine testing is allowed once every 2 [...] By: Oscar Parsons MD, 12/31/2023 5:18 AM us Ale FERRER DEXA Final Result * DIABETIC RETINOPATHY EXAM (NEGATIVE)(SCAN) (02/04/2023) us [facility] Scanned SCANNING Final Resu lt Performing Organization Address [facility] Co de Phone Number [facility] * HEMOGLOBIN, GLYCOSYLATED (01/20/2023) HGB A1C 6.7 % [id number] [facility] 01/20/2023 us Adrianne Hoskins MD LABORATORY Final Result Performing Organization Address [facility] de Phone Number [phone] [facility] [address] [place] [address], * LIPOPROTEIN, LDL CHOL, DIRECT (09/17/2022 1:20 PM CDT) DIRECT LDL 88 <100 MG/DL 09/17/2022 3:46 PM CDT [facility] Comment: LDL OPTIMAL <100 LDL NEAR OPTIMAL 100-129 LDL BORDERLINE HIGH 130-159 LDL HIGH 160-189 LDL VERY HIGH >=190 09/17/2022 1:20 PM CDT us Lula Graham MD LABORATORY Final Result Performing Organization Address [facility] Co de Phone Number [facility] [address] [place] [address], from Last 3 Months or Most Recently Relevant to Health Maintenance Insurance MEDICARE MEDICAID [facility] Advance Directives * Full Code (Latest Code Status on File) Date Activated Date Inactivated Comments 12/26/2023 8:09 PM 12/27/2023 5:19 PM Care Teams Center Medical Specialist Relationship Specialty Start Date End Date Ale Steiner PA [address] [place] [address] PCP - General PHYSICIAN MACHINE FEEDER RAW STOCK 07/11/23 Charbel Tripp MD [address] [place] [address] GYNECOLOGY 03/15/20
--- OUTSIDE RECORDS SUMMARY | 2024-09-14 01:10 | XMS_ITS | Patient Health Record ---
Author Organization [facility] Address [address] [facility] [facility] [address] [place] [address] Support Name Relationship Address Phone Roxana Aguirre Guarantor Unknown Reason For Referral No Information Plan Of Treatment No Information Insurance Providers Payer Name Payer Address Payer Phone Subscriber Number Group Number Insured Name Patient Relationship to Insured Coverage Start Date Coverage End Date [facility] [address] [place] [address] [id number] Roxana Leon Self - patient is the insured 1
[2024-09-14] MEDS: LACTATED RINGERS 1,000 ML 30 ML IV CONT ×2 (07:40→12:13)
[2024-09-14] MEDS: VANCOMYCIN 1,250 MG/NS 250 ML BAG 166.67 MG IVPB (07:45)
[2024-09-14 07:47] LABS: Glucose Point of Care 95 mg/dl (65-105)
[2024-09-14] MEDS: TRANEXAMIC ACID 1,000MG/ISO100 1,000 MG/100 ML BAG 200 MG IVPB (08:09)
--- NOTE | 2024-09-14 08:22 | WPDHPUPDATE1 ---
History and Physical Update Update Date/Time: 09/14/24 08:22 History and Physical has been reviewed, including an updated exam of the patient. There are NO changes in the patient's condition. Risks, benefits, and alternatives have been discussed and questions answered. Patient agrees to proceed with procedure.
[2024-09-14] MEDS: AZTREONAM 2 GM/NS 100 ML 2 GM/100 ML BAG IVPB ×2 (08:30→16:49)
[2024-09-14] MEDS: SODIUM CHLORIDE 0.9% IV 37.7 ML, MORPHINE SULFATE INJ (*CRX) 2 MG, ROPivacaine HCL 1% 2... INFILTRATE (09:11)
[2024-09-14] MEDS: GENTAMICIN BONE CEMENT REFOBACIN 1 EACH TOPICAL (11:01)
[2024-09-14] MEDS: TRANEXAMIC ACID 1,000 MG/10 ML AMPUL 1000 MG IV PUSH (11:15)
[2024-09-14] MEDS: AZTREONAM 1 GM/NS 50 ML 1 GM/50 ML BAG IVPB (11:28)
[2024-09-14] MEDS: VANCOMYCIN HCL 1,000 MG VIAL 1000 MG TOPICAL (11:38)
--- NOTE | 2024-09-14 12:29 | PM.OP ---
Procedure Note - Brief Procedure Note - Brief Date of procedure: 09/14/24 OA RIGHT KNEE Procedure performed: Right total knee arthroplasty Surgeon: CARISSA Barrett Findings: 83-year-old female underwent right total knee arthroplasty on 09/14. I was involved in the procedure including positioning patient on the OR table in 1st assisting through the time surgery. Total time spent was 3 and half hours
[2024-09-14] MEDS: fentaNYL CITRATE INJ (*CRX) 100 MCG/2 ML VIAL 25 MCG IV PUSH ×8 (12:43→14:03)
--- NOTE | 2024-09-14 12:48 | P.OP_ITS ---
Procedure Note - Detailed Date of Procedure 09/14/24 Pre-op Diagnosis OA RIGHT KNEE, obesity BMI of 36, Post-op Diagnosis Same Procedure Performed There was extra difficulty with the procedure due to her obesity with BMI of 36 which added approximately 45-60 minutes surgical time to the procedure. Patient was markedly hypertensive immediately prior to bringing her back to the operating room but once anesthesia was administered her hypertension improved. Systolic pressure was greater than 200 mm Hg. As such, I am going to consult Cardiology to follow her after surgery in case she has problems with hypertension as her hypertension management is quite complicated based on her history. Patient was brought to the operating room and general anesthesia was administered. Under anesthesia as she continued to exhibit about a 5 degree flexion contracture. The left knee was prepped draped usual fashion. She received 2 g of Aztreonam. and 1 g of TXA weight based vancomycin preoperatively. History of rash from cephalexin in the past. Patient had a pronounced degree of medial pseudolaxity again noted. Limb was exsanguinated tourniquet elevated to 300 mmHg. A 7 in longitudinal midline incision was used. A vastus medialis splitting approach utilized. The vastus medialis muscle itself had normal color and bulk in did not exhibit clinical signs of denervation. A split the vastus medialis was made at the level of the superior pole the patella. Quadriceps synovectomy was performed. She had moderate chondromalacia of the patella but no areas of exposed bone or deformity and I felt it was most suitable for non resurfacing giving her obesity and history of osteoporosis Partial excision of infrapatellar fat pad performed. A guide ashutosh was inserted on the femoral canal after aspiration of canal contents and 8 mm of bone removed the distal femur. We removed only 8 mm because she had area of rather severe bone wear and distal and posterior aspects of the medial femoral condyle with sclerotic changes. Having said that, the plate of the cutting guide did sit a few mm distal to the bare area the distal medial femoral condyle. After completing the distal femoral cut, the tibial plateau was cut. We carefully debrided the fractured medial tibial plateau rim fragments using a needle-nose rongeur and being careful not to release any of the medial capsule since she did not have a varus deformity preoperatively based on the alignment of her other knee. We made a skim cut along the low point of the medial tibial plateau. This removed about 8 mm laterally. Alignment of the cut was confirmed to be accurate. Meniscal remnants were excised and the PCL recessed. Flexion gap at 90? measured 10 mm medially and 12 mm laterally the spacer blocks being tight on both sides. The distal femoral sizing guide was applied at 3? of external rotation which matched Whitesides line. Posterior referencing pinholes were placed and we applied the size 62.5 vanguard cutting block which gave an anterior cut was flush with the anterior cortex anteriorly. Posterior and chamfer cuts were made. 62.5 overhung about a 1 mm laterally 1 flush medially. I felt that downsizing to the 60 was going to cause too much notching which would be contraindicated given her weight and osteoporosis. The tibia was sized to a 67 which fit line to line posterolateral to anteromedial. There was a 4 mm wide defect mid medial tibial plateau that the tray rested over from her area of fracture but anterior and posterior this defect it was supported with sclerotic bone and there are no other areas of overhang I felt that optimizing the size of her trach given her obesity and osteoporosis was advantageous. This was punched and we trialed with the 10 which gave us appropriate stability at 90? opening 1 mm lateral 1/2 medial to varus and valgus stress. We lacked about 12? of extension with no play medially or laterally. An additional 2 mm of bone removed the distal femur. Small amount of residual posterior femoral condylar bone was removed central posterior capsular release performed. At this point we lacked about 4? of extension therefore left another mm of bone was removed from the distal femur and on trialing we still lacked couple degrees of extension but there was a little bit of play medially and laterally therefore we revisited the posterior capsular release from the distal femur releasing the posterior capsule from medial origin of medial head gastroc to the lateral head of gastroc origin and read trialing the 10 insert the knee almost came to full extension with a barely positive bounce however is no play medially 1 mm play laterally and with the arthrotomy approximated we lacked a couple of degrees of extension therefore 1 more mm of bone was removed the distal femur. Chamfer cuts revisited on read trialing the knee came out to full extension with negative bounce with 2 mm lateral play 1/2 mm medial play. There was about 3 mm of medial play and lateral play at 30? of flexion. Toone flexion was to 125? and no play in deep flexion. The lug holes were drilled for the femoral component. We had put the tourniquet down earlier at 90 minutes and this time the leg was re-exsanguinated tourniquet elevated again 3 and shower. The bony surfaces thoroughly irrigated and dried. Using 2 batches of methylmethacrylate 1 with gentamicin powder the cement was mixed immediately applied the size 67 vanguard tibial tray and the 62.5 right cruciate retaining femoral component. Cement applied the tibia pressurized tibial component fully seated cement applied the femur the femoral component fully seated the knee brought into extension with 11 mm 5 1 insert for cement pressurization in tourniquet was released total tourniquet time 103 minutes. After cement hardening excess cement was sought for removed and hemostasis was achieved. The 10 mm insert gave excellent stability and full range of motion. Patellar tracking was not perfect until we performed a lateral retinacular release extending from the anterolateral tibia to the level of the superior pole of patella. With this the patella tracked perfectly throughout range of motion. The 10 insert was placed locked with a locking clip range of motion stability and patellar tracking reconfirmed. Local anesthetic cocktail was injected into the periarticular soft tissues. Arthrotomy was closed with 2. Vicryl and 1. Unidirectional barbed Stratafix suture and 1. Vicryl in the split. Skin closed with 2 subcutaneous Vicryl 3-0 subcuticular Monocryl and glue. EBL was 200 cc. Additional 1 g of Aztreonam and 1 g of TXA given time wound closure. When I started irrigating prior to wound closure, I discover that there was Ancef 3 g in the 3 L bag of irrigation which is our usual routine but undesirable with her history of rash with cephalosporins therefore we brought in a 3 L bag of plain normal saline and thoroughly irrigated the wound with normal saline. Just prior to closure of the arthrotomy replaced 500 mg of vancomycin powder in the joint itself. She was transferred postop recovery room stable condition. Surgeon Isael Harley MD Supervisor Type Bar And Segment Willa Anesthesia General Description of Procedure Right total knee arthroplasty. See it above for detailed description of procedure Estimated Blood Loss 200 IV Fluids 1,800 [facility] Billing Surgery - Charge Forward: Surgery Billing (Right total knee arthroplasty with extra difficulty due to obesity)
[2024-09-14 13:19] LABS: Glucose Point of Care 160 mg/dl (65-105)
--- NOTE | 2024-09-14 15:02 | ADMGEN ---
This patient, Roxana Aguirre, was admitted to Medical Room 349-01. Patient/family oriented to hospital policies and general routines including ID bracelet, bed and alarms, visiting hours, pain management, procedures, bathroom and other care routines, personal items, smoking policy, room service/diet, and visiting hours. Information on how to activate the Rapid Response Team has been discussed. Patient/Family are encouraged to report perceived risks to care and to ask questions if they do not understand what they are told or what they should do.
[2024-09-14] MEDS: SODIUM CHLORIDE 0.9% IV 1,000 ML 50 ML IV CONT (15:22)
[2024-09-14] MEDS: oxyCODONE HCL (*CRX) 2.5 MG TAB IR PO ×2 (15:22→16:13)
[2024-09-14] MEDS: ACETAMINOPHEN 325 MG TABLET 650 MG PO ×2 (15:22→20:28)
[2024-09-14 15:31] LABS: Glucose Point of Care 188 mg/dl (65-105)
--- NOTE | 2024-09-14 16:27 | PCRCNOTE ---
The patient states she has sleep apnea but does not currently have a Home CPAP machine. Also she does not want to use one of our CPAP machines.
[2024-09-14] MEDS: CLORAZEPATE DIPOTASSIUM (*CRX) 3.75 MG TABLET PO (16:50)
[2024-09-14] MEDS: SENNA/DOCUSATE SODIUM TABLET 2 TAB PO (16:50)
[2024-09-14] MEDS: metFORMIN HCL 500 MG TABLET PO (16:51)
[2024-09-14] MEDS: POTASSIUM CITRATE 5 MEQ TAB CR 10 MEQ PO (16:51)
[2024-09-14] MEDS: GABAPENTIN 400 MG CAPSULE 1200 MG PO (16:51)
--- NOTE | 2024-09-14 17:44 | PM.IMCN ---
Assessment and Plan Assessment and plan (1) Blurry vision: Code(s): H53.8 - Other visual disturbances Status: Acute Assessment and Plan: CTA brain and brainstem No acute intracranial process. 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 If the patient is at high risk, consider an optional low-dose noncontrast CT of the chest follow-up in 12 months. Recommend follow-up outpatient HPI Date of Consult Consult date: 09/15/24 Requesting Physician: Isael Harley MD Primary Care Provider: Jodie Steiner PA-C Consult Narrative Reason for consult: Medical management and blurry vision Narrative: Roxana Aguirre is a 83 year old female at the hospital for planned right total knee arthroplasty by Orthopedics. After surgery patient started complaining of blurry vision. Patient states that she is doing well after surgery had a little bit of pain and swelling in her right lower extremity. When questioned about blurry vision she states that her vision was blurry whenever she 1st got out of surgery and she was worried about it. We question for more details after this CTA patient states that this does happen to her from time to time her last couple years. The blurry vision is not new and spontaneous early results. CT shows No acute intracranial process. 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 Multiple sub-6 mm pulmonary nodules, likely representing benign granulomas. If the patient is at high risk, consider an optional low-dose noncontrast CT of the chest follow-up in 12 months. Review of Systems Review of Systems: 12 systems were reviewed and are negative except for as per HPI. [facility] Past Medical History Medical History (Updated 09/15/24 @ 00:43 by Sandra Dominguez APRN) Hypertension Dr Donis Leg weakness, bilateral Lumbar pain Rectal prolapse Mild Hearing loss Dr. Miller Degenerative joint disease (DJD) of lumbar spine Dr. Barrera and Dr Nuñez Urinary incontinence Osteoporosis Started on alendronate July 2021, Dr. Barrera DEB (obstructive sleep apnea) Dr. Barrera Multiple lipomas Candidal skin infection Right pannus History of recurrent UTIs Dr. Tripp Morbid obesity seeing oracle application consultant Diabetes mellitus with nephropathy Hypokalemia Hypomagnesemia CHF (congestive heart failure) (~2017) Dr Donis Syncope Hypotension Hyperlipidemia BMI 40.0-44.9, adult (10/09/16) Shortness of breath Influenza Cramp of both lower extremities Cough Insomnia Dr Francis Peripheral edema Palpitations Fibromyalgia Dr Barrera Anxiety and depression Dr Francis Surgical History Surgical History S/P STEVEN-BSO (~1985) Fibroids History of detached retina repair (~2008) History of cataract surgery (~2008) History of cholecystectomy (~1998) History of appendectomy Family History Family History Father Diabetes mellitus Hypertension Heart disease Cerebrovascular accident Sibling Diabetes mellitus Hypertension Daughter Hypertension Depression Anxiety Social History Social History Social History: 09/05/24 very confident with medical forms/has received assistance for care for elder or disabled, food, medications and paying utility bills Smoking status: Never smoker Alcohol intake: never Drinks per week: 0 Alcohol use details: 0 Substance use: never Substance use type: does not use Other substance usage details: does not use Last use: does not use Do You Feel Safe in your Home?: Yes Lack of Transportation: No Lack of Food: Never True Current Housing: I Have Housing Concerned About Future Housing: No Difficulty Paying Gas/Electric Bills: No Difficulty Paying for Meds: No Currently Unemployed: No Education: High School Diploma/GED Difficulty w/ Childcare or Family Care: No Living arrangements: alone Occupation/Education: retired Gender identity (if verbalized by the patient): Female Spiritual care concerns: No Meds Home Medications and Allergies Home Medications ?Medication ?Instructions ?Recorded ?Confirmed ?Type magnesium oxide 400 mg PO BID 04/16/23 09/14/24 History ascorbic acid (vitamin C) 500 mg 500 mg PO DAILY 07/09/23 09/14/24 History capsule biotin 1,000 mcg chewable tablet 1,000 mcg PO TID 07/09/23 09/14/24 History calcium carbonate (Calcium 600) 600 mg PO DAILY 07/09/23 09/14/24 History flaxseed oil 1,000 mg capsule 1,000 mg PO DAILY 07/09/23 09/14/24 History guaifenesin 600 mg tablet, 600 mg PO Q12H PRN congestion 07/09/23 09/13/24 History extended release 12 hr (Mucinex) multivitamin 1 tablet PO DAILY 07/09/23 09/14/24 History nystatin 100,000 unit/gram topical 1 applic topical BID PRN skin 07/09/23 09/14/24 History powder irritation blood-glucose sensor (FreeStyle #6 ea 08/21/23 09/13/24 Rx Conchis 3 Sensor device) cholecalciferol (vitamin D3) 25 50 mcg PO DAILY 08/22/23 09/14/24 History mcg (1,000 unit) capsule alendronate 70 mg tablet 70 mg PO WEEKLY 02/04/24 09/14/24 History carvedilol 25 mg tablet 25 mg PO BID 02/04/24 09/14/24 History clorazepate dipotassium 3.75 mg 3.75 mg PO TID 02/04/24 09/14/24 History tablet cyclosporine 0.05 % eye drops in a 2 drp EACH EYE Q12H 02/04/24 09/14/24 History dropperette donepezil 10 mg tablet 20 mg PO DAILY 02/04/24 09/14/24 History gabapentin 600 mg tablet 1,200 mg PO TID 02/04/24 09/14/24 History hydrochlorothiazide 12.5 mg tablet 12.5 mg PO DAILY 02/04/24 09/14/24 History lisinopril 20 mg tablet 20 mg PO DAILY 02/04/24 09/14/24 History mecobalamin (vitamin B12) 1,000 1,000 mcg PO DAILY #30 tabs 02/04/24 09/13/24 Rx mcg chewable tablet methenamine hippurate 1 gram 1 g PO BID 02/04/24 09/14/24 History tablet (Hiprex) quetiapine 25 mg tablet 50 mg PO HS 02/04/24 09/14/24 History venlafaxine 150 mg 300 mg PO DAILY 02/04/24 09/14/24 History capsule,extended release 24 hr vibegron 75 mg tablet (Gemtesa) 75 mg PO DAILY 02/04/24 09/14/24 History zolpidem 10 mg tablet 10 mg PO HS 02/04/24 09/14/24 History psyllium husk 0.52 gram capsule 0.52 g PO DAILY 02/18/24 09/14/24 History sertraline 100 mg tablet 200 mg PO DAILY 02/18/24 09/14/24 History pen needle, diabetic 31 gauge x #100 ea 05/19/24 09/13/24 Rx 5/16 (BD Ultra-Fine Short Pen Needle) famotidine 20 mg tablet 20 mg PO TID #270 tabs 07/05/24 09/14/24 Rx insulin glargine U-300 conc 300 20 unit (0.0667 mL) subcut 07/05/24 09/14/24 Rx unit/mL (1.5 mL) subcutaneous pen .bedtime was never discontinued (Toujeo SoloStar U-300 Insulin) #4.5 mL metformin 500 mg tablet 500 mg PO BID #180 tabs 07/16/24 09/14/24 Rx cyclobenzaprine 5 mg tablet 5 mg PO QHS PRN muscle spasm #20 07/22/24 09/14/24 Rx tabs dexamethasone 0.5 mg/5 mL oral 0.25 mg PO Q6H PRN MOUTH SORES 08/09/24 09/13/24 History elixir fluticasone furoate 27.5 2 spray intranasal DAILY PRN nasal 08/09/24 09/13/24 History mcg/actuation nasal congestion spray,suspension (Flonase Sensimist) tramadol 25 mg tablet 25 mg PO Q6H PRN pain #40 tabs 08/12/24 09/13/24 Rx potassium citrate 10 mEq (1,080 10 meq PO BID #180 tabs 08/19/24 09/14/24 Rx mg) tablet,extended release semaglutide 2 mg/dose (8 mg/3 mL) 2 mg (0.75 mL) subcut WEEKLY #3 mL 08/19/24 09/14/24 Rx subcutaneous pen injector atorvastatin 20 mg tablet 20 mg PO DAILY #90 tabs 09/02/24 09/14/24 Rx amoxicillin 875 mg tablet 875 mg PO Q12H #14 tabs 09/06/24 09/14/24 Rx clotrimazole-betamethasone 1 1 applic topical BID 2 weeks #45 09/14/24 Rx %-0.05 % topical cream grams Allergies Allergy/AdvReac Type Severity Reaction Status Date / Time cephalexin Allergy Mild Hives Verified 09/14/24 17:23 nitrofurantoin Allergy Mild Hives Verified 09/14/24 17:23 cefdinir Allergy Unknown Rash Verified 09/14/24 17:23 Vital Signs Vital Signs - 24 hr 09/14/24 08:45 09/14/24 12:13 09/14/24 12:28 Temperature 98.4 F 97.0 F L Pulse Rate 76 84 83 Respiratory Rate 16 15 14 Blood Pressure 137/58 L 138/62 121/72 Pulse Oximetry 98 93 98 Oxygen Delivery Room Air Simple Face Mask Simple Face Mask Oxygen Flow Rate 8 8 09/14/24 12:40 09/14/24 12:55 09/14/24 13:00 Temperature Pulse Rate 84 80 80 Respiratory Rate 20 21 H 11 L Blood Pressure 135/61 126/56 L 135/73 Pulse Oximetry 97 100 96 Oxygen Delivery Simple Face Mask Room Air Room Air Oxygen Flow Rate 8 09/14/24 13:15 09/14/24 13:30 09/14/24 13:45 Temperature Pulse Rate 82 84 82 Respiratory Rate 18 12 18 Blood Pressure 115/65 123/70 123/70 Pulse Oximetry 96 96 94 Oxygen Delivery Nasal Cannula Nasal Cannula Nasal Cannula Oxygen Flow Rate 2 2 2 09/14/24 14:00 09/14/24 14:15 09/14/24 14:35 Temperature 97.0 F L Pulse Rate 80 78 82 Respiratory Rate 12 18 16 Blood Pressure 128/67 123/61 135/57 L Pulse Oximetry 95 96 97 Oxygen Delivery Nasal Cannula Nasal Cannula Oxygen Flow Rate 2 2 09/14/24 14:50 09/14/24 15:20 09/14/24 15:30 Temperature 97.2 F L 97.6 F Pulse Rate 76 88 Respiratory Rate 16 16 Blood Pressure 129/72 134/72 Pulse Oximetry 98 94 94 Oxygen Delivery Nasal Cannula Oxygen Flow Rate 2 09/14/24 16:05 Temperature Pulse Rate 84 Respiratory Rate Blood Pressure Pulse Oximetry Oxygen Delivery Oxygen Flow Rate Exam Narrative: General: well appearing, appears stated age. HEENT: normocephalic, atraumatic. Mucous membranes moist. EOMI, PERRLA, bilateral sclera anicteric, no conjunctival injection. Neck supple without JVD, lymphadenopathy, or bruit. Respiratory: clear to ascultation bilaterally. No rales/rhonic/wheezes. Cardiovascular: Regular rate and rhythm, normal S1-S2 upon ascultation. No murmurs, rubs, or clicks. PMI is nondisplaced, capillary refill less than 3 second. Abdomen: Soft, round, no pulsatile masses, nondistended and nontender. No rebound, no guarding. No CVA tenderness, no hepatosplenomegaly. Bowel sounds present to all four quadrants. No high pitch or tinkling sounds, resonant to percussion. Extremities: No cyanosis, clubbing, or edema present. Pulses are palpable 2/2. Right lower extremity with surgical dressing clean dry intact, limited range of motion due to pain Neuro: Alert and orientated x 4. PERRLA. Cranial nerves 2-12 intact without focal deficit. Skin: Warm, dry, and intact, without rash, erythema, or lesion. Psych: pleasant, cooperative, normal speech, normal affect, no hallucinations, no dysarthia Results Labs 09/14/24 17:53 Quality VTE Prophylaxis VTE prophylaxis: mechanical ordered and pharmacologic ordered Hospitalist [facility] Advance Care Plan I have confirmed that the patient's Advanced Care Plan is present, code status is documented, or surrogate decision maker is listed in patient medical record.: Yes Medication Reconciliation I have utilized all available resources to obtain, update and review the patients current medications (includes all prescriptions, OTC, herbals, cannabis, and nutritional supplements).: Yes
[2024-09-14 18:09] LABS: Anion Gap 9 mmol/L (4-12); Blood Urea Nitrogen 23 mg/dL (7-17); Calcium 8.9 mg/dL (8.4-10.2); Carbon Dioxide 25 mmol/L (22-30); Chloride 103 mmol/L (98-107); Estimated CRCL calculation 54 ml/min; Estimated Glomerular Filt Rate > 60; Glucose 196 mg/dL (65-110); Potassium 4.2 mmol/L (3.4-5.0); Sodium 137 mmol/L (137-145)
[2024-09-14] MEDS: QUEtiapine FUMARATE 25 MG TABLET 50 MG PO (20:27)
[2024-09-14] MEDS: cycloSPORINE 0.4 ML OPHTH SOLUTION 2 DROP EACH EYE (20:27)
[2024-09-14] MEDS: FAMOTIDINE 20 MG TABLET PO (20:27)
[2024-09-14] MEDS: oxyCODONE HCL (*CRX) 5 MG TAB IR PO (20:28)
[2024-09-14] MEDS: carvediloL 25 MG TABLET PO (20:28)
[2024-09-14] MEDS: DOXYCYCLINE HYCLATE 100 MG TABLET PO (20:28)
[2024-09-14] MEDS: VANCOMYCIN 1,000 MG/NS 250 ML 1,000 MG/250 ML BAG 250 MG IVPB (20:33)
[2024-09-14 21:09] LABS: Glucose Point of Care 163 mg/dl (65-105)
[2024-09-15] VITALS (15 sets, daily range): BP systolic 121–155; BP diastolic 50–64; PULSE 72–85; RESP 16–18; TEMP 36.1–36.9; O2SAT 91–99
--- NOTE | ~2024-09-15 | XR_ITS ---
[id number] Ordering provider: Isael Harley MD History: . POST-OP, RIGHT TKA . Comparison: None. FINDINGS: BONES: No acute fracture or dislocation. JOINT SPACES: Total knee arthroplasty. SOFT TISSUES: Postoperative changes in the soft tissues. IMPRESSION: No acute osseous abnormality right knee. Total knee arthroplasty. Reviewed, dictated and finalized at location A.
--- NOTE | ~2024-09-15 | MR_ITS ---
EXAMINATION: MR brain/brain stem wo con DATE: 09/15/2024 08:44 INDICATION: Right thalamic infarct. TECHNIQUE: Magnetic resonance imaging (MRI) of the brain and brainstem was performed without intraven ous contrast. COMPARISON: Head CT 09/14/2024 FINDINGS: There is an old lacunar infarct in the right thalamus. There are scattered areas of nonspec ific increased T2-weighted signal intensity in the cerebral white matter and faby. There is no intrac ranial hemorrhage, acute infarction, or abnormal intracranial mass lesion. The ventricles are normal in size. There are likely changes of ocular lens replacement surgeries. The paranasal sinuses are sepideh ar. IMPRESSION: 1. Old lacunar infarct in the right thalamus. 2. Moderate nonspecific cerebral white matter disease and pontine disease, which likely represents ch ronic small vessel ischemic disease. Reviewed, dictated and finalized at location B. IMPRESSION: 1. Old lacunar infarct in the right thalamus. 2. Moderate nonspecific cerebral white matter disease and pontine disease, whic h likely represents chronic small vessel ischemic disease.
--- NOTE | ~2024-09-15 | US_ITS ---
Limited ABDOMINAL ULTRASOUND Ordering provider: Juan Carlos Kaur History: . Increased LFTs . Comparison: None. FINDINGS: LIVER: The liver measures 19.3 cm. Normal echotexture. No focal hepatic lesions or perihepatic fluid collections are identified. Normal flow of the portal vein. GALLBLADDER: Surgically removed.. BILIARY DUCTS: No evidence for intra or extrahepatic biliary dilation. Common bile duct measures 8.4 mm in diameter which is within normal limits. PANCREAS: Partially visualized. UPPER ABDOMINAL AORTA: Normal in caliber. IVC: Patent. FREE FLUID: None. IMPRESSION: Hepatomegaly. Otherwise, Unremarkable limited ultrasound of the abdomen. Reviewed, dictated and finalized at location A.
--- NOTE | ~2024-09-15 | CT_ITS ---
EXAMINATION: CTA brain carotid DATE: 09/14/2024 19:07 INDICATION: Blurry vision TECHNIQUE: Computed tomographic angiography (CTA) of the head was performed without and with 100 mL O mnipaque-350 intravenous contrast. CTA of the neck was performed with intravenous contrast. Automated exposure control and iterative reconstruction technique were employed. The dose-length product was 1 638.63 mGy-cm. Maximum intensity projection and volume rendered 3D-reconstructions were created by chele mane technologist on a separate workstation. COMPARISON: None. FINDINGS: CT BRAIN: No acute large vessel infarct, intracranial hemorrhage, mass, or hydrocephalus. Moderate atrophy and chronic white matter change. Atherosclerotic intracranial calcification. Bilateral lens replacements. 8mm hyperdense focus in the right thalamus, likely representing a late subacute or early chronic foc al right thalamic infarct. CTA HEAD: No large vessel occlusion, aneurysm, high flow vascular malformation, nidus or extravasation. Persist ent origin of the left posterior cerebral artery, a normal variant. CTA NECK: Aortic arch and proximal great vessels: The left vertebral artery takes its origin directly from the arch, an normal variant. Minimal calcified plaque. Right common carotid, carotid bifurcation, and internal carotid artery: No plaque.There is 0% stenosi s of the proximal right internal carotid artery relative to normal distal artery lumen diameter (NASC ET criteria). Left common carotid, carotid bifurcation, and internal carotid artery: No plaque.There is 0% stenosis of the proximal left internal carotid artery relative to normal distal artery lumen diameter (NASCET criteria). Vertebral arteries: No significant plaque or stenosis. Vertebral arteries co-dominant. Other findings: Coronary artery calcifications. Dilated central pulmonary arteries as can be seen wit h pulmonary arterial hypertension. Mild peripheral reticulations. Multiple sub-6 mm pulmonary nodules , likely representing granulomas. IMPRESSION: No acute intracranial process. 8 mm hypodense focus in the right thalamus likely representing a late subacute or early chronic focal infarct No large vessel intracranial occlusion, high-grade intracranial stenosis, or aneurysm. No carotid or vertebral artery occlusion, dissection, or significant stenosis. Multiple sub-6 mm pulmonary nodules, likely representing benign granulomas. If the patient is at high risk, consider an optional low-dose noncontrast CT of the chest follow-up in 12 months. Reviewed, dictated and finalized at location K. IMPRESSION: No acute intracranial process. 8 mm hypodense focus in the right thalamus likel y representing a late subacute or early chronic focal infarct No large vessel intracranial occlusion, high-grade intracranial stenosis, or an eurysm. No carotid or vertebral artery occlusion, dissection, or significant stenosis. Multiple sub-6 mm pulmonary nodules, likely representing benign granulomas. If the patient is at high risk, consider an optional low-dose noncontrast CT of th e chest follow-up in 12 months.
[2024-09-15] MEDS: ACETAMINOPHEN 325 MG TABLET 650 MG PO ×7 (00:36→21:57)
[2024-09-15] MEDS: oxyCODONE HCL (*CRX) 5 MG TAB IR PO ×7 (00:36→21:57)
[2024-09-15] MEDS: AZTREONAM 2 GM/NS 100 ML 2 GM/100 ML BAG IVPB ×2 (00:37→09:29)
[2024-09-15] MEDS: INSULIN GLARGINE (*BKC) 100 UNITS/ML 20 UNITS SUB-Q ×2 (00:37→21:56)
[2024-09-15 06:02] LABS: Basophils Percent Auto 0.5 % (0.2-1.2); Eosinophils Absolute Auto 0.1 K/mm3 (0-0.3); Eosinophils Percent Auto 2.4 % (0-4.4); Hematocrit 32.3 % (37.0-47.0); Hemoglobin 10.1 g/dL (12.0-15.0); Immature Granulocyte Absolute 0.02 K/mm3 (0.00-0.031); Immature Granulocyte Percent A 0.3 % (0-0.5); Lymphocytes Absolute Auto 1.14 K/mm3 (0.9-3.2); Lymphocytes Percent Auto 19.3 % (18.3-44.2); Mean Corpuscular HGB Conc 31.3 g/dl (32-36); Mean Corpuscular Volume 92.8 fl (80-100); Mean Platelet Volume 10.1 fl (7.4-10.4); Monocytes Absolute Auto 0.7 K/mm3 (0.1-0.6); Neutrophils Absolute Auto 3.9 K/mm3 (1.3-6.7); Neutrophils Percent Auto 65.5 % (45.5-73.1); Platelet Count Result 193 k/mm3 (150-375); Red Blood Count 3.48 M/mm3 (4.2-5.4); Red Cell Distribution Width 12.8 % (11.5-14.5); White Blood Count 5.9 K/mm3 (4.5-10.0)
[2024-09-15 06:12] LABS: Anion Gap 7 mmol/L (4-12); Blood Urea Nitrogen 24 mg/dL (7-17); Calcium 8.7 mg/dL (8.4-10.2); Carbon Dioxide 28 mmol/L (22-30); Chloride 103 mmol/L (98-107); Estimated CRCL calculation 52 ml/min; Estimated Glomerular Filt Rate > 60; Glucose 100 mg/dL (65-110); Potassium 3.8 mmol/L (3.4-5.0); Sodium 138 mmol/L (137-145)
--- NOTE | 2024-09-15 08:04 | PM.PNORT ---
Subjective Subjective Date/Time Seen: 09/15/24 08:04 Interval history: Postop day 1 patient is alert. She is afebrile vital signs are stable. Morning labs are noted patient is still requiring oxygen for nasal cannula. Sats are in the mid 90s. Patient had a bout of blurry vision yesterday postop, CT was ordered her head which was negative. Blurry vision has dissipated at this point and she is having normal vision. Patient is very slow with physical therapy. She is very deconditioned. She has had very limited ambulation for last 8 months due to the severe pain in her knee. Also patient is 83. At this point is felt that the patient is not going to be safe going home, she lives on her own in her own house. This would be an unsafe situation for her. Given her advanced age as well as her obesity and deconditioning would be best for her to go to rehab facility for continued care. Care coordination is already been consulted. We will switch her status to admit from 23 hour op. MRI of the brain has been ordered for today but since her blurred vision has resolved I do not think that that test will be necessary. Objective Data Vital Signs Vital Signs: Vital Signs - 24 hr 09/14/24 08:45 09/14/24 12:13 09/14/24 12:28 Temperature 98.4 F 97.0 F L Pulse Rate 76 84 83 Respiratory Rate 16 15 14 Blood Pressure 137/58 L 138/62 121/72 Pulse Oximetry 98 93 98 Oxygen Delivery Room Air Simple Face Mask Simple Face Mask Oxygen Flow Rate 8 8 09/14/24 12:40 09/14/24 12:55 09/14/24 13:00 Temperature Pulse Rate 84 80 80 Respiratory Rate 20 21 H 11 L Blood Pressure 135/61 126/56 L 135/73 Pulse Oximetry 97 100 96 Oxygen Delivery Simple Face Mask Room Air Room Air Oxygen Flow Rate 8 09/14/24 13:15 09/14/24 13:30 09/14/24 13:45 Temperature Pulse Rate 82 84 82 Respiratory Rate 18 12 18 Blood Pressure 115/65 123/70 123/70 Pulse Oximetry 96 96 94 Oxygen Delivery Nasal Cannula Nasal Cannula Nasal Cannula Oxygen Flow Rate 2 2 2 09/14/24 14:00 09/14/24 14:15 09/14/24 14:35 Temperature 97.0 F L Pulse Rate 80 78 82 Respiratory Rate 12 18 16 Blood Pressure 128/67 123/61 135/57 L Pulse Oximetry 95 96 97 Oxygen Delivery Nasal Cannula Nasal Cannula Oxygen Flow Rate 2 2 09/14/24 14:50 09/14/24 15:20 09/14/24 15:30 Temperature 97.2 F L 97.6 F Pulse Rate 76 88 Respiratory Rate 16 16 Blood Pressure 129/72 134/72 Pulse Oximetry 98 94 94 Oxygen Delivery Nasal Cannula Oxygen Flow Rate 2 09/14/24 16:05 09/14/24 20:00 09/14/24 20:03 Temperature 98.1 F Pulse Rate 84 81 79 Respiratory Rate 18 Blood Pressure 141/61 H Pulse Oximetry 98 Oxygen Delivery Oxygen Flow Rate 09/15/24 00:00 09/15/24 00:03 09/15/24 00:57 Temperature 97.8 F Pulse Rate 80 72 Respiratory Rate 17 Blood Pressure 129/55 L Pulse Oximetry 98 93 Oxygen Delivery Nasal Cannula Oxygen Flow Rate 2 09/15/24 04:00 09/15/24 04:03 Temperature 98.4 F Pulse Rate 84 76 Respiratory Rate 18 Blood Pressure 122/53 L Pulse Oximetry 94 Oxygen Delivery Oxygen Flow Rate Intake/Output Intake/Output: Intake & Output 09/13/24 09/13/24 09/14/24 09/15/24 00:59 23:59 23:59 23:59 Intake Total 2470 Balance 2470 Meds/Results Medications: Active Medications Generic Name Dose Route Start Last Admin Trade Name Freq PRN Reason Stop Dose Admin Acetaminophen 650 mg 09/14/24 15:00 09/15/24 06:09 Acetaminophen 325 Mg Tablet PO 650 mg Q4H CADY Administration Apixaban 2.5 mg 09/15/24 09:00 Apixaban 2.5 Mg Tablet PO 09/26/24 21:01 Q12HR CADY Atorvastatin Calcium 20 mg 09/15/24 09:00 Atorvastatin 20 Mg Tablet PO DAILY [facility] Carvedilol 25 mg 09/14/24 21:00 09/14/24 20:28 Carvedilol 25 Mg Tablet PO 25 mg Q12HR CADY Administration Clorazepate Dipotassium 3.75 mg 09/14/24 17:00 09/14/24 16:50 Clorazepate Dipotassium (*Crx) 3.75 Mg Tablet PO 3.75 mg TID CADY Administration Cyclosporine 2 drop 09/14/24 21:00 09/14/24 20:27 Cyclosporine 0.4 Ml Ophth Solution EACH EYE 2 drop Q12H CADY Administration Diphenhydramine HCl 25 mg 09/14/24 14:18 Diphenhydramine Hcl Inj 50 Mg/Ml Vial IV PUSH Q6H PRN Itching Donepezil HCl 20 mg 09/15/24 21:00 Donepezil Hcl 10 Mg Tablet PO HS CADY Doxycycline Hyclate 100 mg 09/14/24 21:00 09/14/24 20:28 Doxycycline Hyclate 100 Mg Tablet PO 100 mg Q12HR CADY Administration Famotidine 20 mg 09/14/24 21:00 09/14/24 20:27 Famotidine 20 Mg Tablet PO 20 mg Q12HR CADY Administration Fluticasone Propionate 2 spray 09/14/24 14:32 Fluticasone Propionate 0.05% Na Spr 16 Gm Btl (*Bkc) NASAL DAILY PRN nasal congestion Gabapentin 1,200 mg 09/14/24 17:00 09/14/24 16:51 Gabapentin 400 Mg Capsule PO 1,200 mg TID CADY Administration Aztreonam 2 gm in 100 mls @ 200 mls/hr 09/14/24 17:00 09/15/24 00:37 Azactam 2 Gm/Ns 100 Ml IVPB 09/15/24 09:29 200 mls/hr Q8H CADY Administration Vancomycin HCl 1,000 mg in 250 mls @ 250 mls/hr 09/14/24 20:00 09/14/24 20:33 Vancomycin 1,000 Mg/Ns 250 Ml IVPB 09/15/24 08:59 250 mls/hr Q12H CADY Administration Insulin Glargine 20 units 09/14/24 21:00 09/15/24 00:37 Insulin Glargine (*Bkc) 100 Units/Ml SUB-Q 20 units HS CADY Administration Lisinopril 20 mg 09/15/24 09:00 Lisinopril 20 Mg Tablet PO DAILY [facility] Metformin HCl 500 mg 09/14/24 17:00 09/14/24 16:51 Metformin Hcl 500 Mg Tablet PO 500 mg BID CADY Administration Miscellaneous Information 1 each 09/15/24 00:01 Gemtesa Is Nonform; Can Pt Use From Home? XX 10/15/24 00:00 CLARIFY [facility] Morphine Sulfate 2 mg 09/14/24 14:18 Morphine Sulfate (*Crx) 2 Mg/Ml Inj IV PUSH Q2H PRN Breakthrough Pain Rated 4-6 or NPO Naloxone HCl 0.1 mg 09/14/24 14:18 Naloxone Hcl 0.4 Mg/Ml Vial IV PUSH Q2M PRN Opiate Reversal Non-Formulary Medication 75 mg 09/15/24 09:00 Vibegron [Gemtesa] PO 10/15/24 08:59 DAILY [facility] Ondansetron HCl 4 mg 09/14/24 14:18 Ondansetron Inj 4 Mg/2 Ml Vial IV PUSH Q4H PRN Nausea And Vomiting Oxycodone HCl 2.5 mg 09/14/24 14:18 Oxycodone Hcl (*Crx) 2.5 Mg Tab Ir PO Q4H PRN Pain Rated 4-6 Oxycodone HCl 5 mg 09/14/24 19:00 09/15/24 06:09 Oxycodone Hcl (*Crx) 5 Mg Tab Ir PO 5 mg Q4H [facility] Administration Polyethylene Glycol 17 gm 09/15/24 09:00 Polyethylene Glycol 3350 17 Gm Powd.Pack PO QAM [facility] Potassium Citrate 10 meq 09/14/24 17:00 09/14/24 16:51 Potassium Citrate 5 Meq Tab Cr PO 10 meq BID [facility]Y Administration Quetiapine Fumarate 50 mg 09/14/24 21:00 09/14/24 20:27 Quetiapine Fumarate 25 Mg Tablet PO 50 mg HS [facility]Y Administration Senna/Docusate Sodium 2 tab 09/14/24 17:00 09/14/24 16:50 Senna/Docusate Sodium Tablet PO 2 tab BID [facility] Administration Sertraline HCl 200 mg 09/15/24 09:00 Sertraline Hcl 50 Mg Tablet PO DAILY [facility] Venlafaxine HCl 300 mg 09/15/24 09:00 Venlafaxine Hcl Xr 75 Mg Cap.Er.24h PO DAILY [facility] Vitamin D 2,000 units 09/15/24 09:00 Cholecalciferol 1,000 Units Tablet PO DAILY [facility] Radiology Results: ITS Impressions Knee X-Ray 09/14/24 12:22 IMPRESSION: No acute osseous abnormality right knee. Total knee arthroplasty. Head/Neck CTA 09/14/24 19:11 IMPRESSION: No acute intracranial process. 8 mm hypodense focus in the right thalamus likely representing a late subacute or early chronic focal infarct No large vessel intracranial occlusion, high-grade intracranial stenosis, or aneurysm. No carotid or vertebral artery occlusion, dissection, or significant stenosis. Multiple sub-6 mm pulmonary nodules, likely representing benign granulomas. If the patient is at high risk, consider an optional low-dose noncontrast CT of the chest follow-up in 12 months. Labs Labs: Laboratory Results - last 24 hr 09/14/24 09/14/24 09/14/24 13:16 15:24 17:53 WBC RBC Hgb Hct MCV MCH MCHC RDW Plt Count MPV Immature Gran % (Auto) Neut % (Auto) Lymph % (Auto) Dare % (Auto) Eos % (Auto) Baso % (Auto) Lymph # (Auto) Dare # (Auto) Eos # (Auto) Baso # (Auto) Abs Immat Gran (auto) Absolute Neuts (auto) Absolute Nucleated RBC Nucleated RBC % Sodium 137 Potassium 4.2 Chloride 103 Carbon Dioxide 25 Anion Gap 9 BUN 23 H Creatinine 0.69 L Estim Creat Clear Calc 54 Estimated GFR > 60 Glucose 196 H POC Capillary Glucose 160 H 188 H Calcium 8.9 09/14/24 09/15/24 20:42 05:50 WBC 5.9 RBC 3.48 L Hgb 10.1 L Hct 32.3 L MCV 92.8 MCH 29.0 MCHC 31.3 L RDW 12.8 Plt Count 193 MPV 10.1 Immature Gran % (Auto) 0.3 Neut % (Auto) 65.5 Lymph % (Auto) 19.3 Dare % (Auto) 12.0 H Eos % (Auto) 2.4 Baso % (Auto) 0.5 Lymph # (Auto) 1.14 Dare # (Auto) 0.7 H Eos # (Auto) 0.1 Baso # (Auto) 0.0 Abs Immat Gran (auto) 0.02 Absolute Neuts (auto) 3.9 Absolute Nucleated RBC 0.000 Nucleated RBC % 0.0 Sodium 138 Potassium 3.8 Chloride 103 Carbon Dioxide 28 Anion Gap 7 BUN 24 H Creatinine 0.71 Estim Creat Clear Calc 52 Estimated GFR > 60 Glucose 100 POC Capillary Glucose 163 H Calcium 8.7
--- NOTE | 2024-09-15 08:44 | PCPTNOTE ---
Attempted to see patient for PT, however patient out of room for testing.
[2024-09-15] MEDS: polyethylene glycoL 3350 17 GM POWD.PACK PO (09:24)
[2024-09-15] MEDS: cycloSPORINE 0.4 ML OPHTH SOLUTION 2 DROP EACH EYE ×2 (09:25→20:27)
[2024-09-15] MEDS: DOXYCYCLINE HYCLATE 100 MG TABLET PO ×2 (09:26→20:19)
[2024-09-15] MEDS: FAMOTIDINE 20 MG TABLET PO ×2 (09:26→20:19)
[2024-09-15] MEDS: APIXABAN 2.5 MG TABLET PO ×2 (09:26→20:19)
[2024-09-15] MEDS: metFORMIN HCL 500 MG TABLET PO ×2 (09:26→17:15)
[2024-09-15] MEDS: dexAMETHasone SOD PHOS INJ 10 MG/ML 1 ML VIAL 8 MG IV PUSH (09:26)
[2024-09-15] MEDS: SENNA/DOCUSATE SODIUM TABLET 2 TAB PO ×2 (09:27→17:15)
[2024-09-15] MEDS: SERTRALINE HCL 50 MG TABLET 200 MG PO (09:27)
[2024-09-15] MEDS: ATORVASTATIN 20 MG TABLET PO (09:27)
[2024-09-15] MEDS: POTASSIUM CITRATE 5 MEQ TAB CR 10 MEQ PO ×2 (09:27→17:15)
[2024-09-15] MEDS: carvediloL 25 MG TABLET PO ×2 (09:27→20:19)
[2024-09-15] MEDS: lisinopriL 20 MG TABLET PO (09:27)
[2024-09-15] MEDS: GABAPENTIN 400 MG CAPSULE 1200 MG PO ×3 (09:28→17:15)
[2024-09-15] MEDS: VENLAFAXINE HCL XR 75 MG CAP.ER.24H 300 MG PO (09:28)
[2024-09-15] MEDS: CLORAZEPATE DIPOTASSIUM (*CRX) 3.75 MG TABLET PO ×3 (09:28→17:15)
[2024-09-15] MEDS: CHOLECALCIFEROL 1,000 UNITS TABLET 2000 UNITS PO (09:28)
--- NOTE | 2024-09-15 09:32 | PCPTNOTE ---
Attempted to see patient for PT, however patient declined due to patient still working on breakfast.
[2024-09-15] MEDS: VANCOMYCIN 1,000 MG/NS 250 ML 1,000 MG/250 ML BAG 250 MG IVPB (11:32)
--- NOTE | 2024-09-15 12:32 | P.CONCA_ITS ---
Assessment and Plan Assessment and plan (1) Hypertension: Code(s): I10 - Essential (primary) hypertension Status: Acute Plan 1. Chronic heart failure with preserved LVEF Euvolemic 2. Essential hypertension Post-operatively, her blood pressures are well controlled. Would continue home antihypertensives, no adjustments needed at this time. Her blood pressure may increase if she has any post-operative pain. Would continue to monitor blood pressure. 3. Hyperlipidemia Continue statin. Patient can follow up with her primary boat canvas installer after hospital discharge. Cardiology will sign off at this time, but please call us back if needed. History of Present Illness History of Present Illness Consult date/time: 09/15/24 12:32 Requesting physician: Jerry Crouch PA Consult reason: hypertension Reason For Visit: OA RIGHT KNEE Narrative: We are consulted for hypertension. Roxana is an 83 year old female whose primary boat canvas installer is Dr. Donis at [facility]. She has chronic heart failure with preserved LVEF, essential hypertension, hyperlipidemia. Roxana underwent right total knee arthroplasty on 09/14. Patient noted to be markedly hypertensive immediately prior to the OR, but once anesthesia was administered, her hypertension improved. Post-operatively, her blood pressures have been controlled. She had reported blurry vision postoperatively, CT and brain MRI did not show any acute findings. She is on room air now, no shortness of breath, orthopnea. Working with PT at time of my visit. Review of Systems 2 Review of Systems: All systems reviewed & are unremarkable except as noted in HPI and below (HPI) [facility] Past Medical History Medical History Hypertension Dr Donis Leg weakness, bilateral Lumbar pain Rectal prolapse Mild Hearing loss Dr. Miller Degenerative joint disease (DJD) of lumbar spine Dr. Barrera and Dr Nuñez Urinary incontinence Osteoporosis Started on alendronate July 2021, Dr. Barrera DEB (obstructive sleep apnea) Dr. Barrera Multiple lipomas Candidal skin infection Right pannus History of recurrent UTIs Dr. 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 Diabetes mellitus with nephropathy Hypokalemia Hypomagnesemia CHF (congestive heart failure) (~2017) Dr Donis Syncope Hypotension Hyperlipidemia BMI 40.0-44.9, adult (10/09/16) Shortness of breath Influenza Cramp of both lower extremities Cough Insomnia Dr Francis Peripheral edema Palpitations Fibromyalgia Dr Barrera Anxiety and depression Dr Francis Surgical History Surgical History S/P STEVEN-BSO (~1985) Fibroids History of detached retina repair (~2008) History of cataract surgery (~2008) History of cholecystectomy (~1998) History of appendectomy Family History Family History Father Diabetes mellitus Hypertension Heart disease Cerebrovascular accident Sibling Diabetes mellitus Hypertension Daughter Hypertension Depression Anxiety Social History Social History Social History: 09/05/24 very confident with medical forms/has received assistance for care for elder or disabled, food, medications and paying utility bills Smoking status: Never smoker Alcohol intake: never Drinks per week: 0 Alcohol use details: 0 Substance use: never Substance use type: does not use Other substance usage details: does not use Last use: does not use Do You Feel Safe in your Home?: Yes Lack of Transportation: No Lack of Food: Never True Current Housing: I Have Housing Concerned About Future Housing: No Difficulty Paying Gas/Electric Bills: No Difficulty Paying for Meds: No Currently Unemployed: No Education: High School Diploma/GED Difficulty w/ Childcare or Family Care: No Living arrangements: alone Occupation/Education: retired Gender identity (if verbalized by the patient): Female Spiritual care concerns: No Meds Home Medications and Allergies Home Medications ?Medication ?Instructions ?Recorded ?Confirmed ?Type magnesium oxide 400 mg PO BID 04/16/23 09/14/24 History ascorbic acid (vitamin C) 500 mg 500 mg PO DAILY 07/09/23 09/14/24 History capsule biotin 1,000 mcg chewable tablet 1,000 mcg PO TID 07/09/23 09/14/24 History calcium carbonate (Calcium 600) 600 mg PO DAILY 07/09/23 09/14/24 History flaxseed oil 1,000 mg capsule 1,000 mg PO DAILY 07/09/23 09/14/24 History guaifenesin 600 mg tablet, 600 mg PO Q12H PRN congestion 07/09/23 09/13/24 History extended release 12 hr (Mucinex) multivitamin 1 tablet PO DAILY 07/09/23 09/14/24 History nystatin 100,000 unit/gram topical 1 applic topical BID PRN skin 07/09/23 09/14/24 History powder irritation blood-glucose sensor (FreeStyle #6 ea 08/21/23 09/13/24 Rx Conchis 3 Sensor device) cholecalciferol (vitamin D3) 25 50 mcg PO DAILY 08/22/23 09/14/24 History mcg (1,000 unit) capsule alendronate 70 mg tablet 70 mg PO WEEKLY 02/04/24 09/14/24 History carvedilol 25 mg tablet 25 mg PO BID 02/04/24 09/14/24 History clorazepate dipotassium 3.75 mg 3.75 mg PO TID 02/04/24 09/14/24 History tablet cyclosporine 0.05 % eye drops in a 2 drp EACH EYE Q12H 02/04/24 09/14/24 History dropperette donepezil 10 mg tablet 20 mg PO DAILY 02/04/24 09/14/24 History gabapentin 600 mg tablet 1,200 mg PO TID 02/04/24 09/14/24 History hydrochlorothiazide 12.5 mg tablet 12.5 mg PO DAILY 02/04/24 09/14/24 History lisinopril 20 mg tablet 20 mg PO DAILY 02/04/24 09/14/24 History mecobalamin (vitamin B12) 1,000 1,000 mcg PO DAILY #30 tabs 02/04/24 09/13/24 Rx mcg chewable tablet methenamine hippurate 1 gram 1 g PO BID 02/04/24 09/14/24 History tablet (Hiprex) quetiapine 25 mg tablet 50 mg PO HS 02/04/24 09/14/24 History venlafaxine 150 mg 300 mg PO DAILY 02/04/24 09/14/24 History capsule,extended release 24 hr vibegron 75 mg tablet (Gemtesa) 75 mg PO DAILY 02/04/24 09/14/24 History zolpidem 10 mg tablet 10 mg PO HS 02/04/24 09/14/24 History psyllium husk 0.52 gram capsule 0.52 g PO DAILY 02/18/24 09/14/24 History sertraline 100 mg tablet 200 mg PO DAILY 02/18/24 09/14/24 History pen needle, diabetic 31 gauge x #100 ea 05/19/24 09/13/24 Rx 5/16 (BD Ultra-Fine Short Pen Needle) famotidine 20 mg tablet 20 mg PO TID #270 tabs 07/05/24 09/14/24 Rx insulin glargine U-300 conc 300 20 unit (0.0667 mL) subcut 07/05/24 09/14/24 Rx unit/mL (1.5 mL) subcutaneous pen .bedtime was never discontinued (Touanthonyo SoloStar U-300 Insulin) #4.5 mL metformin 500 mg tablet 500 mg PO BID #180 tabs 07/16/24 09/14/24 Rx cyclobenzaprine 5 mg tablet 5 mg PO QHS PRN muscle spasm #20 07/22/24 09/14/24 Rx tabs dexamethasone 0.5 mg/5 mL oral 0.25 mg PO Q6H PRN MOUTH SORES 08/09/24 09/13/24 History elixir fluticasone furoate 27.5 2 spray intranasal DAILY PRN nasal 08/09/24 09/13/24 History mcg/actuation nasal congestion spray,suspension (Flonase Sensimist) tramadol 25 mg tablet 25 mg PO Q6H PRN pain #40 tabs 08/12/24 09/13/24 Rx potassium citrate 10 mEq (1,080 10 meq PO BID #180 tabs 08/19/24 09/14/24 Rx mg) tablet,extended release semaglutide 2 mg/dose (8 mg/3 mL) 2 mg (0.75 mL) subcut WEEKLY #3 mL 08/19/24 09/14/24 Rx subcutaneous pen injector atorvastatin 20 mg tablet 20 mg PO DAILY #90 tabs 09/02/24 09/14/24 Rx amoxicillin 875 mg tablet 875 mg PO Q12H #14 tabs 09/06/24 09/14/24 Rx clotrimazole-betamethasone 1 1 applic topical BID 2 weeks #45 09/14/24 Rx %-0.05 % topical cream grams Allergies Allergy/AdvReac Type Severity Reaction Status Date / Time cephalexin Allergy Mild Hives Verified 09/14/24 17:23 nitrofurantoin Allergy Mild Hives Verified 09/14/24 17:23 cefdinir Allergy Unknown Rash Verified 09/14/24 17:23 Vital Signs Vital Signs - 24 hr 09/14/24 12:40 09/14/24 12:55 09/14/24 13:00 Temperature Pulse Rate 84 80 80 Respiratory Rate 20 21 H 11 L Blood Pressure 135/61 126/56 L 135/73 Pulse Oximetry 97 100 96 Oxygen Delivery Simple Face Mask Room Air Room Air Oxygen Flow Rate 8 09/14/24 13:15 09/14/24 13:30 09/14/24 13:45 Temperature Pulse Rate 82 84 82 Respiratory Rate 18 12 18 Blood Pressure 115/65 123/70 123/70 Pulse Oximetry 96 96 94 Oxygen Delivery Nasal Cannula Nasal Cannula Nasal Cannula Oxygen Flow Rate 2 2 2 09/14/24 14:00 09/14/24 14:15 09/14/24 14:35 Temperature 36.1 C L Pulse Rate 80 78 82 Respiratory Rate 12 18 16 Blood Pressure 128/67 123/61 135/57 L Pulse Oximetry 95 96 97 Oxygen Delivery Nasal Cannula Nasal Cannula Oxygen Flow Rate 2 2 09/14/24 14:50 09/14/24 15:20 09/14/24 15:30 Temperature 36.2 C L 36.4 C Pulse Rate 76 88 Respiratory Rate 16 16 Blood Pressure 129/72 134/72 Pulse Oximetry 98 94 94 Oxygen Delivery Nasal Cannula Oxygen Flow Rate 2 09/14/24 16:05 09/14/24 20:00 09/14/24 20:03 Temperature 36.7 C Pulse Rate 84 81 79 Respiratory Rate 18 Blood Pressure 141/61 H Pulse Oximetry 98 Oxygen Delivery Oxygen Flow Rate 09/15/24 00:00 09/15/24 00:03 09/15/24 00:57 Temperature 36.6 C Pulse Rate 80 72 Respiratory Rate 17 Blood Pressure 129/55 L Pulse Oximetry 98 93 Oxygen Delivery Nasal Cannula Oxygen Flow Rate 2 09/15/24 04:00 09/15/24 04:03 09/15/24 08:03 Temperature 36.9 C 36.1 C L Pulse Rate 84 76 76 Respiratory Rate 18 18 Blood Pressure 122/53 L 121/50 L Pulse Oximetry 94 99 Oxygen Delivery Oxygen Flow Rate 09/15/24 09:39 09/15/24 10:30 09/15/24 11:56 Temperature Pulse Rate Respiratory Rate Blood Pressure Pulse Oximetry 99 91 Oxygen Delivery Nasal Cannula Nasal Cannula Room Air Oxygen Flow Rate 2 2 09/15/24 12:01 Temperature 36.2 C L Pulse Rate 82 Respiratory Rate 18 Blood Pressure 134/56 L Pulse Oximetry 95 Oxygen Delivery Oxygen Flow Rate Exam 2 Const: General: comfortable and no acute distress HENMT: Mouth: Yes moist mucous membranes Eyes: General: appearance normal, both eyes and all related structures S clera: sclerae normal Resp: Effort & Inspection: normal respiratory effort Cardio: Rate: regular rate Rhythm: regular rhythm Heart sounds: no murmurs Skin: General skin exam: normal color Neuro: Speech: normal speech Psych: Mental Status: mental status grossly normal Affect: normal affect Results Labs and Meds 09/15/24 05:50 09/15/24 05:50 Lab results: CBC 09/15/24 Range/Units 05:50 WBC 5.9 (4.5-10.0) K/mm3 RBC 3.48 L (4.2-5.4) M/mm3 Hgb 10.1 L (12.0-15.0) g/dL Hct 32.3 L (37.0-47.0) % Plt Count 193 (150-375) k/mm3 Lymph # (Auto) 1.14 (0.9-3.2) K/mm3 Dickenson # (Auto) 0.7 H (0.1-0.6) K/mm3 Eos # (Auto) 0.1 (0-0.3) K/mm3 Baso # (Auto) 0.0 (0.0-0.1) K/mm3 Comprehensive Metabolic Panel 09/14/24 09/15/24 Range/Units 17:53 05:50 Sodium 137 138 (137-145) mmol/L Potassium 4.2 3.8 (3.4-5.0) mmol/L Chloride 103 103 (98-107) mmol/L Carbon Dioxide 25 28 (22-30) mmol/L BUN 23 H 24 H (7-17) mg/dL Creatinine 0.69 L 0.71 (0.7-1.0) mg/dL Glucose 196 H 100 (65-110) mg/dL Calcium 8.9 8.7 (8.4-10.2) mg/dL Intake and Output 09/14/24 09/15/24 09/15/24 23:59 07:59 15:59 Intake Total 470 100 240 Balance 470 100 240 Intake: IV 350 100 Aztreonam 2 gm/Ns 100 ml 2 gm 100 100 In 100 ml @ 200 mls/hr IVPB Q8H CADY Rx#:[id number] Vancomycin 1,000 mg/Ns 250 ml 1 250 ,000 mg In 250 ml @ 250 mls/hr IVPB Q12H CADY Rx#:[id number] Oral 120 240 Other: # Unmeasured Voids 1 1
[2024-09-15] MEDS: MORPHINE SULFATE (*CRX) 2 MG/ML INJ IV PUSH (13:38)
--- NOTE | 2024-09-15 15:35 | PM.IMPN ---
Progress Note: A&P Assessment and Plan (1) Hypertension: Code(s): I10 - Essential (primary) hypertension Status: Acute Plan 1. Chronic heart failure with preserved LVEF Euvolemic 2. Essential hypertension Post-operatively, her blood pressures are well controlled. Would continue home antihypertensives, no adjustments needed at this time. Her blood pressure may increase if she has any post-operative pain. Would continue to monitor blood pressure. 3. Hyperlipidemia Continue statin. Patient can follow up with her primary ultrasonic hand solderer after hospital discharge. Cardiology will sign off at this time, but please call us back if needed. Subjective Date/time seen: 09/15/24 15:35 Interval history: Patient is evaluated at the bedside. Patient denies any symptoms including blurry vision or chest pain or shortness of breath. Review of Systems Review of Systems: 12 systems were reviewed and are negative except for as per HPI. Exam Narrative: General: well appearing, appears stated age. HEENT: normocephalic, atraumatic. Mucous membranes moist. EOMI, PERRLA, bilateral sclera anicteric, no conjunctival injection. Neck supple without JVD, lymphadenopathy, or bruit. Respiratory: clear to ascultation bilaterally. No rales/rhonic/wheezes. Cardiovascular: Regular rate and rhythm, normal S1-S2 upon ascultation. No murmurs, rubs, or clicks. PMI is nondisplaced, capillary refill less than 3 second. Abdomen: Soft, round, no pulsatile masses, nondistended and nontender. No rebound, no guarding. No CVA tenderness, no hepatosplenomegaly. Bowel sounds present to all four quadrants. No high pitch or tinkling sounds, resonant to percussion. Extremities: No cyanosis, clubbing, or edema present. Pulses are palpable 2/2. Right lower extremity with surgical dressing clean dry intact, limited range of motion due to pain Neuro: Alert and orientated x 4. PERRLA. Cranial nerves 2-12 intact without focal deficit. Skin: Warm, dry, and intact, without rash, erythema, or lesion. Psych: pleasant, cooperative, normal speech, normal affect, no hallucinations, no dysarthia Objective Data Vital Signs Vital Signs: Vital Signs - 24 hr 09/14/24 16:05 09/14/24 20:00 09/14/24 20:03 Temperature 98.1 F Pulse Rate 84 81 79 Respiratory Rate 18 Blood Pressure 141/61 H Pulse Oximetry 98 Oxygen Delivery Oxygen Flow Rate 09/15/24 00:00 09/15/24 00:03 09/15/24 00:57 Temperature 97.8 F Pulse Rate 80 72 Respiratory Rate 17 Blood Pressure 129/55 L Pulse Oximetry 98 93 Oxygen Delivery Nasal Cannula Oxygen Flow Rate 2 09/15/24 04:00 09/15/24 04:03 09/15/24 08:03 Temperature 98.4 F 97.0 F L Pulse Rate 84 76 76 Respiratory Rate 18 18 Blood Pressure 122/53 L 121/50 L Pulse Oximetry 94 99 Oxygen Delivery Oxygen Flow Rate 09/15/24 08:58 09/15/24 09:39 09/15/24 10:30 Temperature Pulse Rate 74 Respiratory Rate Blood Pressure Pulse Oximetry 99 Oxygen Delivery Nasal Cannula Nasal Cannula Oxygen Flow Rate 2 2 09/15/24 11:56 09/15/24 12:01 09/15/24 12:05 Temperature 97.1 F L Pulse Rate 82 85 Respiratory Rate 18 Blood Pressure 134/56 L Pulse Oximetry 91 95 Oxygen Delivery Room Air Oxygen Flow Rate Intake/Output Intake/Output: Intake & Output 09/13/24 09/13/24 09/14/24 09/15/24 00:59 23:59 23:59 23:59 Intake Total 2720 1730 Balance 2720 1730 Meds/Results Medications: Active Medications Generic Name Dose Route Start Last Admin Trade Name Freq PRN Reason Stop Dose Admin Acetaminophen 650 mg 09/14/24 15:00 09/15/24 15:23 Acetaminophen 325 Mg Tablet PO 650 mg Q4H CADY Administration Apixaban 2.5 mg 09/15/24 09:00 09/15/24 09:26 Apixaban 2.5 Mg Tablet PO 09/26/24 21:01 2.5 mg Q12HR CADY Administration Atorvastatin Calcium 20 mg 09/15/24 09:00 09/15/24 09:27 Atorvastatin 20 Mg Tablet PO 20 mg DAILY CADY Administration Carvedilol 25 mg 09/14/24 21:00 09/15/24 09:27 Carvedilol 25 Mg Tablet PO 25 mg Q12HR CADY Administration Clorazepate Dipotassium 3.75 mg 09/14/24 17:00 09/15/24 13:34 Clorazepate Dipotassium (*Crx) 3.75 Mg Tablet PO 3.75 mg TID CADY Administration Cyclosporine 2 drop 09/14/24 21:00 09/15/24 09:25 Cyclosporine 0.4 Ml Ophth Solution EACH EYE 2 drop Q12H CADY Administration Diphenhydramine HCl 25 mg 09/14/24 14:18 Diphenhydramine Hcl Inj 50 Mg/Ml Vial IV PUSH Q6H PRN Itching Donepezil HCl 20 mg 09/15/24 21:00 Donepezil Hcl 10 Mg Tablet PO HS CADY Doxycycline Hyclate 100 mg 09/14/24 21:00 09/15/24 09:26 Doxycycline Hyclate 100 Mg Tablet PO 100 mg Q12HR CADY Administration Famotidine 20 mg 09/14/24 21:00 09/15/24 09:26 Famotidine 20 Mg Tablet PO 20 mg Q12HR CADY Administration Fluticasone Propionate 2 spray 09/14/24 14:32 Fluticasone Propionate 0.05% Na Spr 16 Gm Btl (*Bkc) NASAL DAILY PRN nasal congestion Gabapentin 1,200 mg 09/14/24 17:00 09/15/24 13:34 Gabapentin 400 Mg Capsule PO 1,200 mg TID CADY Administration Insulin Glargine 20 units 09/14/24 21:00 09/15/24 00:37 Insulin Glargine (*Bkc) 100 Units/Ml SUB-Q 20 units HS CADY Administration Lisinopril 20 mg 09/15/24 09:00 09/15/24 09:27 Lisinopril 20 Mg Tablet PO 20 mg DAILY CADY Administration Metformin HCl 500 mg 09/14/24 17:00 09/15/24 09:26 Metformin Hcl 500 Mg Tablet PO 500 mg BID CADY Administration Miscellaneous Information 1 each 09/15/24 00:01 Gemtesa Is Nonform; Can Pt Use From Home? XX 10/15/24 00:00 CLARIFY CADY Naloxone HCl 0.1 mg 09/14/24 14:18 Naloxone Hcl 0.4 Mg/Ml Vial IV PUSH Q2M PRN Opiate Reversal Non-Formulary Medication 75 mg 09/15/24 09:00 Vibegron [Gemtesa] PO 10/15/24 08:59 DAILY [facility] Ondansetron HCl 4 mg 09/14/24 14:18 Ondansetron Inj 4 Mg/2 Ml Vial IV PUSH Q4H PRN Nausea And Vomiting Oxycodone HCl 5 mg 09/14/24 19:00 09/15/24 15:23 Oxycodone Hcl (*Crx) 5 Mg Tab Ir PO 5 mg Q4H CADY Administration Oxycodone HCl 5 mg 09/15/24 14:09 Oxycodone Hcl (*Crx) 5 Mg Tab Ir PO Q4H PRN Pain Rated 4-10 Polyethylene Glycol 17 gm 09/15/24 09:00 09/15/24 09:24 Polyethylene Glycol 3350 17 Gm Powd.Pack PO 17 gm QAM CADY Administration Potassium Citrate 10 meq 09/14/24 17:00 09/15/24 09:27 Potassium Citrate 5 Meq Tab Cr PO 10 meq BID CADY Administration Quetiapine Fumarate 50 mg 09/14/24 21:00 09/14/24 20:27 Quetiapine Fumarate 25 Mg Tablet PO 50 mg HS CADY Administration Senna/Docusate Sodium 2 tab 09/14/24 17:00 09/15/24 09:27 Senna/Docusate Sodium Tablet PO 2 tab BID CADY Administration Sertraline HCl 200 mg 09/15/24 09:00 09/15/24 09:27 Sertraline Hcl 50 Mg Tablet PO 200 mg DAILY CADY Administration Venlafaxine HCl 300 mg 09/15/24 09:00 09/15/24 09:28 Venlafaxine Hcl Xr 75 Mg Cap.Er.24h PO 300 mg DAILY CADY Administration Vitamin D 2,000 units 09/15/24 09:00 09/15/24 09:28 Cholecalciferol 1,000 Units Tablet PO 2,000 units DAILY CADY Administration Radiology Results: ITS Impressions Knee X-Ray 09/14/24 12:22 IMPRESSION: No acute osseous abnormality right knee. Total knee arthroplasty. Head/Neck CTA 09/14/24 19:11 IMPRESSION: No acute intracranial process. 8 mm hypodense focus in the right thalamus likely representing a late subacute or early chronic focal infarct No large vessel intracranial occlusion, high-grade intracranial stenosis, or aneurysm. No carotid or vertebral artery occlusion, dissection, or significant stenosis. Multiple sub-6 mm pulmonary nodules, likely representing benign granulomas. If the patient is at high risk, consider an optional low-dose noncontrast CT of the chest follow-up in 12 months. Brain MRI 09/15/24 08:47 IMPRESSION: 1. Old lacunar infarct in the right thalamus. 2. Moderate nonspecific cerebral white matter disease and pontine disease, which likely represents chronic small vessel ischemic disease. Labs Labs: Laboratory Results - last 24 hr 09/14/24 09/14/24 09/15/24 17:53 20:42 05:50 WBC 5.9 RBC 3.48 L Hgb 10.1 L Hct 32.3 L MCV 92.8 MCH 29.0 MCHC 31.3 L RDW 12.8 Plt Count 193 MPV 10.1 Immature Gran % (Auto) 0.3 Neut % (Auto) 65.5 Lymph % (Auto) 19.3 [place] % (Auto) 12.0 H Eos % (Auto) 2.4 Baso % (Auto) 0.5 Lymph # (Auto) 1.14 [place] # (Auto) 0.7 H Eos # (Auto) 0.1 Baso # (Auto) 0.0 Abs Immat Gran (auto) 0.02 Absolute Neuts (auto) 3.9 Absolute Nucleated RBC 0.000 Nucleated RBC % 0.0 Sodium 137 138 Potassium 4.2 3.8 Chloride 103 103 Carbon Dioxide 25 28 Anion Gap 9 7 BUN 23 H 24 H Creatinine 0.69 L 0.71 Estim Creat Clear Calc 54 52 Estimated GFR > 60 > 60 Glucose 196 H 100 POC Capillary Glucose 163 H Calcium 8.9 8.7 Quality VTE Prophylaxis VTE prophylaxis: mechanical ordered and pharmacologic ordered Hospitalist MIPS Advance Care Plan I have confirmed that the patient's Advanced Care Plan is present, code status is documented, or surrogate decision maker is listed in patient medical record.: Yes Medication Reconciliation I have utilized all available resources to obtain, update and review the patients current medications (includes all prescriptions, OTC, herbals, cannabis, and nutritional supplements).: Yes
--- NOTE | 2024-09-15 15:48 | PCRCNOTE ---
Pt states she does not use CPAP at home .
--- NOTE | 2024-09-15 17:57 | PC.NURSE ---
On 09/15/24, the student, Agnes Alcantara, provided care and completed [facility] documentation on this patient. I have reviewed the student's documentation and agree with the findings.
[2024-09-15] MEDS: DONEPEZIL HCL 10 MG TABLET 20 MG PO (20:19)
[2024-09-15] MEDS: QUEtiapine FUMARATE 25 MG TABLET 50 MG PO (20:20)
[2024-09-15 21:42] LABS: Glucose Point of Care 196 mg/dl (65-105)
[2024-09-16] VITALS (11 sets, daily range): BP systolic 121–218; BP diastolic 50–98; PULSE 73–84; RESP 17–18; TEMP 36.6–37; O2SAT 94–98
[2024-09-16] MEDS: oxyCODONE HCL (*CRX) 5 MG TAB IR PO ×6 (02:13→22:48)
[2024-09-16] MEDS: ACETAMINOPHEN 325 MG TABLET 650 MG PO ×2 (02:13→06:25)
[2024-09-16 05:38] LABS: Hemoglobin 10.6 g/dL (12.0-15.0); Mean Corpuscular HGB Conc 31.2 g/dl (32-36); Mean Corpuscular Hemoglobin 28.9 pg (26-34); Mean Corpuscular Volume 92.6 fl (80-100); Mean Platelet Volume 10.4 fl (7.4-10.4); Platelet Count Result 229 k/mm3 (150-375); Red Blood Count 3.67 M/mm3 (4.2-5.4); Red Cell Distribution Width 12.9 % (11.5-14.5); White Blood Count 7.4 K/mm3 (4.5-10.0)
[2024-09-16 05:54] LABS: Alanine Aminotransferase 444 U/L (6-35); Albumin Level 3.7 g/dL (3.5-5.1); Alkaline Phosphatase 151 U/L (38-126); Anion Gap 8 mmol/L (4-12); Aspartate Amino Transferase 264 U/L (14-36); Bilirubin,Total 0.6 mg/dL (0.2-1.3); Blood Urea Nitrogen 27 mg/dL (7-17); Calcium 9.3 mg/dL (8.4-10.2); Carbon Dioxide 27 mmol/L (22-30); Chloride 103 mmol/L (98-107); Estimated CRCL calculation 48 ml/min; Estimated Glomerular Filt Rate > 60; Glucose 93 mg/dL (65-110); Sodium 138 mmol/L (137-145)
--- NOTE | 2024-09-16 07:21 | PM.PNORT ---
Subjective Subjective Date/Time Seen: 09/16/24 07:21 Interval history: Postop day 2 patient is afebrile vital signs are stable. Morning labs this morning show extreme elevation of her liver enzymes, AST, ALT and alk-phos. Bilirubin is normal. Creatinine is normal. I did talk with pharmacy about possible medication reactions. Doxycycline as well as aztreonam can cause elevated liver enzymes. Doxycycline has been stopped. I have also stop her Tylenol at this point. Patient was supposed to be transferred to rehab today. This will need to be put on hold at this point. I have ordered another CMP tomorrow morning. Will ask the hospitalist to evaluate patient for elevated liver enzymes. Objective Data Vital Signs Vital Signs: Vital Signs - 24 hr 09/15/24 08:03 09/15/24 08:58 09/15/24 09:39 Temperature 97.0 F L Pulse Rate 76 74 Respiratory Rate 18 Blood Pressure 121/50 L Pulse Oximetry 99 99 Oxygen Delivery Nasal Cannula Oxygen Flow Rate 2 09/15/24 10:30 09/15/24 11:56 09/15/24 12:01 Temperature 97.1 F L Pulse Rate 82 Respiratory Rate 18 Blood Pressure 134/56 L Pulse Oximetry 91 95 Oxygen Delivery Nasal Cannula Room Air Oxygen Flow Rate 2 09/15/24 12:05 09/15/24 16:03 09/15/24 16:05 Temperature 97.1 F L Pulse Rate 85 82 77 Respiratory Rate 16 Blood Pressure 130/64 Pulse Oximetry 96 Oxygen Delivery Oxygen Flow Rate 09/15/24 20:00 09/15/24 20:00 09/15/24 20:44 Temperature 97.9 F Pulse Rate 75 77 Respiratory Rate 18 Blood Pressure 155/61 H Pulse Oximetry 96 Oxygen Delivery Room Air Oxygen Flow Rate 09/16/24 00:00 09/16/24 04:00 09/16/24 05:21 Temperature 98.6 F Pulse Rate 76 82 78 Respiratory Rate 17 Blood Pressure 121/50 L Pulse Oximetry 94 Oxygen Delivery Oxygen Flow Rate Intake/Output Intake/Output: Intake & Output 09/13/24 09/14/24 09/15/24 09/16/24 23:59 23:59 23:59 23:59 Intake Total 2720 2770 150 Balance 2720 2770 150 Meds/Results Medications: Active Medications Generic Name Dose Route Start Last Admin Trade Name Freq PRN Reason Stop Dose Admin Apixaban 2.5 mg 09/15/24 09:00 09/15/24 20:19 Apixaban 2.5 Mg Tablet PO 09/26/24 21:01 2.5 mg Q12HR CADY Administration Atorvastatin Calcium 20 mg 09/15/24 09:00 09/15/24 09:27 Atorvastatin 20 Mg Tablet PO 20 mg DAILY CADY Administration Carvedilol 25 mg 09/14/24 21:00 09/15/24 20:19 Carvedilol 25 Mg Tablet PO 25 mg Q12HR CADY Administration Clorazepate Dipotassium 3.75 mg 09/14/24 17:00 09/15/24 17:15 Clorazepate Dipotassium (*Crx) 3.75 Mg Tablet PO 3.75 mg TID CADY Administration Cyclosporine 2 drop 09/14/24 21:00 09/15/24 20:27 Cyclosporine 0.4 Ml Ophth Solution EACH EYE 2 drop Q12H CADY Administration Diphenhydramine HCl 25 mg 09/14/24 14:18 Diphenhydramine Hcl Inj 50 Mg/Ml Vial IV PUSH Q6H PRN Itching Donepezil HCl 20 mg 09/15/24 21:00 09/15/24 20:19 Donepezil Hcl 10 Mg Tablet PO 20 mg HS CADY Administration Famotidine 20 mg 09/14/24 21:00 09/15/24 20:19 Famotidine 20 Mg Tablet PO 20 mg Q12HR CADY Administration Fluticasone Propionate 2 spray 09/14/24 14:32 Fluticasone Propionate 0.05% Na Spr 16 Gm Btl (*Bkc) NASAL DAILY PRN nasal congestion Gabapentin 1,200 mg 09/14/24 17:00 09/15/24 17:15 Gabapentin 400 Mg Capsule PO 1,200 mg TID CADY Administration Insulin Glargine 20 units 09/14/24 21:00 09/15/24 21:56 Insulin Glargine (*Bkc) 100 Units/Ml SUB-Q 20 units HS CADY Administration Lisinopril 20 mg 09/15/24 09:00 09/15/24 09:27 Lisinopril 20 Mg Tablet PO 20 mg DAILY CADY Administration Metformin HCl 500 mg 09/14/24 17:00 09/15/24 17:15 Metformin Hcl 500 Mg Tablet PO 500 mg BID CADY Administration Miscellaneous Information 1 each 09/15/24 00:01 Gemtesa Is Nonform; Can Pt Use From Home? XX 10/15/24 00:00 CLARIFY [facility] Naloxone HCl 0.1 mg 09/14/24 14:18 Naloxone Hcl 0.4 Mg/Ml Vial IV PUSH Q2M PRN Opiate Reversal Non-Formulary Medication 75 mg 09/15/24 09:00 Vibegron [Gemtesa] PO 10/15/24 08:59 DAILY [facility] Ondansetron HCl 4 mg 09/14/24 14:18 Ondansetron Inj 4 Mg/2 Ml Vial IV PUSH Q4H PRN Nausea And Vomiting Oxycodone HCl 5 mg 09/14/24 19:00 09/16/24 06:25 Oxycodone Hcl (*Crx) 5 Mg Tab Ir PO 5 mg Q4H CADY Administration Oxycodone HCl 5 mg 09/15/24 14:09 Oxycodone Hcl (*Crx) 5 Mg Tab Ir PO Q4H PRN Pain Rated 4-10 Polyethylene Glycol 17 gm 09/15/24 09:00 09/15/24 09:24 Polyethylene Glycol 3350 17 Gm Powd.Pack PO 17 gm QAM CADY Administration Potassium Citrate 10 meq 09/14/24 17:00 09/15/24 17:15 Potassium Citrate 5 Meq Tab Cr PO 10 meq BID CADY Administration Quetiapine Fumarate 50 mg 09/14/24 21:00 09/15/24 20:20 Quetiapine Fumarate 25 Mg Tablet PO 50 mg HS CADY Administration Senna/Docusate Sodium 2 tab 09/14/24 17:00 09/15/24 17:15 Senna/Docusate Sodium Tablet PO 2 tab BID CADY Administration Sertraline HCl 200 mg 09/15/24 09:00 09/15/24 09:27 Sertraline Hcl 50 Mg Tablet PO 200 mg DAILY CADY Administration Venlafaxine HCl 300 mg 09/15/24 09:00 09/15/24 09:28 Venlafaxine Hcl Xr 75 Mg Cap.Er.24h PO 300 mg DAILY CADY Administration Vitamin D 2,000 units 09/15/24 09:00 09/15/24 09:28 Cholecalciferol 1,000 Units Tablet PO 2,000 units DAILY CADY Administration Radiology Results: ITS Impressions Knee X-Ray 09/14/24 12:22 IMPRESSION: No acute osseous abnormality right knee. Total knee arthroplasty. Head/Neck CTA 09/14/24 19:11 IMPRESSION: No acute intracranial process. 8 mm hypodense focus in the right thalamus likely representing a late subacute or early chronic focal infarct No large vessel intracranial occlusion, high-grade intracranial stenosis, or aneurysm. No carotid or vertebral artery occlusion, dissection, or significant stenosis. Multiple sub-6 mm pulmonary nodules, likely representing benign granulomas. If the patient is at high risk, consider an optional low-dose noncontrast CT of the chest follow-up in 12 months. Brain MRI 09/15/24 08:47 IMPRESSION: 1. Old lacunar infarct in the right thalamus. 2. Moderate nonspecific cerebral white matter disease and pontine disease, which likely represents chronic small vessel ischemic disease. Labs Labs: Laboratory Results - last 24 hr 09/15/24 09/16/24 21:39 05:24 WBC 7.4 RBC 3.67 L Hgb 10.6 L Hct 34.0 L MCV 92.6 MCH 28.9 MCHC 31.2 L RDW 12.9 Plt Count 229 MPV 10.4 Sodium 138 Potassium 4.0 Chloride 103 Carbon Dioxide 27 Anion Gap 8 BUN 27 H Creatinine 0.78 Estim Creat Clear Calc 48 Estimated GFR > 60 Glucose 93 POC Capillary Glucose 196 H Calcium 9.3 Total Bilirubin 0.6 AST 264 H ALT 444 H Alkaline Phosphatase 151 H Total Protein 6.0 L Albumin 3.7
[2024-09-16] MEDS: polyethylene glycoL 3350 17 GM POWD.PACK PO (09:17)
[2024-09-16] MEDS: carvediloL 25 MG TABLET PO ×2 (09:18→21:26)
[2024-09-16] MEDS: DOXYCYCLINE HYCLATE 100 MG TABLET PO ×2 (09:18→21:26)
[2024-09-16] MEDS: APIXABAN 2.5 MG TABLET PO ×2 (09:18→21:26)
[2024-09-16] MEDS: cycloSPORINE 0.4 ML OPHTH SOLUTION 2 DROP EACH EYE ×2 (09:19→21:26)
[2024-09-16] MEDS: ATORVASTATIN 20 MG TABLET PO (09:19)
[2024-09-16] MEDS: metFORMIN HCL 500 MG TABLET PO ×2 (09:19→18:28)
[2024-09-16] MEDS: FAMOTIDINE 20 MG TABLET PO ×2 (09:19→21:25)
[2024-09-16] MEDS: lisinopriL 20 MG TABLET PO (09:19)
[2024-09-16] MEDS: VENLAFAXINE HCL XR 75 MG CAP.ER.24H 300 MG PO (09:20)
[2024-09-16] MEDS: POTASSIUM CITRATE 5 MEQ TAB CR 10 MEQ PO ×2 (09:20→18:27)
[2024-09-16] MEDS: SENNA/DOCUSATE SODIUM TABLET 2 TAB PO ×2 (09:20→18:28)
[2024-09-16] MEDS: GABAPENTIN 400 MG CAPSULE 1200 MG PO ×3 (09:20→18:29)
[2024-09-16] MEDS: CLORAZEPATE DIPOTASSIUM (*CRX) 3.75 MG TABLET PO ×3 (09:20→18:28)
[2024-09-16] MEDS: SERTRALINE HCL 50 MG TABLET 200 MG PO (09:20)
[2024-09-16] MEDS: CHOLECALCIFEROL 1,000 UNITS TABLET 2000 UNITS PO (09:20)
--- NOTE | 2024-09-16 09:44 | PM.IMPN ---
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 #DM continue metformin 500 mg p.o. b.i.d. continue Lantus 20 units HS # anxiety and depression Continue sertraline 200 mg p.o. q.d. Continue venlafaxine 300 mg p.o. q.d. Continue Seroquel 50 mg p.o. HS # transaminitis increased LFTs normal bilirubin order PT INR ordered ultrasound right upper quad ordered lipid panel, HbA1c and hepatitis panel possibly due to congestion Subjective Date/time seen: 09/16/24 09:44 Interval history: Patient has increased LFTs possibly due to congestion. Ordered ultrasound right upper quadrant ,hepatitis panel, lipid panel and HbA1c. We will continue to monitor Review of Systems Review of Systems: 12 systems were reviewed and are negative except for as per HPI. Exam Narrative: General: well appearing, appears stated age. HEENT: normocephalic, atraumatic. Mucous membranes moist. EOMI, PERRLA, bilateral sclera anicteric, no conjunctival injection. Neck supple without JVD, lymphadenopathy, or bruit. Respiratory: clear to ascultation bilaterally. No rales/rhonic/wheezes. Cardiovascular: Regular rate and rhythm, normal S1-S2 upon ascultation. No murmurs, rubs, or clicks. PMI is nondisplaced, capillary refill less than 3 second. Abdomen: Soft, round, no pulsatile masses, nondistended and nontender. No rebound, no guarding. No CVA tenderness, no hepatosplenomegaly. Bowel sounds present to all four quadrants. No high pitch or tinkling sounds, resonant to percussion. Extremities: No cyanosis, clubbing, or edema present. Pulses are palpable 2/2. Right lower extremity with surgical dressing clean dry intact, limited range of motion due to pain Neuro: Alert and orientated x 4. PERRLA. Cranial nerves 2-12 intact without focal deficit. Skin: Warm, dry, and intact, without rash, erythema, or lesion. Psych: pleasant, cooperative, normal speech, normal affect, no hallucinations, no dysarthia Objective Data Vital Signs Vital Signs: Vital Signs - 24 hr 09/15/24 10:30 09/15/24 11:56 09/15/24 12:01 Temperature 97.1 F L Pulse Rate 82 Respiratory Rate 18 Blood Pressure 134/56 L Pulse Oximetry 91 95 Oxygen Delivery Nasal Cannula Room Air Oxygen Flow Rate 2 09/15/24 12:05 09/15/24 16:03 09/15/24 16:05 Temperature 97.1 F L Pulse Rate 85 82 77 Respiratory Rate 16 Blood Pressure 130/64 Pulse Oximetry 96 Oxygen Delivery Oxygen Flow Rate 09/15/24 20:00 09/15/24 20:00 09/15/24 20:44 Temperature 97.9 F Pulse Rate 75 77 Respiratory Rate 18 Blood Pressure 155/61 H Pulse Oximetry 96 Oxygen Delivery Room Air Oxygen Flow Rate 09/16/24 00:00 09/16/24 04:00 09/16/24 05:21 Temperature 98.6 F Pulse Rate 76 82 78 Respiratory Rate 17 Blood Pressure 121/50 L Pulse Oximetry 94 Oxygen Delivery Oxygen Flow Rate Intake/Output Intake/Output: Intake & Output 09/13/24 09/14/24 09/15/24 09/16/24 23:59 23:59 23:59 23:59 Intake Total 2720 2770 150 Balance 2720 2770 150 Meds/Results Medications: Active Medications Generic Name Dose Route Start Last Admin Trade Name Freq PRN Reason Stop Dose Admin Apixaban 2.5 mg 09/15/24 09:00 09/16/24 09:18 Apixaban 2.5 Mg Tablet PO 09/26/24 21:01 2.5 mg Q12HR CADY Administration Atorvastatin Calcium 20 mg 09/15/24 09:00 09/16/24 09:19 Atorvastatin 20 Mg Tablet PO 20 mg DAILY CADY Administration Carvedilol 25 mg 09/14/24 21:00 09/16/24 09:18 Carvedilol 25 Mg Tablet PO 25 mg Q12HR CADY Administration Clorazepate Dipotassium 3.75 mg 09/14/24 17:00 09/16/24 09:20 Clorazepate Dipotassium (*Crx) 3.75 Mg Tablet PO 3.75 mg TID CADY Administration Cyclosporine 2 drop 09/14/24 21:00 09/16/24 09:19 Cyclosporine 0.4 Ml Ophth Solution EACH EYE 2 drop Q12H CADY Administration Diphenhydramine HCl 25 mg 09/14/24 14:18 Diphenhydramine Hcl Inj 50 Mg/Ml Vial IV PUSH Q6H PRN Itching Donepezil HCl 20 mg 09/15/24 21:00 09/15/24 20:19 Donepezil Hcl 10 Mg Tablet PO 20 mg HS CADY Administration Doxycycline Hyclate 100 mg 09/16/24 09:00 09/16/24 09:18 Doxycycline Hyclate 100 Mg Tablet PO 100 mg Q12HR CADY Administration Famotidine 20 mg 09/14/24 21:00 09/16/24 09:19 Famotidine 20 Mg Tablet PO 20 mg Q12HR CADY Administration Fluticasone Propionate 2 spray 09/14/24 14:32 Fluticasone Propionate 0.05% Na Spr 16 Gm Btl (*Bkc) NASAL DAILY PRN nasal congestion Gabapentin 1,200 mg 09/14/24 17:00 09/16/24 09:20 Gabapentin 400 Mg Capsule PO 1,200 mg TID CADY Administration Insulin Glargine 20 units 09/14/24 21:00 09/15/24 21:56 Insulin Glargine (*Bkc) 100 Units/Ml SUB-Q 20 units HS CADY Administration Lisinopril 20 mg 09/15/24 09:00 09/16/24 09:19 Lisinopril 20 Mg Tablet PO 20 mg DAILY CADY Administration Metformin HCl 500 mg 09/14/24 17:00 09/16/24 09:19 Metformin Hcl 500 Mg Tablet PO 500 mg BID CADY Administration Miscellaneous Information 1 each 09/15/24 00:01 Gemtesa Is Nonform; Can Pt Use From Home? XX 10/15/24 00:00 CLARIFY CADY Naloxone HCl 0.1 mg 09/14/24 14:18 Naloxone Hcl 0.4 Mg/Ml Vial IV PUSH Q2M PRN Opiate Reversal Non-Formulary Medication 75 mg 09/15/24 09:00 Vibegron [Gemtesa] PO 10/15/24 08:59 DAILY CADY Ondansetron HCl 4 mg 09/14/24 14:18 Ondansetron Inj 4 Mg/2 Ml Vial IV PUSH Q4H PRN Nausea And Vomiting Oxycodone HCl 5 mg 09/14/24 19:00 09/16/24 06:25 Oxycodone Hcl (*Crx) 5 Mg Tab Ir PO 5 mg Q4H CADY Administration Oxycodone HCl 5 mg 09/15/24 14:09 Oxycodone Hcl (*Crx) 5 Mg Tab Ir PO Q4H PRN Pain Rated 4-10 Polyethylene Glycol 17 gm 09/15/24 09:00 09/16/24 09:17 Polyethylene Glycol 3350 17 Gm Powd.Pack PO 17 gm QAM CADY Administration Potassium Citrate 10 meq 09/14/24 17:00 09/16/24 09:20 Potassium Citrate 5 Meq Tab Cr PO 10 meq BID CADY Administration Quetiapine Fumarate 50 mg 09/14/24 21:00 09/15/24 20:20 Quetiapine Fumarate 25 Mg Tablet PO 50 mg HS CADY Administration Senna/Docusate Sodium 2 tab 09/14/24 17:00 09/16/24 09:20 Senna/Docusate Sodium Tablet PO 2 tab BID CADY Administration Sertraline HCl 200 mg 09/15/24 09:00 09/16/24 09:20 Sertraline Hcl 50 Mg Tablet PO 200 mg DAILY CADY Administration Venlafaxine HCl 300 mg 09/15/24 09:00 09/16/24 09:20 Venlafaxine Hcl Xr 75 Mg Cap.Er.24h PO 300 mg DAILY CADY Administration Vitamin D 2,000 units 09/15/24 09:00 09/16/24 09:20 Cholecalciferol 1,000 Units Tablet PO 2,000 units DAILY CADY Administration Radiology Results: ITS Impressions Knee X-Ray 09/14/24 12:22 IMPRESSION: No acute osseous abnormality right knee. Total knee arthroplasty. Head/Neck CTA 09/14/24 19:11 IMPRESSION: No acute intracranial process. 8 mm hypodense focus in the right thalamus likely representing a late subacute or early chronic focal infarct No large vessel intracranial occlusion, high-grade intracranial stenosis, or aneurysm. No carotid or vertebral artery occlusion, dissection, or significant stenosis. Multiple sub-6 mm pulmonary nodules, likely representing benign granulomas. If the patient is at high risk, consider an optional low-dose noncontrast CT of the chest follow-up in 12 months. Brain MRI 09/15/24 08:47 IMPRESSION: 1. Old lacunar infarct in the right thalamus. 2. Moderate nonspecific cerebral white matter disease and pontine disease, which likely represents chronic small vessel ischemic disease. Labs Labs: Laboratory Results - last 24 hr 09/15/24 09/16/24 21:39 05:24 WBC 7.4 RBC 3.67 L Hgb 10.6 L Hct 34.0 L MCV 92.6 MCH 28.9 MCHC 31.2 L RDW 12.9 Plt Count 229 MPV 10.4 Sodium 138 Potassium 4.0 Chloride 103 Carbon Dioxide 27 Anion Gap 8 BUN 27 H Creatinine 0.78 Estim Creat Clear Calc 48 Estimated GFR > 60 Glucose 93 POC Capillary Glucose 196 H Calcium 9.3 Total Bilirubin 0.6 AST 264 H ALT 444 H Alkaline Phosphatase 151 H Total Protein 6.0 L Albumin 3.7 Quality VTE Prophylaxis VTE prophylaxis: mechanical ordered and pharmacologic ordered Hospitalist [facility] Advance Care Plan I have confirmed that the patient's Advanced Care Plan is present, code status is documented, or surrogate decision maker is listed in patient medical record.: Yes Medication Reconciliation I have utilized all available resources to obtain, update and review the patients current medications (includes all prescriptions, OTC, herbals, cannabis, and nutritional supplements).: Yes
[2024-09-16 10:02] LABS: Cholesterol 152 mg/dL (0-200); HDL Direct 110 mg/dL; Triglycerides 75 mg/dL (<150)
[2024-09-16 10:26] LABS: LDL Cholesterol Direct < 30 mg/dL
[2024-09-16 10:38] LABS: Hepatitis B Surface Antigen Negative (Negative)
[2024-09-16 10:43] LABS: HAV RESULT Negative (Negative); Hepatitis B Core IgM Result Negative (Negative)
[2024-09-16 10:55] LABS: Hepatitis C Virus Antibody Negative (Negative)
--- NOTE | 2024-09-16 19:39 | PC.NURSE ---
On 09/16/24, the student, Agnes Alcantara, provided care and completed [facility] documentation on this patient. I have reviewed the student's documentation and agree with the findings.
[2024-09-16 21:24] LABS: Glucose Point of Care 151 mg/dl (65-105)
[2024-09-16] MEDS: DONEPEZIL HCL 10 MG TABLET 20 MG PO (21:26)
[2024-09-16] MEDS: QUEtiapine FUMARATE 25 MG TABLET 50 MG PO (21:26)
[2024-09-16] MEDS: INSULIN GLARGINE (*BKC) 100 UNITS/ML 20 UNITS SUB-Q (21:29)
[2024-09-16] MEDS: hydrALAZINE HCL 20 MG/ML VIAL 10 MG IV PUSH (23:36)
[2024-09-17] VITALS (14 sets, daily range): BP systolic 132–218; BP diastolic 51–106; PULSE 77–92; RESP 18; TEMP 36.4–37.1; O2SAT 93–100
[2024-09-17] MEDS: oxyCODONE HCL (*CRX) 5 MG TAB IR PO ×6 (02:10→23:24)
[2024-09-17] MEDS: hydrALAZINE HCL 20 MG/ML VIAL 10 MG IV PUSH (05:35)
[2024-09-17 05:56] LABS: Alanine Aminotransferase 330 U/L (6-35); Albumin Level 4.1 g/dL (3.5-5.1); Alkaline Phosphatase 202 U/L (38-126); Anion Gap 9 mmol/L (4-12); Aspartate Amino Transferase 142 U/L (14-36); Bilirubin,Total 0.9 mg/dL (0.2-1.3); Blood Urea Nitrogen 19 mg/dL (7-17); Calcium 9.7 mg/dL (8.4-10.2); Carbon Dioxide 27 mmol/L (22-30); Chloride 101 mmol/L (98-107); Estimated CRCL calculation 66 ml/min; Estimated Glomerular Filt Rate > 60; Glucose 37 mg/dL (65-110); Potassium 3.1 mmol/L (3.4-5.0); Sodium 137 mmol/L (137-145)
[2024-09-17 06:00] LABS: Glucose Point of Care 30 mg/dl (65-105)
[2024-09-17 06:23] LABS: Glucose Point of Care 130 mg/dl (65-105)
[2024-09-17] MEDS: DEXTROSE 50% 25 GM/50 ML SYRINGE IV PUSH (06:24)
--- NOTE | 2024-09-17 09:35 | PM.PNORT ---
Progress Note: A&P Assessment and Plan (1) History of total right knee replacement (TKR): Code(s): Z96.651 - Presence of right artificial knee joint Status: Acute Assessment and Plan: patient is postop day number 2 after total knee arthroplasty. Her blood pressure at 5 a.m. this morning was 218/108. Her blood pressure last night around midnight was 218/98. She stated that her pain was satisfactorily controlled when I spoke to her this morning. I am going to ask Dr. Helms to follow-up and make recommendations as such a high blood pressure is dangerous for her. I will defer further workup to Dr. Helms. She had a CT angiogram of the head and neck on 09/14/2024 which showed sub 6 mm pulmonary nodules multiple likely representing benign Gram the granulomas. If the patient is at risk, CT of the chest follow-up in 12 months was recommended. 8 MM low-density lesion in the thalamus likely representing subacute or early chronic infarct. MRI scan of brain on 09/15/2024 showed old lacunar infarct in the right thalamus moderate nonspecific cerebral white matter disease and pontine disease. Yesterday her AST ALT and alkaline phosphatase were elevated. Ultrasound of the liver showed hepatomegaly and no other abnormalities. We discontinued her Tylenol. She states she normally does not take Tylenol at home. The hospitalist discussed in his note the possibility of liver congestion as possible cause for these enzymes being elevated. Her hepatomegaly would be consistent with that. Her AST and ALT are significantly lower today. The alkaline phosphatase is slightly higher. Her knee incision looks very good. She has the same 2 cm diameter blood spot in the center of the distal portion of the Aquacel dressing the same as yesterday which is normal. Patient had an episode of severe hypoglycemia this morning with glucose of 30 and she felt very poorly with that. It is now to 130 with treatment. She was alert and oriented this morning. She did require assistive to yesterday to get out of bed so she is still very weak. Will check CBC in the morning. I do not think she is ready for transfer to rehab until her blood pressure is controlled a safer level. Subjective Subjective Date/Time Seen: 09/17/24 09:35 Objective Data Vital Signs Vital Signs: Vital Signs - 24 hr 09/16/24 12:05 09/16/24 14:09/16/24 16:04 Temperature 36.8 C Pulse Rate 75 76 80 Respiratory Rate 18 Blood Pressure 162/60 H Pulse Oximetry 98 Oxygen Delivery 09/16/24 20:00 09/16/24 20:00 09/16/24 21:21 Temperature 36.6 C Pulse Rate 81 79 Respiratory Rate 17 Blood Pressure 185/66 H Pulse Oximetry 98 Oxygen Delivery Room Air 09/16/24 21:26 09/16/24 22:59 09/17/24 00:00 Temperature Pulse Rate 84 82 Respiratory Rate Blood Pressure 218/98 H Pulse Oximetry Oxygen Delivery 09/17/24 01:00 09/17/24 04:00 09/17/24 05:18 Temperature 36.4 C Pulse Rate 90 92 Respiratory Rate 18 Blood Pressure 171/61 H 218/106 H Pulse Oximetry 93 Oxygen Delivery Intake/Output Intake/Output: Intake & Output 09/14/24 09/15/24 09/16/24 09/17/24 23:59 23:59 23:59 23:59 Intake Total 2720 2770 1000 Balance 2720 2770 1000 Meds/Results Medications: Active Medications Generic Name Dose Route Start Last Admin Trade Name Freq PRN Reason Stop Dose Admin Apixaban 2.5 mg 09/15/24 09:00 09/16/24 21:26 Apixaban 2.5 Mg Tablet PO 09/26/24 21:01 2.5 mg Q12HR CADY Administration Atorvastatin Calcium 20 mg 09/15/24 09:00 09/16/24 09:19 Atorvastatin 20 Mg Tablet PO 20 mg DAILY CADY Administration Carvedilol 25 mg 09/14/24 21:00 09/16/24 21:26 Carvedilol 25 Mg Tablet PO 25 mg Q12HR CADY Administration Clorazepate Dipotassium 3.75 mg 09/14/24 17:00 09/16/24 18:28 Clorazepate Dipotassium (*Crx) 3.75 Mg Tablet PO 3.75 mg TID CADY Administration Cyclosporine 2 drop 09/14/24 21:00 09/16/24 21:26 Cyclosporine 0.4 Ml Ophth Solution EACH EYE 2 drop Q12H CADY Administration Dextrose 12.5 gm 09/17/24 06:03 09/17/24 06:24 Dextrose 50% 25 Gm/50 Ml Syringe IV PUSH 12.5 gm PRN PRN Administration Hypoglycemia Protocol Diphenhydramine HCl 25 mg 09/14/24 14:18 Diphenhydramine Hcl Inj 50 Mg/Ml Vial IV PUSH Q6H PRN Itching Donepezil HCl 20 mg 09/15/24 21:00 09/16/24 21:26 Donepezil Hcl 10 Mg Tablet PO 20 mg HS CADY Administration Doxycycline Hyclate 100 mg 09/16/24 09:00 09/16/24 21:26 Doxycycline Hyclate 100 Mg Tablet PO 100 mg Q12HR CADY Administration Famotidine 20 mg 09/14/24 21:00 09/16/24 21:25 Famotidine 20 Mg Tablet PO 20 mg Q12HR CADY Administration Fluticasone Propionate 2 spray 09/14/24 14:32 Fluticasone Propionate 0.05% Na Spr 16 Gm Btl (*Bkc) NASAL DAILY PRN nasal congestion Gabapentin 1,200 mg 09/14/24 17:00 09/16/24 18:29 Gabapentin 400 Mg Capsule PO 1,200 mg TID CADY Administration Glucagon 1 mg 09/17/24 06:03 Glucagon For Inj 1 Mg Vial IM PRN PRN Hypoglycemia Protocol Glucose 15 gm 09/17/24 06:03 Glucose Oral Gel 15 Gm Of Glucse In 37.5 Gm Tube PO PRN PRN Hypoglycemia Protocol Hydralazine HCl 10 mg 09/17/24 05:27 09/17/24 05:35 Hydralazine Hcl 20 Mg/Ml Vial IV PUSH 10 mg Q4HR PRN Administration Blood Pressure - High Dextrose 1,000 mls @ 100 mls/hr 09/17/24 06:03 Dextrose 5% 1,000 Ml IVPB PRN PRN Hypoglycemia Protocol Insulin Glargine 20 units 09/14/24 21:00 09/16/24 21:29 Insulin Glargine (*Bkc) 100 Units/Ml SUB-Q 20 units HS CADY Administration Lisinopril 20 mg 09/15/24 09:00 09/16/24 09:19 Lisinopril 20 Mg Tablet PO 20 mg DAILY CADY Administration Metformin HCl 500 mg 09/14/24 17:00 09/16/24 18:28 Metformin Hcl 500 Mg Tablet PO 500 mg BID CADY Administration Miscellaneous Information 1 each 09/15/24 00:01 Gemtesa Is Nonform; Can Pt Use From Home? XX 10/15/24 00:00 CLARIFY CADY Naloxone HCl 0.1 mg 09/14/24 14:18 Naloxone Hcl 0.4 Mg/Ml Vial IV PUSH Q2M PRN Opiate Reversal Non-Formulary Medication 75 mg 09/15/24 09:00 Vibegron [Gemtesa] PO 10/15/24 08:59 DAILY [facility] Ondansetron HCl 4 mg 09/14/24 14:18 Ondansetron Inj 4 Mg/2 Ml Vial IV PUSH Q4H PRN Nausea And Vomiting Oxycodone HCl 5 mg 09/14/24 19:00 09/17/24 06:24 Oxycodone Hcl (*Crx) 5 Mg Tab Ir PO 5 mg Q4H CADY Administration Oxycodone HCl 5 mg 09/15/24 14:09 Oxycodone Hcl (*Crx) 5 Mg Tab Ir PO Q4H PRN Pain Rated 4-10 Polyethylene Glycol 17 gm 09/15/24 09:00 09/16/24 09:17 Polyethylene Glycol 3350 17 Gm Powd.Pack PO 17 gm QAM CADY Administration Potassium Citrate 10 meq 09/14/24 17:00 09/16/24 18:27 Potassium Citrate 5 Meq Tab Cr PO 10 meq BID CADY Administration Quetiapine Fumarate 50 mg 09/14/24 21:00 09/16/24 21:26 Quetiapine Fumarate 25 Mg Tablet PO 50 mg HS CADY Administration Senna/Docusate Sodium 2 tab 09/14/24 17:00 09/16/24 18:28 Senna/Docusate Sodium Tablet PO 2 tab BID CADY Administration Sertraline HCl 200 mg 09/15/24 09:00 09/16/24 09:20 Sertraline Hcl 50 Mg Tablet PO 200 mg DAILY CADY Administration Venlafaxine HCl 300 mg 09/15/24 09:00 09/16/24 09:20 Venlafaxine Hcl Xr 75 Mg Cap.Er.24h PO 300 mg DAILY CADY Administration Vitamin D 2,000 units 09/15/24 09:00 09/16/24 09:20 Cholecalciferol 1,000 Units Tablet PO 2,000 units DAILY CADY Administration Radiology Results: ITS Impressions Knee X-Ray 09/14/24 12:22 IMPRESSION: No acute osseous abnormality right knee. Total knee arthroplasty. Head/Neck CTA 09/14/24 19:11 IMPRESSION: No acute intracranial process. 8 mm hypodense focus in the right thalamus likely representing a late subacute or early chronic focal infarct No large vessel intracranial occlusion, high-grade intracranial stenosis, or aneurysm. No carotid or vertebral artery occlusion, dissection, or significant stenosis. Multiple sub-6 mm pulmonary nodules, likely representing benign granulomas. If the patient is at high risk, consider an optional low-dose noncontrast CT of the chest follow-up in 12 months. Brain MRI 09/15/24 08:47 IMPRESSION: 1. Old lacunar infarct in the right thalamus. 2. Moderate nonspecific cerebral white matter disease and pontine disease, which likely represents chronic small vessel ischemic disease. Abdomen Ultrasound 09/16/24 18:27 IMPRESSION: Hepatomegaly. Otherwise, Unremarkable limited ultrasound of the abdomen. Labs Labs: Laboratory Results - last 24 hr 09/16/24 09/16/24 09/17/24 05:24 21:03 05:31 Sodium 137 Potassium 3.1 L Chloride 101 Carbon Dioxide 27 Anion Gap 9 BUN 19 H Creatinine 0.55 L Estim Creat Clear Calc 66 Estimated GFR > 60 Glucose 37 L* POC Capillary Glucose 151 H Hemoglobin A1c 6.0 H Calcium 9.7 Total Bilirubin 0.9 AST 142 H ALT 330 H Alkaline Phosphatase 202 H Total Protein 7.0 Albumin 4.1 Triglycerides 75 Cholesterol 152 LDL Cholesterol Direct < 30 HDL Direct 110 Hepatitis A IgM Ab Negative Hep Bs Antigen Negative Hep B Core IgM Ab Negative Hepatitis C Ab Screen Negative 09/17/24 09/17/24 05:57 06:17 Sodium Potassium Chloride Carbon Dioxide Anion Gap BUN Creatinine Estim Creat Clear Calc Estimated GFR Glucose POC Capillary Glucose 30 L* 130 H Hemoglobin A1c Calcium Total Bilirubin AST ALT Alkaline Phosphatase Total Protein Albumin Triglycerides Cholesterol LDL Cholesterol Direct HDL Direct Hepatitis A IgM Ab Hep Bs Antigen Hep B Core IgM Ab Hepatitis C Ab Screen
--- NOTE | 2024-09-17 09:57 | PCOTNOTE ---
The patient treatment was not able to be completed. Patient working with PT. Will plan to continue treatment per plan of care.
[2024-09-17] MEDS: ATORVASTATIN 20 MG TABLET PO (10:03)
[2024-09-17] MEDS: SERTRALINE HCL 50 MG TABLET 200 MG PO (10:03)
[2024-09-17] MEDS: metFORMIN HCL 500 MG TABLET PO ×2 (10:03→17:11)
[2024-09-17] MEDS: POTASSIUM CITRATE 5 MEQ TAB CR 10 MEQ PO ×2 (10:03→17:10)
[2024-09-17] MEDS: FAMOTIDINE 20 MG TABLET PO ×3 (10:04→17:11)
[2024-09-17] MEDS: SENNA/DOCUSATE SODIUM TABLET 2 TAB PO ×2 (10:04→17:10)
[2024-09-17] MEDS: GABAPENTIN 400 MG CAPSULE 1200 MG PO ×3 (10:04→17:10)
[2024-09-17] MEDS: carvediloL 25 MG TABLET PO ×2 (10:05→20:54)
[2024-09-17] MEDS: CHOLECALCIFEROL 1,000 UNITS TABLET 2000 UNITS PO (10:05)
[2024-09-17] MEDS: DOXYCYCLINE HYCLATE 100 MG TABLET PO ×2 (10:05→20:54)
[2024-09-17] MEDS: lisinopriL 20 MG TABLET PO (10:06)
[2024-09-17] MEDS: cycloSPORINE 0.4 ML OPHTH SOLUTION 2 DROP EACH EYE ×2 (10:06→20:53)
[2024-09-17] MEDS: APIXABAN 2.5 MG TABLET PO ×2 (10:06→20:54)
[2024-09-17] MEDS: CLORAZEPATE DIPOTASSIUM (*CRX) 3.75 MG TABLET PO ×3 (10:06→17:10)
[2024-09-17] MEDS: VENLAFAXINE HCL XR 75 MG CAP.ER.24H 300 MG PO (10:07)
--- NOTE | 2024-09-17 11:11 | PM.DS ---
DS: Admitting Diagnosis Discharge Date 09/17 Admitting Diagnosis Right knee degenerative joint disease DS: Discharge Diagnosis Discharge Diagnosis (1) History of total right knee replacement (TKR): Code(s): Z96.651 - Presence of right artificial knee joint Status: Acute DS: Summary Hospital Course Hospital Course: 83-year-old female who underwent right total knee arthroplasty on 09/14. She underwent the procedure without complications. Later in the day on 09/14 patient was having severe blurred vision. Hospitalist was alerted to this and CT of the head was ordered which showed no definite abnormalities. She also had MRI of the brain on 09/15 which showed old lacunar infarct but no acute injuries. Patient's blurry vision had improved to normal vision on the morning of postop day 1. Patient is status was switched from outpatient to admission to the hospital. Patient is elderly at 83 she is obese and very deconditioned. She has been walking minimally for last 6-8 months due to problems with the right knee. She has been on Eliquis for DVT prophylaxis postoperatively. Pain overall has been well controlled with oxycodone. Patient is not on Celebrex. Patient was evaluated and accepted to rehab facility, however on 09/16 CMP was done which shows significantly elevated liver enzymes. Patient has had previous CMP is were the liver enzymes have been normal. It was thought that either anesthesia medications or patient's antibiotics may have contributed to the elevation in liver enzymes. Patient had ultrasound done of the abdomen which showed no abnormalities of the liver. She has had her gallbladder removed in the past. She had blood work done which was negative for hepatitis. Her cholesterol was within normal range. Morning of 09/17 liver enzymes were beginning to normalize. We have stopped Patient's Tylenol as of 09/16. Overall patient is comfortable and doing well the morning of 09/17. She has had elevation of her blood pressure, this is a chronic problem that she does have. She is having no symptoms from that. Her other labs have all been stable. Patient will be discharged to rehab facility on 09/17. She is on Eliquis and will do a 2 week course. She is also on doxycycline for a 1 week course as well postoperatively. We will send her also with oxycodone 5 mg for pain control. As well as Senokot and MiraLax. Discharge instructions will be sent with her for the rehab facility in regard to activities as well as exercising for the knee. Patient's dressing did have 1 small area the size of a nickel of drainage at the very posterior aspect. This is remained the same for 2 days in a row. We will change just before her discharge and they will change it again in 1 week at the rehab facility. She is scheduled to see us back in approximately 10 days for re-evaluation. Time Spent with Patient Time attestation: Total time spent providing and/or coordinating discharge services: DS: Data Data Completed and Pending Labs on day of discharge: Labs from last 24 hours 09/17/24 09/17/24 09/17/24 06:17 05:57 05:31 Sodium 137 Potassium 3.1 L Chloride 101 Carbon Dioxide 27 Anion Gap 9 BUN 19 H Creatinine 0.55 L Estim Creat Clear Calc 66 Estimated GFR > 60 Glucose 37 L* POC Capillary Glucose 130 H 30 L* Calcium 9.7 Total Bilirubin 0.9 AST 142 H ALT 330 H Alkaline Phosphatase 202 H Total Protein 7.0 Albumin 4.1 09/16/24 21:03 Sodium Potassium Chloride Carbon Dioxide Anion Gap BUN Creatinine Estim Creat Clear Calc Estimated GFR Glucose POC Capillary Glucose 151 H Calcium Total Bilirubin AST ALT Alkaline Phosphatase Total Protein Albumin Discharge Plan Discharge Attending physician on discharge: Gideon Lopez Consulting providers: Sandra Dominguez; Blanca Helms Discharging Clinician: Jerry Crouch Patient Disposition: Inpatient Rehab Facility Activity: may shower Diet: as tolerated Wound Care Instructions: follow printed instructions and other - see discharge instructions Discharge Instructions: GIDEON LOPEZ M.D [facility] [address] [place] [address] [address] [place] [address] POST-OPERATIVE DISCHARGE INSTRUCTIONS TOTAL KNEE ARTHROPLASTY 1. When resting, do not rest in the chair.When resting, lie on your back, with back flat on the couch or bed, with leg elevated above heart to minimize swelling. You may put a pillow under your head. . Significant swelling could indicate a blood clot and if this occurs call the office (or go to the ER) to have a venous ultrasound. Therefore, do not rest in a chair. 2. At least five times a day spend several minutes stretching your knee into flexion while sitting in the chair and also stretching your knee out straight The abilities to bend your knee fully and straighten your knee fully are two most important knee functions to focus on during your recovery. 3. It is ok to sit in chair to eat, use the toilet and receive a guest and to do your stretching exercises, but, sitting in a chair will cause your leg to swell. Therefore, avoid additional time sitting in the chair. and don't rest in the chair. 4. Wound Care: Nursing will give you an additional Mepilex/Aquacell dressing at the time of discharge. Patient to remove the dressing and apply a new Mepilex/Aquacell dressing at home 7 days after surgery and leave the dressing on until seen in office. It is normal to see a small amount of blood on the silver pad of the Mepilex/Aquacell dressing. Its designed to hold small spots of blood. However, if the blood reaches the edge of the pad up to the boarder of the clear membrane that surrounds the pad, the pad is saturated and the Mepilex/Aqucell dressing should be removed and a new Mepilex/Aquacell dressing should be applied. 5. May shower with a Mepilex/Aquacell dressing in place.The water will run off the dressing. 6. Unless you are told otherwise, you may put full weight on your operated leg. Use a walker for balance and practice walking as normally as you can, ideally for a few minutes every hour while you are awake. 7. I would advise against putting ice packs on your knee incision. Ice constricts blood flow which can impar healing of the knee incision. IMPORTANT: Remember not to sit in the chair for more than 30 minutes at a time. As a rule, during the first 14 days after surgery, only sit in the chair to work on the chair knee bending stretch exercise, for meals or for use of the restroom. Sitting in the chair promotes significant swelling in the knee and leg which will make your knee stiff and more painful and which simulates having a blood clot in the veins of the leg. If this type of significant diffuse swelling occurs, an ultrasound at the hospital will be necessary to rule out a blood clot. Be up walking around with the walker for a few minutes every hour while awake and then rest laying on your back on the couch or in bed with your leg elevated on cushions or pillows. Do not rest in the chair. IMPORTANT: note that the radiologist's recommended considering CT of the chest in 12 months because of the multiple tiny pulmonary nodules which were likely benign granulomas but cannot rule out cancer lesions. Patient Instructions: Apixaban (By mouth) Patient Language: Japanese Stand Alone Forms: General Discharge Information Discharge Medications: New oxycodone 5 mg Tablet 5 mg PO Q4H Qty: 40 0RF Eliquis 2.5 mg Tablet 2.5 mg PO Q12HR Qty: 28 0RF sennosides-docusate sodium [Senokot-S] 8.6-50 mg Tablet 2 tab-cap PO BID Qty: 60 0RF polyethylene glycol 3350 [Miralax] 17 gram Powder In Packet 17 g PO QAM Qty: 30 0RF doxycycline hyclate 100 mg Tablet 100 mg PO Q12HR Qty: 14 0RF Continued magnesium oxide 400 mg magnesium Capsule 400 mg PO BID ascorbic acid (vitamin C) 500 mg capsule 500 mg PO DAILY biotin 1,000 mcg tablet,chewable 1,000 mcg PO TID guaifenesin [Mucinex] 600 mg tablet extended release 12hr 600 mg PO Q12H PRN (Reason: congestion) multivitamin Tablet 1 tablet PO DAILY calcium carbonate [Calcium 600] 600 mg calcium (1,500 mg) tablet 600 mg PO DAILY cholecalciferol (vitamin D3) 25 mcg (1,000 unit) capsule 50 mcg PO DAILY mecobalamin (vitamin B12) 1,000 mcg tablet,chewable 1,000 mcg PO DAILY Qty: 30 0RF alendronate 70 mg tablet 70 mg PO WEEKLY Rx Instructions: Prescribed by: ASHLEY carvedilol 25 mg tablet 25 mg PO BID Rx Instructions: Prescribed by: LUKE clorazepate dipotassium 3.75 mg tablet 3.75 mg PO TID Rx Instructions: Prescribed by: KAREN cyclosporine 0.05 % dropperette 2 drp EACH EYE Q12H Rx Instructions: Prescribed by: TOOTIE donepezil 10 mg tablet 20 mg PO DAILY Rx Instructions: Prescribed by KAREN gabapentin 600 mg tablet 1,200 mg PO TID Rx Instructions: Prescribed by ASHLEY hydrochlorothiazide 12.5 mg tablet 12.5 mg PO DAILY Patient Comments: QAM Rx Instructions: Prescribed by: LUKE lisinopril 20 mg tablet 20 mg PO DAILY Patient Comments: QAM Rx Instructions: Prescribed by LUKE quetiapine 25 mg tablet 50 mg PO HS Rx Instructions: Prescribed by KAREN venlafaxine 150 mg capsule,extended release 24hr 300 mg PO DAILY Patient Comments: QAM Rx Instructions: Prescribed by KAREN Gemtesa 75 mg tablet 75 mg PO DAILY Rx Instructions: Prescribed by TOMEKA Hart Sensimist 27.5 mcg/actuation spray,suspension 2 spray intranasal DAILY PRN (Reason: nasal congestion) Patient Comments: it's been awhile Rx Instructions: into each nostril sertraline 100 mg tablet 200 mg PO DAILY Patient Comments: QAM Rx Instructions: Prescribed by Karen insulin glargine U-300 conc [Toujeo SoloStar U-300 Insulin] 300 unit/mL (1.5 mL) insulin pen 20 unit subcut .bedtime Qty: 4.5 1RF Rx Instructions: Prescribed by SCOTT - dose decreased 02/04/24 famotidine 20 mg tablet 20 mg PO TID Qty: 270 0RF Rx Instructions: Prescribed by: SCOTT metformin 500 mg tablet 500 mg PO BID Qty: 180 1RF Rx Instructions: Prescribed by Jodie semaglutide 2 mg/dose (8 mg/3 mL) pen injector 2 mg subcut WEEKLY Qty: 3 1RF Patient Comments: THURSDAYS Rx Instructions: Prescribed by Jodie potassium citrate 10 mEq (1,080 mg) tablet extended release 10 meq PO BID Qty: 180 1RF atorvastatin 20 mg tablet 20 mg PO DAILY Qty: 90 0RF Rx Instructions: Prescribed by: SCOTT Discontinued flaxseed oil 1,000 mg capsule 1,000 mg PO DAILY Rx Instructions: administer with a meal nystatin 100,000 unit/gram powder 1 applic topical BID PRN (Reason: skin irritation) methenamine hippurate [Hiprex] 1 gram tablet 1 g PO BID Rx Instructions: Prescribed by TOMEKA zolpidem 10 mg tablet 10 mg PO HS Rx Instructions: Prescribed by KAREN tramadol 25 mg tablet 25 mg PO Q6H PRN (Reason: pain) Qty: 40 0RF Patient Comments: haven't taken for a month dexamethasone 0.5 mg/5 mL elixir 0.25 mg PO Q6H PRN (Reason: MOUTH SORES) Patient Comments: probably a month ago Rx Instructions: swish and spit (DME) FreeStyle Conchis 3 Sensor Device See Rx Instructions .Route Qty: 6 3RF Rx Instructions: Change every 14 days As directed psyllium husk 0.52 gram capsule 0.52 g PO DAILY Rx Instructions: Prescribed by Jodie (DME) pen needle, diabetic [BD Ultra-Fine Short Pen Needle] 31 gauge x 5/16 needle MISCELLANEOUS Qty: 100 1RF Rx Instructions: As directed cyclobenzaprine 5 mg tablet 5 mg PO QHS PRN (Reason: muscle spasm) Qty: 20 0RF Patient Comments: last taken months ago Rx Instructions: reminder: take separate from zolpidem and gabapentin by 3 hours Other Ambulatory Orders: Comprehensive Metabolic Panel (Routine) Timeframe: 20240927 Location: Determined by Patient Ordered By: Jerry Crouch Date of admission: 09/15/24 11:38 Primary Care Provider: Jodie Steiner I. Admitting Provider: Gideon Lopez Attending physician on admission: Gideon Lopez Condition: Stable
[2024-09-17 12:39] LABS: Glucose Point of Care 187 mg/dl (65-105)
--- NOTE | 2024-09-17 12:50 | PCOTNOTE ---
The patient treatment was not able to be completed. Patient is eating lunch. Will plan to continue treatment per plan of care.
[2024-09-17] MEDS: hydroCHLOROthiazide 12.5 MG CAPSULE PO (12:52)
--- NOTE | 2024-09-17 13:01 | PM.PNCARD ---
Progress Note: A&P Assessment and Plan (1) Hypertension: Code(s): I10 - Essential (primary) hypertension Status: Acute Plan 1. Chronic heart failure with preserved LVEF Euvolemic 2. Essential hypertension Post-operatively, her blood pressures have generally been well controlled, she had several outliers of elevated blood pressure last night. Her home HCTZ has just been restarted which I agree with. Her blood pressure is stable now, 135/51. No other recommendations or medication adjustments at this time. 3. Hyperlipidemia Continue statin. Patient can follow up with her primary teletypesetter monitor after hospital discharge. Cardiology will sign off at this time, but please call us back if needed. Subjective Date/time seen: 09/17/24 13:01 Interval history: Cardiology visit for hypertension We are reconsulted for elevated blood pressure. Blood pressures are generally controlled but she has had several readings with SBP 170-200 mmHg. Review of Systems Review of Systems: All systems reviewed & are unremarkable except as noted in HPI and below (HPI) Exam Const: General: comfortable and no acute distress HENMT: Mouth: Yes moist mucous membranes Eyes: General: appearance normal, both eyes and all related structures Sclera: sclerae normal Resp: Effort & Inspection: normal respiratory effort Cardio: Rate: regular rate Rhythm: regular rhythm Heart sounds: no murmurs Skin: General skin exam: normal color Neuro: Speech: normal speech Psych: Mental Status: mental status grossly normal Affect: normal affect Objective Data Vital Signs Vital Signs: Vital Signs - 24 hr 09/16/24 14:14 09/16/24 16:04 09/16/24 20:00 Temperature 36.8 C Pulse Rate 76 80 Respiratory Rate 18 Blood Pressure 162/60 H Pulse Oximetry 98 Oxygen Delivery Room Air 09/16/24 20:00 09/16/24 21:21 09/16/24 21:26 Temperature 36.6 C Pulse Rate 81 79 84 Respiratory Rate 17 Blood Pressure 185/66 H Pulse Oximetry 98 Oxygen Delivery 09/16/24 22:59 09/17/24 00:00 09/17/24 01:00 Temperature Pulse Rate 82 Respiratory Rate Blood Pressure 218/98 H 171/61 H Pulse Oximetry Oxygen Delivery 09/17/24 04:00 09/17/24 05:18 09/17/24 10:05 Temperature 36.4 C Pulse Rate 90 92 83 Respiratory Rate 18 Blood Pressure 218/106 H Pulse Oximetry 93 Oxygen Delivery 09/17/24 11:51 09/17/24 13:00 Temperature 36.4 C 37.1 C Pulse Rate 80 Respiratory Rate 18 Blood Pressure 135/51 L Pulse Oximetry 100 Oxygen Delivery Intake/Output Intake/Output: Intake & Output 09/14/24 09/15/24 09/16/24 09/17/24 23:59 23:59 23:59 23:59 Intake Total 2720 2770 1000 240 Balance 2720 2770 1000 240 Meds/Results Medications: Active Medications Generic Name Dose Route Start Last Admin Trade Name Freq PRN Reason Stop Dose Admin Apixaban 2.5 mg 09/15/24 09:00 09/17/24 10:06 Apixaban 2.5 Mg Tablet PO 09/26/24 21:01 2.5 mg Q12HR CADY Administration Atorvastatin Calcium 20 mg 09/15/24 09:00 09/17/24 10:03 Atorvastatin 20 Mg Tablet PO 20 mg DAILY CADY Administration Carvedilol 25 mg 09/14/24 21:00 09/17/24 10:05 Carvedilol 25 Mg Tablet PO 25 mg Q12HR CADY Administration Clorazepate Dipotassium 3.75 mg 09/14/24 17:00 09/17/24 12:52 Clorazepate Dipotassium (*Crx) 3.75 Mg Tablet PO 3.75 mg TID CADY Administration Cyclosporine 2 drop 09/14/24 21:00 09/17/24 10:06 Cyclosporine 0.4 Ml Ophth Solution EACH EYE 2 drop Q12H CADY Administration Dextrose 12.5 gm 09/17/24 06:03 09/17/24 06:24 Dextrose 50% 25 Gm/50 Ml Syringe IV PUSH 12.5 gm PRN PRN Administration Hypoglycemia Protocol Diphenhydramine HCl 25 mg 09/14/24 14:18 Diphenhydramine Hcl Inj 50 Mg/Ml Vial IV PUSH Q6H PRN Itching Donepezil HCl 20 mg 09/15/24 21:00 09/16/24 21:26 Donepezil Hcl 10 Mg Tablet PO 20 mg HS CADY Administration Doxycycline Hyclate 100 mg 09/16/24 09:00 09/17/24 10:05 Doxycycline Hyclate 100 Mg Tablet PO 100 mg Q12HR CADY Administration Famotidine 20 mg 09/17/24 13:00 09/17/24 12:55 Famotidine 20 Mg Tablet PO 20 mg TID CADY Administration Fluticasone Propionate 2 spray 09/14/24 14:32 Fluticasone Propionate 0.05% Na Spr 16 Gm Btl (*Bkc) NASAL DAILY PRN nasal congestion Gabapentin 1,200 mg 09/14/24 17:00 09/17/24 12:53 Gabapentin 400 Mg Capsule PO 1,200 mg TID CADY Administration Glucagon 1 mg 09/17/24 06:03 Glucagon For Inj 1 Mg Vial IM PRN PRN Hypoglycemia Protocol Glucose 15 gm 09/17/24 06:03 Glucose Oral Gel 15 Gm Of Glucse In 37.5 Gm Tube PO PRN PRN Hypoglycemia Protocol Hydralazine HCl 10 mg 09/17/24 05:27 09/17/24 05:35 Hydralazine Hcl 20 Mg/Ml Vial IV PUSH 10 mg Q4HR PRN Administration Blood Pressure - High Hydrochlorothiazide 12.5 mg 09/17/24 12:05 09/17/24 12:52 Hydrochlorothiazide 12.5 Mg Capsule PO 12.5 mg QAM CADY Administration Dextrose 1,000 mls @ 100 mls/hr 09/17/24 06:03 Dextrose 5% 1,000 Ml IVPB PRN PRN Hypoglycemia Protocol Insulin Glargine 20 units 09/14/24 21:00 09/16/24 21:29 Insulin Glargine (*Bkc) 100 Units/Ml SUB-Q 20 units HS CADY Administration Lisinopril 20 mg 09/15/24 09:00 09/17/24 10:06 Lisinopril 20 Mg Tablet PO 20 mg DAILY CADY Administration Metformin HCl 500 mg 09/14/24 17:00 09/17/24 10:03 Metformin Hcl 500 Mg Tablet PO 500 mg BID CADY Administration Miscellaneous Information 1 each 09/15/24 00:01 Gemtesa Is Nonform; Can Pt Use From Home? XX 10/15/24 00:00 CLARIFY CADY Naloxone HCl 0.1 mg 09/14/24 14:18 Naloxone Hcl 0.4 Mg/Ml Vial IV PUSH Q2M PRN Opiate Reversal Non-Formulary Medication 75 mg 09/15/24 09:00 Vibegron [Gemtesa] PO 10/15/24 08:59 DAILY CADY Ondansetron HCl 4 mg 09/14/24 14:18 Ondansetron Inj 4 Mg/2 Ml Vial IV PUSH Q4H PRN Nausea And Vomiting Oxycodone HCl 5 mg 09/14/24 19:00 09/17/24 12:53 Oxycodone Hcl (*Crx) 5 Mg Tab Ir PO 5 mg Q4H CADY Administration Oxycodone HCl 5 mg 09/15/24 14:09 Oxycodone Hcl (*Crx) 5 Mg Tab Ir PO Q4H PRN Pain Rated 4-10 Polyethylene Glycol 17 gm 09/15/24 09:00 09/17/24 10:02 Polyethylene Glycol 3350 17 Gm Powd.Pack PO Not Given QAM CADY Potassium Citrate 10 meq 09/14/24 17:00 09/17/24 10:03 Potassium Citrate 5 Meq Tab Cr PO 10 meq BID CADY Administration Quetiapine Fumarate 50 mg 09/14/24 21:00 09/16/24 21:26 Quetiapine Fumarate 25 Mg Tablet PO 50 mg HS CADY Administration Senna/Docusate Sodium 2 tab 09/14/24 17:00 09/17/24 10:04 Senna/Docusate Sodium Tablet PO 2 tab BID CADY Administration Sertraline HCl 200 mg 09/15/24 09:00 09/17/24 10:03 Sertraline Hcl 50 Mg Tablet PO 200 mg DAILY CADY Administration Venlafaxine HCl 300 mg 09/15/24 09:00 09/17/24 10:07 Venlafaxine Hcl Xr 75 Mg Cap.Er.24h PO 300 mg DAILY CADY Administration Vitamin D 2,000 units 09/15/24 09:00 09/17/24 10:05 Cholecalciferol 1,000 Units Tablet PO 2,000 units DAILY CADY Administration Radiology Results: ITS Impressions Knee X-Ray 09/14/24 12:22 IMPRESSION: No acute osseous abnormality right knee. Total knee arthroplasty. Head/Neck CTA 09/14/24 19:11 IMPRESSION: No acute intracranial process. 8 mm hypodense focus in the right thalamus likely representing a late subacute or early chronic focal infarct No large vessel intracranial occlusion, high-grade intracranial stenosis, or aneurysm. No carotid or vertebral artery occlusion, dissection, or significant stenosis. Multiple sub-6 mm pulmonary nodules, likely representing benign granulomas. If the patient is at high risk, consider an optional low-dose noncontrast CT of the chest follow-up in 12 months. Brain MRI 09/15/24 08:47 IMPRESSION: 1. Old lacunar infarct in the right thalamus. 2. Moderate nonspecific cerebral white matter disease and pontine disease, which likely represents chronic small vessel ischemic disease. Abdomen Ultrasound 09/16/24 18:27 IMPRESSION: Hepatomegaly. Otherwise, Unremarkable limited ultrasound of the abdomen. Labs Labs: Laboratory Results - last 24 hr 09/16/24 09/17/24 09/17/24 21:03 05:31 05:57 Sodium 137 Potassium 3.1 L Chloride 101 Carbon Dioxide 27 Anion Gap 9 BUN 19 H Creatinine 0.55 L Estim Creat Clear Calc 66 Estimated GFR > 60 Glucose 37 L* POC Capillary Glucose 151 H 30 L* Calcium 9.7 Total Bilirubin 0.9 AST 142 H ALT 330 H Alkaline Phosphatase 202 H Total Protein 7.0 Albumin 4.1 09/17/24 09/17/24 06:17 12:37 Sodium Potassium Chloride Carbon Dioxide Anion Gap BUN Creatinine Estim Creat Clear Calc Estimated GFR Glucose POC Capillary Glucose 130 H 187 H Calcium Total Bilirubin AST ALT Alkaline Phosphatase Total Protein Albumin Quality VTE Prophylaxis VTE prophylaxis: mechanical ordered and pharmacologic ordered
--- NOTE | 2024-09-17 16:12 | P.PNIM_ITS ---
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 #DM/hypoglycemia continue metformin 500 mg p.o. b.i.d. Discontinue Lantus 20 units HS Low-dose sliding scale Hypoglycemic protocol Will calculate the insulin needs # anxiety and depression Continue sertraline 200 mg p.o. q.d. Continue venlafaxine 300 mg p.o. q.d. Continue Seroquel 50 mg p.o. HS # transaminitis increased LFTs normal bilirubin order PT INR ordered ultrasound right upper quad ordered lipid panel, HbA1c and hepatitis panel possibly due to congestion Subjective Date/time seen: 09/17/24 16:12 Interval history: Patient had episode of hypoglycemia and hypertension early this morning. Discontinued her Lantus at 20 units HS. Started on low-dose sliding scale. Will calculate a basal insulin according to her insulin needs. Since the patient had 1 episode of hypertension, recommend to monitor and follow up the with her PCP. Review of Systems Review of Systems: 12 systems were reviewed and are negativ e except for as per HPI. Exam Narrative: General: well appearing, appears stated age. HEENT: normocephalic, atraumatic. Mucous membranes moist. EOMI, PERRLA, bilateral sclera anicteric, no conjunctival injection. Neck supple without JVD, lymphadenopathy, or bruit. Respiratory: clear to ascultation bilaterally. No rales/rhonic/wheezes. Cardiovascular: Regular rate and rhythm, normal S1-S2 upon ascultation. No murmurs, rubs, or clicks. PMI is nondisplaced, capillary refill less than 3 second. Abdomen: Soft, round, no pulsatile masses, nondistended and nontender. No rebound, no guarding. No CVA tenderness, no hepatosplenomegaly. Bowel sounds present to all four quadrants. No high pitch or tinkling sounds, resonant to percussion. Extremities: No cyanosis, clubbing, or edema present. Pulses are palpable 2/2. Right lower extremity with surgical dressing clean dry intact, limited range of motion due to pain Neuro: Alert and orientated x 4. PERRLA. Cranial nerves 2-12 intact without focal deficit. Skin: Warm, dry, and intact, without rash, erythema, or lesion. Psych: pleasant, cooperative, normal speech, normal affect, no hallucinations, no dysarthia Objective Data Vital Signs Vital Signs: Vital Signs - 24 hr 09/16/24 20:00 09/16/24 20:00 09/16/24 21:21 Temperature 97.8 F Pulse Rate 81 79 Respiratory Rate 17 Blood Pressure 185/66 H Pulse Oximetry 98 Oxygen Delivery Room Air 09/16/24 21:26 09/16/24 22:59 09/17/24 00:00 Temperature Pulse Rate 84 82 Respiratory Rate Blood Pressure 218/98 H Pulse Oximetry Oxygen Delivery 09/17/24 01:00 09/17/24 04:00 09/17/24 05:18 Temperature 97.6 F Pulse Rate 90 92 Respiratory Rate 18 Blood Pressure 171/61 H 218/106 H Pulse Oximetry 93 Oxygen Delivery 09/17/24 10:05 09/17/24 11:51 09/17/24 13:00 Temperature 97.6 F 98.7 F Pulse Rate 83 80 Respiratory Rate 18 Blood Pressure 135/51 L Pulse Oximetry 100 Oxygen Delivery Intake/Output Intake/Output: Intake & Output 09/14/24 09/15/24 09/16/24 09/17/24 23:59 23:59 23:59 23:59 Intake Total 2720 2770 1000 360 Balance 2720 2770 1000 360 Meds/Results Medications: Active Medications Generic Name Dose Route Start Last Admin Trade Name Freq PRN Reason Stop Dose Admin Apixaban 2.5 mg 09/15/24 09:00 09/17/24 10:06 Apixaban 2.5 Mg Tablet PO 09/26/24 21:01 2.5 mg Q12HR CADY Administration Atorvastatin Calcium 20 mg 09/15/24 09:00 09/17/24 10:03 Atorvastatin 20 Mg Tablet PO 20 mg DAILY CADY Administration Carvedilol 25 mg 09/14/24 21:00 09/17/24 10:05 Carvedilol 25 Mg Tablet PO 25 mg Q12HR CADY Administration Clorazepate Dipotassium 3.75 mg 09/14/24 17:00 09/17/24 12:52 Clorazepate Dipotassium (*Crx) 3.75 Mg Tablet PO 3.75 mg TID CADY Administration Cyclosporine 2 drop 09/14/24 21:00 09/17/24 10:06 Cyclosporine 0.4 Ml Ophth Solution EACH EYE 2 drop Q12H CADY Administration Dextrose 12.5 gm 09/17/24 14:28 Dextrose 50% 25 Gm/50 Ml Syringe IV PUSH PRN PRN Hypoglycemia Protocol Diphenhydramine HCl 25 mg 09/14/24 14:18 Diphenhydramine Hcl Inj 50 Mg/Ml Vial IV PUSH Q6H PRN Itching Donepezil HCl 20 mg 09/15/24 21:00 09/16/24 21:26 Donepezil Hcl 10 Mg Tablet PO 20 mg HS CADY Administration Doxycycline Hyclate 100 mg 09/16/24 09:00 09/17/24 10:05 Doxycycline Hyclate 100 Mg Tablet PO 100 mg Q12HR CADY Administration Famotidine 20 mg 09/17/24 13:00 09/17/24 12:55 Famotidine 20 Mg Tablet PO 20 mg TID CADY Administration Fluticasone Propionate 2 spray 09/14/24 14:32 Fluticasone Propionate 0.05% Na Spr 16 Gm Btl (*Bkc) NASAL DAILY PRN nasal congestion Gabapentin 1,200 mg 09/14/24 17:00 09/17/24 12:53 Gabapentin 400 Mg Capsule PO 1,200 mg TID CADY Administration Glucagon 1 mg 09/17/24 14:28 Glucagon For Inj 1 Mg Vial IM PRN PRN Hypoglycemia Protocol Glucose 15 gm 09/17/24 14:28 Glucose Oral Gel 15 Gm Of Glucse In 37.5 Gm Tube PO PRN PRN Hypoglycemia Protocol Hydralazine HCl 10 mg 09/17/24 05:27 09/17/24 05:35 Hydralazine Hcl 20 Mg/Ml Vial IV PUSH 10 mg Q4HR PRN Administration Blood Pressure - High Hydrochlorothiazide 12.5 mg 09/17/24 12:05 09/17/24 12:52 Hydrochlorothiazide 12.5 Mg Capsule PO 12.5 mg QAM CADY Administration Dextrose 1,000 mls @ 100 mls/hr 09/17/24 14:28 Dextrose 5% 1,000 Ml IVPB PRN PRN Hypoglycemia Protocol Insulin Aspart 2 - 5 units 09/17/24 17:00 Insulin Aspart (*Bkc) 100 Units/Ml SUB-Q TIDWM CADY Protocol Insulin Aspart 1 - 2 units 09/17/24 21:00 Insulin Aspart (*Bkc) 100 Units/Ml SUB-Q HS CADY Protocol Lisinopril 20 mg 09/15/24 09:00 09/17/24 10:06 Lisinopril 20 Mg Tablet PO 20 mg DAILY CADY Administration Metformin HCl 500 mg 09/14/24 17:00 09/17/24 10:03 Metformin Hcl 500 Mg Tablet PO 500 mg BID CADY Administration Miscellaneous Information 1 each 09/15/24 00:01 Gemtesa Is Nonform; Can Pt Use From Home? XX 10/15/24 00:00 [facility] Naloxone HCl 0.1 mg 09/14/24 14:18 Naloxone Hcl 0.4 Mg/Ml Vial IV PUSH Q2M PRN Opiate Reversal Non-Formulary Medication 75 mg 09/15/24 09:00 Vibegron [Gemtesa] PO 10/15/24 08:59 [facility] Ondansetron HCl 4 mg 09/14/24 14:18 Ondansetron Inj 4 Mg/2 Ml Vial IV PUSH Q4H PRN Nausea And Vomiting Oxycodone HCl 5 mg 09/14/24 19:00 09/17/24 12:53 Oxycodone Hcl (*Crx) 5 Mg Tab Ir PO 5 mg Q4H CADY Administration Oxycodone HCl 5 mg 09/15/24 14:09 Oxycodone Hcl (*Crx) 5 Mg Tab Ir PO Q4H PRN Pain Rated 4-10 Polyethylene Glycol 17 gm 09/15/24 09:00 09/17/24 10:02 Polyethylene Glycol 3350 17 Gm Powd.Pack PO Not Given QAM CADY Potassium Citrate 10 meq 09/14/24 17:00 09/17/24 10:03 Potassium Citrate 5 Meq Tab Cr PO 10 meq BID CADY Administration Quetiapine Fumarate 50 mg 09/14/24 21:00 09/16/24 21:26 Quetiapine Fumarate 25 Mg Tablet PO 50 mg HS CADY Administration Senna/Docusate Sodium 2 tab 09/14/24 17:00 09/17/24 10:04 Senna/Docusate Sodium Tablet PO 2 tab BID CADY Administration Sertraline HCl 200 mg 09/15/24 09:00 09/17/24 10:03 Sertraline Hcl 50 Mg Tablet PO 200 mg DAILY CADY Administration Venlafaxine HCl 300 mg 09/15/24 09:00 09/17/24 10:07 Venlafaxine Hcl Xr 75 Mg Cap.Er.24h PO 300 mg DAILY CADY Administration Vitamin D 2,000 units 09/15/24 09:00 09/17/24 10:05 Cholecalciferol 1,000 Units Tablet PO 2,000 units DAILY CADY Administration Radiology Results: ITS Impressions Knee X-Ray 09/14/24 12:22 IMPRESSION: No acute osseous abnormality right knee. Total knee arthroplasty. Head/Neck CTA 09/14/24 19:11 IMPRESSION: No acute intracranial process. 8 mm hypodense focus in the right thalamus likely representing a late subacute or early chronic focal infarct No large vessel intracranial occlusion, high-grade intracranial stenosis, or aneurysm. No carotid or vertebral artery occlusion, dissection, or significant stenosis. Multiple sub-6 mm pulmonary nodules, likely representing benign granulomas. If the patient is at high risk, consider an optional low-dose noncontrast CT of the chest follow-up in 12 months. Brain MRI 09/15/24 08:47 IMPRESSION: 1. Old lacunar infarct in the right thalamus. 2. Moderate nonspecific cerebral white matter disease and pontine disease, which likely represents chronic small vessel ischemic disease. Abdomen Ultrasound 09/16/24 18:27 IMPRESSION: Hepatomegaly. Otherwise, Unremarkable limited ultrasound of the abdomen. Labs Labs: Laboratory Results - last 24 hr 09/16/24 09/17/24 09/17/24 21:03 05:30 05:31 Sodium 137 Potassium 3.1 L Chloride 101 Carbon Dioxide 27 Anion Gap 9 BUN 19 H Creatinine 0.55 L Estim Creat Clear Calc 66 Estimated GFR > 60 Glucose 37 L* POC Capillary Glucose 151 H Hemoglobin A1c 6.0 H Calcium 9.7 Total Bilirubin 0.9 AST 142 H ALT 330 H Alkaline Phosphatase 202 H Total Protein 7.0 Albumin 4.1 09/17/24 09/17/24 09/17/24 05:57 06:17 12:37 Sodium Potassium Chloride Carbon Dioxide Anion Gap BUN Creatinine Estim Creat Clear Calc Estimated GFR Glucose POC Capillary Glucose 30 L* 130 H 187 H Hemoglobin A1c Calcium Total Bilirubin AST ALT Alkaline Phosphatase Total Protein Albumin Quality VTE Prophylaxis VTE prophylaxis: mechanical ordered and pharmacologic ordered Hospitalist MIPS Advance Care Plan I have confirmed that the patient's Advanced Care Plan is present, code status is documented, or surrogate decision maker is listed in patient medical record.: Yes Medication Reconciliation I have utilized all available resources to obtain, update and review the patients current medications (includes all prescriptions, OTC, herbals, cannabis, and nutritional supplements).: Yes
--- NOTE | 2024-09-17 17:04 | PHAR ---
Pharmacy verified home meds: * Use From Home * Metamucil Fiber Gummies - chew and swallow one gummy once daily * Use From Home * Vibegron [Gemtesa] 75 mg tablet - take 1 tablet by mouth once daily
[2024-09-17] MEDS: VIBEGRON 75 MG 75 EACH PO (17:24)
[2024-09-17] MEDS: [UNRECOGNIZED DRUG - OTHER] 1 EACH PO (17:24)
[2024-09-17 17:31] LABS: Glucose Point of Care 165 mg/dl (65-105)
[2024-09-17] MEDS: DONEPEZIL HCL 10 MG TABLET 20 MG PO (20:54)
[2024-09-17] MEDS: QUEtiapine FUMARATE 25 MG TABLET 50 MG PO (20:54)
[2024-09-17 23:57] LABS: Glucose Point of Care 182 mg/dl (65-105)
[2024-09-18] VITALS: PULSE 78
[2024-09-18 04:00] VITALS: PULSE 78
[2024-09-18 05:51] LABS: Basophils Percent Auto 0.5 % (0.2-1.2); Eosinophils Absolute Auto 0.2 K/mm3 (0-0.3); Eosinophils Percent Auto 3.4 % (0-4.4); Hematocrit 29.9 % (37.0-47.0); Hemoglobin 9.5 g/dL (12.0-15.0); Immature Granulocyte Absolute 0.02 K/mm3 (0.00-0.031); Immature Granulocyte Percent A 0.3 % (0-0.5); Lymphocytes Absolute Auto 1.74 K/mm3 (0.9-3.2); Lymphocytes Percent Auto 29.6 % (18.3-44.2); Mean Corpuscular HGB Conc 31.8 g/dl (32-36); Mean Corpuscular Hemoglobin 28.8 pg (26-34); Mean Corpuscular Volume 90.6 fl (80-100); Mean Platelet Volume 10.3 fl (7.4-10.4); Monocytes Absolute Auto 0.6 K/mm3 (0.1-0.6); Monocytes Percent Auto 10.5 % (2.6-8.5); Neutrophils Absolute Auto 3.3 K/mm3 (1.3-6.7); Neutrophils Percent Auto 55.7 % (45.5-73.1); Platelet Count Result 206 k/mm3 (150-375); Red Cell Distribution Width 13.1 % (11.5-14.5); White Blood Count 5.9 K/mm3 (4.5-10.0)
[2024-09-18 06:04] LABS: Alanine Aminotransferase 258 U/L (6-35); Albumin Level 3.1 g/dL (3.5-5.1); Alkaline Phosphatase 242 U/L (38-126); Anion Gap 5 mmol/L (4-12); Aspartate Amino Transferase 264 U/L (14-36); Bilirubin,Total 1.6 mg/dL (0.2-1.3); Blood Urea Nitrogen 18 mg/dL (7-17); Calcium 8.9 mg/dL (8.4-10.2); Carbon Dioxide 29 mmol/L (22-30); Chloride 101 mmol/L (98-107); Estimated CRCL calculation 58 ml/min; Estimated Glomerular Filt Rate > 60; Glucose 148 mg/dL (65-110); Potassium 3.5 mmol/L (3.4-5.0); Sodium 135 mmol/L (137-145)
[2024-09-18 06:19] VITALS: BP 144/86; PULSE 78; RESP 16; TEMP 36.6; O2SAT 100
[2024-09-18] MEDS: oxyCODONE HCL (*CRX) 5 MG TAB IR PO ×3 (06:26→15:27)
[2024-09-18 09:22] LABS: Glucose Point of Care 143 mg/dl (65-105)
[2024-09-18] MEDS: hydroCHLOROthiazide 12.5 MG CAPSULE PO (09:54)
[2024-09-18] MEDS: APIXABAN 2.5 MG TABLET PO (09:54)
[2024-09-18] MEDS: DOXYCYCLINE HYCLATE 100 MG TABLET PO (09:54)
[2024-09-18] MEDS: lisinopriL 20 MG TABLET PO ×2 (09:54→12:25)
[2024-09-18] MEDS: GABAPENTIN 400 MG CAPSULE 1200 MG PO ×2 (09:55→12:25)
[2024-09-18] MEDS: metFORMIN HCL 500 MG TABLET PO (09:55)
[2024-09-18] MEDS: SERTRALINE HCL 50 MG TABLET 200 MG PO (09:55)
[2024-09-18 09:56] VITALS: PULSE 80
[2024-09-18] MEDS: POTASSIUM CITRATE 5 MEQ TAB CR 10 MEQ PO (09:56)
[2024-09-18] MEDS: SENNA/DOCUSATE SODIUM TABLET 2 TAB PO (09:56)
[2024-09-18] MEDS: ATORVASTATIN 20 MG TABLET PO (09:56)
[2024-09-18] MEDS: carvediloL 25 MG TABLET PO (09:56)
[2024-09-18] MEDS: CHOLECALCIFEROL 1,000 UNITS TABLET 2000 UNITS PO (09:56)
[2024-09-18] MEDS: FAMOTIDINE 20 MG TABLET PO ×2 (09:56→12:26)
[2024-09-18] MEDS: VENLAFAXINE HCL XR 75 MG CAP.ER.24H 300 MG PO (09:57)
[2024-09-18] MEDS: cycloSPORINE 0.4 ML OPHTH SOLUTION 2 DROP EACH EYE (09:57)
[2024-09-18] MEDS: CLORAZEPATE DIPOTASSIUM (*CRX) 3.75 MG TABLET PO ×2 (09:57→12:25)
[2024-09-18] MEDS: [UNRECOGNIZED DRUG - OTHER] 1 EACH PO (09:58)
[2024-09-18] MEDS: VIBEGRON 75 MG 75 EACH PO (09:58)
--- NOTE | 2024-09-18 10:55 | P.PNIM_ITS ---
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 #DM/hypoglycemia Continue metformin 500 mg p.o. b.i.d. Discontinue Lantus 20 units HS Low-dose sliding scale Hypoglycemic protocol Will calculate the insulin needs # anxiety and depression Continue sertraline 200 mg p.o. q.d. Continue venlafaxine 300 mg p.o. q.d. Continue Seroquel 50 mg p.o. HS # transaminitis increased LFTs Increase bilirubin order PT INR Reviewed ultrasound right upper quad Reviewed lipid panel, HbA1c and hepatitis panel possibly due to congestion Consult GI and appreciate recommendation Subjective Date/time seen: 09/18/24 10:55 Interval history: Currently on mild sliding scale. No episodes of hypoglycemia. Elevated LFTs including bilirubin. Consult GI and appreciate recommendation. Patient has episodes of hypertension and will increase lisinopril to 40 mg p.o. q.d. Review of Systems Review of Systems: 12 systems were reviewed and are negativ e except for as per HPI. Exam Narrative: General: well appearing, appears stated age. HEENT: normocephalic, atraumatic. Mucous membranes moist. EOMI, PERRLA, bilateral sclera anicteric, no conjunctival injection. Neck supple without JVD, lymphadenopathy, or bruit. Respiratory: clear to ascultation bilaterally. No rales/rhonic/wheezes. Cardiovascular: Regular rate and rhythm, normal S1-S2 upon ascultation. No murmurs, rubs, or clicks. PMI is nondisplaced, capillary refill less than 3 second. Abdomen: Soft, round, no pulsatile masses, nondistended and nontender. No rebound, no guarding. No CVA tenderness, no hepatosplenomegaly. Bowel sounds present to all four quadrants. No high pitch or tinkling sounds, resonant to percussion. Extremities: No cyanosis, clubbing, or edema present. Pulses are palpable 2/2. Right lower extremity with surgical dressing clean dry intact, limited range of motion due to pain Neuro: Alert and orientated x 4. PERRLA. Cranial nerves 2-12 intact without focal deficit. Skin: Warm, dry, and intact, without rash, erythema, or lesion. Psych: pleasant, cooperative, normal speech, normal affect, no hallucinations, no dysarthia Objective Data Vital Signs Vital Signs: Vital Signs - 24 hr 09/17/24 11:51 09/17/24 12:00 09/17/24 13:00 Temperature 97.6 F 98.7 F Pulse Rate 80 77 Respiratory Rate 18 Blood Pressure 135/51 L Pulse Oximetry 100 Oxygen Delivery 09/17/24 16:00 09/17/24 20:00 09/17/24 20:00 Temperature Pulse Rate 79 82 Respiratory Rate Blood Pressure Pulse Oximetry Oxygen Delivery Room Air 09/17/24 20:46 09/17/24 23:25 09/18/24 00:00 Temperature 98.1 F Pulse Rate 86 78 Respiratory Rate 18 Blood Pressure 192/78 H 158/70 H Pulse Oximetry 98 Oxygen Delivery 09/18/24 04:00 09/18/24 06:19 09/18/24 09:56 Temperature 98 F Pulse Rate 78 78 80 Respiratory Rate 16 Blood Pressure 144/86 H Pulse Oximetry 100 Oxygen Delivery Intake/Output Intake/Output: Intake & Output 09/15/24 09/16/24 09/17/24 09/18/24 23:59 23:59 23:59 23:59 Intake Total 2770 1000 600 540 Balance 2770 1000 600 540 Meds/Results Medications: Active Medications Generic Name Dose Route Start Last Admin Trade Name Freq PRN Reason Stop Dose Admin Apixaban 2.5 mg 09/15/24 09:00 09/18/24 09:54 Apixaban 2.5 Mg Tablet PO 09/26/24 21:01 2.5 mg Q12HR CADY Administration Atorvastatin Calcium 20 mg 09/15/24 09:00 09/18/24 09:56 Atorvastatin 20 Mg Tablet PO 20 mg DAILY CADY Administration Carvedilol 25 mg 09/14/24 21:00 09/18/24 09:56 Carvedilol 25 Mg Tablet PO 25 mg Q12HR CADY Administration Clorazepate Dipotassium 3.75 mg 09/14/24 17:00 09/18/24 09:57 Clorazepate Dipotassium (*Crx) 3.75 Mg Tablet PO 3.75 mg TID CADY Administration Cyclosporine 2 drop 09/14/24 21:00 09/18/24 09:57 Cyclosporine 0.4 Ml Ophth Solution EACH EYE 2 drop Q12H CADY Administration Dextrose 12.5 gm 09/17/24 14:28 Dextrose 50% 25 Gm/50 Ml Syringe IV PUSH PRN PRN Hypoglycemia Protocol Diphenhydramine HCl 25 mg 09/14/24 14:18 Diphenhydramine Hcl Inj 50 Mg/Ml Vial IV PUSH Q6H PRN Itching Donepezil HCl 20 mg 09/15/24 21:00 09/17/24 20:54 Donepezil Hcl 10 Mg Tablet PO 20 mg HS CADY Administration Doxycycline Hyclate 100 mg 09/16/24 09:00 09/18/24 09:54 Doxycycline Hyclate 100 Mg Tablet PO 100 mg Q12HR CADY Administration Famotidine 20 mg 09/17/24 13:00 09/18/24 09:56 Famotidine 20 Mg Tablet PO 20 mg TID CADY Administration Fluticasone Propionate 2 spray 09/14/24 14:32 Fluticasone Propionate 0.05% Na Spr 16 Gm Btl (*Bkc) NASAL DAILY PRN nasal congestion Gabapentin 1,200 mg 09/14/24 17:00 09/18/24 09:55 Gabapentin 400 Mg Capsule PO 1,200 mg TID CADY Administration Glucagon 1 mg 09/17/24 14:28 Glucagon For Inj 1 Mg Vial IM PRN PRN Hypoglycemia Protocol Glucose 15 gm 09/17/24 14:28 Glucose Oral Gel 15 Gm Of Glucse In 37.5 Gm Tube PO PRN PRN Hypoglycemia Protocol Hydralazine HCl 10 mg 09/17/24 05:27 09/17/24 05:35 Hydralazine Hcl 20 Mg/Ml Vial IV PUSH 10 mg Q4HR PRN Administration Blood Pressure - High Hydrochlorothiazide 12.5 mg 09/17/24 12:05 09/18/24 09:54 Hydrochlorothiazide 12.5 Mg Capsule PO 12.5 mg QAM CADY Administration Dextrose 1,000 mls @ 100 mls/hr 09/17/24 14:28 Dextrose 5% 1,000 Ml IVPB PRN PRN Hypoglycemia Protocol Insulin Aspart 2 - 5 units 09/17/24 17:00 09/18/24 09:45 Insulin Aspart (*Bkc) 100 Units/Ml SUB-Q Not Given TIDWM CADY Protocol Insulin Aspart 1 - 2 units 09/17/24 21:00 09/17/24 20:57 Insulin Aspart (*Bkc) 100 Units/Ml SUB-Q Not Given HS CADY Protocol Lisinopril 20 mg 09/15/24 09:00 09/18/24 09:54 Lisinopril 20 Mg Tablet PO 20 mg DAILY CADY Administration Metformin HCl 500 mg 09/14/24 17:00 09/18/24 09:55 Metformin Hcl 500 Mg Tablet PO 500 mg BID CADY Administration Naloxone HCl 0.1 mg 09/14/24 14:18 Naloxone Hcl 0.4 Mg/Ml Vial IV PUSH Q2M PRN Opiate Reversal * Use From Home * 75 mg 09/17/24 17:10 09/18/24 09:58 Vibegron [Gemtesa] PO 10/17/24 17:09 75 mg 75 Mg Tablet DAILY CADY Administration * Home Med * 1 gummy 09/17/24 17:05 09/18/24 09:58 Metamucil Fiber PO 10/17/24 17:04 1 gummy Gummies DAILY CADY Administration Ondansetron HCl 4 mg 09/14/24 14:18 Ondansetron Inj 4 Mg/2 Ml Vial IV PUSH Q4H PRN Nausea And Vomiting Oxycodone HCl 5 mg 09/14/24 19:00 09/18/24 10:04 Oxycodone Hcl (*Crx) 5 Mg Tab Ir PO 5 mg Q4H CADY Administration Oxycodone HCl 5 mg 09/15/24 14:09 Oxycodone Hcl (*Crx) 5 Mg Tab Ir PO Q4H PRN Pain Rated 4-10 Polyethylene Glycol 17 gm 09/15/24 09:00 09/18/24 09:58 Polyethylene Glycol 3350 17 Gm Powd.Pack PO Not Given QAM CADY Potassium Citrate 10 meq 09/14/24 17:00 09/18/24 09:56 Potassium Citrate 5 Meq Tab Cr PO 10 meq BID CADY Administration Quetiapine Fumarate 50 mg 09/14/24 21:00 09/17/24 20:54 Quetiapine Fumarate 25 Mg Tablet PO 50 mg HS CADY Administration Senna/Docusate Sodium 2 tab 09/14/24 17:00 09/18/24 09:56 Senna/Docusate Sodium Tablet PO 2 tab BID CADY Administration Sertraline HCl 200 mg 09/15/24 09:00 09/18/24 09:55 Sertraline Hcl 50 Mg Tablet PO 200 mg DAILY CADY Administration Venlafaxine HCl 300 mg 09/15/24 09:00 09/18/24 09:57 Venlafaxine Hcl Xr 75 Mg Cap.Er.24h PO 300 mg DAILY CADY Administration Vitamin D 2,000 units 09/15/24 09:00 09/18/24 09:56 Cholecalciferol 1,000 Units Tablet PO 2,000 units DAILY CADY Administration Radiology Results: ITS Impressions Knee X-Ray 09/14/24 12:22 IMPRESSION: No acute osseous abnormality right knee. Total knee arthroplasty. Head/Neck CTA 09/14/24 19:11 IMPRESSION: No acute intracranial process. 8 mm hypodense focus in the right thalamus likely representing a late subacute or early chronic focal infarct No large vessel intracranial occlusion, high-grade intracranial stenosis, or aneurysm. No carotid or vertebral artery occlusion, dissection, or significant stenosis. Multiple sub-6 mm pulmonary nodules, likely representing benign granulomas. If the patient is at high risk, consider an optional low-dose noncontrast CT of the chest follow-up in 12 months. Brain MRI 09/15/24 08:47 IMPRESSION: 1. Old lacunar infarct in the right thalamus. 2. Moderate nonspecific cerebral white matter disease and pontine disease, which likely represents chronic small vessel ischemic disease. Abdomen Ultrasound 09/16/24 18:27 IMPRESSION: Hepatomegaly. Otherwise, Unremarkable limited ultrasound of the abdomen. Labs Labs: Laboratory Results - last 24 hr 09/17/24 09/17/24 09/17/24 05:30 12:37 17:28 WBC RBC Hgb Hct MCV MCH MCHC RDW Plt Count MPV Immature Gran % (Auto) Neut % (Auto) Lymph % (Auto) [place] % (Auto) Eos % (Auto) Baso % (Auto) Lymph # (Auto) [place] # (Auto) Eos # (Auto) Baso # (Auto) Abs Immat Gran (auto) Absolute Neuts (auto) Absolute Nucleated RBC Nucleated RBC % Sodium Potassium Chloride Carbon Dioxide Anion Gap BUN Creatinine Estim Creat Clear Calc Estimated GFR Glucose POC Capillary Glucose 187 H 165 H Hemoglobin A1c 6.0 H Calcium Total Bilirubin AST ALT Alkaline Phosphatase Total Protein Albumin 09/17/24 09/18/24 09/18/24 20:11 05:42 09:16 WBC 5.9 RBC 3.30 L Hgb 9.5 L Hct 29.9 L MCV 90.6 MCH 28.8 MCHC 31.8 L RDW 13.1 Plt Count 206 MPV 10.3 Immature Gran % (Auto) 0.3 Neut % (Auto) 55.7 Lymph % (Auto) 29.6 [place] % (Auto) 10.5 H Eos % (Auto) 3.4 Baso % (Auto) 0.5 Lymph # (Auto) 1.74 [place] # (Auto) 0.6 Eos # (Auto) 0.2 Baso # (Auto) 0.0 Abs Immat Gran (auto) 0.02 Absolute Neuts (auto) 3.3 Absolute Nucleated RBC 0.000 Nucleated RBC % 0.0 Sodium 135 L Potassium 3.5 Chloride 101 Carbon Dioxide 29 Anion Gap 5 BUN 18 H Creatinine 0.63 L Estim Creat Clear Calc 58 Estimated GFR > 60 Glucose 148 H POC Capillary Glucose 182 H 143 H Hemoglobin A1c Calcium 8.9 Total Bilirubin 1.6 H AST 264 H ALT 258 H Alkaline Phosphatase 242 H Total Protein 6.0 L Albumin 3.1 L Quality VTE Prophylaxis VTE prophylaxis: mechanical ordered and pharmacologic ordered Hospitalist MIPS Advance Care Plan I have confirmed that the patient's Advanced Care Plan is present, code status is documented, or surrogate decision maker is listed in patient medical record.: Yes Medication Reconciliation I have utilized all available resources to obtain, update and review the patients current medications (includes all prescriptions, OTC, herbals, cannabis, and nutritional supplements).: Yes
[2024-09-18 12:14] LABS: Glucose Point of Care 175 mg/dl (65-105)
--- NOTE | 2024-09-18 12:30 | PM.PNORT ---
Progress Note: A&P Assessment and Plan (1) History of total right knee replacement (TKR): Code(s): Z96.651 - Presence of right artificial knee joint Status: Acute Assessment and Plan: Postop day 5. After total knee arthroplasty. Blood pressure went up to 192/78 at 10:30 p.m. last night. Her lisinopril has been increased this morning to 40 mg daily from 20 by the hospitalist. Patient's transaminases have remained in the mid 200s. Her bilirubin went up a little bit this morning and GI was consulted and Dr. Campbell has seen her and communicated with the nurse that she is okay to be discharged today but I have not seen a completed note to review the recommendations. Her wound is dry. She had the one 2 cm spot of bleeding the 1st night and it has been unchanged. I changed the Aquacel dressing today in the wound edges look perfect. She has intact neurologic function is able to do a straight leg raise. She is feeling well and she feels she did very well in therapy yesterday and she is bearing full weight on the right leg as tolerated. She complains of poor pain control mainly during the flexion exercises. She notes that she has always needed higher doses of narcotics to control her pain. We have oxycodone 5 mg q.4 hours scheduled ordered for her and 5 mg q.4 hours as needed for breakthrough pain 7 to 04/15. We are not using Tylenol because of her increase transaminases. I am also going to discontinue her doxycycline that we have used for extended oral antibiotic prophylaxis against infection as this can cause elevation of liver enzymes as well. She is stable from an orthopedic standpoint for transfer to the [address] [place], [place] [address]ab facility today. Subjective Subjective Date/Time Seen: 09/18/24 12:30 Objective Data Vital Signs Vital Signs: Vital Signs - 24 hr 09/17/24 13:00 09/17/24 16:00 09/17/24 20:00 Temperature 37.1 C Pulse Rate 79 Respiratory Rate Blood Pressure Pulse Oximetry Oxygen Delivery Room Air 09/17/24 20:00 09/17/24 20:46 09/17/24 23:25 Temperature 36.7 C Pulse Rate 82 86 Respiratory Rate 18 Blood Pressure 192/78 H 158/70 H Pulse Oximetry 98 Oxygen Delivery 09/18/24 00:00 09/18/24 04:00 09/18/24 06:19 Temperature 36.6 C Pulse Rate 78 78 78 Respiratory Rate 16 Blood Pressure 144/86 H Pulse Oximetry 100 Oxygen Delivery 09/18/24 09:56 Temperature Pulse Rate 80 Respiratory Rate Blood Pressure Pulse Oximetry Oxygen Delivery Intake/Output Intake/Output: Intake & Output 09/15/24 09/16/24 09/17/24 09/18/24 23:59 23:59 23:59 23:59 Intake Total 2770 1000 600 540 Balance 2770 1000 600 540 Meds/Results Medications: Active Medications Generic Name Dose Route Start Last Admin Trade Name Freq PRN Reason Stop Dose Admin Apixaban 2.5 mg 09/15/24 09:00 09/18/24 09:54 Apixaban 2.5 Mg Tablet PO 09/26/24 21:01 2.5 mg Q12HR CADY Administration Atorvastatin Calcium 20 mg 09/15/24 09:00 09/18/24 09:56 Atorvastatin 20 Mg Tablet PO 20 mg DAILY CADY Administration Carvedilol 25 mg 09/14/24 21:00 09/18/24 09:56 Carvedilol 25 Mg Tablet PO 25 mg Q12HR CADY Administration Clorazepate Dipotassium 3.75 mg 09/14/24 17:00 09/18/24 12:25 Clorazepate Dipotassium (*Crx) 3.75 Mg Tablet PO 3.75 mg TID CADY Administration Cyclosporine 2 drop 09/14/24 21:00 09/18/24 09:57 Cyclosporine 0.4 Ml Ophth Solution EACH EYE 2 drop Q12H CADY Administration Dextrose 12.5 gm 09/17/24 14:28 Dextrose 50% 25 Gm/50 Ml Syringe IV PUSH PRN PRN Hypoglycemia Protocol Diphenhydramine HCl 25 mg 09/14/24 14:18 Diphenhydramine Hcl Inj 50 Mg/Ml Vial IV PUSH Q6H PRN Itching Donepezil HCl 20 mg 09/15/24 21:00 09/17/24 20:54 Donepezil Hcl 10 Mg Tablet PO 20 mg HS CADY Administration Famotidine 20 mg 09/17/24 13:00 09/18/24 12:26 Famotidine 20 Mg Tablet PO 20 mg TID CADY Administration Fluticasone Propionate 2 spray 09/14/24 14:32 Fluticasone Propionate 0.05% Na Spr 16 Gm Btl (*Bkc) NASAL DAILY PRN nasal congestion Gabapentin 1,200 mg 09/14/24 17:00 09/18/24 12:25 Gabapentin 400 Mg Capsule PO 1,200 mg TID CADY Administration Glucagon 1 mg 09/17/24 14:28 Glucagon For Inj 1 Mg Vial IM PRN PRN Hypoglycemia Protocol Glucose 15 gm 09/17/24 14:28 Glucose Oral Gel 15 Gm Of Glucse In 37.5 Gm Tube PO PRN PRN Hypoglycemia Protocol Hydralazine HCl 10 mg 09/17/24 05:27 09/17/24 05:35 Hydralazine Hcl 20 Mg/Ml Vial IV PUSH 10 mg Q4HR PRN Administration Blood Pressure - High Hydrochlorothiazide 12.5 mg 09/17/24 12:05 09/18/24 09:54 Hydrochlorothiazide 12.5 Mg Capsule PO 12.5 mg QAM CADY Administration Dextrose 1,000 mls @ 100 mls/hr 09/17/24 14:28 Dextrose 5% 1,000 Ml IVPB PRN PRN Hypoglycemia Protocol Insulin Aspart 2 - 5 units 09/17/24 17:00 09/18/24 12:27 Insulin Aspart (*Bkc) 100 Units/Ml SUB-Q Not Given TIDWM CADY Protocol Insulin Aspart 1 - 2 units 09/17/24 21:00 09/17/24 20:57 Insulin Aspart (*Bkc) 100 Units/Ml SUB-Q Not Given HS CADY Protocol Lisinopril 40 mg 09/19/24 09:00 Lisinopril 20 Mg Tablet PO DAILY CADY Metformin HCl 500 mg 09/14/24 17:00 09/18/24 09:55 Metformin Hcl 500 Mg Tablet PO 500 mg BID CADY Administration Naloxone HCl 0.1 mg 09/14/24 14:18 Naloxone Hcl 0.4 Mg/Ml Vial IV PUSH Q2M PRN Opiate Reversal * Use From Home * 75 mg 09/17/24 17:10 09/18/24 09:58 Vibegron [Gemtesa] PO 10/17/24 17:09 75 mg 75 Mg Tablet DAILY CADY Administration * Home Med * 1 gummy 09/17/24 17:05 09/18/24 09:58 Metamucil Fiber PO 10/17/24 17:04 1 gummy Gummies DAILY CADY Administration Ondansetron HCl 4 mg 09/14/24 14:18 Ondansetron Inj 4 Mg/2 Ml Vial IV PUSH Q4H PRN Nausea And Vomiting Oxycodone HCl 5 mg 09/14/24 19:00 09/18/24 10:04 Oxycodone Hcl (*Crx) 5 Mg Tab Ir PO 5 mg Q4H CADY Administration Oxycodone HCl 5 mg 09/15/24 14:09 Oxycodone Hcl (*Crx) 5 Mg Tab Ir PO Q4H PRN Pain Rated 4-10 Polyethylene Glycol 17 gm 09/15/24 09:00 09/18/24 09:58 Polyethylene Glycol 3350 17 Gm Powd.Pack PO Not Given QAM CADY Potassium Citrate 10 meq 09/14/24 17:00 09/18/24 09:56 Potassium Citrate 5 Meq Tab Cr PO 10 meq BID CADY Administration Quetiapine Fumarate 50 mg 09/14/24 21:00 09/17/24 20:54 Quetiapine Fumarate 25 Mg Tablet PO 50 mg HS CADY Administration Senna/Docusate Sodium 2 tab 09/14/24 17:00 09/18/24 09:56 Senna/Docusate Sodium Tablet PO 2 tab BID CADY Administration Sertraline HCl 200 mg 09/15/24 09:00 09/18/24 09:55 Sertraline Hcl 50 Mg Tablet PO 200 mg DAILY CADY Administration Venlafaxine HCl 300 mg 09/15/24 09:00 09/18/24 09:57 Venlafaxine Hcl Xr 75 Mg Cap.Er.24h PO 300 mg DAILY CADY Administration Vitamin D 2,000 units 09/15/24 09:00 09/18/24 09:56 Cholecalciferol 1,000 Units Tablet PO 2,000 units DAILY CADY Administration Radiology Results: ITS Impressions Knee X-Ray 09/14/24 12:22 IMPRESSION: No acute osseous abnormality right knee. Total knee arthroplasty. Head/Neck CTA 09/14/24 19:11 IMPRESSION: No acute intracranial process. 8 mm hypodense focus in the right thalamus likely representing a late subacute or early chronic focal infarct No large vessel intracranial occlusion, high-grade intracranial stenosis, or aneurysm. No carotid or vertebral artery occlusion, dissection, or significant stenosis. Multiple sub-6 mm pulmonary nodules, likely representing benign granulomas. If the patient is at high risk, consider an optional low-dose noncontrast CT of the chest follow-up in 12 months. Brain MRI 09/15/24 08:47 IMPRESSION: 1. Old lacunar infarct in the right thalamus. 2. Moderate nonspecific cerebral white matter disease and pontine disease, which likely represents chronic small vessel ischemic disease. Abdomen Ultrasound 09/16/24 18:27 IMPRESSION: Hepatomegaly. Otherwise, Unremarkable limited ultrasound of the abdomen. Labs Labs: Laboratory Results - last 24 hr 09/17/24 09/17/24 09/17/24 05:30 12:37 17:28 WBC RBC Hgb Hct MCV MCH MCHC RDW Plt Count MPV Immature Gran % (Auto) Neut % (Auto) Lymph % (Auto) Overton % (Auto) Eos % (Auto) Baso % (Auto) Lymph # (Auto) [place]ton # (Auto) Eos # (Auto) Baso # (Auto) Abs Immat Gran (auto) Absolute Neuts (auto) Absolute Nucleated RBC Nucleated RBC % Sodium Potassium Chloride Carbon Dioxide Anion Gap BUN Creatinine Estim Creat Clear Calc Estimated GFR Glucose POC Capillary Glucose 187 H 165 H Hemoglobin A1c 6.0 H Calcium Total Bilirubin AST ALT Alkaline Phosphatase Total Protein Albumin 09/17/24 09/18/24 09/18/24 20:11 05:42 09:16 WBC 5.9 RBC 3.30 L Hgb 9.5 L Hct 29.9 L MCV 90.6 MCH 28.8 MCHC 31.8 L RDW 13.1 Plt Count 206 MPV 10.3 Immature Gran % (Auto) 0.3 Neut % (Auto) 55.7 Lymph % (Auto) 29.6 Overton % (Auto) 10.5 H Eos % (Auto) 3.4 Baso % (Auto) 0.5 Lymph # (Auto) 1.74 Overton # (Auto) 0.6 Eos # (Auto) 0.2 Baso # (Auto) 0.0 Abs Immat Gran (auto) 0.02 Absolute Neuts (auto) 3.3 Absolute Nucleated RBC 0.000 Nucleated RBC % 0.0 Sodium 135 L Potassium 3.5 Chloride 101 Carbon Dioxide 29 Anion Gap 5 BUN 18 H Creatinine 0.63 L Estim Creat Clear Calc 58 Estimated GFR > 60 Glucose 148 H POC Capillary Glucose 182 H 143 H Hemoglobin A1c Calcium 8.9 Total Bilirubin 1.6 H AST 264 H ALT 258 H Alkaline Phosphatase 242 H Total Protein 6.0 L Albumin 3.1 L 09/18/24 12:10 WBC RBC Hgb Hct MCV MCH MCHC RDW Plt Count MPV Immature Gran % (Auto) Neut % (Auto) Lymph % (Auto) Overton % (Auto) Eos % (Auto) Baso % (Auto) Lymph # (Auto) Overton # (Auto) Eos # (Auto) Baso # (Auto) Abs Immat Gran (auto) Absolute Neuts (auto) Absolute Nucleated RBC Nucleated RBC % Sodium Potassium Chloride Carbon Dioxide Anion Gap BUN Creatinine Estim Creat Clear Calc Estimated GFR Glucose POC Capillary Glucose 175 H Hemoglobin A1c Calcium Total Bilirubin AST ALT Alkaline Phosphatase Total Protein Albumin
--- NOTE | 2024-09-18 12:52 | WPDGICN ---
Assessment and Plan Assessment and plan (1) Transaminitis: Code(s): R74.01 - Elevation of levels of liver transaminase levels Status: Acute Assessment and Plan: probably multifactorial from recent surgery, medications used, etc ultrasound reviewed she had normal liver enzymes prior surgery recommend to repeat in 1-2 weeks and monitor, if still elevated then she can see us in office no objections to discharge to rehab facility (2) CHF (congestive heart failure): Onset Date: ~2017 Code(s): I50.9 - Heart failure, unspecified Status: Acute (3) Hypertension: Code(s): I10 - Essential (primary) hypertension Status: Acute (4) 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 She also has CHF which is stable and HTN, also noted initially hypoglycemia that required treatment. Noted new elevatation of liver enzymes (weeks prior surgery normal values), denies h/o liver disease, alcohol use. Abdominal us showed hepatomegaly. She denies abdominal pain and has good appetite. Plan is to go to rehab soon. Review of Systems Constitutional: Constitutional: Denies body ache(s) Eyes: Eyes: Reports blurry vision (resolved) ENT: Reports Normal hearing present Cardiovascular: Cardiovascular: Denies chest pain Respiratory: Respiratory: Denies chest congestion Gastrointestinal: Gastrointestinal: Denies abdominal pain Genitourinary: Genitourinary: Denies urinary urgency Musculoskeletal: Musculoskeletal: Reports arthralgias (rt knee surgery) Integumentary/Breasts: Skin/Breast: Denies rash Neurologic: Denies Abnormal speech present [facility] Past Medical History Medical History Hypertension Dr Donis Leg weakness, bilateral Lumbar pain Rectal prolapse Mild Hearing loss Dr. Miller Degenerative joint disease (DJD) of lumbar spine Dr. Barrera and Dr Naseer Urinary incontinence Osteoporosis Started on alendronate July 2021, Dr. Barrera DEB (obstructive sleep apnea) Dr. Barrera Multiple lipomas Candidal skin infection Right pannus History of recurrent UTIs Dr. 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 Diabetes mellitus with nephropathy Hypokalemia Hypomagnesemia CHF (congestive heart failure) (~2017) Dr Donis Syncope Hypotension Hyperlipidemia BMI 40.0-44.9, adult (10/09/16) Shortness of breath Influenza Cramp of both lower extremities Cough Insomnia Dr Francis Peripheral edema Palpitations Fibromyalgia Dr Barrera Anxiety and depression Dr Francis Surgical History Surgical History S/P STEVEN-BSO (~1985) Fibroids History of detached retina repair (~2008) History of cataract surgery (~2008) History of cholecystectomy (~1998) History of appendectomy Family History Family History Father Diabetes mellitus Hypertension Heart disease Cerebrovascular accident Sibling Diabetes mellitus Hypertension Daughter Hypertension Depression Anxiety Social History Social History Social History: 09/05/24 very confident with medical forms/has received assistance for care for elder or disabled, food, medications and paying utility bills Smoking status: Never smoker Alcohol intake: never Drinks per week: 0 Alcohol use details: 0 Substance use: never Substance use type: does not use Other substance usage details: does not use Last use: does not use Do You Feel Safe in your Home?: Yes Lack of Transportation: No Lack of Food: Never True Current Housing: I Have Housing Concerned About Future Housing: No Difficulty Paying Gas/Electric Bills: No Difficulty Paying for Meds: No Currently Unemployed: No Education: High School Diploma/GED Difficulty w/ Childcare or Family Care: No Living arrangements: alone Occupation/Education: retired Gender identity (if verbalized by the patient): Female Spiritual care concerns: No Meds Home Medications and Allergies Home Medications ?Medication ?Instructions ?Recorded ?Confirmed ?Type magnesium oxide 400 mg PO BID 04/16/23 09/14/24 History ascorbic acid (vitamin C) 500 mg 500 mg PO DAILY 07/09/23 09/14/24 History capsule biotin 1,000 mcg chewable tablet 1,000 mcg PO TID 07/09/23 09/14/24 History calcium carbonate (Calcium 600) 600 mg PO DAILY 07/09/23 09/14/24 History flaxseed oil 1,000 mg capsule 1,000 mg PO DAILY 07/09/23 09/14/24 History guaifenesin 600 mg tablet, 600 mg PO Q12H PRN congestion 07/09/23 09/13/24 History extended release 12 hr (Mucinex) multivitamin 1 tablet PO DAILY 07/09/23 09/14/24 History nystatin 100,000 unit/gram topical 1 applic topical BID PRN skin 07/09/23 09/14/24 History powder irritation blood-glucose sensor (FreeStyle #6 ea 08/21/23 09/13/24 Rx Conchis 3 Sensor device) cholecalciferol (vitamin D3) 25 50 mcg PO DAILY 08/22/23 09/14/24 History mcg (1,000 unit) capsule alendronate 70 mg tablet 70 mg PO WEEKLY 02/04/24 09/14/24 History carvedilol 25 mg tablet 25 mg PO BID 02/04/24 09/14/24 History clorazepate dipotassium 3.75 mg 3.75 mg PO TID 02/04/24 09/14/24 History tablet cyclosporine 0.05 % eye drops in a 2 drp EACH EYE Q12H 02/04/24 09/14/24 History dropperette donepezil 10 mg tablet 20 mg PO DAILY 02/04/24 09/14/24 History gabapentin 600 mg tablet 1,200 mg PO TID 02/04/24 09/14/24 History hydrochlorothiazide 12.5 mg tablet 12.5 mg PO DAILY 02/04/24 09/14/24 History lisinopril 20 mg tablet 20 mg PO DAILY 02/04/24 09/14/24 History mecobalamin (vitamin B12) 1,000 1,000 mcg PO DAILY #30 tabs 02/04/24 09/13/24 Rx mcg chewable tablet methenamine hippurate 1 gram 1 g PO BID 02/04/24 09/14/24 History tablet (Hiprex) quetiapine 25 mg tablet 50 mg PO HS 02/04/24 09/14/24 History venlafaxine 150 mg 300 mg PO DAILY 02/04/24 09/14/24 History capsule,extended release 24 hr vibegron 75 mg tablet (Gemtesa) 75 mg PO DAILY 02/04/24 09/14/24 History zolpidem 10 mg tablet 10 mg PO HS 02/04/24 09/14/24 History psyllium husk 0.52 gram capsule 0.52 g PO DAILY 02/18/24 09/14/24 History sertraline 100 mg tablet 200 mg PO DAILY 02/18/24 09/14/24 History pen needle, diabetic 31 gauge x #100 ea 05/19/24 09/13/24 Rx 5/16 (BD Ultra-Fine Short Pen Needle) famotidine 20 mg tablet 20 mg PO TID #270 tabs 07/05/24 09/14/24 Rx insulin glargine U-300 conc 300 20 unit (0.0667 mL) subcut 07/05/24 09/14/24 Rx unit/mL (1.5 mL) subcutaneous pen .bedtime was never discontinued (Niyah Joe U-300 Insulin) #4.5 mL metformin 500 mg tablet 500 mg PO BID #180 tabs 07/16/24 09/14/24 Rx cyclobenzaprine 5 mg tablet 5 mg PO QHS PRN muscle spasm #20 07/22/24 09/14/24 Rx tabs dexamethasone 0.5 mg/5 mL oral 0.25 mg PO Q6H PRN MOUTH SORES 08/09/24 09/13/24 History elixir fluticasone furoate 27.5 2 spray intranasal DAILY PRN nasal 08/09/24 09/13/24 History mcg/actuation nasal congestion spray,suspension (Flonase Sensimist) tramadol 25 mg tablet 25 mg PO Q6H PRN pain #40 tabs 08/12/24 09/13/24 Rx potassium citrate 10 mEq (1,080 10 meq PO BID #180 tabs 08/19/24 09/14/24 Rx mg) tablet,extended release semaglutide 2 mg/dose (8 mg/3 mL) 2 mg (0.75 mL) subcut WEEKLY #3 mL 08/19/24 09/14/24 Rx subcutaneous pen injector atorvastatin 20 mg tablet 20 mg PO DAILY #90 tabs 09/02/24 09/14/24 Rx oxycodone 5 mg tablet 5 mg PO Q4H #40 tabs 09/17/24 Rx Allergies Allergy/AdvReac Type Severity Reaction Status Date / Time cephalexin Allergy Mild Hives Verified 09/14/24 17:23 nitrofurantoin Allergy Mild Hives Verified 09/14/24 17:23 cefdinir Allergy Unknown Rash Verified 09/14/24 17:23 Vital Signs Vital Signs - 24 hr 09/17/24 13:00 09/17/24 16:00 09/17/24 20:00 Temperature 98.7 F Pulse Rate 79 Respiratory Rate Blood Pressure Pulse Oximetry Oxygen Delivery Room Air 09/17/24 20:00 09/17/24 20:46 09/17/24 23:25 Temperature 98.1 F Pulse Rate 82 86 Respiratory Rate 18 Blood Pressure 192/78 H 158/70 H Pulse Oximetry 98 Oxygen Delivery 09/18/24 00:00 09/18/24 04:00 09/18/24 06:19 Temperature 98 F Pulse Rate 78 78 78 Respiratory Rate 16 Blood Pressure 144/86 H Pulse Oximetry 100 Oxygen Delivery 09/18/24 09:56 Temperature Pulse Rate 80 Respiratory Rate Blood Pressure Pulse Oximetry Oxygen Delivery Exam Const: General: comfortable and no acute distress HENMT: Mouth: Yes moist mucous membranes Eyes: General: appearance normal, both eyes and all related structures Sclera: sclerae normal Neck: Neck: supple Resp: Effort & Inspection: normal respiratory effort Cardio: Rate: regular rate Rhythm: regular rhythm Heart sounds: no murmurs GI: GI Palp: Yes Soft to palpation and No Tenderness to palpation present (GI) Auscultation: normal bowel sounds Skin: General skin exam: normal color Neuro: Speech: normal speech Extrem: Other: rt knee surgery Psych: Mental Status: mental status grossly normal Affect: normal affect Results Labs 09/18/24 05:42 09/18/24 05:42 Labs: Short CBC 09/18/24 Range/Units 05:42 WBC 5.9 (4.5-10.0) K/mm3 Hgb 9.5 L (12.0-15.0) g/dL Hct 29.9 L (37.0-47.0) % Plt Count 206 (150-375) k/mm3 BMP 09/18/24 05:42 Sodium 135 L Potassium 3.5 Chloride 101 Carbon Dioxide 29 BUN 18 H Creatinine 0.63 L Glucose 148 H Calcium 8.9 Liver Function 09/18/24 Range/Units 05:42 Total Bilirubin 1.6 H (0.2-1.3) mg/dL AST 264 H (14-36) U/L ALT 258 H (6-35) U/L Alkaline Phosphatase 242 H (38-126) U/L Albumin 3.1 L (3.5-5.1) g/dL
--- NOTE | 2024-09-18 14:26 | P.DS_ITS ---
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 After surgery patient started complaining of blurry vision. Patient states that she is doing well after surgery had a little bit of pain and swelling in her right lower extremity. When questioned about blurry vision she states that her vision was blurry whenever she 1st got out of surgery and she was worried about it. We question for more details after this CTA patient states that this does happen to her from time to time her last couple years. The blurry vision is not new and spontaneous early results. CT shows No acute intracranial process. 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 Multiple sub-6 mm pulmonary nodules, likely representing benign granulomas. If the patient is at high risk, consider an optional low-dose noncontrast CT of the chest follow-up in 12 months. Orthopedics consulted hospitalist for managing medical management. #Patient underwent Right total knee arthroplasty on 09/14/2024 Management as per Ortho #Chronic heart failure with preserved LVEF Euvolemic Continue Coreg 25 mg PO BID Increased Lisinopril 20 to 40 mg PO QD Advised to titrate as per PCP # Essential hypertension Possibly due to postoperative pain Episodes of hypertension Continue Coreg 25 mg PO BID Increased Lisinopril 20 to 40 mg PO QD Titrate as OP #Hyperlipidemia Continue statin. #DM/hypoglycemia Continue metformin 500 mg p.o. b.i.d. Discontinue Lantus 20 units HS Managed with Low-dose sliding scale in hospital DC with Lantus 10 U HS and adjust as OP Hypoglycemic protocol # anxiety and depression Continue sertraline 200 mg p.o. q.d. Continue venlafaxine 300 mg p.o. q.d. Continue Seroquel 50 mg p.o. HS # transaminitis increased LFTs Increase bilirubin order PT INR Reviewed ultrasound right upper quad Reviewed lipid panel, HbA1c and hepatitis panel possibly due to congestion Consult GI Repeat CMP in a week Medical standpoint discharge instructions: 1) Please repeat CMP in a week, if your liver enzymes elevated please consult your PCP or GI () 2) I increased your lisinopril from 20mg to 40mg. Please keep rechecking your BP at least 5 times a times and write it down in paper and bring it your PCP and adjust your BP medication as needed. 3)Due to hypoglycemia during hospitalization ,I will discharge the patient Lantus 10 U HS not 20 U. Please write your night and morning blood glucose and take it your PCP and adjust your insulin as needed. Status at Discharge Cognitive/behavioral status at discharge: Stable Time Spent with Patient Time attestation: Total time spent providing and/or coordinating discharge services:45 minutes Exam Narrative: General: well appearing, appears stated age. HEENT: normocephalic, atraumatic. Mucous membranes moist. EOMI, PERRLA, bilateral sclera anicteric, no conjunctival injection. Neck supple without JVD, lymphadenopathy, or bruit. Respiratory: clear to ascultation bilaterally. No rales/rhonic/wheezes. Cardiovascular: Regular rate and rhythm, normal S1-S2 upon ascultation. No murmurs, rubs, or clicks. PMI is nondisplaced, capillary refill less than 3 second. Abdomen: Soft, round, no pulsatile masses, nondistended and nontender. No rebound, no guarding. No CVA tenderness, no hepatosplenomegaly. Bowel sounds present to all four quadrants. No high pitch or tinkling sounds, resonant to percussion. Extremities: No cyanosis, clubbing, or edema present. Pulses are palpable 2/2. Right lower extremity with surgical dressing clean dry intact, limited range of motion due to pain Neuro: Alert and orientated x 4. PERRLA. Cranial nerves 2-12 intact without focal deficit. Skin: Warm, dry, and intact, without rash, erythema, or lesion. Psych: pleasant, cooperative, normal speech, normal affect, no hallucinations, no dysarthia DS: Data Data Completed and Pending Labs on day of discharge: Labs from last 24 hours 09/18/24 09/18/24 09/18/24 12:10 09:16 05:42 WBC 5.9 RBC 3.30 L Hgb 9.5 L Hct 29.9 L MCV 90.6 MCH 28.8 MCHC 31.8 L RDW 13.1 Plt Count 206 MPV 10.3 Immature Gran % (Auto) 0.3 Neut % (Auto) 55.7 Lymph % (Auto) 29.6 Hood % (Auto) 10.5 H Eos % (Auto) 3.4 Baso % (Auto) 0.5 Lymph # (Auto) 1.74 Hood # (Auto) 0.6 Eos # (Auto) 0.2 Baso # (Auto) 0.0 Abs Immat Gran (auto) 0.02 Absolute Neuts (auto) 3.3 Absolute Nucleated RBC 0.000 Nucleated RBC % 0.0 Sodium 135 L Potassium 3.5 Chloride 101 Carbon Dioxide 29 Anion Gap 5 BUN 18 H Creatinine 0.63 L Estim Creat Clear Calc 58 Estimated GFR > 60 Glucose 148 H POC Capillary Glucose 175 H 143 H Hemoglobin A1c Calcium 8.9 Total Bilirubin 1.6 H AST 264 H ALT 258 H Alkaline Phosphatase 242 H Total Protein 6.0 L Albumin 3.1 L 09/17/24 09/17/24 09/17/24 20:11 17:28 05:30 WBC RBC Hgb Hct MCV MCH MCHC RDW Plt Count MPV Immature Gran % (Auto) Neut % (Auto) Lymph % (Auto) Hood % (Auto) Eos % (Auto) Baso % (Auto) Lymph # (Auto) Hood # (Auto) Eos # (Auto) Baso # (Auto) Abs Immat Gran (auto) Absolute Neuts (auto) Absolute Nucleated RBC Nucleated RBC % Sodium Potassium Chloride Carbon Dioxide Anion Gap BUN Creatinine Estim Creat Clear Calc Estimated GFR Glucose POC Capillary Glucose 182 H 165 H Hemoglobin A1c 6.0 H Calcium Total Bilirubin AST ALT Alkaline Phosphatase Total Protein Albumin Discharge Plan Discharge Attending physician on discharge: Gideon Lopez Consulting providers: Sandra Dominguez; Blanca Helms; Julius Vincent Discharging Clinician: Jerry Crouch Patient Disposition: Inpatient Rehab Facility Activity: may shower Diet: as tolerated Wound Care Instructions: follow printed instructions and other - see discharge instructions Discharge Instructions: GIDEON LOPEZ M.D [facility] [address] [address] [place] [address] [facility] Physical Therapy: Please focus on achieving full flexion and full extension of her right knee. Please teacher how to do the chair stretch exercise where she sits in a chair pulls her right foot under the chair and slides her buttocks forward putting weight onto the bent knee to achieve greater flexion and holding it a count of 10. Quad sets, straight leg raises, and heel slides. please review postoperative just charge instructions listed below and ensured patient complaining with these. She has chronic edema in her lower extremities and it will be particularly important that she not spend long period of time sitting in the chair during the 1st 2 weeks of surgery or her leg will swell excessively Additional Medication instructions: 1. After Eliquis is discontinued, (orthopedics will decide that at her postop office visit 13 days after surgery), start 81 mg enteric-coated baby aspirin 1 every 12 hours for 4 additional weeks. 2. Please administer the oxycodone 5 mg every 4 hours on a scheduled basis during the 1st 10 days and after this it can be changed to p.r.n.. Patient may have a 2nd 5 mg tablet in addition to the scheduled tablet q.4 hours for breakthrough pain greater or equal top 7 out of 10. Laboratory orders: 1. CMP on the 09/25/2024. POST-OPERATIVE DISCHARGE INSTRUCTIONS TOTAL KNEE ARTHROPLASTY 1. When resting, do not rest in the chair.When resting, lie on your back, with back flat on the couch or bed, with leg elevated above heart to minimize swelling. You may put a pillow under your head. . Significant swelling could indicate a blood clot and if this occurs call the office (or go to the ER) to have a venous ultrasound. Therefore, do not rest in a chair. 2. At least five times a day spend several minutes stretching your knee into flexion while sitting in the chair and also stretching your knee out straight The abilities to bend your knee fully and straighten your knee fully are two most important knee functions to focus on during your recovery. 3. It is ok to sit in chair to eat, use the toilet and receive a guest and to do your stretching exercises, but, sitting in a chair will cause your leg to swell. Therefore, avoid additional time sitting in the chair. and don't rest in the chair. 4. Wound Care: Nursing will give you an additional Mepilex/Aquacell dressing at the time of discharge. It is normal to see a small amount of blood on the silver pad of the Mepilex/Aquacell dressing. Its designed to hold small spots of blood. However, if the blood reaches the edge of the pad up to the boarder of the clear membrane that surrounds the pad, the pad is saturated and the Mepilex/Aqucell dressing should be removed and a new Mepilex/Aquacell dressing should be applied. Otherwise, she can leave the Aquacel dressing in place until she sees me at the office on 09/27. 5. May shower with a Mepilex/Aquacell dressing in place.The water will run off the dressing. 6. Unless you are told otherwise, you may put full weight on your operated leg. Use a walker for balance and practice walking as normally as you can, ideally for a few minutes every hour while you are awake. 7. I would advise against putting ice packs on your knee incision. Ice constricts blood flow which can impar healing of the knee incision. IMPORTANT: Remember not to sit in the chair for more than 30 minutes at a time. As a rule, during the first 14 days after surgery, only sit in the chair to work on the chair knee bending stretch exercise, for meals or for use of the restroom. Sitting in the chair promotes significant swelling in the knee and leg which will make your knee stiff and more painful and which simulates having a blood clot in the veins of the leg. If this type of significant diffuse swelling occurs, an ultrasound at the hospital will be necessary to rule out a blood clot. Be up walking around with the walker for a few minutes every hour while awake and then rest laying on your back on the couch or in bed with your leg elevated on cushions or pillows. Do not rest in the chair. IMPORTANT: note that the radiologist's recommended considering CT of the chest in 12 months because of the multiple tiny pulmonary nodules which were likely benign granulomas but cannot rule out cancer lesions. Medical standpoint discharge instructions: 1) Please repeat CMP in a week, if your liver enzymes elevated please consult your PCP or GI () 2) I increased your lisinopril from 20mg to 40mg. Please keep rechecking your BP at least 5 times a times and write it down in paper and bring it your PCP and adjust your BP medication as needed. 3)Due to hypoglycemia during hospitalization ,I will discharge the patient Lantus 10 U HS not 20 U. Please write your night and morning blood glucose and take it your PCP and adjust your insulin as needed. Patient Instructions: Apixaban (By mouth) Patient Language: Slovenian Stand Alone Forms: General Discharge Information Follow-up/Referrals: Gideon Lopez MD [Physician] - 09/27/24 Discharge Medications: New sennosides-docusate sodium [Senokot-S] 8.6-50 mg Tablet 2 tab-cap PO BID Qty: 60 0RF Eliquis 2.5 mg Tablet 2.5 mg PO Q12HR Qty: 28 0RF polyethylene glycol 3350 [Miralax] 17 gram Powder In Packet 17 g PO QAM Qty: 30 0RF oxycodone 5 mg Tablet 5 mg PO Q4H Qty: 40 0RF famotidine 20 mg Tablet 20 mg PO TID Qty: 120 0RF lisinopril 20 mg Tablet 40 mg PO DAILY Qty: 30 0RF insulin glargine [Lantus Solostar U-100 Insulin] 100 unit/mL (3 mL) insulin pen 10 unit subcut QPM Qty: 15 0RF Continued magnesium oxide 400 mg magnesium Capsule 400 mg PO BID ascorbic acid (vitamin C) 500 mg capsule 500 mg PO DAILY biotin 1,000 mcg tablet,chewable 1,000 mcg PO TID guaifenesin [Mucinex] 600 mg tablet extended release 12hr 600 mg PO Q12H PRN (Reason: congestion) multivitamin Tablet 1 tablet PO DAILY calcium carbonate [Calcium 600] 600 mg calcium (1,500 mg) tablet 600 mg PO DAILY cholecalciferol (vitamin D3) 25 mcg (1,000 unit) capsule 50 mcg PO DAILY mecobalamin (vitamin B12) 1,000 mcg tablet,chewable 1,000 mcg PO DAILY Qty: 30 0RF alendronate 70 mg tablet 70 mg PO WEEKLY Rx Instructions: Prescribed by: ASHLEY carvedilol 25 mg tablet 25 mg PO BID Rx Instructions: Prescribed by: LUKE clorazepate dipotassium 3.75 mg tablet 3.75 mg PO TID Rx Instructions: Prescribed by: KAREN cyclosporine 0.05 % dropperette 2 drp EACH EYE Q12H Rx Instructions: Prescribed by: TOOTIE donepezil 10 mg tablet 20 mg PO DAILY Rx Instructions: Prescribed by KAREN gabapentin 600 mg tablet 1,200 mg PO TID Rx Instructions: Prescribed by ASHLEY hydrochlorothiazide 12.5 mg tablet 12.5 mg PO DAILY Patient Comments: QAM Rx Instructions: Prescribed by: LUKE quetiapine 25 mg tablet 50 mg PO HS Rx Instructions: Prescribed by KAREN venlafaxine 150 mg capsule,extended release 24hr 300 mg PO DAILY Patient Comments: QAM Rx Instructions: Prescribed by KAREN Gemtesa 75 mg tablet 75 mg PO DAILY Rx Instructions: Prescribed by TOMEKA Hart Sensimist 27.5 mcg/actuation spray,suspension 2 spray intranasal DAILY PRN (Reason: nasal congestion) Patient Comments: it's been awhile Rx Instructions: into each nostril sertraline 100 mg tablet 200 mg PO DAILY Patient Comments: QAM Rx Instructions: Prescribed by Karen famotidine 20 mg tablet 20 mg PO TID Qty: 270 0RF Rx Instructions: Prescribed by: SCOTT metformin 500 mg tablet 500 mg PO BID Qty: 180 1RF Rx Instructions: Prescribed by Jodie semaglutide 2 mg/dose (8 mg/3 mL) pen injector 2 mg subcut WEEKLY Qty: 3 1RF Patient Comments: THURSDAYS Rx Instructions: Prescribed by Jodie potassium citrate 10 mEq (1,080 mg) tablet extended release 10 meq PO BID Qty: 180 1RF atorvastatin 20 mg tablet 20 mg PO DAILY Qty: 90 0RF Rx Instructions: Prescribed by: SCOTT Figueroa flaxseed oil 1,000 mg capsule 1,000 mg PO DAILY Rx Instructions: administer with a meal nystatin 100,000 unit/gram powder 1 applic topical BID PRN (Reason: skin irritation) lisinopril 20 mg tablet 20 mg PO DAILY Patient Comments: QAM Rx Instructions: Prescribed by LUKE methenamine hippurate [Hiprex] 1 gram tablet 1 g PO BID Rx Instructions: Prescribed by TOMEKA zolpidem 10 mg tablet 10 mg PO HS Rx Instructions: Prescribed by KAREN tramadol 25 mg tablet 25 mg PO Q6H PRN (Reason: pain) Qty: 40 0RF Patient Comments: haven't taken for a month dexamethasone 0.5 mg/5 mL elixir 0.25 mg PO Q6H PRN (Reason: MOUTH SORES) Patient Comments: probably a month ago Rx Instructions: mark (ANTWAN) FreeStyle Conchis 3 Sensor Device See Rx Instructions .Route Qty: 6 3RF Rx Instructions: Change every 14 days As directed psyllium husk 0.52 gram capsule 0.52 g PO DAILY Rx Instructions: Prescribed by Jodie (ANTWAN) pen needle, diabetic [BD Ultra-Fine Short Pen Needle] 31 gauge x 5/16 needle MISCELLANEOUS Qty: 100 1RF Rx Instructions: As directed insulin glargine U-300 conc [Toujeo SoloStar U-300 Insulin] 300 unit/mL (1.5 mL) insulin pen 20 unit subcut .bedtime Qty: 4.5 1RF Rx Instructions: Prescribed by SCOTT - dose decreased 02/04/24 cyclobenzaprine 5 mg tablet 5 mg PO QHS PRN (Reason: muscle spasm) Qty: 20 0RF Patient Comments: last taken months ago Rx Instructions: reminder: take separate from zolpidem and gabapentin by 3 hours Other Ambulatory Orders: Comprehensive Metabolic Panel (Routine) Timeframe: [id number] Location: Determined by Patient Ordered By: Jerry Crouch Date of admission: 09/15/24 11:38 Primary Care Provider: Jodie Steiner I. Admitting Provider: Gideon Lopez Attending physician on admission: Gideon Lopez Condition: Stable
== END 2024-09-18 15:36 | DRG 470 ==
LOC: ANHSURGERY 11:41 → ANH3MED 11:41
PROVIDERS: General Practice; Nurse Practitioner Gerontology; Admitting Provider Orthopaedic Surgery; PCP Physician Assistant Medical; Visit Provider Physician Assistant Surgical
PROC: 0SRC0J9 Replacement of Right Knee Joint with Synthetic Substitute, Cemented, Open Approach (ICD-10-PCS; CPT 27447; principal; 2024-09-14 08:30)
DX: M17.11 Unilateral primary osteoarthritis, right knee (principal); I50.32 Chronic diastolic (congestive) heart failure; I11.0 Hypertensive heart disease with heart failure; E66.01 Morbid (severe) obesity due to excess calories; E11.21 Type 2 diabetes mellitus with diabetic nephropathy; E11.649 Type 2 diabetes mellitus with hypoglycemia without coma; E78.5 Hyperlipidemia, unspecified; F41.9 Anxiety disorder, unspecified; F32.A Depression, unspecified; G47.33 Obstructive sleep apnea (adult) (pediatric); H53.8 Other visual disturbances; M81.0 Age-related osteoporosis without current pathological fracture; M47.816 Spondylosis without myelopathy or radiculopathy, lumbar region; R91.1 Solitary pulmonary nodule; R74.01 Elevation of levels of liver transaminase levels; Z90.49 Acquired absence of other specified parts of digestive tract; Z86.73 Personal history of transient ischemic attack (TIA), and cerebral infarction without residual deficits; Z68.36 Body mass index [BMI] 36.0-36.9, adult; Z79.01 Long term (current) use of anticoagulants; Z79.4 Long term (current) use of insulin; Z79.84 Long term (current) use of oral hypoglycemic drugs; Z79.85 Long-term (current) use of injectable non-insulin antidiabetic drugs
CPT/HCPCS: 36415; 70496; 70498; 70551; 73560; 76705; 80048; 80053; 80061; 80074; 82948; 83036; 85025; 85027; 97110; 97116; 97161; 97165; 97530; 97535; A9270; C1713; C1776; J0171; J0360; J0457; J0690; J1100; J1815; J1885; J2003; J2270; J2371; J2405; J2704; J2795; J3010; J3370; J7030; J7120; Q9967

== ENCOUNTER 2024-12-28 09:30 | Outpatient (RCR) | payer MEDICARE, MEDICAID, SELFPAY ==
--- NOTE | 2024-10-04 19:33 | OPREHPOC ---
Outpatient Therapy Plan of Care This is a Multidisciplinary Plan of Care that may contain components documented by all disciplines (PT, OT, and ST.) PT Problem 1 PT Problem #1 Knowledge Deficit PT Goal 1 Goal / Goal Update Pt will demo good understanding of chair exercises and compliance indep Target Visit 12 PT Problem 2 PT Problem #2 Pain PT Goal 1 Goal / Goal Update Pt will report reduced pain levels of 2/10 during standing and ambulation. Target Visit 10 PT Problem 3 PT Problem #3 Impaired Range of Motion PT Goal 1 Goal / Goal Update Pt will improve active ROM to atleast lacking 5 deg of extension, 120deg of flexion without increased discomfort. Target Visit 12 PT Problem 4 PT Problem #4 Impaired Gait
--- NOTE | 2024-10-04 19:33 | PTOPEVAL1 ---
Assessment and note entered by Tania Jean, PT Evaluation Information Assessment Status Evaluation Diagnosis M17.11, Z96.651 ICD-10 Condition Codes (PT) Pain in right knee M25.561,Difficulty Walking R26. 2,Abnormalities of gait and mobility R26.9, Weakness R53.1,Aftercare following joint replacement surgery Z47.1 Onset DOS: 09/14/2024 Subjective Information Pt reports had been experiencing pain for approx 9 months and just recently had a R TKR on 09/14 this year. She reports going to acute rehab post surgery and received 3hrs of therapy on a daily. Currently experiencing some pain and swelling which impacts her ability to perform transfers and ambulation at this time using a 2WW. 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 Pt lives in a snf Apartment and has a caregiver who comes in for 5 hrs/day x 5 days/wk, for cooking, cleaning, set-up wth shower, taking to MD appointments or grocery shopping. Reported Pain Level Pain Score 5: Self Report Assessment PT Clinical Summary Pt presents to therapy s/p R TKR on 09/14/[address] Harley. She demos reduced active ROM and mild post op swelling, postural and gait impairments, balance deficits and decreased standing and ambulation tolerance using 2WW impacting her ability to perform safe and indep functional mobility, household and community ambulation requiring increased assistance at this time. She will benefit from skilled PT to improve mobility, strength, endurance, balance and safety with gait to reduce risk for falls. Plan of Care Interventions Electrical Stimulation,Gait Training,Intermittent Compression Pump,Patient/Caregiver Education, Therapeutic Activities,Therapeutic Exercise,Other Other Interventions IASTM, Taping PT Services Indicated Yes Treatment Frequency and 2x/wk x 12 visits Duration These treatments will address the objective and functional deficits as defined above. The patient will be advanced safely and appropriately in order for the patient to progress towards his/her prior level of function. Additional exercises will be introduced and as well as a comprehensive home exercise program upon discharge, if needed, ?to ensure carryover of functional gains achieved in the clinic. This treatment plan has been reviewed and agreement upon by the patient.
--- NOTE | 2024-10-25 11:44 | PCPTNOTE ---
Pt called to cancel today due to attending a .
--- NOTE | 2024-11-08 14:38 | PTOPPROG ---
Assessment and note entered by Tania Jean, PT Progress Information Assessment Status Progress Diagnosis M17.11, Z96.651 ICD-10 Condition Codes (PT) Pain in right knee M25.561,Difficulty Walking R26. 2,Abnormalities of gait and mobility R26.9, Weakness R53.1,Aftercare following joint replacement surgery Z47.1 Onset DOS: 09/14/2024 Subjective Information Reports falling on her butt this morning trying to stoop forward to put water for her pet dog with knees straight, L knees feel like its gonna buckle on her and she lost her balance, fell on her bottom. She could not get up from the floor. Scooted around the apartment until life alert came to assist her back on her feet. She is feeling more sore this time. Assessment PT Clinical Summary Pt has been receiving skilled PT treatment for s/p R TKR by Dr. Harley and ania good progress towards goals. Pt reports that Ortho surgeon was pleased with her progress in ROM and strength. However, during the re-assessment, pt continue to present difficulties with balance, postural dysfunction and gait deviations using the rollator , she also had a recent fall which made her feel more sore and felt she had a set back. She will benefit from continued therapy intervention to further improve functional mobility, strength and safety with dynamic standing and ambulation tasks and to reduce risk for repeated falls. Plan of Care Interventions Electrical Stimulation,Gait Training,Manual Therapy,Patient/Caregiver Education,Therapeutic Activities,Therapeutic Exercise,Other Other Interventions IASTM, Taping PT Services Indicated Yes Treatment Frequency and 2x/wk x 12 visits Duration These treatments will address the objective and functional deficits as defined above. The patient will be advanced safely and appropriately in order for the patient to progress towards his/her prior level of function. Additional exercises will be introduced and as well as a comprehensive home exercise program upon discharge, if needed, ?to ensure carryover of functional gains achieved in the clinic. This treatment plan has been reviewed and agreement upon by the patient.
--- NOTE | 2024-11-08 14:39 | OPREHPOC ---
Outpatient Therapy Plan of Care This is a Multidisciplinary Plan of Care that may contain components documented by all disciplines (PT, OT, and ST.) PT Problem 1 PT Problem #1 Knowledge Deficit PT Goal 1 Goal / Goal Update Pt will demo good understanding of chair exercises and compliance indep Target Visit 12 Progress Partially Met PT Problem 2 PT Problem #2 Pain PT Goal 1 Goal / Goal Update Pt will report reduced pain levels of 2/10 during standing and ambulation. Target Visit 10 Progress Partially Met PT Problem 3 PT Problem #3 Impaired Range of Motion PT Goal 1 Goal / Goal Update Pt will improve active ROM to atleast lacking 5 deg of extension, 120deg of flexion without increased discomfort. update 11/08/2024: pt demo lacking 14 deg for active extension and only 115 deg active flexion. Target Visit 12 Progress Partially Met PT Problem 4 PT Problem #4 Impaired Gait PT Goal 1 Goal / Goal Update NEW GOAL 11/08/2024: Pt will demo normalized gait pattern with improved hip extension and trunk extension when standing and ambulating with rollator. Target Visit 10
--- NOTE | 2024-12-06 10:37 | PCPTNOTE ---
Pt called and cancelled morning of appt stating her insurance man dropped by and he wouldn'tbe leaving in time for her to make her therapy appt.
--- NOTE | 2024-12-08 10:25 | PCPTNOTE ---
when patient did not present for appt 10 minutes after time, pt was called by clerical. Daughter answered the phone and states pt stated she called to cancel appt yesterday though clerical did not receive this call, nor was it cancelled on the schedule. Pt appt cancelled today.
--- NOTE | 2024-12-17 10:11 | PCPTNOTE ---
Pt arrived 16 minutes late for appt and required a reschedule of her appt per department policy.
--- NOTE | 2024-12-24 16:12 | PTOPPROG ---
Assessment and note entered by Rani Driver, PT Evaluation Information Assessment Status Progress Diagnosis M17.11, Z96.651 ICD-10 Condition Codes (PT) Pain in right knee M25.561,Difficulty Walking R26. 2,Abnormalities of gait and mobility R26.9, Weakness R53.1,Aftercare following joint replacement surgery Z47.1 Onset DOS: 09/14/2024 Subjective Information Reports feeling 95% improved overall. Patient reports pain and walking and is improved. States talked to the doctor about her concerns with MD and had her questions answered. Puts a salve on her incision to loosen it. Has not had to take pain medications since the week after getting home from the hospital Assessment PT Clinical Summary Pt has attended 16 visits since initiation of therapy on 10/04/24 due to increased cancellation rate. She has made significant progress over her plan of care, with greatly improved pain, range, and strength thus improving her mobility. She reports on nice days she is walking outside in front of her apartment. She continues to lack full extension or flexion, (ROM 6-116) and continues to have some mild weakness in her knee (4-/5). But of greatest need is gait education as she appears self-limiting with short steps bilat and slow tracy with her rollator. Thus patient and therapist have decided to continue with the remainder of her plan of care 4 more visits to focus on these high level goals in order to prepare her for the highest functional outcomes at discharge. Plan of Care Interventions Electrical Stimulation,Gait Training,Manual Therapy,Patient/Caregiver Education,Therapeutic Activities,Therapeutic Exercise,Other Other Interventions IASTM, Taping PT Services Indicated Yes Treatment Frequency and 1x weekly x 4 weeks Duration These treatments will address the objective and functional deficits as defined above. The patient will be advanced safely and appropriately in order for the patient to progress towards his/her prior level of function. Additional exercises will be introduced and as well as a comprehensive home exercise program upon discharge, if needed, ?to ensure carryover of functional gains achieved in the clinic. This treatment plan has been reviewed and agreement upon by the patient.
--- NOTE | 2024-12-24 16:12 | OPREHPOC ---
Outpatient Therapy Plan of Care This is a Multidisciplinary Plan of Care that may contain components documented by all disciplines (PT, OT, and ST.) PT Problem 1 PT Problem #1 Knowledge Deficit PT Goal 1 Goal / Goal Update Pt will demo good understanding of chair exercises and compliance indep Target Visit 12 Progress Met PT Problem 2 PT Problem #2 Pain PT Goal 1 Goal / Goal Update Pt will report reduced pain levels of 2/10 during standing and ambulation. Target Visit 10 Progress Met PT Problem 3 PT Problem #3 Impaired Range of Motion PT Goal 1 Goal / Goal Update Pt will improve active ROM to atleast lacking 5 deg of extension, 120deg of flexion without increased discomfort. update 12/24/2024: pt demo lacking 6 deg for active extension and only 115 deg active flexion. Target Visit 12 Progress Partially Met PT Problem 4 PT Problem #4 Impaired Gait PT Goal 1 Goal / Goal Update NEW GOAL 11/08/2024: Pt will demo normalized gait pattern with improved hip extension and trunk extension when standing and ambulating with rollator. Target Visit 10 Progress Not Met PT Goal 2 Goal / Goal Update NEW GOAL 12/24/2024 Pt will demonstrates ambulation with each foot passing the stance foot for improved stride length and more functional gait Target Visit 20 PT Problem 5 PT Problem #5 Impaired Strength
== END 2025-01-02 23:59 | disposition home or self-care (01) ==
LOC: ANHHIPT 09:30
PROVIDERS: PCP Physician Assistant Medical; Visit Provider Orthopaedic Surgery
DX: M17.11 Unilateral primary osteoarthritis, right knee (principal); Z96.651 Presence of right artificial knee joint
CPT/HCPCS: 97014; 97110; 97116; 97140; 97161; 97530; 97750; G0283

== ENCOUNTER 2025-01-19 10:00 | Outpatient (RCR) | payer MEDICARE, MEDICAID, SELFPAY ==
--- NOTE | 2025-01-19 15:02 | PTOPDC ---
Assessment and note entered by Rani Driver, PT Evaluation Information Assessment Status Discharge Diagnosis M17.11, Z96.651 ICD-10 Condition Codes (PT) Pain in right knee M25.561,Difficulty Walking R26. 2,Abnormalities of gait and mobility R26.9, Weakness R53.1,Aftercare following joint replacement surgery Z47.1 Onset DOS: 09/14/2024 Subjective Information Pt reports getting closer to 100%. Surgeon said it will take a whole year to be 100% Pt reports still not great at climbing steps, but only needs to do stairs for kids and grand kids houses. 2-3 steps is most has to do right now and places both feet on steps. Is confident in this pattern just takes a little more time. Was able to walk with just an arm to steady her without her walker. Is able to walk around the house without the walker. Doesn't use cane but reports using wall or furniture. Feels safe with this, states she doesn't use these things but they are there if she needs them With first getting up to walk is still a little stiff Reported Pain Level Pain Score 0: Self Report Assessment PT Clinical Summary Pt has attended therapy consistently s/p R TKR on 09/14/2024. She shows greatly improved 2 min walk test scores, increasing by 70 ft from most recent reevaluation, shows functional flexion of knee of 120 actively. Unfortunately she is still lacking passive and active extension and has been encouraged to continue her propped extension exercises. Her postures with rollator appear more related to her chronic back pain, and her decreased step length on the right leg is likely related to left knee discomfort versus right knee deficit. She is happy with her progress and is more active than she has been, reporting is able to shop which she hasn't been able to in a long time. Thus patient is being discharged from therapy for completion of plan of care. Plan of Care PT Services Indicated No
== END 2025-01-20 08:05 | disposition home or self-care (01) ==
LOC: ANHHIPT 10:00
PROVIDERS: PCP Physician Assistant Medical; Visit Provider Orthopaedic Surgery
DX: M17.11 Unilateral primary osteoarthritis, right knee (principal); Z47.1 Aftercare following joint replacement surgery; Z96.651 Presence of right artificial knee joint
CPT/HCPCS: 97014; 97110; 97750; G0283

== ENCOUNTER 2025-03-18 08:00 | Outpatient (RCR) | payer MEDICARE, MEDICAID, SELFPAY ==
--- NOTE | 2025-02-09 13:48 | PTOPEVAL1 ---
Assessment and note entered by Rani Driver, PT Evaluation Information Assessment Status Evaluation Diagnosis Dizziness and Giddiness ICD-10 Condition Codes (PT) Difficulty Walking R26.2,Abnormalities of gait and mobility R26.9,Dizziness and Giddiness R42,BPPV H81.12 Onset a couple months Subjective Information Noted once when first sat up, looking up and rolled over in bed and was really dizzy. Stayed there and waited for it to subside. Notes with turning her head a certain way would get dizzy. Turning to the right is when she would get dizzy in bed. Quick movements usually trigger the dizziness. Has had slight vertigo previously but it went away and didn't bother her for a while after that. At different times will present differently, sometimes spinning, sometimes queasy, never vomited. Reported Pain Level Pain Score 0: Self Report Assessment PT Clinical Summary Pt presents with complaints of vertigo and off- balance sensation that has been present about a month. She has co-morbidities including chronic back pain, recent total knee replacement, and neuropathy. Evaluation shows (+) L [place]-Hallpike immediate downward left torsion suggestive of L anterior canalithiasis. She also shows flexed postures and postural weakness also causing gait abnormalities which exacerbate balance and functional deficits. Pt will benefit form physical therapy to address deficits, improve balance, and resolve BPPV symptoms. Plan of Care Interventions Gait Training,Hot Pack/Cold Pack,Manual Therapy, Neuro Re-education,Patient/Caregiver Education, Therapeutic Activities,Therapeutic Exercise,Self- Care/Home Management,Other PT Services Indicated Yes Treatment Frequency and 1-2x weekly x 10 visits Duration These treatments will address the objective and functional deficits as defined above. The patient will be advanced safely and appropriately in order for the patient to progress towards his/her prior level of function. Additional exercises will be introduced and as well as a comprehensive home exercise program upon discharge, if needed, ?to ensure carryover of functional gains achieved in the clinic. This treatment plan has been reviewed and agreement upon by the patient.
--- NOTE | 2025-02-09 13:48 | OPREHPOC ---
Outpatient Therapy Plan of Care This is a Multidisciplinary Plan of Care that may contain components documented by all disciplines (PT, OT, and ST.) PT Problem 1 PT Problem #1 Knowledge Deficit PT Goal 1 Goal / Goal Update Pt will be independent in HEP Pt will verbalize understanding of diagnosis and prognosis Target Visit 5 PT Problem 2 PT Problem #2 Impaired Sensation PT Goal 1 Goal / Goal Update Pt will report reduction of symptoms by 50% Target Visit 5 PT Goal 2 Goal / Goal Update Pt will show resolution of symptoms and nystagmus with [place]-Hallpike testing PT Problem 3 PT Problem #3 Impaired Balance PT Goal 1 Goal / Goal Update Will show tandem stance RLE equal to LLE of 12 seconds or greater Target Visit 5 PT Goal 2 Goal / Goal Update Pt will show tandem stance of 15 seconds R/L LEs Target Visit 10
--- NOTE | 2025-03-01 10:59 | PCPTNOTE ---
Patient called & cancelled scheduled appointment this date due to feeling unwell.
--- NOTE | 2025-03-08 08:47 | PCPTNOTE ---
Patient called & cancelled scheduled appointment this date due to fibromyalgia flare up
--- NOTE | 2025-03-10 09:46 | PTOPPROG ---
Assessment and note entered by Rani Driver, PT Evaluation Information Assessment Status Progress Diagnosis Dizziness and Giddiness ICD-10 Condition Codes (PT) Difficulty Walking R26.2,Abnormalities of gait and mobility R26.9,Dizziness and Giddiness R42,BPPV H81.12 Onset a couple months Subjective Information Pt reports feels like her dizziness and wooziness is better. Noticed a little yesterday but also noticed some fluid in the left ear Quick movements is going better Turning right in bed no longer causes dizziness Pt reports was good until yesterday and only lasted a couple hours. Described as an off-balance and not a spinning. Pt reports is doing well wiht her exercises at home, frequently will stop with her walker and do her glute sets. Improvement: 80% Assessment PT Clinical Summary Pt has attended therapy consistently for her L BPPV. She reports feeling improved in multiple aspects and with previously irritative actions. She shows improved balance scores with increased static times in differing positions, and tolerated more aggressive Han[place] today. L [place] cont to show torsional nystagmus though is less intense than previously. Pt will benefit from cont therapy to continue improving deficits and meet maximal functional independence. Plan of Care Interventions Gait Training,Hot Pack/Cold Pack,Manual Therapy, Neuro Re-education,Patient/Caregiver Education, Therapeutic Activities,Therapeutic Exercise,Self- Care/Home Management,Other PT Services Indicated Yes Treatment Frequency and 2x weekly 10 visits Duration These treatments will address the objective and functional deficits as defined above. The patient will be advanced safely and appropriately in order for the patient to progress towards his/her prior level of function. Additional exercises will be introduced and as well as a comprehensive home exercise program upon discharge, if needed, ?to ensure carryover of functional gains achieved in the clinic. This treatment plan has been reviewed and agreement upon by the patient.
--- NOTE | 2025-03-15 13:42 | PCPTNOTE ---
Pt called to [facility] physical therapy appointment this date due to being sick.
--- NOTE | 2025-03-29 08:45 | PCPTNOTE ---
Pt cancelled appt in [facility] last night no reason given.
--- NOTE | 2025-03-29 10:41 | PTOPDC ---
Assessment and note entered by Rani Driver, PT Evaluation Information Assessment Status Discharge - Pt Not Present Diagnosis Dizziness and Giddiness ICD-10 Condition Codes (PT) Difficulty Walking R26.2,Abnormalities of gait and mobility R26.9,Dizziness and Giddiness R42,BPPV H81.12 Onset a couple months Subjective Information Pt reports feels like her dizziness and wooziness is better. Noticed a little yesterday but also noticed some fluid in the left ear Quick movements is going better Turning right in bed no longer causes dizziness Pt reports was good until yesterday and only lasted a couple hours. Described as an off-balance and not a spinning. Pt reports is doing well with her exercises at home, frequently will stop with her walker and do her glute sets. Improvement: 80% Assessment PT Clinical Summary Pt attended 10 visits for her vertigo symptoms reporting she was improving. However today she called and asked to be discharged due to being too busy with her other activities and needing to rest in between those. Thus patient is being discharged per request. Plan of Care PT Services Indicated No
== END 2025-04-01 09:21 | disposition home or self-care (01) ==
LOC: ANHHIPT 08:00
PROVIDERS: PCP Physician Assistant Medical; Visit Provider Physician Assistant Medical
DX: H81.12 Benign paroxysmal vertigo, left ear (principal); R26.2 Difficulty in walking, not elsewhere classified; R26.9 Unspecified abnormalities of gait and mobility
CPT/HCPCS: 95992; 97112; 97162; 97530; 97750